=== PATIENT | male | born 1950 | race Caucasian/White ===

== ENCOUNTER 2016-12-03 13:46 | Inpatient (IN) | payer OTHER ==
[~2016-12-03] VITALS: Ht 180.3 cm; Wt 93.2 kg
[~2016-12-03 13:46] MED LIST: ASPCH81X PO; ATOR-54 PO; CYAN100020 PO; LISI10TA PO; METF-384 PO; TAMS0.4C38 PO
[2016-12-03] MEDS ORDERED: DILTIAZEM BOLUS / DRIP IV STA ×2 (14:07→17:18)
[2016-12-03] MEDS ORDERED: SODIUM CHLORIDE 0.9% 1000ML 500 ML IV STA (14:07)
[2016-12-03] MEDS ORDERED: SODIUM CHLORIDE 0.9% 1000ML 1,000 ML IV STA (14:07)
[2016-12-03] MEDS ORDERED: DILTIAZEM HCL INJ 125 MG in DEXTROSE 5% 100ML IV PRN (14:15)
[2016-12-03] MEDS ORDERED: DILTIAZEM HCL 5 MG/ML 5 ML VIAL IV SCH ×2 (14:15→15:15)
[2016-12-03 14:18] LABS: HEMATOCRIT 48.6 % (42-52); MEAN CELL VOLUME 94.9 fL (80-100); MEAN CORPUSCULAR HEMOGLOBIN 33.4 pg (25-34); MEAN CORPUSCULAR HGB CONC 35.2 g/dl (32-36); MEAN PLATELET VOLUME 8.8 fL (7.4-10.4); PLATELET COUNT 228 K/uL (130-400); RED BLOOD COUNT 5.12 M/uL (4.7-6.1); WHITE BLOOD COUNT 12.28 K/uL (4.8-10.8)
[2016-12-03 14:27] LABS: PARTIAL THROMBOPLASTIN RATIO 1.1; PROTHROMBIN TIME (PATIENT) 10.7 SECONDS (9.0-12.0)
[2016-12-03 14:36] LABS: ALT/SGPT 25 U/L (12-78); BLOOD UREA NITROGEN 10 mg/dl (7-18); BUN/CREATININE RATIO 12.6 (10-20); CALCIUM 9.1 mg/dl (8.5-10.1); CARBON DIOXIDE 28 mmol/L (21-32); CHLORIDE 105 mmol/L (98-107); CREATININE 0.76 mg/dl (0.60-1.40); GLUCOSE 114 mg/dl (70-99); MAGNESIUM 1.7 mg/dl (1.8-2.4); POTASSIUM 3.9 mmol/L (3.5-5.1); SODIUM 137 mmol/L (136-145)
[2016-12-03 14:47] LABS: ALB/GLOB RATIO 0.9 (0.9-2); ALKALINE PHOSPHATASE 122 U/L (45-117); AST/SGOT 17 U/L (15-37); THYROID STIMULATING HORMONE 0.869 uIu/ml (0.300-4.500)
--- NOTE | 2016-12-03 14:48 | DIAGNOSTIC IMAGING REPORT ---
CHEST ONE VIEW PORTABLE CLINICAL HISTORY: Atypical chest pain. Abnormal EKG. COMPARISON STUDY: 06/02/2015 FINDINGS: The heart is the upper limits of normal in size. There is radiographic evidence of emphysema. There is no focal pulmonary consolidation. There is no failure. There are no pleural effusions. There is minor left basilar atelectasis/scarring. There are a few scattered postinflammatory calcifications within the right upper lung zone.[ IMPRESSION: No active disease in the chest. Electronically signed by: Fredi Carney M.D. 12/03/2016 2:47 PM Dictated Date/Time: 12/03/2016 2:46 PM
[2016-12-03] MEDS ORDERED: IV FLUIDS COMPLETED PRN (15:30)
[2016-12-03] MEDS ORDERED: ACETAMINOPHEN 325 MG TAB PO PRN (15:30)
--- NOTE | 2016-12-03 15:33 | EMERGENCY ROOM VISIT NOTE ---
History Report prepared by Tad: Ebenezer Hutchison Under the Supervision of: Dr. Tam Navarrete M.D. First contact with patient: 14:00 Chief Complaint: OTHER COMPLAINT Stated Complaint: SENT BY DR LEWIS - ABNORMAL EKG History of Present Illness The patient is a 66 year old male who presents to the Emergency Room for evaluation of an abnormal ECG occurring just prior to arrival. The patient is reported to have been in atrial fibrillation versus atrial flutter. He was seen by his tool clerk and had the ECG done. He is followed by his tool clerk for COPD. The patient states that he has no symptoms and denies any SOB, lightheadedness, chest pain, or palpitations. He denies any heavy alcohol use. He is on aspirin, but denies using any other blood thinners. The patient in on Lisinopril for HTN. Source of History: patient Onset: Just prior to arrival Quality: other (abnormal ECG) Timing: other (episode) Associated Symptoms: No chest pain, No SOB Note: The patient denies any lightheadedness, or palliations. Review of Systems See HPI for pertinent positives & negatives. A total of 10 systems reviewed and were otherwise negative. Past Medical & Surgical Medical Problems: (1) COPD (chronic obstructive pulmonary disease) (2) DM type 2 (diabetes mellitus, type 2) (3) Dyslipidemia (4) GERD (gastroesophageal reflux disease) (5) Hypertension (6) PAD (peripheral artery disease) (7) Peripheral neuropathy (8) Tobacco use disorder Surgical Problems: (1) S/p ORIF right ankle Family History Diabetes mellitus FATHER MOTHER FH: heart disease FATHER ([place] in 60's) Hypertension FATHER Social History Smoking Status: Current Every Day Smoker Drug Use: none Marital Status: Housing Status: lives with family Occupation Status: retired Current/Historical Medications Scheduled Aspirin (Aspirin Chewable), 81 MG PO QAM Atorvastatin Calcium (Lipitor), 80 MG PO DAILY Cholecalciferol (Vitamin D3), 1 TAB PO DAILY Cyanocobalamin (Vitamin B12), 1 TAB PO QAM Lisinopril (Prinivil), 10 MG PO QAM Metformin Hcl (Glucophage), 1,000 MG PO QAM Ocuvite Preservision (Ocuvite Preservision), 1 TAB PO DAILY Tamsulosin Hcl (Flomax), 0.4 MG PO QPM Allergies Coded Allergies: NO KNOWN DRUG ALLERGIES (Verified Allergy, Unknown, ., 02/09/16) Levofloxacin (Unverified Adverse Reaction, Intermediate, JOINT STIFFNESS, 12/03/16) Physical Exam Vital Signs Date Time Temp Pulse Resp B/P (MAP) Pulse Ox O2 Delivery O2 Flow Rate FiO2 12/03/16 15:17 98 20 122/82 95 Room Air 12/03/16 14:11 96 Room Air 12/03/16 14:09 135 12/03/16 13:53 36.8 141 20 139/97 92 Room Air Physical Exam GENERAL: Patient is in no acute distress. HEENT: No acute trauma, normocephalic atraumatic, mucous membranes moist, no nasal congestion, no scleral icterus. NECK: No stridor, no adenopathy, no meningismus, trachea is midline. LUNGS: Clear to auscultation bilaterally, no wheeze, no rhonchi, breath sounds equal. HEART: Tachycardic with a regular rhythm. No murmurs. ABDOMEN: Soft, nontender, bowel sounds positive, no hernias, no peritonitis. EXTREMITIES: No cyanosis or edema, full range of motion of all the joints without pain or difficulty, no signs for acute trauma. NEUROLOGIC: Oriented x 3, no acute motor or sensory deficits, no focal weakness. SKIN: No rash, no jaundice, no diaphoresis. Medical Decision & Procedures ER Provider Diagnostic Interpretation: X-ray results as stated below per interpretation by me and the radiologist: CHEST ONE VIEW PORTABLE FINDINGS: The heart is the upper limits of normal in size. There is radiographic evidence of emphysema. There is no focal pulmonary consolidation. There is no failure. There are no pleural effusions. There is minor left basilar atelectasis/scarring. There are a few scattered postinflammatory calcifications within the right upper lung zone.[ IMPRESSION: No active disease in the chest. Electronically signed by: Fredi Carney M.D. 12/03/2016 2:47 PM Laboratory Results 12/03/16 14:05 12/03/16 14:05 Test 12/03/16 14:05 Red Blood Count 5.12 M/uL (4.7-6.1) Mean Corpuscular Volume 94.9 fL (80-100) Mean Corpuscular Hemoglobin 33.4 pg (25-34) Mean Corpuscular Hemoglobin Concent 35.2 g/dl (32-36) RDW Standard Deviation 54.0 fL (36.4-46.3) RDW Coefficient of Variation 15.4 % (11.5-14.5) Mean Platelet Volume 8.8 fL (7.4-10.4) Prothrombin Time 10.7 SECONDS (9.0-12.0) Prothromb Time International Ratio 1.0 (0.9-1.1) Activated Partial Thromboplast Time 29.0 SECONDS (21.0-31.0) Partial Thromboplastin Ratio 1.1 Anion Gap 4.0 mmol/L (3-11) Est Creatinine Clear Calc Drug Dose 113.0 ml/min Estimated GFR () 111.0 Estimated GFR (Non- 95.7 BUN/Creatinine Ratio 12.6 (10-20) Calcium Level 9.1 mg/dl (8.5-10.1) Magnesium Level 1.7 mg/dl (1.8-2.4) Total Bilirubin 0.6 mg/dl (0.2-1) Aspartate Amino Transf (AST/SGOT) 17 U/L (15-37) Alanine Aminotransferase (ALT/SGPT) 25 U/L (12-78) Alkaline Phosphatase 122 U/L (45-117) Troponin I < 0.015 ng/ml (0-0.045) Total Protein 8.0 gm/dl (6.4-8.2) Albumin 3.7 gm/dl (3.4-5.0) Globulin 4.3 gm/dl (2.5-4.0) Albumin/Globulin Ratio 0.9 (0.9-2) Thyroid Stimulating Hormone (TSH) 0.869 uIu/ml (0.300-4.500) Laboratory results reviewed by me. Medications Administered Medications (Trade) Dose Ordered Sig/Piotr Route Start Time Stop Time Status Last Admin Dose Admin Sodium Chloride 500 ml @ 999 mls/hr Q31M STAT IV 12/03/16 14:07 12/03/16 14:37 DC 12/03/16 14:23 999 MLS/HR Sodium Chloride 1,000 ml @ 125 mls/hr Q8H STAT IV 12/03/16 14:07 12/03/16 16:43 DC 12/03/16 14:23 125 MLS/HR Diltiazem HCl 125 mg/Dextrose 125 ml @ 0 mls/hr Q0M PRN IV 12/03/16 14:15 12/03/16 23:00 12/03/16 14:22 5 MLS/HR Diltiazem HCl (Cardizem Inj) 20 mg 1415 IV 12/03/16 14:15 12/03/16 15:00 DC 12/03/16 14:21 20 MG ECG Indication: other (abnormal ECG) Rate (beats per minute): 131 Rhythm: atrial flutter (with 2 to 1 conduction) Findings: no ectopy, other (non-specific ST change) ED Course 1404: The patient was evaluated in room C4B. A complete history and physical exam was performed. 1407: Ordered Sodium Chloride 1000 ml @ 125 mls/hr IV, Sodium Chloride 500 ml @ 999 mls/hr IV, Cardizem Bolus/Drip IV. 1505: Upon reexamination the patient is resting comfortably. I discussed results and treatment plan with the patient. He verbalizes agreement and understanding. The patient will be evaluated for further management. Medical Decision The patient is a 66 year old male who presents to the ED for evaluation of an abnormal ECG. Differential diagnoses considered include a-fib, a-flutter, dehydration, electrolyte imbalance, CA, anemia, and thyroid disorder. There is a mild leukocytosis with a white count of 12,000, this could be consistent with infection or just the stress of the situation. No concerning anemia. Renal panel testing does not show renal failure. Magnesium was noted to be slightly low. No hepatitis or coagulopathy. The patient appeared to be in a euthyroid state. Chest film did not show pneumonia or CHF. There was no pneumothorax. EKG showed a rapid atrial flutter, no acute ischemia. Cardiac enzyme testing times one is not consistent with acute cardiac injury. The patient was aggressively managed given the rapid heart rate. He was given an IV saline bolus. He received IV diltiazem as a bolus and then was placed on an IV diltiazem drip. The patient has made significant improvement on the diltiazem. His heart rate is now in the 80s or 90s. He is still in atrial flutter though as per the engine monitor. The patient requires admission/observation. The length of time he has been in this rhythm is unclear. I did speak to the patient and case management. The on -call hospitalist was consulted. Medication Reconcilliation Current Medication List: was personally reviewed by me Blood Pressure Screening Patient's blood pressure: Elevated blood pressure Blood pressure disposition: Elevated BP felt to be situational Consults Time Called: 1502 Consulting Physician: Dr. Madi Chaudhry Returned Call: 1507 Discussed the patient's case. The patient will be evaluated for further management. Impression Primary Impression: Atrial flutter with rapid ventricular response Critical Care I have personally spent greater than 30 minutes of critical care time in the direct management of this patient. This includes bedside care, interpretation of diagnostic studies and testing, discussion with consultants, the patient, and family members, and other required patient management activities. This 30 minutes is in excess of all separately billable procedures. Scribe Attestation The scribe's documentation has been prepared under my direction and personally reviewed by me in its entirety. I confirm that the note above accurately reflects all work, treatment, procedures, and medical decision making performed by me. Departure Information Dispostion Being Evaluated By Hospitalist Referrals Maryann Gordon D.O. (PCP) Patient Instructions My [facility]
[2016-12-03] MEDS ORDERED: GLUCOSE 40% GEL 15 GM TUBE PO PRN (16:00)
[2016-12-03] MEDS ORDERED: DEXTROSE 50% 50 ML SYR IV PRN (16:00)
[2016-12-03] MEDS ORDERED: GLUCOSE 10 TABS/TUBE PO PRN (16:00)
[2016-12-03] MEDS ORDERED: GLUCAGON FOR INJ 1 MG VIAL SQ PRN (16:00)
[2016-12-03] MEDS ORDERED: ATOR80TA PO (16:03)
[2016-12-03] MEDS ORDERED: CHOL1TAB12 PO (16:03)
--- NOTE | 2016-12-03 16:45 | History and Physical ---
History & Physical Date & Time of Service: Dec 03, 2016 at 16:16 Chief Complaint: Sent By Dr Bowden - Abnormal Ekg Primary Care Physician: Maryann Gordon D.O. History of Present Illness Source: patient, family This is a 66yo male with a PMH of multifocal atrial tachycardia, HTN, DM II, COPD and other problems listed below who presents directly from pulmonology clinic with an abnormal EKG. Patient was in normal state of health this morning when attending a follow-up pulmonology appt and was found to be tachycardic. An EKG was performed and patient was found to be in atrial flutter vs. A fib and sent to the ER for further evaluation. Patient's admission EKG showed atrial flutter with 2:1 AV conduction at a rate of 141. States that for the past few days he has felt more tired than usual but otherwise felt fine. Denies any current fatigue, lightheadedness, dizziness, chest pain, palpitations , SOB. Follows with Dr. Gordon in clinic for cardiology and states that he has had bouts of tachycardia in the past but has not been told of a definitive diagnosis. Per chart review, wore a Holter monitor for 24hrs in Feb 2016 that demonstrated frequent 2-6 beat runs of atrial tachycardia. Did not take morning medications prior to arrival. Past Medical/Surgical History Medical Problems: (1) COPD (chronic obstructive pulmonary disease) Status: Chronic (2) DM type 2 (diabetes mellitus, type 2) Status: Chronic (3) Dyslipidemia Status: Chronic (4) GERD (gastroesophageal reflux disease) Status: Chronic (5) Hypertension Status: Chronic (6) PAD (peripheral artery disease) Permanent Comment: with chronic left SFA occlusion Status: Chronic (7) Peripheral neuropathy Status: Chronic Surgical Problems: (1) S/p ORIF right ankle Status: Chronic Family History Diabetes mellitus FATHER MOTHER FH: heart disease FATHER ([place] in 60's) Hypertension FATHER Social History Smoking Status: Current Every Day Smoker (Currently smokes 1 ppd. 47 pack years. ) Alcohol Use: occasionally (Endorses 1 beer/week. ) Drug Use: none Marital Status: Housing status: lives with family Occupational Status: retired Immunizations History of Tetanus Vaccine?: Yes Tetanus Immunization Date: Sep 25, 2013 Allergies Coded Allergies: NO KNOWN DRUG ALLERGIES (Verified Allergy, Unknown, ., 02/09/16) Levofloxacin (Unverified Adverse Reaction, Intermediate, JOINT STIFFNESS, 12/03/16) Home Medications Scheduled Aspirin (Aspirin Chewable), 81 MG PO QAM Atorvastatin Calcium (Lipitor), 80 MG PO DAILY Cholecalciferol (Vitamin D3), 1 TAB PO DAILY Cyanocobalamin (Vitamin B12), 1 TAB PO QAM Lisinopril (Prinivil), 10 MG PO QAM Metformin Hcl (Glucophage), 1,000 MG PO QAM Ocuvite Preservision (Ocuvite Preservision), 1 TAB PO DAILY Tamsulosin Hcl (Flomax), 0.4 MG PO QPM Review of Systems Ten systems reviewed and negative except as noted in the HPI. Physical Exam Vital Signs Date Time Temp Pulse Resp B/P (MAP) Pulse Ox O2 Delivery O2 Flow Rate FiO2 12/03/16 16:07 92 18 118/83 96 Room Air 12/03/16 15:17 98 20 122/82 95 Room Air 12/03/16 14:11 96 Room Air 12/03/16 14:09 135 12/03/16 13:53 36.8 141 20 139/97 92 Room Air General Appearance: WD/WN, no apparent distress Head: normocephalic, atraumatic Eyes: normal inspection, PERRL, sclerae normal ENT: hearing grossly normal Neck: supple, no adenopathy, thyroid normal, no JVD, trachea midline Respiratory/Chest: chest non-tender, lungs clear, normal breath sounds, no respiratory distress, no accessory muscle use Cardiovascular: + tachycardia Abdomen/GI: normal bowel sounds, non tender, soft, no organomegaly Back: normal inspection Extremities/Musculoskelatal: normal inspection, no calf tenderness, normal capillary refill, no pedal edema Neurologic/Psych: alert, normal mood/affect, oriented x 3 Skin: normal color, warm/dry, no rash Diagnostics Laboratory Results Results Past 24 Hours Test 12/03/16 14:05 Range/Units White Blood Count 12.28 4.8-10.8 K/uL Red Blood Count 5.12 4.7-6.1 M/uL Hemoglobin 17.1 14.0-18.0 g/dL Hematocrit 48.6 42-52 % Mean Corpuscular Volume 94.9 80-100 fL Mean Corpuscular Hemoglobin 33.4 25-34 pg Mean Corpuscular Hemoglobin Concent 35.2 32-36 g/dl RDW Standard Deviation 54.0 36.4-46.3 fL RDW Coefficient of Variation 15.4 11.5-14.5 % Platelet Count 228 130-400 K/uL Mean Platelet Volume 8.8 7.4-10.4 fL Prothrombin Time 10.7 9.0-12.0 SECONDS Prothromb Time International Ratio 1.0 0.9-1.1 Activated Partial Thromboplast Time 29.0 21.0-31.0 SECONDS Partial Thromboplastin Ratio 1.1 Sodium Level 137 136-145 mmol/L Potassium Level 3.9 3.5-5.1 mmol/L Chloride Level 105 98-107 mmol/L Carbon Dioxide Level 28 21-32 mmol/L Anion Gap 4.0 3-11 mmol/L Blood Urea Nitrogen 10 7-18 mg/dl Creatinine 0.76 0.60-1.40 mg/dl Est Creatinine Clear Calc Drug Dose 113.0 ml/min Estimated GFR () 111.0 Estimated GFR (Non- 95.7 BUN/Creatinine Ratio 12.6 10-20 Random Glucose 114 70-99 mg/dl Calcium Level 9.1 8.5-10.1 mg/dl Magnesium Level 1.7 1.8-2.4 mg/dl Total Bilirubin 0.6 0.2-1 mg/dl Aspartate Amino Transf (AST/SGOT) 17 15-37 U/L Alanine Aminotransferase (ALT/SGPT) 25 12-78 U/L Alkaline Phosphatase 122 45-117 U/L Troponin I < 0.015 0-0.045 ng/ml Total Protein 8.0 6.4-8.2 gm/dl Albumin 3.7 3.4-5.0 gm/dl Globulin 4.3 2.5-4.0 gm/dl Albumin/Globulin Ratio 0.9 0.9-2 Thyroid Stimulating Hormone (TSH) 0.869 0.300-4.500 uIu/ml CXR normal EKG Atrial flutter with 2:1 A-V conduction Right bundle branch block Left anterior fascicular block Bifascicular block Impression Assessment and Plan This is a 66yo male with a PMH of multifocal atrial tachycardia, HTN, DM II, COPD and other problems listed below who presents directly from pulmonology clinic with an abnormal EKG. Atrial flutter tachycardia: -Asymptomatic. Denies CP, palpitations -Admission EKG with atrial flutter with 2:1 conduction at a rate of 141 Also with bifascicular block that was not present on previous EKG -Diltiazem bolus given and drip started in ER. Rate now ~98 -Continue diltiazem drip on the floor for now -Plan to switch to oral agent when appropriate -Consulted cardio for further recs -Monitor on tele DM II: -Hgb a1c of 6.1 in 08/04 -Held home meds -SSI while in-patient -BG checks AC HS HTN: -Normotensive -Continue home dose of Lisinopril HLD: -Continue home dose statin COPD: -Recently started seeing Dr. Bowden -Extensive history of tobacco use (47 pack years) -Has trialed some inhalers but is currently not on any -Dr Bowden to reassess once tachycardia is addressed PAD: -L >R with chronic left SFA occlusion -Followed by [facility] out-patient DVT Ppx: Lovenox Code status: DNR as per discussion with patient and his PCP: [facility] Dispo: Plan to return home once medically stable Level of Care Telemetry Advanced Directives Existing Living Will: No Resuscitation Status DO NOT RESUSCITATE VTE Prophylaxis VTE Risk Assessment Done? Y/N: Yes Risk Level: Moderate Given or contraindicated: Enoxaparin (Lovenox)SQ Social Service Consult None Apply Note ATTENDING ADDENDUM Record reviewed. Patient interviewed and examined in his room. Care coordinated with Lynnette Escalera PA-C. Please refer to her documentation for patient's history. Briefly, 66 YO male with hypertension, COPD, DM, and other problems. Seen in Pulmonary Clinic today and found to have arrhythmia. Referred to ED. Found to be in atrial flutter with rapid ventricular response. History of MAT. Holter in Feb 2016 showed NSR with short runs of PAT. No chest pain, SOB, palpitations. EXAM: General- no distress VS- as noted Neck- slight JVD Lungs- clear to auscultation Heart- irregular, no murmur or gallop appreciated Abdomen- + BS, soft, nontender Extremities- no pretibial edema or calf tenderness Neuro- alert, oriented DATA: K 3.9 Mg 1.7 TSH 0.869 Other lab studies as noted. EKG performed at 13:57 reviewed and demonstrated atrial flutter with 2:1 conduction, ventricular rate at 140 / minute, RBBB, left anterior fascicular block, NSSTTWA's.. . ASSESSMENT AND PLAN: ATRIAL FLUTTER Asymptomatic, time of onset unknown but new since February 2016. Started on diltiazem infusion in ED with slowing of ventricular rate. CHADS2-VASc score = 3. Initial anticoagulation with enoxaparin. Longer term anticoagulation will depend on cost and patient's preference. Consult Cardiology. HYPOMAGNESEMIA Mg 1.7 in ED. Received IV Mg. Continue replacement orally. Follow. Please refer to MAGDI Escalera's documentation for discussion of other issues. Meliton Barraza MD
[2016-12-03] MEDS ORDERED: MULT-190 PO (16:47)
[2016-12-03] MEDS ORDERED: ATORVASTATIN 40 MG TAB PO SCH (17:00)
[2016-12-03] MEDS ORDERED: ASPIRIN 81 MG CHEW PO SCH (17:00)
[2016-12-03] MEDS ORDERED: LISINOPRIL 10 MG TAB PO SCH (17:00)
[2016-12-03] MEDS: MAGNESIUM SULFATE 1GM / D5W 1 GM in PREMIXED IN D5W 100 ML IV SCH ×2 (17:21→18:38)
[2016-12-03 17:27] VITALS: BP 125/86; PULSE 84; TEMP 36.7; O2SAT 95; Ht 180.3 cm; Wt 93.2 kg
[2016-12-03] MEDS: INSULIN ASPART 100 UNITS/ML 3 ML PEN SC SCH ×2 (17:27→20:19)
[2016-12-03 19:44] VITALS: BP 108/71; PULSE 88; TEMP 36.9; O2SAT 94
[2016-12-03] MEDS: TAMSULOSIN HCL 0.4 MG CAP PO SCH (20:17)
[2016-12-03] MEDS ORDERED: ENOXAPARIN 40 MG/0.4 ML SYR SC SCH (21:00)
[2016-12-03 23:18] VITALS: BP 98/63; PULSE 77; TEMP 37; O2SAT 95
[2016-12-04] VITALS (10 sets, daily range): BP systolic 88–104; BP diastolic 57–71; PULSE 61–82; TEMP 36.5–37.1; O2SAT 94–96
[2016-12-04] MEDS: DILTIAZEM HCL INJ 125 MG in DEXTROSE 5% 100ML IV PRN ×2 (01:16→14:59)
[2016-12-04 06:00] LABS: MEAN CELL VOLUME 97.4 fL (80-100); MEAN CORPUSCULAR HGB CONC 31.8 g/dl (32-36); MEAN PLATELET VOLUME 8.9 fL (7.4-10.4); PLATELET COUNT 209 K/uL (130-400); RED BLOOD COUNT 4.62 M/uL (4.7-6.1); WHITE BLOOD COUNT 10.01 K/uL (4.8-10.8)
[2016-12-04 06:27] LABS: BUN/CREATININE RATIO 13.4 (10-20); CREATININE 0.73 mg/dl (0.60-1.40); MAGNESIUM 1.9 mg/dl (1.8-2.4); POTASSIUM 4.3 mmol/L (3.5-5.1)
[2016-12-04 07:15] LABS: ESTIMATED AVERAGE GLUCOSE 134 mg/dl; HA1C FLAG Normal (Normal)
[2016-12-04] MEDS: MAGNESIUM OXIDE 400 MG TAB PO SCH ×2 (08:38→21:09)
[2016-12-04] MEDS: LISINOPRIL 10 MG TAB PO SCH (08:39)
[2016-12-04] MEDS: CEROVITE ADV FORMULA TAB PO SCH (08:39)
[2016-12-04] MEDS: ATORVASTATIN 40 MG TAB PO SCH (08:39)
[2016-12-04] MEDS: CHOLECALCIFEROL 1000 INTER.UNIT TAB PO SCH (08:39)
[2016-12-04] MEDS: CYANOCOBALAMIN 500 MCG TAB (VIT B-12) PO SCH (08:39)
[2016-12-04] MEDS: ASPIRIN 81 MG CHEW PO SCH (08:39)
[2016-12-04] MEDS: INSULIN GLARGINE SOLOSTAR 100 UNITS/ML 3 ML PEN SC SCH ×2 (08:41→21:00)
[2016-12-04] MEDS: INSULIN ASPART 100 UNITS/ML 3 ML PEN SC SCH ×4 (08:41→21:00)
[2016-12-04] MEDS: ENOXAPARIN 100 MG/1ML SYR SQ SCH ×2 (08:48→21:10)
--- NOTE | 2016-12-04 11:35 | CARDIOLOGY CONSULTATION ---
DATE OF CONSULTATION: 12/04/2016 DATE OF CONSULTATION: 12/04/2016 This is a consultation for the hospitalist service. REASON FOR CONSULTATION: Atrial flutter. HISTORY OF PRESENT ILLNESS: The patient is a 66-year-old male with a history of active cigarette smoking who was being evaluated by the pulmonary service for COPD. He had a follow-up visit on the day of admission and was noted to be in tachycardia. EKG indicated atrial flutter with RVR and he was referred to the hospital for admission. The patient was very surprised that he had any problems. He was feeling well. He denies dizziness, progressive shortness of breath, chest pain or orthopnea. After admission, he was placed on a diltiazem infusion and his heart rates have been controlled. He has no current complaints. The patient is usually followed by Dr. Alejandro Gordon who in his most recent note from May of this year indicated the patient had a Holter monitor which indicated asymptomatic short runs of PAT. No definite diagnosis of atrial fibrillation or flutter. It should also be noted that the patient was complaining of some flushing. He had a 24-hour urine showed a very borderline elevation in norepinephrine with the remainder catecholamines being normal. I am uncertain as to the significance of these findings. The patient is a type 2 diabetic with a history of peripheral vascular disease with chronic left SFA occlusion and some mild carotid artery disease. He has no previous history of myocardial infarction or coronary artery disease. ALLERGIES: TO LEVAQUIN. PAST MEDICAL HISTORY: As outlined in the history of chief complaint. In addition, the patient had abnormal nocturnal oximeter sleep study in 2012, which I believe he did not follow through with any treatment. SOCIAL HISTORY: The patient currently smokes a pack of cigarettes daily for the past 47 years. He is and lives with his family. FAMILY MEDICAL HISTORY: Significant for diabetes. REVIEW OF SYSTEMS: A 10-point review of systems is negative except for the history of chief complaint. PHYSICAL EXAMINATION: GENERAL: He is alert and oriented, sitting comfortably. VITAL SIGNS: Blood pressure is 118/83, pulse is regular at 92. He is afebrile. HEAD, EYES, EARS, NOSE, AND THROAT: Normocephalic. Pupils are equal and reactive to light. Extraocular muscles are intact bilaterally. NECK: The neck veins are flat. Carotids have good upstrokes bilaterally without bruits. Thyroid is nonpalpable. RESPIRATORY: Breath sounds equal bilaterally and clear to auscultation. CARDIOVASCULAR: Heart has an irregular rhythm. There are no cardiac rubs or murmurs. GASTROINTESTINAL: Abdomen is soft, nontender without organomegaly. EXTREMITIES: Free of edema, digit clubbing, or cyanosis. NEUROLOGIC: Grossly intact. SKIN: Warm to touch. LYMPH NODES: Negative to palpation. LABORATORY DATA: Hemoglobin is 17.1. WBC count is 12.3, potassium is 3.9, creatinine is 0.76. TSH is 0.869. IMPRESSIONS: 1. Atrial flutter. 2. 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 3. Diabetes mellitus. 4. Hypertension. 5. Peripheral vascular disease. RECOMMENDATIONS: The patient is currently anticoagulated with Lovenox. He is very comfortable and his heart rates are controlled with the diltiazem infusion. I will review the echocardiogram when it is completed. Decision will be made regarding early cardioversion versus anticoagulation with followup. I would favor early cardioversion with the patient on oral diltiazem and only start antiarrhythmics if he has reoccurrence of his atrial arrhythmias.
--- NOTE | 2016-12-04 14:30 | Progress Note ---
Medicine Progress Note Date & Time of Visit: Dec 04, 2016 at 14:17. Subjective Pt was seen and examined Lying in bed comfortable with no distress Pt said that he feels fine He denies any chest pain, palpitation, dizziness and SOB Objective Last 8 Hrs Date Time Temp Pulse Resp B/P (MAP) Pulse Ox O2 Delivery O2 Flow Rate FiO2 12/04/16 12:00 Room Air 12/04/16 10:59 37.1 82 18 88/57 (67) 95 Room Air 12/04/16 08:40 65 93/63 (73) 12/04/16 08:00 Room Air 12/04/16 07:58 36.9 68 19 89/57 (68) 94 Room Air Physical Exam: General- No acute distress Head- atraumatic Eyes- PERRL, EOMI ENT- oropharynx clear Neck- supple, no JVD Lungs- No wheezing Heart- irregular rhythm; no murmur Abdomen- normal bowel sounds, soft Extremities- no pretibial edema, no calf tenderness Neuro- alert, oriented x 3; PERRL, EOMI; no facial palsy; Skin- warm & dry Laboratory Results: Last 24 Hours Test 12/03/16 16:34 12/03/16 20:15 12/04/16 05:38 12/04/16 06:36 Bedside Glucose 96 mg/dl 202 mg/dl 129 mg/dl White Blood Count 10.01 K/uL Red Blood Count 4.62 M/uL Hemoglobin 14.3 g/dL Hematocrit 45.0 % Mean Corpuscular Volume 97.4 fL Mean Corpuscular Hemoglobin 31.0 pg Mean Corpuscular Hemoglobin Concent 31.8 g/dl RDW Standard Deviation 55.6 fL RDW Coefficient of Variation 15.6 % Platelet Count 209 K/uL Mean Platelet Volume 8.9 fL Sodium Level 139 mmol/L Potassium Level 4.3 mmol/L Chloride Level 106 mmol/L Carbon Dioxide Level 29 mmol/L Anion Gap 4.0 mmol/L Blood Urea Nitrogen 10 mg/dl Creatinine 0.73 mg/dl Est Creatinine Clear Calc Drug Dose 117.9 ml/min Estimated GFR () 112.8 Estimated GFR (Non- 97.3 BUN/Creatinine Ratio 13.4 Random Glucose 127 mg/dl Estimated Average Glucose 134 mg/dl Hemoglobin A1c 6.3 % Calcium Level 8.0 mg/dl Magnesium Level 1.9 mg/dl Test 12/04/16 10:41 Bedside Glucose 166 mg/dl Assessment & Plan Atrial flutter tachycardia: -Asymptomatic. 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 ACHS SC 12/03/16 16:00 01/02/17 15:59 12/04/16 12:14 5 UNITS Glucose (Glucose 40% Gel) 15-30 GRAMS 15 GRAMS... UD PRN PO 12/03/16 16:00 01/02/17 15:59 Glucose (Glucose Chew Tab) 4-8 Tablets 4 Tabl... UD PRN PO 12/03/16 16:00 01/02/17 15:59 Dextrose (Dextrose 50% 50ML Syringe) 25-50ML OF 50% DW IV FOR... UD PRN IV 12/03/16 16:00 01/02/17 15:59 Glucagon (Glucagon Inj) 1 mg UD PRN SQ 12/03/16 16:00 01/02/17 15:59 Aspirin (Aspirin Chew) 81 mg QAM PO 12/04/16 09:00 01/03/17 08:59 12/04/16 08:39 81 MG Atorvastatin Calcium (Lipitor Tab) 80 mg DAILY PO 12/04/16 09:00 01/03/17 08:59 12/04/16 08:39 80 MG Lisinopril (Zestril Tab) 10 mg QAM PO 12/04/16 09:00 01/03/17 08:59 12/04/16 08:39 10 MG Tamsulosin HCl (Flomax Cap) 0.4 mg QPM PO 12/03/16 21:00 01/02/17 20:59 12/03/16 20:17 0.4 MG Cholecalciferol (Vitamin D Tab) 3,000 inter.unit DAILY PO 12/04/16 09:00 01/03/17 08:59 12/04/16 08:39 3,000 INTER.UNIT Cyanocobalamin (Vitamin B-12 Tab) 1,000 mcg QAM PO 12/04/16 09:00 01/03/17 08:59 12/04/16 08:39 1,000 MCG Multivitamins/ Minerals (Multivitamin W/ Minerals Tab) 1 tab DAILY PO 12/04/16 09:00 01/03/17 08:59 12/04/16 08:39 1 TAB Diltiazem HCl 125 mg/Dextrose 125 ml @ 0 mls/hr Q0M PRN IV 12/03/16 23:00 01/02/17 22:59 12/04/16 01:16 10 MLS/HR Enoxaparin Sodium (Lovenox Inj) 90 mg Q12H SQ 12/04/16 09:00 01/03/17 08:59 12/04/16 08:48 90 MG Magnesium Oxide (Mag-Ox Tab) 400 mg BID PO 12/04/16 09:00 01/03/17 08:59 12/04/16 08:38 400 MG Insulin Glargine (Lantus Solostar Pen) 10 units BID SC 12/04/16 09:00 01/03/17 08:59 12/04/16 08:41 10 UNITS
[2016-12-04] MEDS: TAMSULOSIN HCL 0.4 MG CAP PO SCH (21:09)
[2016-12-05] VITALS (7 sets, daily range): BP systolic 85–115; BP diastolic 58–76; PULSE 61–113; TEMP 36.6–36.7; O2SAT 94–97
[2016-12-05 06:04] LABS: HEMATOCRIT 45.9 % (42-52); MEAN CELL VOLUME 97.7 fL (80-100); MEAN CORPUSCULAR HEMOGLOBIN 31.5 pg (25-34); MEAN CORPUSCULAR HGB CONC 32.2 g/dl (32-36); MEAN PLATELET VOLUME 9.3 fL (7.4-10.4); PLATELET COUNT 205 K/uL (130-400); WHITE BLOOD COUNT 9.85 K/uL (4.8-10.8)
[2016-12-05 06:39] LABS: BUN/CREATININE RATIO 16.6 (10-20); CALCIUM 8.8 mg/dl (8.5-10.1); CREATININE 0.74 mg/dl (0.60-1.40); POTASSIUM 4.4 mmol/L (3.5-5.1)
[2016-12-05] MEDS: CEROVITE ADV FORMULA TAB PO SCH (08:40)
[2016-12-05] MEDS: CYANOCOBALAMIN 500 MCG TAB (VIT B-12) PO SCH (08:41)
[2016-12-05] MEDS: ATORVASTATIN 40 MG TAB PO SCH (08:41)
[2016-12-05] MEDS: CHOLECALCIFEROL 1000 INTER.UNIT TAB PO SCH (08:41)
[2016-12-05] MEDS: MAGNESIUM OXIDE 400 MG TAB PO SCH ×2 (08:41→21:05)
[2016-12-05] MEDS: LISINOPRIL 10 MG TAB PO SCH (08:41)
[2016-12-05] MEDS: INSULIN ASPART 100 UNITS/ML 3 ML PEN SC SCH ×3 (08:43→17:16)
[2016-12-05] MEDS: INSULIN GLARGINE SOLOSTAR 100 UNITS/ML 3 ML PEN SC SCH (08:43)
[2016-12-05] MEDS: ASPIRIN 81 MG CHEW PO SCH (09:23)
[2016-12-05] MEDS: ENOXAPARIN 100 MG/1ML SYR SQ SCH ×2 (09:23→21:05)
--- NOTE | 2016-12-05 11:30 | PROGRESS NOTE ---
DATE: 12/05/2016 FOLLOWUP VISIT SUBJECTIVE: This is a 66-year-old male with a history of active cigarette smoking, who was being evaluated by the pulmonary service as an outpatient for COPD. He presented to followup visit with atrial flutter and RVR and was referred to the hospital. After admission to the hospital, the patient was started on diltiazem and anticoagulated with full dose Lovenox. Interestingly, he has been completely asymptomatic in regard to his arrhythmias. He will tell you that 2 days prior to admission, he was picking trees up in his yard and pulling them out. He remains asymptomatic while in the hospital. He has an echocardiogram scheduled that has not been completed yet, but will be reviewed. His admission labs are unremarkable with negative cardiac troponins and a TSH level of 0.869. At this point, I think we should consider completing a cardioversion. I discussed with the patient the option of immediate cardioversion guided by GRIS or starting anticoagulation and returning on an elective basis several weeks from now. He is willing to proceed with a GRIS cardioversion. I will have the social service check to see if the newer anticoagulants would be paid for by his insurance. Otherwise, we will have to start him on warfarin. He understands the risks, benefits and intent of anticoagulation as well as the GRIS and cardioversion. OBJECTIVE: GENERAL: He is alert and oriented, in no acute distress. VITAL SIGNS: Blood pressure is 120/70. Pulse is irregular at 70 beats per minute. He is afebrile. HEENT: He is normocephalic. Pupils are equal and reactive to light. Extraocular muscles are intact bilaterally. NECK: The neck veins are flat. Carotids have good upstrokes bilaterally without bruits. Thyroid is nonpalpable. RESPIRATORY: Breath sounds equal bilaterally and clear to auscultation. CARDIOVASCULAR: Heart has a regular rhythm. Normal S1 and S2. No S3 or S4. No cardiac rubs or murmurs. GASTROINTESTINAL: Abdomen is soft and nontender without organomegaly. EXTREMITIES: Free of edema, digit clubbing, or cyanosis. NEUROLOGIC: Grossly intact. SKIN: Warm to touch. LYMPH NODES: Negative to palpation. LABORATORY DATA: Creatinine is 0.76, potassium is 3.9, and hemoglobin is 14.8. INR is 1.0. IMPRESSION: 1. Persistent atrial flutter. 2. 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 3. Diabetes mellitus. 4. Hypertension. 5. Peripheral vascular disease. RECOMMENDATIONS: As outlined above, the patient is willing to proceed with a transesophageal echocardiogram guided cardioversion. We will continue him on IV Cardizem until the cardioversion. At this time, I would not place him on antiarrhythmic medication unless we are not able to maintain sinus rhythm. Also, as mentioned above, we will have the social work determine if the patient's insurance will pay for the Xarelto or Eliquis. If not, he will have to be started on warfarin. He understands the risk, benefit and intent of anticoagulation as well as the GRIS cardioversion and is willing to proceed.
--- NOTE | 2016-12-05 14:12 | Progress Note ---
Medicine Progress Note Date & Time of Visit: Dec 05, 2016 at 14:04. Subjective Pt was seen and examined Lying in bed comfortable with at bedside Pt said that he feels fine denies any chest pain, palpitation, dizziness and sob Objective Last 8 Hrs Date Time Temp Pulse Resp B/P (MAP) Pulse Ox O2 Delivery O2 Flow Rate FiO2 12/05/16 12:00 113 12/05/16 12:00 Room Air 12/05/16 10:46 36.7 71 20 103/65 (78) 97 Room Air 12/05/16 08:00 Room Air 12/05/16 07:59 36.7 73 20 115/76 (89) 94 Room Air Physical Exam: General- No acute distress Head- atraumatic Eyes- PERRL, EOMI ENT- oropharynx clear Neck- supple, no JVD Lungs- No wheezing Heart- irregular rhythm; no murmur Abdomen- normal bowel sounds, soft Extremities- no pretibial edema, no calf tenderness Neuro- alert, oriented x 3; PERRL, EOMI; no facial palsy; Skin- warm & dry Laboratory Results: Last 24 Hours Test 12/04/16 16:31 12/04/16 20:57 12/05/16 05:47 12/05/16 06:34 Bedside Glucose 90 mg/dl 87 mg/dl 123 mg/dl White Blood Count 9.85 K/uL Red Blood Count 4.70 M/uL Hemoglobin 14.8 g/dL Hematocrit 45.9 % Mean Corpuscular Volume 97.7 fL Mean Corpuscular Hemoglobin 31.5 pg Mean Corpuscular Hemoglobin Concent 32.2 g/dl RDW Standard Deviation 55.8 fL RDW Coefficient of Variation 15.5 % Platelet Count 205 K/uL Mean Platelet Volume 9.3 fL Sodium Level 142 mmol/L Potassium Level 4.4 mmol/L Chloride Level 107 mmol/L Carbon Dioxide Level 31 mmol/L Anion Gap 4.0 mmol/L Blood Urea Nitrogen 12 mg/dl Creatinine 0.74 mg/dl Est Creatinine Clear Calc Drug Dose 115.9 ml/min Estimated GFR () 112.2 Estimated GFR (Non- 96.8 BUN/Creatinine Ratio 16.6 Random Glucose 136 mg/dl Calcium Level 8.8 mg/dl Magnesium Level 2.0 mg/dl Test 12/05/16 11:38 Bedside Glucose 147 mg/dl Assessment & Plan Atrial flutter tachycardia: -Asymptomatic. 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 ACHS SC 12/03/16 16:00 01/02/17 15:59 12/05/16 08:43 4 UNITS Glucose (Glucose 40% Gel) 15-30 GRAMS 15 GRAMS... UD PRN PO 12/03/16 16:00 01/02/17 15:59 Glucose (Glucose Chew Tab) 4-8 Tablets 4 Tabl... UD PRN PO 12/03/16 16:00 01/02/17 15:59 Dextrose (Dextrose 50% 50ML Syringe) 25-50ML OF 50% DW IV FOR... UD PRN IV 12/03/16 16:00 01/02/17 15:59 Glucagon (Glucagon Inj) 1 mg UD PRN SQ 12/03/16 16:00 01/02/17 15:59 Aspirin (Aspirin Chew) 81 mg QAM PO 12/04/16 09:00 01/03/17 08:59 12/05/16 09:23 81 MG Atorvastatin Calcium (Lipitor Tab) 80 mg DAILY PO 12/04/16 09:00 01/03/17 08:59 12/05/16 08:41 80 MG Lisinopril (Zestril Tab) 10 mg QAM PO 12/04/16 09:00 01/03/17 08:59 12/05/16 08:41 10 MG Tamsulosin HCl (Flomax Cap) 0.4 mg QPM PO 12/03/16 21:00 01/02/17 20:59 12/04/16 21:09 0.4 MG Cholecalciferol (Vitamin D Tab) 3,000 inter.unit DAILY PO 12/04/16 09:00 01/03/17 08:59 12/05/16 08:41 3,000 INTER.UNIT Cyanocobalamin (Vitamin B-12 Tab) 1,000 mcg QAM PO 12/04/16 09:00 01/03/17 08:59 12/05/16 08:41 1,000 MCG Multivitamins/ Minerals (Multivitamin W/ Minerals Tab) 1 tab DAILY PO 12/04/16 09:00 01/03/17 08:59 12/05/16 08:40 1 TAB Diltiazem HCl 125 mg/Dextrose 125 ml @ 0 mls/hr Q0M PRN IV 12/03/16 23:00 01/02/17 22:59 12/04/16 14:59 5 MLS/HR Enoxaparin Sodium (Lovenox Inj) 90 mg Q12H SQ 12/04/16 09:00 01/03/17 08:59 12/05/16 09:23 90 MG Magnesium Oxide (Mag-Ox Tab) 400 mg BID PO 12/04/16 09:00 01/03/17 08:59 12/05/16 08:41 400 MG Insulin Glargine (Lantus Solostar Pen) 10 units BID SC 12/04/16 09:00 01/03/17 08:59 12/05/16 08:43 10 UNITS
[2016-12-05] MEDS: DILTIAZEM HCL INJ 125 MG in DEXTROSE 5% 100ML IV PRN (14:38)
[2016-12-05] MEDS: TAMSULOSIN HCL 0.4 MG CAP PO SCH (21:05)
[2016-12-06] VITALS (15 sets, daily range): BP systolic 88–149; BP diastolic 55–80; PULSE 67–128; TEMP 36.4–36.7; O2SAT 89–99
[2016-12-06] MEDS: DILTIAZEM HCL INJ 125 MG in DEXTROSE 5% 100ML IV PRN (04:52)
[2016-12-06] MEDS: INSULIN ASPART 100 UNITS/ML 3 ML PEN SC SCH ×4 (07:00→20:33)
[2016-12-06] MEDS ORDERED: PROPOFOL IV EMULSION 10 MG/ML 20 ML VIAL IV ONE (07:09)
--- NOTE | 2016-12-06 08:48 | Anesthesiology Progress Note ---
Anesthesia Post Op Note Date & Time Dec 06, 2016 at 08:48 Vital Signs Pain Intensity: 0 Vital Signs Past 12 Hours Date Time Temp Pulse Resp B/P (MAP) Pulse Ox O2 Delivery O2 Flow Rate FiO2 12/06/16 08:40 69 16 100/58 (72) 94 Room Air 12/06/16 08:30 69 16 88/58 (68) 94 Room Air 12/06/16 08:25 67 18 88/55 95 Room Air 12/06/16 08:20 124 18 104/70 96 Nasal Cannula 6 12/06/16 08:15 100 18 95/73 96 Nasal Cannula 6 12/06/16 08:10 128 18 114/80 96 Nasal Cannula 6 12/06/16 08:05 125 18 118/80 99 Nasal Cannula 6 12/06/16 08:00 97 18 149/56 99 Nasal Cannula 6 12/06/16 04:00 36.5 68 16 114/68 (83) 95 Room Air 12/06/16 04:00 Room Air 12/05/16 23:59 36.6 65 16 87/59 (68) 94 Room Air 12/05/16 23:59 Room Air Notes Mental Status: alert / awake / arousable, participated in evaluation Pt Amnestic to Procedure: Yes Nausea / Vomiting: adequately controlled Pain: adequately controlled Airway Patency, RR, SpO2: stable & adequate BP & HR: stable & adequate Hydration State: stable & adequate Anesthetic Complications: no major complications apparent
[2016-12-06] MEDS: INSULIN GLARGINE SOLOSTAR 100 UNITS/ML 3 ML PEN SC SCH (09:13)
[2016-12-06] MEDS: ENOXAPARIN 100 MG/1ML SYR SQ SCH (09:14)
[2016-12-06] MEDS: MAGNESIUM OXIDE 400 MG TAB PO SCH ×2 (09:14→20:32)
[2016-12-06] MEDS: CYANOCOBALAMIN 500 MCG TAB (VIT B-12) PO SCH (09:15)
[2016-12-06] MEDS: CHOLECALCIFEROL 1000 INTER.UNIT TAB PO SCH (09:15)
[2016-12-06] MEDS: ATORVASTATIN 40 MG TAB PO SCH (09:15)
[2016-12-06] MEDS: CEROVITE ADV FORMULA TAB PO SCH (09:15)
[2016-12-06] MEDS: LISINOPRIL 10 MG TAB PO SCH (09:15)
[2016-12-06] MEDS: ASPIRIN 81 MG CHEW PO SCH (09:17)
--- NOTE | 2016-12-06 09:34 | Cardioversion ---
Electricial Cardioversion Rpt Electrical Cardioversion Rprt GRIS guided cardioversion note: Procedure Date Dec 06, 2016. Pre-Procedure Diagnosis atrial flutter with RVR Post-Procedure Diagnosis No DUNG thrombus, successful conversion to SR Procedure(s) Performed GRIS guided DCVC Sock Lining Examiner Daniel Geronimo DO Contracts Director(s) MERVAT Munoz Estimated Blood Loss none Preliminary Findings After informed consent was obtained and a time out was performed the patient received sedation as administered and supervise of Dr Zaragoza of anesthesia receiving a total of 300 J of propofol. A GRIS was performed with findings of No LA thrombus, no DUNG thrombus. Successful conversion to sinus rhythm occurred with administration of a single dose of synchronized energy , 300 J, with successful conversion to SR. Patient tolerated the procedure well. Recommendations Continue anticoagulation. DC diltiazem gtt. Complication(s) None Disposition PCU
--- NOTE | 2016-12-06 09:50 | TEE ---
*NOTICE TO RECEIVING REPUBLICAN AGENCY This information is strictly Confidential and protected under [place] law. [place] law prohibits you from making any further disclosure of this information unless further disclosure is expressly permitted by the written consent of the person to whom it pertains or is authorized by law. A general authorization for the release of medical or other information is not sufficient for this purpose. Hospital accepts no responsibility if the information is made available to any other person, INCLUDING THE PATIENT. Interpretation Summary * Name: MUSTAPHA ANDERSON Study Date: 12/06/2016 07:29 AM * Patient Location: .2T\S\S233\S\1 HR: 129 * : 1950 (M/d/yyyy) Gender: Male Height: 70 in * Age: 66 yrs Ethnicity: CA Weight: 204 lb * Ordering Physician: Benjamin Pearson * Referring Physician: Jarett Bowden * Performed By: Francis Santizo RCS * * Reason For Study: A-FIB * BSA: 2.1 m2 * -- Conclusions -- * Atrial flutter with rapid ventricular rate was present during the study. * The patient was sedated with the assistance of Dr Zaragoza of anesthesia receiving a total of 300 mg of IV propofol in divided doses for the GRIS and cardioversion combined. * The left atrial size is normal. * No thrombus is detected in the left atrial appendage. * No left atrial mass or thrombus visualized. * The LV Ejection Fraction = 60-65%. * The right ventricle is normal in size and function. * There is trace mitral regurgitation. * Significant tricuspid regurgitation is absent. Procedure Details * The transesophageal portion of this study was personally supervised by the undersigned interpreting physician. * GRIS Probe #1 utilized for procedure. * The study was performed in Cardiac Catheterization Lab. * Time out was conducted by the physician, nurse, and geotechnical engineering technician with positive identification of patient and procedure. * Informed consent for Transesophageal Echocardiogram was obtained prior to the procedure. * An intravenous line was placed. A topical anesthetic agent was used for oropharangeal anesthesia. A bite block was inserted. * Sedation performed by the anesthesia department. * The patient's vital signs, including blood pressure, heart rate, pulse oximetry and cardiac rhythm were monitored throughout the procedure . * The posterior oropharynx was anesthetized using a topical anesthetic spray. A bite guard was inserted. * A multifrequency, multiplane transesopheageal echocardiographic endoscope was inserted and manipulated in the standard fashion to achieve multiplane views. * The transesophageal probe was passed without difficulty. * Start/ Probe Insertion: 0800 End/ Probe Removed: 0825 * The patient tolerated the procedure well without evidence of orophangeal or esophageal trauma. * A 2D transesophageal echocardiogram with spectral and color flow Doppler was performed. * Contrast injection with agitated saline was performed. Left Ventricle * The left ventricle is normal in size. * There is normal left ventricular wall thickness. * Left ventricular systolic function is normal. * Ejection Fraction = 60-65%. * The left ventricular wall motion is normal. Right Ventricle * The right ventricle is normal in size and function. Atria * The left atrial size is normal. * No thrombus is detected in the left atrial appendage. * No left atrial mass or thrombus visualized. * Borderline right atrial enlargement. * The interatrial septum is intact with no evidence for an atrial septal defect. Mitral Valve * The mitral valve anatomy is normal. * There is no mitral valve prolapse present. * There is no vegetation seen on the mitral valve. * There is no mitral valve stenosis. * There is trace mitral regurgitation. Tricuspid Valve * The tricuspid valve is normal. * There is no tricuspid stenosis. * Significant tricuspid regurgitation is absent. * Doppler findings do not suggest pulmonary hypertension. Aortic Valve * The aortic valve is trileaflet. * There is no aortic valvular vegetation. * No hemodynamically significant valvular aortic stenosis. * No aortic regurgitation is present. Pulmonic Valve * The pulmonic valve is not well seen, but is grossly normal. Great Vessels * The aortic root is normal size. Pericardium * There is no pericardial effusion. MMode 2D Measurements and Calculations Ao root diam 3.3 cm Ao root area 8.8 cm\S\2
--- NOTE | 2016-12-06 11:12 | Cardiology Follow-Up ---
Subjective General Date of Service: Dec 06, 2016. Chief Complaint: follow up atrial flutter Pt evaluation today including: conversation w/ patient, physical exam History of Present Illness The patient is a 66 year old male seen in follow up post GRIS guided CV. Patient is back in PCU and feeling well. Allergies Coded Allergies: NO KNOWN DRUG ALLERGIES (Verified Allergy, Unknown, ., 02/09/16) Levofloxacin (Unverified Adverse Reaction, Intermediate, JOINT STIFFNESS, 12/03/16) Social History Smoking Status: Current Every Day Smoker Hx Tobacco Use In Past Year?: Yes Hx Alcohol Use - Type And Amou: No Hx Substance Use - Type And Am: No Problem List Medical Problems: (1) Atrial flutter with rapid ventricular response Status: Acute Physical Exam Vital Signs Last Vital Signs Documentation Date Time Temp Pulse Resp B/P (MAP) Pulse Ox O2 Delivery O2 Flow Rate FiO2 12/06/16 09:30 36.7 69 16 110/72 (85) 94 Room Air 12/06/16 08:20 6 Physical Exam Constitutional: Level of Distress: NAD ENMT: TMs normal Neck: supple, trachea midline Lungs: Auscultation: no wheezing, no rales/crackles, no rhonchi Cardiovascular: Heart Auscultation: RRR, no murmurs, no rubs, no gallops Extremities: no edema Neurologic: Gait & Station: pertinent finding (no focal neuro deficits ) Assessment and Plan Assessment and Plan Impression: 66 year old female 1. Admitted with newly recognized Atrial flutter with RVR, by EKG appears to be right sided flutter -Successful GRIS guided CV 12/06/16. -Post CV EKG with SR at 73 bpm, IRBBB, LAFB 2. Underlying COPD, cigarette smoking. Plan: DC IV diltiazem, start oral diltiazem. Continue lovenox for stroke prophylaxis. If pt 's insurance will cover a Eiliquis or alternative DOAC will proceed with DOAC, if not will transition to coumadin. Laboratory Results Last 24 Hours Test 12/05/16 11:38 12/05/16 16:23 12/05/16 20:18 Bedside Glucose 147 mg/dl 104 mg/dl 143 mg/dl
[2016-12-06] MEDS ORDERED: DILTIAZEM HCL 120 MG CAPCR PO ONE (11:15)
--- NOTE | 2016-12-06 13:17 | Progress Note ---
Medicine Progress Note Date & Time of Visit: Dec 06, 2016 at 13:03. Subjective Pt was seen and examined Sitting in chair with no distress reading Pt said that he feels fine He had successful GRSI and cardioversion done this morning Denies any chest pain, palpitation, SOB and dizziness Objective Last 8 Hrs Date Time Temp Pulse Resp B/P (MAP) Pulse Ox O2 Delivery O2 Flow Rate FiO2 12/06/16 12:00 Room Air 12/06/16 11:15 36.5 82 20 107/75 (86) 95 Room Air 12/06/16 09:30 36.7 69 16 110/72 (85) 94 Room Air 12/06/16 09:11 36.4 72 20 105/70 (82) 93 Room Air 12/06/16 09:00 Room Air 12/06/16 09:00 117/78 (91) 12/06/16 08:50 69 16 92/63 (73) 94 Room Air 12/06/16 08:40 69 16 100/58 (72) 94 Room Air 12/06/16 08:30 69 16 88/58 (68) 94 Room Air 12/06/16 08:25 67 18 88/55 95 Room Air 12/06/16 08:20 124 18 104/70 96 Nasal Cannula 6 12/06/16 08:15 100 18 95/73 96 Nasal Cannula 6 12/06/16 08:10 128 18 114/80 96 Nasal Cannula 6 12/06/16 08:05 125 18 118/80 99 Nasal Cannula 6 12/06/16 08:00 97 18 149/56 99 Nasal Cannula 6 Physical Exam: General- No acute distress Head- atraumatic Eyes- PERRL, EOMI ENT- oropharynx clear Neck- supple, no JVD Lungs- No wheezing Heart- regular rhythm; no murmur Abdomen- normal bowel sounds, soft Extremities- no pretibial edema, no calf tenderness Neuro- alert, oriented x 3; PERRL, EOMI; no facial palsy; Skin- warm & dry Laboratory Results: Last 24 Hours Test 12/05/16 16:23 12/05/16 20:18 Bedside Glucose 104 mg/dl 143 mg/dl Assessment & Plan New onset Atrial flutter tachycardia: -Asymptomatic. Denies CP, palpitations -EKG on admission showed atrial flutter with RVR -Continue diltiazem drip -rate is controlled -On lovenox subq -Cardiology on board - Plan for GRIS and cardioversion tomorrow - Will make NPO after midnight 12/06 S/p successful GRIS and cardioversion Remain on NSR On lovenox policy and planning manager verify with pharmacy about xarelto and he would cost pt $45/monthly Informed pt that coumadin will be very cheap about $5 for monthly supply Pt said that he is not that poor and he can afford $45/monthly for the xarelto Pt understands that he should not miss any dose for the xarelto Will give 1st dose tonight and d/c lovenox Case discussed with Cardiology Dr. Geronimo Cardizem po started, cardizem drip d/c Will monitor in telemetry for tonight ECHO done * The left atrial size is normal. * No thrombus is detected in the left atrial appendage. * No left atrial mass or thrombus visualized. * The LV Ejection Fraction = 60-65%. * The right ventricle is normal in size and function. * There is trace mitral regurgitation. * Significant tricuspid regurgitation is absent. DM II: -Hgb a1c of 6.3 in 12/05 -Oral meds on hold -Continue insulin coverage -Continue monitor BS LOW MAGNESIUM Mg stable Continue monitor mg HYPERTENSION - BP stable - Asymptomatic - Hold lisinopril for now - Continue monitor BP HLD: -Continue home dose statin COPD Stable Continue follow with patient services rep Dr. Bowden PAD: -L >R with chronic left SFA occlusion -Stable DVT Ppx On Lovenox Code status DNR Disposition Will discharge home tomorrow if remains in NSR Continue tele monitor Consultants: Cardiology Procedures: GRIS and Cardioversion Current Inpatient Medications: Current Inpatient Medications Medications (Trade) Dose Ordered Sig/Piotr Route Start Time Stop Time Status Last Admin Dose Admin Acetaminophen (Tylenol Tab) 650 mg Q4H PRN PO 12/03/16 15:30 01/02/17 15:29 Miscellaneous (Iv Fluids Completed) 1 ea PRN PRN N/A 12/03/16 15:30 12/03/17 15:29 Glucose (Glucose 40% Gel) 15-30 GRAMS 15 GRAMS... UD PRN PO 12/03/16 16:00 01/02/17 15:59 Glucose (Glucose Chew Tab) 4-8 Tablets 4 Tabl... UD PRN PO 12/03/16 16:00 01/02/17 15:59 Dextrose (Dextrose 50% 50ML Syringe) 25-50ML OF 50% DW IV FOR... UD PRN IV 12/03/16 16:00 01/02/17 15:59 Glucagon (Glucagon Inj) 1 mg UD PRN SQ 12/03/16 16:00 01/02/17 15:59 Aspirin (Aspirin Chew) 81 mg QAM PO 12/04/16 09:00 01/03/17 08:59 12/06/16 09:17 81 MG Atorvastatin Calcium (Lipitor Tab) 80 mg DAILY PO 12/04/16 09:00 01/03/17 08:59 12/06/16 09:15 80 MG Lisinopril (Zestril Tab) 10 mg QAM PO 12/04/16 09:00 01/03/17 08:59 12/06/16 09:15 10 MG Tamsulosin HCl (Flomax Cap) 0.4 mg QPM PO 12/03/16 21:00 01/02/17 20:59 12/05/16 21:05 0.4 MG Cholecalciferol (Vitamin D Tab) 3,000 inter.unit DAILY PO 12/04/16 09:00 01/03/17 08:59 12/06/16 09:15 3,000 INTER.UNIT Cyanocobalamin (Vitamin B-12 Tab) 1,000 mcg QAM PO 12/04/16 09:00 01/03/17 08:59 12/06/16 09:15 1,000 MCG Multivitamins/ Minerals (Multivitamin W/ Minerals Tab) 1 tab DAILY PO 12/04/16 09:00 01/03/17 08:59 12/06/16 09:15 1 TAB Enoxaparin Sodium (Lovenox Inj) 90 mg Q12H SQ 12/04/16 09:00 01/03/17 08:59 12/06/16 09:14 90 MG Magnesium Oxide (Mag-Ox Tab) 400 mg BID PO 12/04/16 09:00 01/03/17 08:59 12/06/16 09:14 400 MG Insulin Aspart (novoLOG ASPART) SLIDING SCALE If C... ACHS SC 12/06/16 07:00 01/02/17 15:59 Insulin Glargine (Lantus Solostar Pen) 5 units DAILY SC 12/06/16 09:00 01/05/17 08:59 12/06/16 09:13 5 UNITS Diltiazem HCl (Cardizem Cd Cap) 120 mg QAM PO 12/07/16 09:00 01/06/17 08:59 Rivaroxaban (Xarelto Tab) 20 mg DAILY PO 12/06/16 21:00 01/05/17 20:59 UNV
[2016-12-06] MEDS: TAMSULOSIN HCL 0.4 MG CAP PO SCH (20:32)
[2016-12-06] MEDS ORDERED: RIVAROXABAN 20 MG TAB PO SCH (21:00)
[2016-12-07 00:02] VITALS: BP 106/70; PULSE 66; TEMP 36.7; O2SAT 95
[2016-12-07 04:05] VITALS: BP 112/69; PULSE 68; TEMP 36.7; O2SAT 93
[2016-12-07 06:12] LABS: HEMATOCRIT 44.3 % (42-52); MEAN CELL VOLUME 97.1 fL (80-100); MEAN CORPUSCULAR HEMOGLOBIN 31.6 pg (25-34); MEAN CORPUSCULAR HGB CONC 32.5 g/dl (32-36); MEAN PLATELET VOLUME 9.3 fL (7.4-10.4); PLATELET COUNT 207 K/uL (130-400); RED BLOOD COUNT 4.56 M/uL (4.7-6.1); WHITE BLOOD COUNT 12.21 K/uL (4.8-10.8)
[2016-12-07 06:55] LABS: CREATININE 0.79 mg/dl (0.60-1.40)
[2016-12-07 08:20] VITALS: BP 126/78; PULSE 67; TEMP 36.7; O2SAT 95
[2016-12-07] MEDS: CYANOCOBALAMIN 500 MCG TAB (VIT B-12) PO SCH (08:25)
[2016-12-07] MEDS: MAGNESIUM OXIDE 400 MG TAB PO SCH (08:25)
[2016-12-07] MEDS: ATORVASTATIN 40 MG TAB PO SCH (08:25)
[2016-12-07] MEDS: CEROVITE ADV FORMULA TAB PO SCH (08:25)
[2016-12-07] MEDS: CHOLECALCIFEROL 1000 INTER.UNIT TAB PO SCH (08:26)
[2016-12-07] MEDS: ASPIRIN 81 MG CHEW PO SCH (08:26)
[2016-12-07] MEDS: LISINOPRIL 10 MG TAB PO SCH (08:26)
[2016-12-07] MEDS: INSULIN ASPART 100 UNITS/ML 3 ML PEN SC SCH (08:27)
[2016-12-07] MEDS: INSULIN GLARGINE SOLOSTAR 100 UNITS/ML 3 ML PEN SC SCH (08:30)
[2016-12-07] MEDS ORDERED: DILTIAZEM HCL 120 MG CAPCR PO SCH (09:00)
--- NOTE | 2016-12-07 09:39 | Cardiology Follow-Up ---
Subjective General Date of Service: Dec 07, 2016. Chief Complaint: follow up atrial flutter Pt evaluation today including: conversation w/ patient, physical exam History of Present Illness The patient is a 66 year old male seen in follow up. Patient denies subjective palpitations. Tolerated GRIS CV yesterday well. Post CV he did have break thru tachycardia on 12/06/16 with AFL at 1300 associated with walking in hallway and had no symptoms. Converted back to SR. Also occasional ectopic atrial rhythm with inverted P Wave axis noted on telemetry, without bradycardia. Allergies Coded Allergies: NO KNOWN DRUG ALLERGIES (Verified Allergy, Unknown, ., 02/09/16) Levofloxacin (Unverified Adverse Reaction, Intermediate, JOINT STIFFNESS, 12/03/16) Social History Smoking Status: Current Every Day Smoker Hx Tobacco Use In Past Year?: Yes Hx Alcohol Use - Type And Amou: No Hx Substance Use - Type And Am: No Problem List Medical Problems: (1) Atrial flutter with rapid ventricular response Status: Acute Physical Exam Vital Signs Last Vital Signs Documentation Date Time Temp Pulse Resp B/P (MAP) Pulse Ox O2 Delivery O2 Flow Rate FiO2 12/07/16 08:20 36.7 67 16 126/78 (94) 95 Room Air 12/06/16 08:20 6 Physical Exam Constitutional: Level of Distress: NAD ENMT: TMs normal Neck: supple, trachea midline Lungs: Auscultation: no wheezing, no rales/crackles, no rhonchi Cardiovascular: Heart Auscultation: RRR, no murmurs, no rubs, no gallops Extremities: no edema Neurologic: Gait & Station: pertinent finding (no focal neuro deficits ) Assessment and Plan Assessment and Plan Impression: 66 year old female 1. Admitted with newly recognized Atrial flutter with RVR, by EKG appears to be right sided flutter -Successful GRIS guided CV 12/06/16. -Post CV EKG with SR at 73 bpm, IRBBB, LAFB 2. Underlying COPD, cigarette smoking. Plan: Discussed options of continuation of diltiazem CD -as pt had only received a single dose, I do not think we can say the treatment has been unsuccessful yet. Recommend DC to home on Diltiazem CD 120 mg daily, Xarelto 20 mg PO daily at 20: 00 (chronic Xarelto therapy). If pt has recurrence of AFL in future, consider sotalol vs ablation therapy. Stable for DC to home. I counseled pt on the importance of adherence to xarelto therapy daily in order to prevent stroke and he confirmed understanding, apparently this medication was reasonably priced for him and he did not want to go on coumadin. Outpt follow up with Dr Gordon. Laboratory Results Last 24 Hours Test 12/06/16 11:33 12/06/16 16:00 12/06/16 20:10 12/07/16 05:44 Bedside Glucose 101 mg/dl 108 mg/dl 98 mg/dl White Blood Count 12.21 K/uL Red Blood Count 4.56 M/uL Hemoglobin 14.4 g/dL Hematocrit 44.3 % Mean Corpuscular Volume 97.1 fL Mean Corpuscular Hemoglobin 31.6 pg Mean Corpuscular Hemoglobin Concent 32.5 g/dl RDW Standard Deviation 53.8 fL RDW Coefficient of Variation 15.0 % Platelet Count 207 K/uL Mean Platelet Volume 9.3 fL Creatinine 0.79 mg/dl Est Creatinine Clear Calc Drug Dose 108.7 ml/min Estimated GFR () 109.2 Estimated GFR (Non- 94.2 Test 12/07/16 06:22 Bedside Glucose 116 mg/dl
[2016-12-07 12:07] VITALS: BP 101/67; PULSE 70; TEMP 36.8; O2SAT 94
--- NOTE | 2016-12-07 12:37 | Progress Note ---
Medicine Progress Note Date & Time of Visit: Dec 07, 2016 at 12:22. Subjective Pt was seen and examined Lying in bed comfortable with no distress Pt said that he feels fine He had GRIS and Cardioversion done yesterday He has a brief episode of AFL yesterday while walking in the hallway Convert back to NSR Denies any chest pain, palpitation, dizziness and sob Objective Last 8 Hrs Date Time Temp Pulse Resp B/P (MAP) Pulse Ox O2 Delivery O2 Flow Rate FiO2 12/07/16 12:07 36.8 70 16 101/67 (78) 94 12/07/16 08:20 36.7 67 16 126/78 (94) 95 Room Air 12/07/16 08:00 Room Air Physical Exam: General- No acute distress Head- atraumatic Eyes- PERRL, EOMI ENT- oropharynx clear Neck- supple, no JVD Lungs- No wheezing Heart- regular rhythm; no murmur Abdomen- normal bowel sounds, soft Extremities- no pretibial edema, no calf tenderness Neuro- alert, oriented x 3; PERRL, EOMI; no facial palsy; Skin- warm & dry Laboratory Results: Last 24 Hours Test 12/06/16 16:00 12/06/16 20:10 12/07/16 05:44 12/07/16 06:22 Bedside Glucose 108 mg/dl 98 mg/dl 116 mg/dl White Blood Count 12.21 K/uL Red Blood Count 4.56 M/uL Hemoglobin 14.4 g/dL Hematocrit 44.3 % Mean Corpuscular Volume 97.1 fL Mean Corpuscular Hemoglobin 31.6 pg Mean Corpuscular Hemoglobin Concent 32.5 g/dl RDW Standard Deviation 53.8 fL RDW Coefficient of Variation 15.0 % Platelet Count 207 K/uL Mean Platelet Volume 9.3 fL Creatinine 0.79 mg/dl Est Creatinine Clear Calc Drug Dose 108.7 ml/min Estimated GFR () 109.2 Estimated GFR (Non- 94.2 Assessment & Plan New onset Atrial flutter tachycardia: -Asymptomatic. Denies CP, palpitations -EKG on admission showed atrial flutter with RVR -Continue diltiazem drip -rate is controlled -On lovenox subq -Cardiology on board - Plan for GRIS and cardioversion tomorrow - Will make NPO after midnight 12/06 S/p successful GRIS and cardioversion Remain on NSR On lovenox email operations manager verify with pharmacy about xarelto and he would cost pt $45/monthly Informed pt that coumadin will be very cheap about $5 for monthly supply Pt said that he is not that poor and he can afford $45/monthly for the xarelto Pt understands that he should not miss any dose for the xarelto Will give 1st dose tonight and d/c lovenox Case discussed with Cardiology Dr. Geronimo Cardizem po started, cardizem drip d/c Will monitor in telemetry for tonight 12/07 S/p Successful GRIS and cardioversion yesterday Had and brief episode of AFL yesterday while walking in the hallway and converted back to NSR Remain on NSR Case discussed with cardiology Recommend to D/C to home on Diltiazem CD 120 mg daily, Xarelto 20 mg PO daily at 20:00 (chronic Xarelto therapy). Pt understands that he needs to be compliant with the xarelto Major risk factor discussed such as Bleeding Follow up with cardiology Dr. Gordon ECHO done * The left atrial size is normal. * No thrombus is detected in the left atrial appendage. * No left atrial mass or thrombus visualized. * The LV Ejection Fraction = 60-65%. * The right ventricle is normal in size and function. * There is trace mitral regurgitation. * Significant tricuspid regurgitation is absent. 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 Bowden PAD: -L >R with chronic left SFA occlusion -Stable DVT Ppx On Lovenox Code status DNR Disposition Will discharge home today if remains in NSR Continue tele monitor Consultants: Cardiology Procedures: GRIS and Cardioversion Current Inpatient Medications: Current Inpatient Medications Medications (Trade) Dose Ordered Sig/Piotr Route Start Time Stop Time Status Last Admin Dose Admin Acetaminophen (Tylenol Tab) 650 mg Q4H PRN PO 12/03/16 15:30 01/02/17 15:29 Miscellaneous (Iv Fluids Completed) 1 ea PRN PRN N/A 12/03/16 15:30 12/03/17 15:29 Glucose (Glucose 40% Gel) 15-30 GRAMS 15 GRAMS... UD PRN PO 12/03/16 16:00 01/02/17 15:59 Glucose (Glucose Chew Tab) 4-8 Tablets 4 Tabl... UD PRN PO 12/03/16 16:00 01/02/17 15:59 Dextrose (Dextrose 50% 50ML Syringe) 25-50ML OF 50% DW IV FOR... UD PRN IV 12/03/16 16:00 01/02/17 15:59 Glucagon (Glucagon Inj) 1 mg UD PRN SQ 12/03/16 16:00 01/02/17 15:59 Aspirin (Aspirin Chew) 81 mg QAM PO 12/04/16 09:00 01/03/17 08:59 12/07/16 08:26 81 MG Atorvastatin Calcium (Lipitor Tab) 80 mg DAILY PO 12/04/16 09:00 01/03/17 08:59 12/07/16 08:25 80 MG Lisinopril (Zestril Tab) 10 mg QAM PO 12/04/16 09:00 01/03/17 08:59 12/07/16 08:26 10 MG Tamsulosin HCl (Flomax Cap) 0.4 mg QPM PO 12/03/16 21:00 01/02/17 20:59 12/06/16 20:32 0.4 MG Cholecalciferol (Vitamin D Tab) 3,000 inter.unit DAILY PO 12/04/16 09:00 01/03/17 08:59 12/07/16 08:26 3,000 INTER.UNIT Cyanocobalamin (Vitamin B-12 Tab) 1,000 mcg QAM PO 12/04/16 09:00 01/03/17 08:59 12/07/16 08:25 1,000 MCG Multivitamins/ Minerals (Multivitamin W/ Minerals Tab) 1 tab DAILY PO 12/04/16 09:00 01/03/17 08:59 12/07/16 08:25 1 TAB Magnesium Oxide (Mag-Ox Tab) 400 mg BID PO 12/04/16 09:00 01/03/17 08:59 12/07/16 08:25 400 MG Insulin Aspart (novoLOG ASPART) SLIDING SCALE If C... ACHS SC 12/06/16 07:00 01/02/17 15:59 12/06/16 17:25 2 UNITS Insulin Glargine (Lantus Solostar Pen) 5 units DAILY SC 12/06/16 09:00 01/05/17 08:59 12/07/16 08:30 5 UNITS Diltiazem HCl (Cardizem Cd Cap) 120 mg QAM PO 12/07/16 09:00 01/06/17 08:59 12/07/16 08:27 120 MG Rivaroxaban (Xarelto Tab) 20 mg DAILY@1800 PO 12/06/16 21:00 01/05/17 20:59 12/06/16 20:32 20 MG
[2016-12-07] MEDS ORDERED: XRL20 PO (12:49)
[2016-12-07] MEDS ORDERED: CRDCD120 PO (12:49)
--- NOTE | 2016-12-07 12:59 | Discharge Instructions ---
Discharge Instructions Date of Service Dec 07, 2016. Admission Reason for Admission: Atrial Flutter Discharge Discharge Diagnosis / Problem: New onset Atrial flutter tachycardia, Low magnesium, DM type 2 Discharge Goals Goal(s): Decrease discomfort, Improve function, Improve disease control Activity Recommendations Activity Limitations: resume your previous activity (as tolerated) . Instructions / Follow-Up Instructions / Follow-Up Follow up with your primary care provider Dr. Maryann Gordon on 12/13 @ 10:55 am Follow up with your Cardiology Dr. Gordon on 12/24 @ 10:05 am Starting on Xarelto for the atrial flutter to prevent the risk for stroke Starting on Cardizem to control your heart rate Avoid any activity at high level to decrease the risk of fall since you are on blood thinner Medication Instructions: Xarelto Your condition is typically treated with an anticoagulant. Anticoagulants will thin your blood to help prevent new clots or stroke * You should take her medication exactly as directed. * Never skip a dose. * Never take a double dose. If you miss a dose, take it as soon as you remember. * Avoid taking NSAIDs (naproxen, aleve, motrin, ibuprofen, celebrex, ...) due to increase risk of bleeding Call your Primary Care doctor if you experience any of the following: * Swelling or Pain in your leg * Sudden, continuous pain deep in a muscle * Pain that worsens when you are active or when you stand still for a long time * Chest Pain * Sudden Shortness of Breath * Rapid or pounding heart beat * Fainting * Dizziness * Cough with blood or bloody sputum * Sweating more than normal * Bruises * Heavy or uncontrolled bleeding * Blood in your urine, stool or vomit * Black or tarry stools Follow Up: It is important for you to keep your follow up appointments with your medical provider. Current Hospital Diet Patient's current hospital diet: AHA Diet (Heart Healthy), Diabetes Type 2 Diet Discharge Diet Recommended Diet: Diabetes Type 2 Diet Pending Studies Studies pending at discharge: no Laboratory Results Hemoglobin A1c Test 12/04/16 05:38 Range/Units Estimated Average Glucose 134 mg/dl Hemoglobin A1c 6.3 H 4.5-5.6 % Medical Emergencies . Who to Call and When: Medical Emergencies: If at any time you feel your situation is an emergency, please call 911 immediately. . Non-Emergent Contact Non-Emergency issues call your: Primary Care Provider, Obiee Consultant Call Non-Emergent contact if: you have any medication questions . . "Provider Documentation" section prepared by Alma Rosa Sarmiento. . VTE Core Measure Inpt VTE Proph given/why not?: Enoxaparin (Lovenox)SQ, Other Anticoagulation ( xarelto)
[2016-12-07 13:06] VITALS: BP 101/67; PULSE 70; TEMP 36.8; O2SAT 94
--- NOTE | 2016-12-10 01:12 | Discharge Summary ---
Discharge Summary Date of Service Dec 10, 2016. Discharge Summary Admission Date: Dec 05, 2016 at 11:21 Discharge Date: Dec 07, 2016 Principal Diagnosis: New onset Atrial flutter tachycardia Secondary Diagnoses/Problems: DMII LOW MAGNESIUM COPD PAD HTN Procedures: GRIS and Cardioversion Consultations: Cardiology Medication Reconciliation New Medications: Diltiazem HCl (Diltiazem Cd) 120 Mg Capcr 120 MG PO QAM for 30 Days Rivaroxaban (Xarelto) 20 Mg Tab 20 MG PO DAILY@2000 for 30 Days, TAB Continued Medications: Aspirin (Aspirin Chewable) 81 Mg Chew 81 MG PO QAM Atorvastatin Calcium (Lipitor) 80 Mg Tab 80 MG PO DAILY, TAB Cholecalciferol (Vitamin D3) 3,000 Unit Tab 1 TAB PO DAILY Cyanocobalamin (Vitamin B12) 1,000 Mcg Tab 1 TAB PO QAM Lisinopril (Prinivil) 10 Mg Tab 10 MG PO QAM, TAB Metformin Hcl (Glucophage) 1,000 Mg Tab 1000 MG PO QAM, TAB Ocuvite Preservision (Ocuvite Preservision) 1 Tab Tab 1 TAB PO DAILY, TAB Tamsulosin Hcl (Flomax) 0.4 Mg Cap 0.4 MG PO QPM, CAP Admission Information HPI (per Admitting provider): This is a 66yo male with a PMH of multifocal atrial tachycardia, HTN, DM II, COPD and other problems listed below who presents directly from pulmonology clinic with an abnormal EKG. Patient was in normal state of health this morning when attending a follow-up pulmonology appt and was found to be tachycardic. An EKG was performed and patient was found to be in atrial flutter vs. A fib and sent to the ER for further evaluation. Patient's admission EKG showed atrial flutter with 2:1 AV conduction at a rate of 141. States that for the past few days he has felt more tired than usual but otherwise felt fine. Denies any current fatigue, lightheadedness, dizziness, chest pain, palpitations , SOB. Follows with Dr. Gordon in clinic for cardiology and states that he has had bouts of tachycardia in the past but has not been told of a definitive diagnosis. Per chart review, wore a Holter monitor for 24hrs in Feb 2016 that demonstrated frequent 2-6 beat runs of atrial tachycardia. Did not take morning medications prior to arrival. Physical Exam (per Admitting): General Appearance: WD/WN, no apparent distress Head: normocephalic, atraumatic Eyes: normal inspection, PERRL, sclerae normal ENT: hearing grossly normal Neck: supple, no adenopathy, thyroid normal, no JVD, trachea midline Respiratory/Chest: chest non-tender, lungs clear, normal breath sounds, no respiratory distress, no accessory muscle use Cardiovascular: + tachycardia Abdomen/GI: normal bowel sounds, non tender, soft, no organomegaly Back: normal inspection Extremities/Musculoskelatal: normal inspection, no calf tenderness, normal capillary refill, no pedal edema Neurologic/Psych: alert, normal mood/affect, oriented x 3 Skin: normal color, warm/dry, no rash Hospital Course New onset Atrial flutter tachycardia: -Asymptomatic. 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 Geronimo Cardizem po started, cardizem drip d/c Will monitor in telemetry for tonight 12/07 S/p Successful GRIS and cardioversion yesterday Had and brief episode of AFL yesterday while walking in the hallway and converted back to NSR Remain on NSR Case discussed with cardiology Recommend to D/C to home on Diltiazem CD 120 mg daily, Xarelto 20 mg PO daily at 20:00 (chronic Xarelto therapy). Pt understands that he needs to be compliant with the xarelto Major risk factor discussed such as Bleeding Follow up with cardiology Dr. Gordon ECHO done * The left atrial size is normal. * No thrombus is detected in the left atrial appendage. * No left atrial mass or thrombus visualized. * The LV Ejection Fraction = 60-65%. * The right ventricle is normal in size and function. * There is trace mitral regurgitation. * Significant tricuspid regurgitation is absent. 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 Bowden PAD: -L >R with chronic left SFA occlusion -Stable DVT Ppx On Lovenox Code status DNR Disposition Will discharge home today if remains in NSR Continue tele monitor Total time spent on discharge = 35 minutes This includes examination of the patient, discharge planning, medication reconciliation, and communication with other providers. Discharge Instructions Discharge Instructions Date of Service Dec 07, 2016. Admission Reason for Admission: Atrial Flutter Discharge Discharge Diagnosis / Problem: New onset Atrial flutter tachycardia, Low magnesium, DM type 2 Discharge Goals Goal(s): Decrease discomfort, Improve function, Improve disease control Activity Recommendations Activity Limitations: resume your previous activity (as tolerated) . Instructions / Follow-Up Instructions / Follow-Up Follow up with your primary care provider Dr. Maryann Gordon on 12/13 @ 10:55 am Follow up with your Cardiology Dr. Gordon on 12/24 @ 10:05 am Starting on Xarelto for the atrial flutter to prevent the risk for stroke Starting on Cardizem to control your heart rate Avoid any activity at high level to decrease the risk of fall since you are on blood thinner Medication Instructions: Xarelto Your condition is typically treated with an anticoagulant. Anticoagulants will thin your blood to help prevent new clots or stroke * You should take her medication exactly as directed. * Never skip a dose. * Never take a double dose. If you miss a dose, take it as soon as you remember. * Avoid taking NSAIDs (naproxen, aleve, motrin, ibuprofen, celebrex, ...) due to increase risk of bleeding Call your Primary Care doctor if you experience any of the following: * Swelling or Pain in your leg * Sudden, continuous pain deep in a muscle * Pain that worsens when you are active or when you stand still for a long time * Chest Pain * Sudden Shortness of Breath * Rapid or pounding heart beat * Fainting * Dizziness * Cough with blood or bloody sputum * Sweating more than normal * Bruises * Heavy or uncontrolled bleeding * Blood in your urine, stool or vomit * Black or tarry stools Follow Up: It is important for you to keep your follow up appointments with your medical provider. Current Hospital Diet Patient's current hospital diet: AHA Diet (Heart Healthy), Diabetes Type 2 Diet Discharge Diet Recommended Diet: Diabetes Type 2 Diet Laboratory Results Hemoglobin A1c Test 12/04/16 05:38 Range/Units Estimated Average Glucose 134 mg/dl Hemoglobin A1c 6.3 H 4.5-5.6 % Medical Emergencies . Who to Call and When: Medical Emergencies: If at any time you feel your situation is an emergency, please call 911 immediately. . Non-Emergent Contact Non-Emergency issues call your: Primary Care Provider, Accounting Clerk Call Non-Emergent contact if: you have any medication questions . . "Provider Documentation" section prepared by Alma Rosa Sarmiento. . VTE Core Measure Inpt VTE Proph given/why not?: Enoxaparin (Lovenox)SQ, Other Anticoagulation ( xarelto) Additional Copies To Maryann Gordon D.O.
== END 2016-12-07 13:45 | disposition home or self-care (01) | DRG 310 ==
LOC: C.EDB 13:47 → C.2T 15:22 → ENRESERV 15:45 → OBSVTOIN 12-05 11:21
PROVIDERS: ADMIT Hospitalist; ATTEND Internal Medicine
PROC: 5A2204Z Restoration of Cardiac Rhythm, Single (ICD-10-PCS; principal; 2016-12-06 07:15)
DX: I48.92 Unspecified atrial flutter (principal); E11.42 Type 2 diabetes mellitus with diabetic polyneuropathy; E83.42 Hypomagnesemia; J44.9 Chronic obstructive pulmonary disease, unspecified; I73.9 Peripheral vascular disease, unspecified; I10 Essential (primary) hypertension; E78.5 Hyperlipidemia, unspecified; Z66 Do not resuscitate; E66.9 Obesity, unspecified; F17.210 Nicotine dependence, cigarettes, uncomplicated; I65.29 Occlusion and stenosis of unspecified carotid artery; N40.0 Benign prostatic hyperplasia without lower urinary tract symptoms; K21.9 Gastro-esophageal reflux disease without esophagitis; I48.91 Unspecified atrial fibrillation; Z68.28 Body mass index [BMI] 28.0-28.9, adult; Z79.82 Long term (current) use of aspirin; Z79.899 Other long term (current) drug therapy; Z79.84 Long term (current) use of oral hypoglycemic drugs

== ENCOUNTER 2020-12-18 00:56 | Inpatient (IN) ==
[2020-12-18] MEDS ORDERED: NITROGLYCERIN SL 0.4 MG/TAB TAB SL PRN (01:17)
[2020-12-18] MEDS ORDERED: ASPIRIN CHEW 324 MG PO STA (01:17)
[2020-12-18 01:39] LABS: Basophils # (auto) 0.03 K/uL (0-0.2); Basophils % (auto) 0.2 %; Eosinophils # (auto) 0.01 K/uL (0-0.5); Eosinophils % (auto) 0.1 %; Hematocrit (blood only) 34.8 % (42-52); Hemoglobin 10.4 g/dL (14.0-18.0); Immature Granulocytes # (auto) 0.05 K/uL (0.00-0.02); Immature Granulocytes % (auto) 0.4 %; Lymphocytes # (auto) 0.47 K/uL (1.2-3.4); Lymphocytes % (auto) 3.3 %; Mean Corpuscular Hemoglobin 21.8 pg (25-34); Mean Corpuscular Hgb Conc 29.9 g/dL (32-36); Mean Corpuscular Volume 73.1 fL (80-100); Mean Platelet Volume 8.6 fL (7.4-10.4); Monocytes # (auto) 0.17 K/uL (0.11-0.59); Monocytes % (auto) 1.2 %; Neutrophils # (auto) 13.34 K/uL (1.4-6.5); Neutrophils % (auto) 94.8 %; Platelet Count 290 K/uL (130-400); RDW Coefficient of Variation 19.6 % (11.5-14.5); RDW Standard Deviation 52.3 fL (36.4-46.3); Red Blood Count 4.76 M/uL (4.7-6.1); White Blood Count 14.07 K/uL (4.8-10.8)
[2020-12-18] MEDS ORDERED: PIPERACILLIN/TAZOBACTAM 4.5 GM/120 ML BAG IV ONE (01:40)
[2020-12-18] MEDS ORDERED: PIPERACILL/TAZOBAC CONSULT ACTIVE PRN (01:40)
[2020-12-18 01:54] LABS: Partial Thromboplastin Ratio 1.2; Partial Thromboplastin Time 30.3 Seconds (21.0-31.0)
[2020-12-18 01:55] LABS: Hypochromasia Present
[2020-12-18 01:57] LABS: Alanine Aminotransferase 24 U/L (12-78); Aspartate Aminotransferase 17 U/L (15-37); BUN Creatinine Ratio 15.9 (10-20); Blood Urea Nitrogen 16 mg/dl (7-18); Calcium 8.1 mg/dl (8.5-10.1); Carbon Dioxide 23 mmol/L (21-32); Chloride 109 mmol/L (98-107); Creatinine Clr Calc Pharmacy 82.6 ml/min; Est GFR (African American) 86.5 ml/min; Est GFR (Non-African American) 74.6 ml/min; Glucose 162 mg/dl (70-99); Lipase 381 U/L (73-393); Potassium 4.6 mmol/L (3.5-5.1); Sodium 138 mmol/L (136-145)
[2020-12-18 03:11] LABS: Albumin Globulin Ratio 0.6 (0.9-2); Alkaline Phosphatase 167 U/L (45-117); Bilirubin,Total 0.4 mg/dl (0.2-1); Globulin 4.7 gm/dl (2.5-4.0); Total Protein 7.7 gm/dl (6.4-8.2); Troponin I < 0.015 ng/ml (0-0.045)
[2020-12-18] MEDS ORDERED: SODIUM CHLORIDE 0.9% 1000ML 500 ML IV ONE (03:43)
--- NOTE | 2020-12-18 04:31 | History & Physical Report ---
Date of Service December 18, 2020 Assessment & Plan (1) Febrile illness, acute: Plan: Etiologies considered but not limited to bronchitis, COPD exacerbation, pulmonary embolus, malignancy. Chest x-ray is clear however there is clinically a suggestion of possible infection with evidence of chills, productive cough, fatigue, fever reported and white count of 14. Zosyn empirically started in the ER and continued pending further workup and clinical improvement. He is on the dry side by my exam and a pneumonia may manifest after rehydration efforts (given 1.5L in the ER). Ordered procalcitonin and UA to help rule out pulmonary infection and UTI, respectively. Additionally ordered TSH, CK, monospot, rickettsial panel in setting of ongoing fatigue and fevers. Chest CTA from overnight was taken but no image or reading is present at this time. As he is not wheezing, do not feel strongly we should start steroids, especially in setting of possible infection. Bronchodilators PRN. (2) Hypoxia: Plan: similar plan to #1. Poss 2/2 bronchitis vs pneumonia vs PE vs COPD exacerbation. Awaiting further studies and CT chest. Cont with Zosyn for now in addition to supplemental oxygen as needed. (3) PAF (paroxysmal atrial fibrillation): Plan: PAF s/p transesophageal echo guided cardioversion in Nov 2016. Continues on Xarelto and diltiazem. (4) Tobacco use disorder: Plan: Encouraged to quit. (5) Hypertension: Plan: controlled, cont current therapy per home regimen. (6) DM type 2 (diabetes mellitus, type 2): Plan: hold outpatient metformin and utilize basal bolus inuslin while admitted. Check A1C (7) Peripheral neuropathy: Plan: cont gabapentin per home regimen. Also takes lexapro (8) Dyslipidemia: Plan: chronic, cont zetia and atorvastatin per home regimen. (9) PAD (peripheral artery disease): Plan: Cont medical management with cilostazol, ASA. (10) DVT prophylaxis: Plan: Xarelto Full Code Dispo-to floor with telemetry, PT/OT ordered. Monse Valladares DO [facility] Hospitalist History of Present Illness Primary Care Provider: Maryann Gordon DO Mr. Cook is a 70-year-old man with a history of COPD and active smoking. He presented to the ER after waking up with shortness of breath followed by chest pain and difficulty breathing. His states she took his blood pressure which was "really high" at 135/104. The patient states the chest pain is "like someone pushing on my chest". He feels his heartbeat occasionally gets erratic. For the last month he has been feeling very tired and reports he sleeps most of the day. Aside from extreme fatigue he reports chills, night sweats, and recently a productive cough. He has had no change in his appetite but did report some nausea today. He is an active smoker, smoking approximately 1/2 pack a day. He denies any alcohol use. He denies any weight changes. He denies any blood in his stool or any new medications. He denies any lightheadedness. He reports this is the first time he has felt chest pressure. Per notes EMS reported they ambulated the patient without oxygen and he desaturated into the mid 80s on room air. COVID-19 test is negative. EKG reveals normal sinus rhythm with an incomplete right bundle branch block, LAFB. Chest x-ray revealed no acute process. A CT angio chest PE protocol is pending. The patient is not dependent on home oxygen typically. Allergies Allergy/AdvReac Type Severity Reaction Status Date / Time levofloxacin AdvReac Intermediate JOINT Verified 12/18/20 01:31 STIFFNESS Home Medications Medication Instructions Recorded Confirmed Type aspirin 81 mg chewable tablet 81 mg PO DAILY tab 12/14/18 12/18/20 History atorvastatin 80 mg tablet 80 mg PO HS tab 12/14/18 12/18/20 History cholecalciferol (vitamin D3) 25 3,000 unit PO DAILY tab 12/14/18 12/18/20 History mcg (1,000 unit) tablet metformin 500 mg tablet 500 mg PO HS #30 tab 12/14/18 12/18/20 History rivaroxaban 20 mg tablet 20 mg PO DAILY #1 tab 12/14/18 12/18/20 History alprazolam 0.5 mg tablet 0.5 mg PO TID PRN 07/03/20 12/18/20 History ascorbic acid (vitamin C) 500 mg 500 mg PO DAILY 07/03/20 12/18/20 History tablet diltiazem HCl 120 mg tablet 120 mg PO DAILY tab 07/03/20 12/18/20 History escitalopram oxalate 20 mg tablet 20 mg PO DAILY 07/03/20 12/18/20 History (Lexapro) ezetimibe 10 mg tablet (Zetia) 10 mg PO DAILY 07/03/20 12/18/20 History vit C,E,zinc,copper-nrtie8m 250 1 cap PO DAILY 07/03/20 12/18/20 History mg-lutein 5 mg-zeaxanthin 1 mg capsule (Ocuvite Adult 50 Plus) cilostazol 100 mg tablet 100 mg PO BID 12/18/20 12/18/20 History fluticasone furoate 100 1 ea INHALATION DAILY 12/18/20 12/18/20 History mcg-vilanterol 25 mcg/dose inhalation powder (Breo Ellipta) gabapentin 600 mg tablet 600 mg PO TID 12/18/20 12/18/20 History lisinopril 5 mg tablet 5 mg PO DAILY 12/18/20 12/18/20 History pantoprazole 20 mg tablet,delayed 20 mg PO DAILY 12/18/20 12/18/20 History release Past Med/Surg History Medical History (Updated 12/18/20 @ 08:29 by Monse Valladares DO) Bullous emphysema DM type 2 (diabetes mellitus, type 2) Dyslipidemia GERD (gastroesophageal reflux disease) Hypertension PAD (peripheral artery disease) "with chronic left SFA occlusion" PAF (paroxysmal atrial fibrillation) Peripheral neuropathy Tobacco use disorder Family History Mother Diabetes Father Heart disease Social History Smoking Status: Current every day smoker Tobacco Type: Cigarettes Cigarettes Per Day: 10; Hx Alcohol Use: No Hx Substance Use: No Beliefs That Will Affect Care: None Current Living Situation: Spouse Other Information That Helps Us Care for You: No Feels Safe at Home: Yes Safety Concerns: Feels Safe At This Time Review of Systems Review of Systems: At least ten systems were reviewed and negative except as indicated in HPI above. Physical Exam Physical Exam: CONSTITUTIONAL: WNWD, vitals as above, generally appears ill and fatigued EYES: PERRL, normal conjunctivae, no scleral icterus ENT: external ear and nose normal, MMM NECK: trachea midline RESPIRATORY: clear to auscultation bilaterally, no crackles, rales or wheezes, normal respiratory effort CARDIOVASCULAR: regular rate and rhythm, S1 and 2 heard without murmurs, gallops or rubs, no JVD, no peripheral edema CHEST: inspection of chest was normal GASTROINTESTINAL: soft, nontender, ND, no guarding MUSCULOSKELETAL: generalized weakness, head is normocephalic and atraumatic SKIN: warm and dry NEUROLOGIC: CN 2-12 grossly intact, normal cognition, normal speech, no tremor PSYCHIATRIC: alert cooperative and oriented to person, place and time. Results & Data Results & Data ([facility]) Vital Signs (Past 12 Hours) Vital Signs Temp Pulse Resp BP Pulse Ox 12/18/20 04:00 84 102/70 98 12/18/20 03:30 74 20 100/65 98 12/18/20 03:21 77 111/58 L 97 12/18/20 02:41 104/61 98 12/18/20 01:30 99 12/18/20 01:17 96 H 28 H 98 12/18/20 01:10 36.7 C 78 20 109/66 93 Laboratory Results Short CBC 12/18/20 Range/Units 01:26 WBC 14.07 H (4.8-10.8) K/uL Hgb 10.4 L (14.0-18.0) g/dL Hct 34.8 L (42-52) % Plt Count 290 (130-400) K/uL BMP 12/18/20 01:26 Sodium 138 Potassium 4.6 Chloride 109 H Carbon Dioxide 23 BUN 16 Creatinine 1.02 Glucose 162 H Calcium 8.1 L Cardiac Enzymes 12/18/20 Range/Units 01:26 Troponin I < 0.015 (0-0.045) ng/ml Liver Function 12/18/20 Range/Units 01:26 Total Bilirubin 0.4 (0.2-1) mg/dl AST 17 (15-37) U/L ALT 24 (12-78) U/L Alkaline Phosphatase 167 H (45-117) U/L Albumin 3.0 L (3.4-5.0) gm/dl Diagnostic Findings Chest X-Ray 12/18/20 01:17 XR chest 1V portable HISTORY: Shortness of breath. Atypical chest pain. COMPARISON: Chest 12/03/2016. FINDINGS: No pneumothorax. No pleural effusions. Emphysema is again noted. No new focal lung consolidations to suggest pneumonia. No evidence for pulmonary edema. The cardiac silhouette remains borderline enlarged. IMPRESSION: No significant change compared to the prior study. No acute process. Emphysema. ACT 112: Negative or not required by law. Electronically signed by: Guy Renee M.D. 12/18/2020 7:31 AM
[2020-12-18] MEDS ORDERED: OPTIRAY 320 125ml IV ONE (04:55)
[2020-12-18] MEDS ORDERED: SODIUM CHLORIDE 0.9% 1000ML 1,000 ML IV SCH (05:00)
--- NOTE | 2020-12-18 06:14 | Emergency Department Note ---
ED Visit Note CHIEF COMPLAINT: Shortness of breath, fever HISTORY OF PRESENT ILLNESS: This 70-year-old male patient presents to the emergency department sudden onset of shortness of breath that woke him overnight. Patient states he has been unwell for the last several days but woke up with chest heaviness and difficulty breathing. Patient has a history of COPD and does smoke cigarettes. He does not wear home oxygen. He has felt chilled and sweats. He has been nauseated but has not vomited. Patient's states he has "function of half a lung on each side." She denies that he is ever had surgery or history of lung cancer. Patient has not taken any Tylenol prior to arrival. He has had his Covid vaccines. Patient denies any chest pain at this time. Of note EMS reports that they ambulated the patient without oxygen and he desaturated into the mid 80s on room air. REVIEW OF SYSTEMS: A review of systems was performed with positives and per tinent negatives listed in the history of present illness. 10 systems were reviewed and are otherwise negative. ALLERGIES: Levofloxacin MEDICATIONS: Alprazolam, vitamin C, aspirin, atorvastatin, cholecalciferol, cilostazol, diltiazem, escitalopram fluticasone, gabapentin, lisinopril, metformin, rivaroxaban PMH: Tobacco smoking, paroxysmal atrial fibrillation, bullous emphysema, peripheral arterial disease, dyslipidemia, hypertension, GERD, diabetes type 2, peripheral neuropathy, COPD SOCIAL HISTORY: 1/2 pack cigarettes daily, and lives with , disabled PHYSICAL EXAM: Vital signs reviewed. General: Chronically ill appearing 70-year-old male, in no significant distress. HEENT: No scleral icterus, PERRLA, neck supple. Dry mucous membranes, nasal cannula oxygen in place Cardiovascular: Regular rate and rhythm, no extra sounds. Pulmonary: Coarse breath sounds to auscultation bilaterally, normal work of breathing with oxygen supplementation. Abdomen: Soft, nontender, nondistended, positive bowel sounds. Musculoskeletal: Atraumatic, no peripheral edema. Neurologic: Patient awake alert and oriented x 3, speech is clear Skin: Warm, dry, no rash EMERGENCY DEPARTMENT COURSE: This patient was evaluated and appeared to be anxious but in no distress. Patient was placed on nasal cannula oxygen. Patient is noted to be in a normal sinus rhythm at 77 bpm. Blood cultures and lactate were performed. The patient's lactic acid is elevated. WBC is also elevated at 14. Covid swab was obtained and is negative. Chest x-ray was performed and reveals no evidence of focal infiltrate to my interpretation. Given the patient's low-grade fever, white count and difficulty breathing, pulmonary source is felt to be the most likely. CT angiogram was performed of the chest. Patient was medicated with IV Zosyn, p.o. aspirin. Patient was hydrated with normal saline solution due to the sepsis. Patient's case was discussed with Dr. Valladares of the hospitalist service who will evaluate the patient for admission and further management. MONITORING: An order for cardiac monitoring was placed and the patient is noted to be in a normal sinus rhythm at 77 beats per minute. RADIOLOGY: CTA CHEST: Comparison to July 26, 2016 The pulmonary arterial tree is well-opacified with contrast. No pulmonary emboli are identified. The thoracic aorta is mildly calcified but nondilated. There is no aneurysm or dissection. The heart is not enlarged. Mild coronary calcification is present. No pericardial effusion is seen. 3.5 cm fat-containing hiatal hernia. Moderate emphysematous changes in the lungs with multiple peripheral bulla involving the upper lobes bilaterally measuring up to 3 cm thick. No acute focal airspace infiltrate, pneumothorax, or pleural effusion is seen. 7 mm pulmonary nodule in the periphery of the right upper lobe, unchanged. No follow-up is needed. Moderate multilevel degenerative changes are seen throughout the thoracic spine. No acute fracture or destructive bone lesion is seen Radiologist: Jonnie Escalera MD Study ready at 04:58 and initial results transmitted at 05:47 EKG: Normal sinus rhythm at 83 bpm, incomplete right bundle branch block, left anterior fascicular block, nonspecific ST and T wave abnormalities, repolarization abnormality in the anterior and lateral leads. No PVC, no PAC. Normal QTC at 411. DIAGNOSIS: Febrile illness, hypoxia, COPD .
[2020-12-18] MEDS ORDERED: POLYETHYLENE (MIRALAX) 17 GM PACK PO PRN (06:40)
[2020-12-18] MEDS ORDERED: ONDANSETRON INJ 2 MG/ML 2 ML VIAL IV PRN (06:40)
[2020-12-18] MEDS ORDERED: ACETAMINOPHEN 325 MG TAB PO PRN (06:40)
--- NOTE | 2020-12-18 07:32 | XRay Report ---
XR chest 1V portable HISTORY: Shortness of breath. Atypical chest pain. COMPARISON: Chest 12/03/2016. FINDINGS: No pneumothorax. No pleural effusions. Emphysema is again noted. No new focal lung consolid ations to suggest pneumonia. No evidence for pulmonary edema. The cardiac silhouette remains borderli ne enlarged. IMPRESSION: No significant change compared to the prior study. No acute process. Emphysema. ACT 112: Negative or not required by law. Electronically signed by: Guy Renee M.D. 12/18/2020 7:31 AM
[2020-12-18] MEDS: PIPERACILLIN/TAZOBACTAM 3.375 GM in DEXTROSE 5% 100 ML IV SCH ×3 (07:41→23:59)
[2020-12-18] MEDS ORDERED: ALBUT/IPRATROP 3MG/0.5MG NEB 3 ML VIAL NEB PRN (08:16)
--- NOTE | 2020-12-18 08:16 | CT Scan Report ---
CT ANGIOGRAM OF THE CHEST CLINICAL HISTORY: PE COMPARISON STUDY: June 21, 2017 TECHNIQUE: Following the IV administration of 119 mL of Optiray, CT angiogram of the thorax was perfo rmed from the thoracic inlet to the lung bases utilizing the pulmonary embolus protocol. Images are r eviewed in the axial, sagittal, and coronal planes. IV contrast was administered without complication . MIP imaging was performed. A dose lowering technique was utilized adhering to the principles of [place] CASS. CT DOSE: 618.04 mGy.cm FINDINGS: There is adequate opacification within main pulmonary artery. No evidence of pulmonary embolus is see n. Pulmonary artery is dilated measuring 3.1 cm in diameter, new since prior study. No evidence of ri ght heart strain. Heart is normal in size without pericardial effusion. Moderate coronary calcifications are seen. Visualized portion of thyroid gland shows no evidence of focal lesions. Esophagus is patulous with slightly thickened wall. Small fat containing hiatal hernia is seen. There is no axillary, supra clavicle or internal mammary lymphadenopathy seen. Mediastinal lymph node s are not enlarged. Thoracic aorta is normal in caliber with scattered calcifications of its wall. Tracheobronchial tree is patent. Severe paraseptal and mild centrilobular upper lobe predominant emphysema is seen, slightly worsened since prior. Few bullae are seen within lung apices. No large infiltrates or consolidative lesions are seen. No pleural effusion demonstrated. Mild atelec tasis is seen at dependent portions of bilateral lower lobes. There are few pulmonary nodules are seen throughout bilateral lungs, largest is measuring 7 mm in siz e and seen at peripheral aspect of the right upper lobe (4/208) which is unchanged since prior. Nodules are marked in PACs on series 4. -5 mm nodule within left lower lobe (image 151) and 4 mm pulmonary nodule adjacent to the left major fissure (image 216), are new since prior study in 2018. For pulmonary nodules measuring less than 6 m m in size in presence of high risk factors for pulmonary malignancy follow-up evaluation in 12 months is optional per Fleischner Society guidelines. Limited evaluation of upper abdominal viscera shows no evidence of acute abnormalities. Evaluation is suboptimal due to motion artifact and nondedicated technique. Osseous structures: Degenerative changes of the spine. Stable 1.3 x 2.7 cm fat-containing lesion is again seen within left deltoid muscle, unchanged since p rior and most likely representing lipoma. IMPRESSION: 1. No evidence of pulmonary embolus. There is no right heart strain. 2. Emphysema, slightly worsened since prior. 3. Dilatation of the main pulmonary artery which could be seen in pulmonary hypertension, findings a re new since prior. 4. Multiple pulmonary nodules, few new nodules measuring less than 6 mm in size. Follow-up evaluatio n in 12 months is optional per Fleischner Society guidelines. 5. The rest of findings as above. Please refer to below summary of Fleischner criteria recommendations for follow-up of incidental CT n odules (Zahraa Barroso, Guidelines for management of small pulmonary nodules detected on CT scans: A tray lozano from the Fleischner Society, Radiology 237: [phone].) SOLID NODULES Solitary nodule size: <6 mm * low risk patients: no follow-up needed * high risk patients: optional CT at 12 months Solitary nodule size: 6-8 mm * low risk patients: follow-up at 6-12 months, then consider further follow-up at 18-24 months * high risk patients: initial follow-up CT at 6-12 months and then at 18-24 months if no change Solitary nodule size: >8 mm * either low or high risk patients - consider follow-up CT at 3 months, and/or CT-PET, and/or biopsy Multiple nodules size: <6 mm * low risk patients: no routine follow-up * high risk patients: optional CT at 12 months Multiple nodules size: 6-8 mm * low risk patients: follow-up at 3-6 months, then consider further follow-up at 18-24 months * high risk patients: follow-up at 3-6 months, then at 18-24 months if no change Multiple nodules size: >8 mm * low risk patients: follow-up at 3-6 months, then consider further follow-up at 18-24 months * high risk patients: follow-up at 3-6 months, then at 18-24 months if no change Note: newly detected indeterminate nodule in persons 35 years of age or older. * low risk patients: minimal or absent history of smoking and/or other known risk factors * high risk patients: history of smoking or of other known risk factors (e.g. first degree relative with lung cancer, or exposure to asbestos, radon, uranium) * if a nodule up to 8 mm is partly solid or is ground glass further follow-up is required after 24 m onths to exclude possible slow growing adenocarcinoma (LETTY) SUBSOLID NODULES Solitary pure ground-glass nodule * nodule size <6 mm - no CT follow-up required * nodule size >=6 mm - follow-up CT at 6-12 months, then every 2 years until 5 years Solitary part-solid nodule * nodule size <6 mm - no CT follow-up required * nodule size >=6 mm - follow-up CT at 3-6 months. If unchanged, and solid component remains <6 mm, then annual follow-up for 5 years Multiple subsolid nodules * nodule size <6 mm - follow-up CT at 3-6 months, consider further follow-up at 2 and 4 years if sta ble * nodule size >=6 mm - follow-up CT at 3-6 months, subsequent management based on the most suspiciou s nodule(s) ACT 112: Negative or not required by law. The above report was generated using voice recognition software. It may contain grammatical, syntax o r spelling errors. Electronically signed by: Tasia Sullivan DO 12/18/2020 8:15 AM
[2020-12-18] MEDS ORDERED: ALPRAZolam 0.5 MG TABLET PO PRN (08:21)
[2020-12-18] MEDS ORDERED: GLUCOSE 10 TABS/TUBE PO PRN (08:22)
[2020-12-18] MEDS ORDERED: GLUCAGON FOR INJ 1 MG VIAL SQ PRN (08:22)
[2020-12-18] MEDS ORDERED: DEXTROSE 50% 50 ML SYRINGE IV PRN (08:22)
[2020-12-18] MEDS ORDERED: CARBOHYDRATES FOR HYPOGLYCEMIA PO PRN (08:22)
[2020-12-18] MEDS ORDERED: GLUCOSE 40% GEL 15 GM TUBE PO PRN (08:22)
[2020-12-18 08:56] LABS: Monotest Negative (Negative)
[2020-12-18] MEDS ORDERED: lisinopril 5 MG TAB PO SCH (09:00)
[2020-12-18 09:08] LABS: Ferritin 8.9 ng/ml (8-388); Thyroid Stimulating Hormone 0.36 uIu/ml (0.300-4.500)
[2020-12-18] MEDS: GABAPENTIN 600 MG TAB PO SCH ×3 (09:09→21:21)
[2020-12-18] MEDS: PANTOprazole 40 MG TAB PO SCH (09:09)
[2020-12-18] MEDS: CEROVITE ADV FORMULA TAB PO SCH (09:09)
[2020-12-18] MEDS: dilTIAZem HCL 120 MG CAPCR PO SCH (09:09)
[2020-12-18] MEDS: ESCITALOPRAM OXALATE 20 MG TAB PO SCH (09:10)
[2020-12-18] MEDS: EZETIMIBE 10 MG TABLET PO SCH (09:10)
[2020-12-18] MEDS: RIVAROXABAN 20 MG TAB PO SCH (09:10)
[2020-12-18] MEDS: CHOLECALCIFEROL 1,000 UNITS 25 MCG TAB PO SCH (09:10)
[2020-12-18] MEDS: FLUTICASONE/VILANTEROL 100/25MCG 14 PUFFS/INHALER INH SCH (09:11)
[2020-12-18] MEDS: ASPIRIN 81 MG ECTAB PO SCH (09:11)
[2020-12-18] MEDS: ASCORBIC ACID 500 MG TAB PO SCH (09:11)
[2020-12-18] MEDS: cilostazoL 100 MG TAB PO SCH ×2 (09:11→21:21)
[2020-12-18 09:22] LABS: Estimated Average Glucose 157 mg/dl; Hemoglobin A1C 7.1 % (4.5-5.6); Procalcitonin 20.16 ng/ml (0-0.5)
[2020-12-18 09:28] LABS: Lyme Ab IgG w/WB Rflx Negative (Negative); Lyme Ab IgM w/WB Rflx Negative (Negative)
[2020-12-18 09:42] LABS: Appearance Urine Clear (Clear); Bacteria Urine Automated 3+ (Negative); Bilirubin Urine Negative (Negative); Blood Urine 1+ (Negative); Color Urine Yellow; Glucose Urine UA Negative (Negative); Ketones Urine Trace (Negative); Leukocyte Esterase Urine 2+ (Negative); Nitrite Urine Positive (Negative); Protein Urine Trace (Negative); Specific Gravity Urine > 1.045 (1.000-1.030); Urobilinogen Urine Negative (Negative); WBC Urine Automated >30 /hpf (0-5); pH Urine 6.5 (4.5-7.5)
--- NOTE | 2020-12-18 10:30 | XRay Report ---
XR chest 1V portable HISTORY: 70 years-old Male Resp sx c/w COVID-19 acute shortness of breath COMPARISON: Chest radiograph and CTA chest 12/18/2020 TECHNIQUE: Portable AP view of the chest FINDINGS: Cardiomediastinal and hilar silhouettes are within normal limits. Emphysema. No pneumothorax, pleural effusion, airspace consolidation or overt pulmonary edema. Chronic interstitial coarsening. No acute fracture. IMPRESSION: Emphysema without acute process. ACT 112: Negative or not required by law. The above report was generated using voice recognition software. It may contain grammatical, syntax o r spelling errors. Electronically signed by: Jose Carlos Clifford M.D. 12/18/2020 10:29 AM
[2020-12-18 12:20] LABS: Adenovirus PCR Not Detected (NotDetected); Bordetella parapertussis PCR Not Detected (NotDetected); Bordetella pertussis PCR Not Detected (NotDetected); Chlamydia pneumoniae PCR Not Detected (NotDetected); Coronavirus 229E PCR Not Detected (NotDetected); Coronavirus CoV-2 (COVID19)PCR Not Detected (NotDetected); Coronavirus HKU1 PCR Not Detected (NotDetected); Coronavirus NL63 PCR Not Detected (NotDetected); Coronavirus OC43PCR Not Detected (NotDetected); Human Metapneumovirus PCR Not Detected (NotDetected); Influenza A PCR Not Detected (NotDetected); Influenza B PCR Not Detected (NotDetected); Mycoplasma pneumoniae PCR Not Detected (NotDetected); Parainfluenza Virus 1 PCR Not Detected (NotDetected); Parainfluenza Virus 2 PCR Not Detected (NotDetected); Parainfluenza Virus 3 PCR Not Detected (NotDetected); Parainfluenza Virus 4 PCR Not Detected (NotDetected); Respiratory Syncytial VirusPCR Not Detected (NotDetected); Rhinovirus/Enterovirus PCR Not Detected (NotDetected)
[2020-12-18] MEDS: INSULIN ASPART 100 UNITS/ML 3 ML PEN SC SCH ×3 (12:36→21:20)
--- NOTE | 2020-12-18 18:19 | Pulmonary Consultation ---
Date of Consultation December 18, 2020 Assessment & Plan (1) COPD (chronic obstructive pulmonary disease): (2) Bullous emphysema: (3) Pulmonary nodule: CT chest 12/18/2020 personally reviewed: Severely centrilobular and paraseptal emphysema appreciated with bullous disease Right upper lobe 7 mm pulmonary nodule No mediastinal lymphadenopathy --Severe COPD with emphysema Patient is only on Breo at home I will add Incruse to it COVID-19 PCR negative Respiratory bio fire negative Procalcitonin 20.16 --7 mm right upper lobe pulmonary nodule Patient who has greater than 25-hzdu-lskc smoking history need to be followed up Repeat CT chest in 6 months --Greater than 73-nmpw-gbbq smoking history Encouraged to continue abstinence from smoking Plan: I do not think patient's underlying etiology is from pulmonary. Patient likely has UTI sepsis. Patient does have very severe COPD Add Incruse to it. Consideration of azithromycin 250 mg Mgmhdn-Pyrykgaoa-Nswijr on discharge should be thought of Please note the above document was generated using voice recognition software. It may contain grammatical, syntax or spelling errors.Any formal questions or c oncerns about the content, text or information contained within the body of this dictation should be directly addressed to the provider for clarification. History of Present Illness Attending Physician: Reilly De La Fuente MD History of Present Illness 70-year-old male with past medical history of COPD, paroxysmal A. fib on Xarelto, coronary artery disease presented to the hospital with complaints of shortness of breath and generalized lethargy He says that he has been having issues with breathing for a long time but it has been progressively getting worse. Pulmonary consulted for underlying severe COPD At the time of examination patient was lying on bed. He says that his breathing is okay but he still feeling lethargic He states that he has been coughing every day early in the morning and bringing up clear phlegm. Denies any fever or chills. No chest pain. Denies any dysuria, no diarrhea. No headache, no nausea, no vomiting. Social history: Greater than 44-kphm-dunz smoking history, patient states he quit 4 months ago. 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 Pets: Has 2 kittens at home. No personal or family history of asthma. Allergies Allergy/AdvReac Type Severity Reaction Status Date / Time levofloxacin AdvReac Intermediate JOINT Verified 12/18/20 01:31 STIFFNESS Home Medications Medication Instructions Recorded Confirmed Type aspirin 81 mg chewable tablet 81 mg PO DAILY tab 12/14/18 12/18/20 History atorvastatin 80 mg tablet 80 mg PO HS tab 12/14/18 12/18/20 History cholecalciferol (vitamin D3) 25 3,000 unit PO DAILY tab 12/14/18 12/18/20 History mcg (1,000 unit) tablet metformin 500 mg tablet 500 mg PO HS #30 tab 12/14/18 12/18/20 History rivaroxaban 20 mg tablet 20 mg PO DAILY #1 tab 12/14/18 12/18/20 History alprazolam 0.5 mg tablet 0.5 mg PO TID PRN 07/03/20 12/18/20 History ascorbic acid (vitamin C) 500 mg 500 mg PO DAILY 07/03/20 12/18/20 History tablet diltiazem HCl 120 mg tablet 120 mg PO DAILY tab 07/03/20 12/18/20 History escitalopram oxalate 20 mg tablet 20 mg PO DAILY 07/03/20 12/18/20 History (Lexapro) ezetimibe 10 mg tablet (Zetia) 10 mg PO DAILY 07/03/20 12/18/20 History vit C,E,zinc,copper-ropdu2o 250 1 cap PO DAILY 07/03/20 12/18/20 History mg-lutein 5 mg-zeaxanthin 1 mg capsule (Ocuvite Adult 50 Plus) cilostazol 100 mg tablet 100 mg PO BID 12/18/20 12/18/20 History fluticasone furoate 100 1 ea INHALATION DAILY 12/18/20 12/18/20 History mcg-vilanterol 25 mcg/dose inhalation powder (Breo Ellipta) gabapentin 600 mg tablet 600 mg PO TID 12/18/20 12/18/20 History lisinopril 5 mg tablet 5 mg PO DAILY 12/18/20 12/18/20 History pantoprazole 20 mg tablet,delayed 20 mg PO DAILY 12/18/20 12/18/20 History release Patient History Medical History (Updated 12/18/20 @ 19:38 by Kaushik Briones MD) Bullous emphysema DM type 2 (diabetes mellitus, type 2) Dyslipidemia GERD (gastroesophageal reflux disease) Hypertension PAD (peripheral artery disease) "with chronic left SFA occlusion" PAF (paroxysmal atrial fibrillation) Peripheral neuropathy Tobacco use disorder Family History Mother Diabetes Father Heart disease Social History Smoking Status: Current every day smoker Tobacco Type: Cigarettes Cigarettes Per Day: 10; Hx Alcohol Use: No Hx Substance Use: No Beliefs That Will Affect Care: None Current Living Situation: Spouse Other Information That Helps Us Care for You: No Feels Safe at Home: Yes Safety Concerns: Feels Safe At This Time Review of Systems Review of Systems: All systems reviewed & are unremarkable except as noted in HPI & below Physical Exam Physical Exam: Constitutional: No acute distress, frail-appearing HEENT: EOMI, PERRLA Respiratory system: Decreased air entry bilaterally, no wheeze, no rales, mild crackles bilateral lower lobe CVS: S1-S2 positive, no murmurs or gallops, distant heart sounds Abdomen: Soft, nontender, nondistended, positive bowel sounds x4 Extremities: +2 pulses bilaterally radialis/ dorsalis pedis, no cyanosis, no edema Neuro: Awake alert oriented x3 Psych: Normal mood and affect G/U: No [place] Skin: no rashes, warm and dry Lymphatic: no cervical or axillary lymphadenopathy Results & Data Results & Data ([facility]) Vital Signs (Past 12 Hours) Vital Signs Temp Pulse Pulse Resp BP Pulse Ox 12/18/20 15:08 60 12/18/20 14:58 37.0 C 84 20 90/48 L 97 12/18/20 11:03 36.9 C 72 20 91/56 L 98 12/18/20 08:49 64 12/18/20 07:24 36.7 C 78 16 143/80 H 97 12/18/20 07:07 36.9 C 62 20 100/66 97 12/18/20 06:40 37.3 C 14 95 12/18/20 01:26 12/18/20 01:26 PG Care Time/CCT Total # of Minutes Spent Total Time Spent with Patient: Total time spent is greater than 50% in coordination of care (as documented) at patient's floor/unit and/or counseling patient: Coding Level of Care Code 53823 Initial Inpt Care Lvl 3 Diagnoses COPD (chronic obstructive pulmonary disease) J44.9 Bullous emphysema J43.9 Pulmonary nodule R91.1
--- NOTE | 2020-12-18 19:06 | Hospitalist Progress Note ---
Date of Service December 18, 2020 Assessment & Plan (1) Febrile illness, acute: Plan: per Dr. Valladares- admitting MD notes: Etiologies considered but not limited to bronchitis, COPD exacerbation, pulmonary embolus, malignancy. Chest x-ray is clear however there is clinically a suggestion of possible infection with evidence of chills, productive cough, fatigue, fever reported and white count of 14. Zosyn empirically started in the ER and continued pending further workup and clinical improvement. He is on the dry side by my exam and a pneumonia may manifest after rehydration efforts (given 1.5L in the ER). Ordered procalcitonin and UA to help rule out pulmonary infection and UTI, respectively. Additionally ordered TSH, CK, monospot, rickettsial panel in setting of ongoing fatigue and fevers. Chest CTA from overnight was taken but no image or reading is present at this time. As he is not wheezing, do not feel strongly we should start steroids, especially in setting of possible infection. Bronchodilators PRN. 12/18 afebrile since admission WBC [address] chest: no pneumonia no abdominal symptoms blood culture pending urine culture pending continue Zosyn IV (2) Hypoxia: Plan: CT chest: no PE, PNA possible underlying Pulm HTN echo ordered possible ERNIE? will consult Pulmonary (3) PAF (paroxysmal atrial fibrillation): Plan: PAF s/p transesophageal echo guided cardioversion in Nov 2016. Continues on Xarelto and diltiazem. (4) Tobacco use disorder: Plan: Encouraged to quit. (5) Hypertension: Plan: controlled, cont current therapy per home regimen. (6) DM type 2 (diabetes mellitus, type 2): Plan: hold outpatient metformin and utilize basal bolus inuslin while admitted. a1c 7.1 (7) Peripheral neuropathy: Plan: cont gabapentin per home regimen. Also takes lexapro (8) Dyslipidemia: Plan: chronic, cont zetia and atorvastatin per home regimen. (9) PAD (peripheral artery disease): Plan: Cont medical management with cilostazol, ASA. (10) DVT prophylaxis: Plan: Xarelto Full Code Dispo-to floor with telemetry, PT/OT ordered. Admission and Anticipated Discharge Date Admission Date: December 18, 2020 Subjective ff up for fever, cough, SOB, fatigue etc seen resting in bed, comfortable on 2 L NC states he feels only slightly better than admission no active dyspnea on exam, but does report productive cough reports L sided chest pain- pressure/sharp that woke him up this morning has been having fatigue x 1 month, persistent also reports daytime somnolence no other symptoms Review of Systems Review of Systems: all noted and negative except for above Physical Exam Physical Exam: General- oriented x 3, not in distress, speaks in sentences with no effort or accessory muscle use appears somewhat weak Head- atraumatic Eyes- PERRL, EOMI, anicteric ENT- oropharynx clear Neck- supple, no JVD, no adenopathy, no thyromegaly; carotids +2/2, no bruits appreciated Lungs- clear to auscultation bilaterally, no rales/wheezes Heart- normal rate, regular rhythm; no murmur, no gallop, no rub appreciated Abdomen- normal bowel sounds, nondistended, soft, nontender, no masses or hepatosplenomegaly Extremities- no pretibial edema, no calf tenderness; peripheral pulses intact Neuro- alert, oriented x 3; CN 2-12 grossly intact; motor 5/5 bilaterally;sensation 100% on all extremities; no other gross focal neurologic deficits Skin- warm & dry Results & Data Results & Data ([facility]) Vital Signs (Past 12 Hours) Vital Signs Temp Pulse Pulse Resp BP Pulse Ox 12/18/20 15:08 60 12/18/20 14:58 37.0 C 84 20 90/48 L 97 12/18/20 11:03 36.9 C 72 20 91/56 L 98 12/18/20 08:49 64 12/18/20 07:24 36.7 C 78 16 143/80 H 97 12/18/20 07:07 36.9 C 62 20 100/66 97 12/18/20 06:40 37.3 C 14 95 all noted and reviewed including below
[2020-12-18] MEDS ORDERED: AZITHROMYCIN 250 MG TAB PO ONE (19:40)
[2020-12-18] MEDS ORDERED: ATORVASTATIN 40 MG TAB PO SCH (21:00)
[2020-12-18] MEDS: INSULIN GLARGINE SOLOSTAR 100 UNITS/ML 3 ML PEN SC SCH (21:21)
--- NOTE | 2020-12-19 06:09 | Electrocardiogram Report ---
Test Reason : Blood Pressure : / mmHG Vent. Rate : 083 BPM Atrial Rate : 083 BPM P-R Int : 138 ms QRS Dur : 092 ms QT Int : 350 ms P-R-T Axes : 000 -48 093 degrees QTc Int : 411 ms Normal sinus rhythm Incomplete right bundle branch block Left anterior fascicular block Nonspecific ST and T wave abnormality Abnormal ECG When compared with ECG of 06-DEC-2016 08:24, Nonspecific T wave abnormality, worse in Anterolateral leads QT has shortened Confirmed by Jose Irene ([id number]) on 12/19/2020 6:09:12 AM Referred By: REFERRED SELF Confirmed By:Jose Irene
[2020-12-19] MEDS ORDERED: VANCOMYCIN CONSULT ACTIVE PRN (07:55)
[2020-12-19] MEDS ORDERED: VANCOMYCIN HCL 2,250 MG in SODIUM CHLORIDE 0.9% 500 ML IV ONE (08:15)
[2020-12-19] MEDS: CHOLECALCIFEROL 1,000 UNITS 25 MCG TAB PO SCH (08:31)
[2020-12-19] MEDS: ASCORBIC ACID 500 MG TAB PO SCH (08:31)
[2020-12-19] MEDS: ASPIRIN 81 MG ECTAB PO SCH (08:31)
[2020-12-19] MEDS: cilostazoL 100 MG TAB PO SCH ×2 (08:32→20:39)
[2020-12-19] MEDS: DAPTOmycin 475 MG in SYRINGE 0 ML IV SCH (08:32)
[2020-12-19] MEDS: GABAPENTIN 600 MG TAB PO SCH ×3 (08:33→20:39)
[2020-12-19] MEDS: ESCITALOPRAM OXALATE 20 MG TAB PO SCH (08:33)
[2020-12-19] MEDS: dilTIAZem HCL 120 MG CAPCR PO SCH (08:33)
[2020-12-19] MEDS: EZETIMIBE 10 MG TABLET PO SCH (08:33)
[2020-12-19] MEDS: PANTOprazole 40 MG TAB PO SCH (08:34)
[2020-12-19] MEDS: RIVAROXABAN 20 MG TAB PO SCH (08:34)
[2020-12-19] MEDS: CEROVITE ADV FORMULA TAB PO SCH (08:34)
[2020-12-19] MEDS: FLUTICASONE/VILANTEROL 100/25MCG 14 PUFFS/INHALER INH SCH (08:35)
[2020-12-19] MEDS: UMECLIDINIUM BROMIDE 62.5MCG/BLISTER 7 PUFFS/INHALER INH SCH (08:36)
[2020-12-19 08:40] LABS: Basophils # (auto) 0.02 K/uL (0-0.2); Basophils % (auto) 0.2 %; Eosinophils # (auto) 0.01 K/uL (0-0.5); Eosinophils % (auto) 0.1 %; Hematocrit (blood only) 29.2 % (42-52); Hemoglobin 8.8 g/dL (14.0-18.0); Immature Granulocytes # (auto) 0.03 K/uL (0.00-0.02); Immature Granulocytes % (auto) 0.2 %; Lymphocytes % (auto) 11.2 %; Mean Corpuscular Hemoglobin 21.5 pg (25-34); Mean Corpuscular Hgb Conc 30.1 g/dL (32-36); Mean Corpuscular Volume 71.4 fL (80-100); Mean Platelet Volume 8.7 fL (7.4-10.4); Monocytes # (auto) 1.22 K/uL (0.11-0.59); Monocytes % (auto) 9.8 %; Neutrophils # (auto) 9.81 K/uL (1.4-6.5); Neutrophils % (auto) 78.5 %; Platelet Count 236 K/uL (130-400); RDW Coefficient of Variation 19.7 % (11.5-14.5); RDW Standard Deviation 51.7 fL (36.4-46.3); Red Blood Count 4.09 M/uL (4.7-6.1); White Blood Count 12.49 K/uL (4.8-10.8)
[2020-12-19] MEDS ORDERED: AZITHROMYCIN 250 MG TAB PO SCH (09:00)
[2020-12-19 09:01] LABS: Hypochromasia Present
[2020-12-19 09:09] LABS: BUN Creatinine Ratio 25.7 (10-20); Calcium 7.9 mg/dl (8.5-10.1); Creatinine Clr Calc Pharmacy 117.4 ml/min; Est GFR (Non-African American) 95.7 ml/min; Potassium 3.8 mmol/L (3.5-5.1)
[2020-12-19] MEDS: INSULIN ASPART 100 UNITS/ML 3 ML PEN SC SCH ×4 (09:20→20:39)
[2020-12-19 09:24] LABS: Base Excess ABG 4.1 mEq/L (-9-1.8); HCO3 ABG 28 mmol/L (19-24); PCO2 ABG 37 mmHg (35-46); PO2 ABG 124 mmHg (80-95); pH ABG 7.49 (7.35-7.45)
[2020-12-19 09:25] LABS: Allen Test Pos (Pos)
--- NOTE | 2020-12-19 10:36 | Cardiology Consultation ---
Date of Consultation December 19, 2020 Assessment & Plan (1) Febrile illness, acute: (2) Atypical chest pain: (3) PAD (peripheral artery disease): (4) Tobacco use disorder: 70-year-old patient admitted with febrile illness. Urine culture suggest infection with gram-negative bacilli. Blood culture final results pending with possible contaminant in 1 bottle. Reporting chest discomfort on admission which is reproducible on exam. Musculoskeletal etiology most likely. Carries a history of atrial flutter, however, has remained in sinus rhythm since admission. Appropriately anticoagulated with Xarelto. Continue diltiazem. Stable echocardiogram. No further inpatient cardiac testing at this time. Thank you for allow me to participate in the care of your patient. History of Present Illness Reason for Consultation: Chest pain Requesting Physician: Dr. De La Fuente Attending Physician: Reilly De La Fuente MD History of Present Illness 70-year-old patient presented to the emergency department 12/18/2020 with shortness of breath and fever. Patient reports 2-3 weeks of fever cough, and sputum production. Reported associated left-sided chest discomfort. Cardiac enzymes negative on admission. Echocardiogram without regional wall motion abnormality. Covid testing negative. He was seen by pulmonary medicine who felt patient's underlying etiology was not pulmonary. Currently being treated for urinary tract infection. He is afebrile since admission. Urine culture positive for gram-negative bacilli, single blood culture positive for gram- positive cocci in clusters, second blood culture without growth x24 hours. Currently being treated with daptomycin, Zosyn, and azithromycin. Patient currently resting comfortably. Reports left sided chest soreness near his sternal border. The pain is reproducible with palpation. Somewhat positional. Shortness of breath and chronic dyspnea on exertion unchanged. Tolerating chronic oral anticoagulation without signs/symptoms of GI/ blood loss. No orthopnea, PND, or lower extremity edema. Denies palpitations, lightheadedness, dizziness, syncope, or near syncope. No focal weakness, slurred speech, visual changes, dysphagia, or paresthesias Allergies Allergy/AdvReac Type Severity Reaction Status Date / Time levofloxacin AdvReac Intermediate JOINT Verified 12/18/20 01:31 STIFFNESS Home Medications Medication Instructions Recorded Confirmed Type aspirin 81 mg chewable tablet 81 mg PO DAILY tab 12/14/18 12/18/20 History atorvastatin 80 mg tablet 80 mg PO HS tab 12/14/18 12/18/20 History cholecalciferol (vitamin D3) 25 3,000 unit PO DAILY tab 12/14/18 12/18/20 History mcg (1,000 unit) tablet metformin 500 mg tablet 500 mg PO HS #30 tab 12/14/18 12/18/20 History rivaroxaban 20 mg tablet 20 mg PO DAILY #1 tab 12/14/18 12/18/20 History alprazolam 0.5 mg tablet 0.5 mg PO TID PRN 07/03/20 12/18/20 History ascorbic acid (vitamin C) 500 mg 500 mg PO DAILY 07/03/20 12/18/20 History tablet diltiazem HCl 120 mg tablet 120 mg PO DAILY tab 07/03/20 12/18/20 History escitalopram oxalate 20 mg tablet 20 mg PO DAILY 07/03/20 12/18/20 History (Lexapro) ezetimibe 10 mg tablet (Zetia) 10 mg PO DAILY 07/03/20 12/18/20 History vit C,E,zinc,copper-ndbfq5p 250 1 cap PO DAILY 07/03/20 12/18/20 History mg-lutein 5 mg-zeaxanthin 1 mg capsule (Ocuvite Adult 50 Plus) cilostazol 100 mg tablet 100 mg PO BID 12/18/20 12/18/20 History fluticasone furoate 100 1 ea INHALATION DAILY 12/18/20 12/18/20 History mcg-vilanterol 25 mcg/dose inhalation powder (Breo Ellipta) gabapentin 600 mg tablet 600 mg PO TID 12/18/20 12/18/20 History lisinopril 5 mg tablet 5 mg PO DAILY 12/18/20 12/18/20 History pantoprazole 20 mg tablet,delayed 20 mg PO DAILY 12/18/20 12/18/20 History release Patient History Medical History Bullous emphysema DM type 2 (diabetes mellitus, type 2) Dyslipidemia GERD (gastroesophageal reflux disease) Hypertension PAD (peripheral artery disease) "with chronic left SFA occlusion" PAF (paroxysmal atrial fibrillation) Peripheral neuropathy Tobacco use disorder Family History Mother Diabetes Father Heart disease Social History (Reviewed 12/19/20 @ 10:30 by CHIKA Alvarez Smoking Status: Current every day smoker Tobacco Type: Cigarettes Cigarettes Per Day: 10; Hx Alcohol Use: No Hx Substance Use: No Beliefs That Will Affect Care: None Current Living Situation: Spouse Other Information That Helps Us Care for You: No Feels Safe at Home: Yes Safety Concerns: Feels Safe At This Time Review of Systems Review of Systems: All systems reviewed & are unremarkable except as noted in Subjective Physical Exam Constitutional: well developed, well nourished and + ill appearing; no acute distress Respiratory: normal respiratory effort; no respiratory distress, no labored breathing and no retractions Auscultation: + diminished lung sounds; breath sounds present, no crackles, no rales, no rhonchi and no wheezes Cardiovascular: Rate/Rhythm: regular rate and regular rhythm Heart Sounds: normal S1 and normal S2; no murmur Vessels: no JVD and no carotid bruit Extremities: no edema Gastrointestinal (Abdomen): Inspection/Auscultation: abdomen normal to inspection and normal bowel sounds; abdomen not distended Percussi on/Palpation: abdomen soft; abdomen nontender, no guarding and abdomen not rigid Neurologic: CN's II-XI intact bilaterally and moves all extremities; no focal motor deficits Motor/Sensory: + tremor Psychiatric: A+Ox3, euthymic affect Results & Data ([facility]) Vital Signs (Past 12 Hours) Vital Signs Temp Pulse Pulse Resp BP Pulse Ox 12/19/20 07:00 70 12/19/20 06:46 36.9 C 89 18 100/64 97 12/19/20 03:43 36.8 C 75 20 96/58 L 95 12/18/20 23:03 37 C 66 18 96/59 L 91 12/18/20 23:00 71
[2020-12-19] MEDS: PIPERACILLIN/TAZOBACTAM 3.375 GM in DEXTROSE 5% 100 ML IV SCH ×2 (10:44→16:35)
[2020-12-19] MEDS: SODIUM CHLORIDE 0.9% 1000ML 1,000 ML IV SCH ×2 (10:45→20:38)
--- NOTE | 2020-12-19 12:23 | Pulmonology Progress Note ---
Date of Service December 19, 2020 Assessment & Plan (1) COPD (chronic obstructive pulmonary disease): (2) Bullous emphysema: (3) Pulmonary nodule: Plan: CT chest 12/18/2020 personally reviewed: Severely centrilobular and paraseptal emphysema appreciated with bullous disease Right upper lobe 7 mm pulmonary nodule No mediastinal lymphadenopathy --Severe COPD with emphysema Patient is only on Breo at home I will add Incruse to it COVID-19 PCR negative Respiratory bio fire negative Procalcitonin 20.16 Consideration of azithromycin 250 mg Jlzyra-Rvimaceax-Axzsez on discharge should be thought of ABG 12/19/2020: 7.49/37/124 on 2 L --7 mm right upper lobe pulmonary nodule Patient who has greater than 32-khkm-gaix smoking history need to be followed up Repeat CT chest in 6 months --Greater than 34-hmxn-jaec smoking history Encouraged to continue abstinence from smoking Plan: DC steroids Continue with antibiotics for UTI Please note the above document was generated using voice recognition software. It may contain grammatical, syntax or spelling errors.Any formal questions or concerns about the content, text or information contained within the body of this dictation should be directly addressed to the provider for clarification. Admission and Anticipated Discharge Date Admission Date: December 18, 2020 Subjective Patient seen and examined at bedside. No acute distress, no adverse events overnight Patient said he has been feeling better, still lethargic but he is getting his energy back. Denies any fever or chills, dysuria Shortness of breath is improved Review of Systems Review of Systems: All systems reviewed & are unremarkable except as noted in Subjective Physical Exam Physical Exam: Constitutional: No acute distress, frail-appearing HEENT: EOMI, PERRLA Respiratory system: Decreased air entry bilaterally, no wheeze, no rales, mild crackles bilateral lower lobe CVS: S1-S2 positive, no murmurs or gallops, distant heart sounds Abdomen: Soft, nontender, nondistended, positive bowel sounds x4 Extremities: +2 pulses bilaterally radialis/ dorsalis pedis, no cyanosis, no edema Neuro: Awake alert oriented x3 Psych: Normal mood and affect G/U: No [place]dwell Skin: no rashes, warm and dry Lymphatic: no cervical or axillary lymphadenopathy Results & Data Results & Data ([facility]) Vital Signs (Past 12 Hours) Vital Signs Temp Pulse Pulse Resp BP Pulse Ox 12/19/20 11:10 36.7 C 93 H 16 99/64 L 93 12/19/20 07:00 70 12/19/20 06:46 36.9 C 89 18 100/64 97 12/19/20 03:43 36.8 C 75 20 96/58 L 95 12/19/20 08:31 12/19/20 08:31 PG Care Time/CCT Total # of Minutes Spent Total Time Spent with Patient: Total time spent is greater than 50% in coord ination of care (as documented) at patient's floor/unit and/or counseling patient: Coding Level of Care Code 68346 Subseq Hosp Care Lvl 3 Diagnoses COPD (chronic obstructive pulmonary disease) J44.9 Bullous emphysema J43.9 Pulmonary nodule R91.1
--- NOTE | 2020-12-19 18:03 | Hospitalist Progress Note ---
Date of Service December 19, 2020 Assessment & Plan (1) Febrile illness, acute: Plan: per Dr. Valladares- admitting MD notes: Etiologies considered but not limited to bronchitis, COPD exacerbation, pulmonary embolus, malignancy. Chest x-ray is clear however there is clinically a suggestion of possible infection with evidence of chills, productive cough, fatigue, fever reported and white count of 14. Zosyn empirically started in the ER and continued pending further workup and clinical improvement. He is on the dry side by my exam and a pneumonia may manifest after rehydration efforts (given 1.5L in the ER). Ordered procalcitonin and UA to help rule out pulmonary infection and UTI, respectively. Additionally ordered TSH, CK, monospot, rickettsial panel in setting of ongoing fatigue and fevers. Chest CTA from overnight was taken but no image or reading is present at this time. As he is not wheezing, do not feel strongly we should start steroids, especially in setting of possible infection. Bronchodilators PRN. 10/ afebrile since admission WBC improved from 14 to [address] chest: no pneumonia no abdominal symptoms blood culture gram positive cocci in clusters urine culture gram negative bacilli continue Zosyn IV Day 2 Dapto Day 1 (2) Hypoxia: Plan: CT chest: no PE, PNA possible underlying Pulm HTN echo noted possible ERNIE unlikely per Pulmonary Incruse added Chest pain ACS ruled out Chief Operator Reformer consulted, musculoskeletal etiology (3) PAF (paroxysmal atrial fibrillation): Plan: PAF s/p transesophageal echo guided cardioversion in Nov 2016. Continues on Xarelto and diltiazem. (4) Tobacco use disorder: Plan: Encouraged to quit. (5) Hypertension: Plan: controlled, cont current therapy per home regimen. (6) DM type 2 (diabetes mellitus, type 2): Plan: hold outpatient metformin and utilize basal bolus inuslin while admitted. a1c 7.1 (7) Peripheral neuropathy: Plan: cont gabapentin per home regimen. Also takes lexapro (8) Dyslipidemia: Plan: chronic, cont zetia and atorvastatin per home regimen. (9) PAD (peripheral artery disease): Plan: Cont medical management with cilostazol, ASA. (10) DVT prophylaxis: Plan: Xarelto Full Code Dispo-to floor with telemetry, PT/OT ordered. Admission and Anticipated Discharge Date Admission Date: December 18, 2020 Subjective Follow-up for UTI, etc. Seen resting in bed, comfortable on 2 L nasal cannula states he feels slightly better compared to yesterday weakness improving no chest pain, dyspnea, palpitations, dizziness no abdominal pain ,nausea, vomiting no fever/chills no other symptoms Review of Systems Review of Systems: all noted and negative except for above Physical Exam Physical Exam: General- oriented x 3, not in distress, speaks in sentences with no effort or accessory muscle use somewhat weak Eyes- anicteric Neck- no JVD Lungs- clear breath sounds bilaterally, no crackles Heart- normal rate, regular rhythm; no murmurs Abdomen- normal bowel sounds, nondistended, soft, nontender Extremities- no pretibial edema, no calf tenderness Neuro- alert, oriented x 3; no gross focal neurologic deficits Skin- warm & dry Results & Data Results & Data ([facility]) Vital Signs (Past 12 Hours) Vital Signs Temp Pulse Pulse Resp BP Pulse Ox Pulse Ox 12/19/20 15:26 36.6 C 76 16 97/61 L 95 12/19/20 15:11 85 12/19/20 13:54 91 12/19/20 11:10 36.7 C 93 H 16 99/64 L 93 12/19/20 07:00 70 12/19/20 06:46 36.9 C 89 18 100/64 97 Pulse Ox 12/19/20 15:26 12/19/20 15:11 12/19/20 13:54 91 12/19/20 11:10 12/19/20 07:00 12/19/20 06:46 all noted and reviewed including below
[2020-12-19] MEDS: INSULIN GLARGINE SOLOSTAR 100 UNITS/ML 3 ML PEN SC SCH (20:40)
[2020-12-20] MEDS: PIPERACILLIN/TAZOBACTAM 3.375 GM in DEXTROSE 5% 100 ML IV SCH ×2 (00:41→08:14)
[2020-12-20] MEDS: SODIUM CHLORIDE 0.9% 1000ML 1,000 ML IV SCH ×3 (01:16→16:05)
--- NOTE | 2020-12-20 06:35 | Electrocardiogram Report ---
Test Reason : Blood Pressure : / mmHG Vent. Rate : 075 BPM Atrial Rate : 075 BPM P-R Int : 148 ms QRS Dur : 108 ms QT Int : 398 ms P-R-T Axes : -58 -34 050 degrees QTc Int : 444 ms Unusual P axis, possible ectopic atrial rhythm Left axis deviation Abnormal ECG When compared with ECG of 18-DEC-2020 01:27, Ectopic atrial rhythm has replaced Sinus rhythm ST no longer depressed in Anterior leads Nonspecific T wave abnormality, improved in Anterolateral leads Confirmed by Jose Irene ([id number]) on 12/20/2020 6:35:26 AM Referred By: REFERRED SELF Confirmed By:Jose Irene
[2020-12-20 07:17] LABS: Hematocrit (blood only) 27.7 % (42-52); Hemoglobin 8.4 g/dL (14.0-18.0); Mean Corpuscular Hemoglobin 21.4 pg (25-34); Mean Corpuscular Hgb Conc 30.3 g/dL (32-36); Mean Corpuscular Volume 70.7 fL (80-100); Mean Platelet Volume 8.5 fL (7.4-10.4); Platelet Count 228 K/uL (130-400); RDW Coefficient of Variation 19.7 % (11.5-14.5); RDW Standard Deviation 50.8 fL (36.4-46.3); Red Blood Count 3.92 M/uL (4.7-6.1); White Blood Count 7.16 K/uL (4.8-10.8)
[2020-12-20 07:34] LABS: Anisocytosis Present; Basophils # (auto) 0.01 K/uL (0-0.2); Basophils % (auto) 0.1 %; Eosinophils # (auto) 0.01 K/uL (0-0.5); Eosinophils % (auto) 0.1 %; Hypochromasia Present; Immature Granulocytes # (auto) 0.02 K/uL (0.00-0.02); Immature Granulocytes % (auto) 0.3 %; Lymphocytes # (auto) 1.62 K/uL (1.2-3.4); Lymphocytes % (auto) 22.6 %; Microcytosis Present; Monocytes # (auto) 0.94 K/uL (0.11-0.59); Monocytes % (auto) 13.1 %; Neutrophils # (auto) 4.56 K/uL (1.4-6.5); Neutrophils % (auto) 63.8 %; Schistocytes 1+
[2020-12-20 07:45] LABS: BUN Creatinine Ratio 16.9 (10-20); Creatinine Clr Calc Pharmacy 115.9 ml/min; Est GFR (African American) 114.3 ml/min; Est GFR (Non-African American) 98.6 ml/min; Potassium 4.1 mmol/L (3.5-5.1)
[2020-12-20] MEDS: GABAPENTIN 600 MG TAB PO SCH ×3 (08:05→21:06)
[2020-12-20] MEDS: UMECLIDINIUM BROMIDE 62.5MCG/BLISTER 7 PUFFS/INHALER INH SCH (08:06)
[2020-12-20] MEDS: FLUTICASONE/VILANTEROL 100/25MCG 14 PUFFS/INHALER INH SCH (08:06)
[2020-12-20] MEDS: cilostazoL 100 MG TAB PO SCH ×2 (08:06→21:05)
[2020-12-20] MEDS: PANTOprazole 40 MG TAB PO SCH (08:06)
[2020-12-20] MEDS: ESCITALOPRAM OXALATE 20 MG TAB PO SCH (08:06)
[2020-12-20] MEDS: ASCORBIC ACID 500 MG TAB PO SCH (08:07)
[2020-12-20] MEDS: EZETIMIBE 10 MG TABLET PO SCH (08:07)
[2020-12-20] MEDS: RIVAROXABAN 20 MG TAB PO SCH (08:07)
[2020-12-20] MEDS: CEROVITE ADV FORMULA TAB PO SCH (08:07)
[2020-12-20] MEDS: ASPIRIN 81 MG ECTAB PO SCH (08:07)
[2020-12-20] MEDS: dilTIAZem HCL 120 MG CAPCR PO SCH (08:07)
[2020-12-20] MEDS: CHOLECALCIFEROL 1,000 UNITS 25 MCG TAB PO SCH (08:07)
[2020-12-20] MEDS: INSULIN ASPART 100 UNITS/ML 3 ML PEN SC SCH ×4 (08:11→21:03)
[2020-12-20] MEDS: DAPTOmycin 475 MG in SYRINGE 0 ML IV SCH (08:14)
[2020-12-20] MEDS ORDERED: CEFEPIME CONSULT ACTIVE PRN (08:48)
[2020-12-20] MEDS ORDERED: IRON SUCROSE 150 MG in SODIUM CHLORIDE 0.9% 250 ML IV ONE (09:15)
[2020-12-20] MEDS: FOLIC ACID 1 MG TAB PO SCH (09:20)
--- NOTE | 2020-12-20 12:50 | Pulmonology Progress Note ---
Date of Service December 20, 2020 Assessment & Plan (1) COPD (chronic obstructive pulmonary disease): (2) Bullous emphysema: (3) Pulmonary nodule: Plan: CT chest 12/18/2020 personally reviewed: Severely centrilobular and paraseptal emphysema appreciated with bullous disease Right upper lobe 7 mm pulmonary nodule No mediastinal lymphadenopathy --Severe COPD with emphysema Patient is only on Breo at home I will add Incruse to it COVID-19 PCR negative Respiratory bio fire negative Procalcitonin 20.16 Consideration of azithromycin 250 mg Gerzbf-Rbnzcmpxc-Arrdbu on discharge should be thought of ABG 12/19/2020: 7.49/37/124 on 2 L --7 mm right upper lobe pulmonary nodule Patient who has greater than 19-bagv-umxm smoking history need to be followed up Repeat CT chest in 6 months --Greater than 76-bmqx-jxoj smoking history Encouraged to continue abstinence from smoking Plan: Patient seems to be stable from respiratory perspective. Continue with antibiotics for bacteremia and UTI Recommend to check for oxygen requirement prior to discharge Add Incruse to the Breo which she is on at home prior to discharge No further recommendation from pulmonary perspective. Will sign off Please call directly with any questions Please note the above document was generated using voice recognition software. It may contain grammatical, syntax or spelling errors.Any formal questions or concerns about the content, text or information contained within the body of this dictation should be directly addressed to the provider for clarification. Admission and Anticipated Discharge Date Admission Date: December 18, 2020 Subjective Patient seen and examined at bedside. No acute distress, no adverse events overnight Patient with a significantly improved He says he is feeling more energetic Fair appetite Denies any nausea or vomiting Review of Systems Review of Systems: All systems reviewed & are unremarkable except as noted in Subjective Physical Exam Physical Exam: Constitutional: No acute distress, frail-appearing HEENT: EOMI, PERRLA Respiratory system: Decreased air entry bilaterally, no wheeze, no rales, mild crackles bilateral lower lobe CVS: S1-S2 positive, no murmurs or gallops, distant heart sounds Abdomen: Soft, nontender, nondistended, positive bowel sounds x4 Extremities: +2 pulses bilaterally radialis/ dorsalis pedis, no cyanosis, no edema Neuro: Awake alert oriented x3 Psych: Normal mood and affect G/U: No Caldwell Skin: no rashes, warm and dry Lymphatic: no cervical or axillary lymphadenopathy Results & Data Results & Data ([facility]) Vital Signs (Past 12 Hours) Vital Signs Temp Pulse Pulse Resp BP BP Pulse Ox 12/20/20 11:23 37.0 C 89 18 125/69 92 12/20/20 07:58 75 12/20/20 07:49 37.0 C 72 18 113/70 97 12/20/20 03:43 36.8 C 81 18 110/67 92 12/20/20 07:05 12/20/20 07:05 PG Care Time/CCT Total # of Minutes Spent Total Time Spent with Patient: Total time spent is greater than 50% in coordination of care (as documented) at patient's floor/unit and/or counseling patient: Coding Level of Care Code 08403 Subseq Hosp Care Lvl 2 Diagnoses COPD (chronic obstructive pulmonary disease) J44.9 Bullous emphysema J43.9 Pulmonary nodule R91.1
--- NOTE | 2020-12-20 14:15 | Hospitalist Progress Note ---
Date of Service December 20, 2020 Assessment & Plan (1) Febrile illness, acute: Plan: per Dr. Valladares- admitting MD notes: Etiologies considered but not limited to bronchitis, COPD exacerbation, pulmonary embolus, malignancy. Chest x-ray is clear however there is clinically a suggestion of possible infection with evidence of chills, productive cough, fatigue, fever reported and white count of 14. Zosyn empirically started in the ER and continued pending further workup and clinical improvement. He is on the dry side by my exam and a pneumonia may manifest after rehydration efforts (given 1.5L in the ER). Ordered procalcitonin and UA to help rule out pulmonary infection and UTI, respectively. Additionally ordered TSH, CK, monospot, rickettsial panel in setting of ongoing fatigue and fevers. Chest CTA from overnight was taken but no image or reading is present at this time. As he is not wheezing, do not feel strongly we should start steroids, especially in setting of possible infection. Bronchodilators PRN. 10/2 afebrile since admission WBC improved from 14 to 12, today 7.[address] chest: no pneumonia no abdominal symptoms blood culture: Pending gram positive cocci in clusters Repeat blood culture: Pending urine culture: E. coli Based on sensitivities of E. coli, change Zosyn to cefepime IV antibiotic day #3 Blood cultures pending, continue Dapto Day #2 Diarrhea Check for C. difficile and stool culture (2) Hypoxia: Plan: CT chest: no PE, PNA possible underlying Pulm HTN echo noted possible ERNIE unlikely per Pulmonary Incruse added Wean off oxygen today Chest pain ACS ruled out Textile Science Technician consulted, musculoskeletal etiology Anemia, iron deficiency and folate deficiency Possible GI bleed, on Xarelto Hemoglobin decreased from 10.4-8.4 Iron level 18 Folate 3.9 Fecal occult blood screen positive IV iron ordered, will start ferrous sulfate, folate supplementation No signs of overt melena or hematochezia at this point Protonix 40 mg IV twice daily We will consult GI (3) PAF (paroxysmal atrial fibrillation): Plan: PAF s/p transesophageal echo guided cardioversion in Nov 2016. Continues on Xarelto and diltiazem. (4) Tobacco use disorder: Plan: Encouraged to quit. (5) Hypertension: Plan: controlled, cont current therapy per home regimen. (6) DM type 2 (diabetes mellitus, type 2): Plan: hold outpatient metformin and utilize basal bolus inuslin while admitted. a1c 7.1 (7) Peripheral neuropathy: Plan: cont gabapentin per home regimen. Also takes lexapro (8) Dyslipidemia: Plan: chronic, cont zetia and atorvastatin per home regimen. (9) PAD (peripheral artery disease): Plan: Cont medical management with cilostazol, ASA. (10) DVT prophylaxis: Plan: Xarelto Full Code Dispo-to floor with telemetry, PT/OT ordered. Admission and Anticipated Discharge Date Admission Date: December 18, 2020 Subjective Follow-up for UTI, etc. Seen resting in bed, comfortable, not in distress States he feels okay overall Weakness improving No abdominal pain, nausea vomiting, headache, dizziness, chest pain, shortness of breath, cough Had diarrhea 4 times in the nurse wound No other symptoms Review of Systems Review of Systems: all noted and negative except for above Physical Exam Physical Exam: General- oriented x 3, not in distress, speaks in sentences with no effort or accessory muscle use Somewhat weak But in good spirits Eyes- anicteric Neck- no JVD Lungs- clear breath sounds bilaterally, no wheezing, no rhonchi appreciated Heart- normal rate, regular rhythm; no murmurs Abdomen- normal bowel sounds, nondistended, soft, no tenderness in all quadrants Extremities- no pretibial edema, no calf tenderness Neuro- alert, oriented x 3; no gross focal neurologic deficits Skin- warm & dry Results & Data Results & Data ([facility]) Vital Signs (Past 12 Hours) Vital Signs Temp Pulse Pulse Resp BP BP Pulse Ox 12/20/20 11:23 37.0 C 89 18 125/69 92 12/20/20 07:58 75 12/20/20 07:49 37.0 C 72 18 113/70 97 12/20/20 03:43 36.8 C 81 18 110/67 92 all noted and reviewed including below
[2020-12-20] MEDS: CEFEPIME 2,000 MG in SYRINGE 0 ML IV SCH (16:45)
[2020-12-20] MEDS: FERROUS SULFATE 325 MG TAB PO SCH (16:45)
[2020-12-20] MEDS: INSULIN GLARGINE SOLOSTAR 100 UNITS/ML 3 ML PEN SC SCH (21:03)
[2020-12-21] MEDS: CEFEPIME 2,000 MG in SYRINGE 0 ML IV SCH ×2 (04:58→16:44)
[2020-12-21] MEDS: SODIUM CHLORIDE 0.9% 1000ML 1,000 ML IV SCH (05:03)
[2020-12-21] MEDS: FERROUS SULFATE 325 MG TAB PO SCH ×2 (07:55→16:44)
[2020-12-21] MEDS: FLUTICASONE/VILANTEROL 100/25MCG 14 PUFFS/INHALER INH SCH (07:55)
[2020-12-21] MEDS: UMECLIDINIUM BROMIDE 62.5MCG/BLISTER 7 PUFFS/INHALER INH SCH (07:55)
[2020-12-21] MEDS: GABAPENTIN 600 MG TAB PO SCH ×3 (07:56→21:03)
[2020-12-21] MEDS: RIVAROXABAN 20 MG TAB PO SCH (07:56)
[2020-12-21] MEDS: ASPIRIN 81 MG ECTAB PO SCH (07:56)
[2020-12-21] MEDS: cilostazoL 100 MG TAB PO SCH ×2 (07:56→21:03)
[2020-12-21] MEDS: ESCITALOPRAM OXALATE 20 MG TAB PO SCH (07:56)
[2020-12-21] MEDS: ASCORBIC ACID 500 MG TAB PO SCH (07:56)
[2020-12-21] MEDS: FOLIC ACID 1 MG TAB PO SCH (07:57)
[2020-12-21] MEDS: PANTOprazole 40 MG TAB PO SCH (07:58)
[2020-12-21] MEDS: CHOLECALCIFEROL 1,000 UNITS 25 MCG TAB PO SCH (07:58)
[2020-12-21] MEDS: CEROVITE ADV FORMULA TAB PO SCH (07:58)
[2020-12-21] MEDS: EZETIMIBE 10 MG TABLET PO SCH (07:58)
[2020-12-21] MEDS: DAPTOmycin 475 MG in SYRINGE 0 ML IV SCH (07:59)
[2020-12-21] MEDS: INSULIN ASPART 100 UNITS/ML 3 ML PEN SC SCH ×4 (08:02→21:02)
[2020-12-21] MEDS: dilTIAZem HCL 120 MG CAPCR PO SCH (08:20)
[2020-12-21 09:36] LABS: Hematocrit (blood only) 28.1 % (42-52); Hemoglobin 8.4 g/dL (14.0-18.0); Mean Corpuscular Hemoglobin 21.5 pg (25-34); Mean Corpuscular Hgb Conc 29.9 g/dL (32-36); Mean Corpuscular Volume 72.1 fL (80-100); Mean Platelet Volume 8.8 fL (7.4-10.4); Platelet Count 276 K/uL (130-400); RDW Standard Deviation 51.9 fL (36.4-46.3); White Blood Count 6.92 K/uL (4.8-10.8)
[2020-12-21 10:06] LABS: BUN Creatinine Ratio 12.1 (10-20); Calcium 8.6 mg/dl (8.5-10.1); Creatinine Clr Calc Pharmacy 121.5 ml/min; Est GFR (African American) 116.5 ml/min; Est GFR (Non-African American) 100.5 ml/min; Potassium 4.1 mmol/L (3.5-5.1)
--- NOTE | 2020-12-21 10:11 | Hospitalist Progress Note ---
Date of Service December 21, 2020 Assessment & Plan (1) Febrile illness, acute: Plan: per Dr. Valladares- admitting MD notes: Etiologies considered but not limited to bronchitis, COPD exacerbation, pulmonary embolus, malignancy. Chest x-ray is clear however there is clinically a suggestion of possible infection with evidence of chills, productive cough, fatigue, fever reported and white count of 14. Zosyn empirically started in the ER and continued pending further workup and clinical improvement. He is on the dry side by my exam and a pneumonia may manifest after rehydration efforts (given 1.5L in the ER). Ordered procalcitonin and UA to help rule out pulmonary infection and UTI, respectively. Additionally ordered TSH, CK, monospot, rickettsial panel in setting of ongoing fatigue and fevers. Chest CTA from overnight was taken but no image or reading is present at this time. As he is not wheezing, do not feel strongly we should start steroids, especially in setting of possible infection. Bronchodilators PRN. 10/3 afebrile since admission WBC improved from 14 to 12, today 7.1, 6.[address] chest: no pneumonia no abdominal symptoms blood culture: gram positive cocci in clusters x 2 bottles Repeat blood culture: Pending urine culture: E. coli echo: limited study, assessment of valve disease not performed Based on sensitivities of E. coli, change Zosyn to cefepime IV Day #2 Blood cultures pending, continue Dapto Day #3 will consult ID Diarrhea resolved C diff pending (2) Hypoxia: Plan: CT chest: no PE, PNA possible underlying Pulm HTN echo noted possible ERNIE unlikely per Pulmonary Incruse added Weaned off oxygen resolved Chest pain ACS ruled out Balance Sheet Analyst consulted, musculoskeletal etiology Anemia, iron deficiency and folate deficiency Possible GI bleed, on Xarelto Hemoglobin decreased from 10.4-8.4 Iron level 18 Folate 3.9 Fecal occult blood screen positive IV iron ordered, ferrous sulfate, folate supplementation No signs of overt melena or hematochezia at this point Protonix 40 mg IV twice daily will consult GI (3) PAF (paroxysmal atrial fibrillation): Plan: PAF s/p transesophageal echo guided cardioversion in Nov 2016. Continues on Xarelto and diltiazem. (4) Tobacco use disorder: Plan: Encouraged to quit. (5) Hypertension: Plan: controlled, cont current therapy per home regimen. (6) DM type 2 (diabetes mellitus, type 2): Plan: hold outpatient metformin and utilize basal bolus inuslin while admitted. a1c 7.1 (7) Peripheral neuropathy: Plan: cont gabapentin per home regimen. Also takes lexapro (8) Dyslipidemia: Plan: chronic, cont zetia and atorvastatin per home regimen. (9) PAD (peripheral artery disease): Plan: Cont medical management with cilostazol, ASA. (10) DVT prophylaxis: Plan: Xarelto Full Code Dispo-to floor with telemetry, PT/OT ordered. Admission and Anticipated Discharge Date Admission Date: December 18, 2020 Subjective ff up for UTI, bacteremia, etc seen resting in bed, watching tv in good spirits states he feels improved today less weak every day no diarrhea, melena today no abdominal pain, nausea no chest pain, dyspnea, palpitations, dizziness no other symptoms Review of Systems Constitutional: all noted and negative except for above Physical Exam Physical Exam: General- oriented x 3, not in distress, speaks in sentences with no effort or accessory muscle use Eyes- anicteric Neck- no JVD Lungs- clear BS BL Heart- normal rate, regular rhythm; no murmurs Abdomen- normal bowel sounds, nondistended, soft, nontender Extremities- no pretibial edema, no calf tenderness Neuro- alert, oriented x 3; no new gross focal neurologic deficits Skin- warm & dry Results & Data Results & Data ([facility]) Vital Signs (Past 12 Hours) Vital Signs Temp Pulse Pulse Resp BP Pulse Ox 12/21/20 07:56 36.9 C 80 16 121/71 95 12/21/20 07:32 68 12/21/20 03:46 36.8 C 89 18 104/51 L 91 12/20/20 23:20 36.9 C 73 16 100/65 92 12/20/20 23:00 69 all noted and reviewed including below
[2020-12-21 10:26] LABS: Anisocytosis Present; Basophils # (auto) 0.04 K/uL (0-0.2); Basophils % (auto) 0.6 %; Eosinophils # (auto) 0.01 K/uL (0-0.5); Eosinophils % (auto) 0.1 %; Immature Granulocytes # (auto) 0.02 K/uL (0.00-0.02); Immature Granulocytes % (auto) 0.3 %; Lymphocytes # (auto) 2.25 K/uL (1.2-3.4); Lymphocytes % (auto) 32.5 %; Monocytes # (auto) 0.83 K/uL (0.11-0.59); Neutrophils # (auto) 3.77 K/uL (1.4-6.5); Neutrophils % (auto) 54.5 %; Ovalocytes 1+; Polychromasia 1+
[2020-12-21] MEDS: INSULIN GLARGINE SOLOSTAR 100 UNITS/ML 3 ML PEN SC SCH (21:03)
[2020-12-22] MEDS: CEFEPIME 2,000 MG in SYRINGE 0 ML IV SCH (05:17)
[2020-12-22 07:15] LABS: Hematocrit (blood only) 30.1 % (42-52); Mean Corpuscular Hemoglobin 21.4 pg (25-34); Mean Corpuscular Hgb Conc 29.9 g/dL (32-36); Mean Corpuscular Volume 71.5 fL (80-100); Mean Platelet Volume 8.8 fL (7.4-10.4); Platelet Count 338 K/uL (130-400); RDW Coefficient of Variation 20.1 % (11.5-14.5); RDW Standard Deviation 52.1 fL (36.4-46.3); Red Blood Count 4.21 M/uL (4.7-6.1); White Blood Count 8.57 K/uL (4.8-10.8)
[2020-12-22 07:43] LABS: Anisocytosis Present; Basophils # (auto) 0.05 K/uL (0-0.2); Basophils % (auto) 0.6 %; Eosinophils # (auto) 0.04 K/uL (0-0.5); Eosinophils % (auto) 0.5 %; Hypochromasia Present; Immature Granulocytes # (auto) 0.04 K/uL (0.00-0.02); Immature Granulocytes % (auto) 0.5 %; Lymphocytes # (auto) 2.67 K/uL (1.2-3.4); Lymphocytes % (auto) 31.2 %; Microcytosis Present; Monocytes # (auto) 0.91 K/uL (0.11-0.59); Monocytes % (auto) 10.6 %; Neutrophils # (auto) 4.86 K/uL (1.4-6.5); Neutrophils % (auto) 56.6 %
[2020-12-22 07:44] LABS: BUN Creatinine Ratio 12.5 (10-20); Calcium 8.5 mg/dl (8.5-10.1); Creatinine Clr Calc Pharmacy 119.6 ml/min; Est GFR (African American) 115.8 ml/min; Est GFR (Non-African American) 99.9 ml/min; Potassium 4.1 mmol/L (3.5-5.1)
[2020-12-22] MEDS: FOLIC ACID 1 MG TAB PO SCH (07:46)
[2020-12-22] MEDS: cilostazoL 100 MG TAB PO SCH ×2 (07:47→20:14)
[2020-12-22] MEDS: PANTOprazole 40 MG TAB PO SCH (07:47)
[2020-12-22] MEDS: RIVAROXABAN 20 MG TAB PO SCH (07:47)
[2020-12-22] MEDS: EZETIMIBE 10 MG TABLET PO SCH (07:47)
[2020-12-22] MEDS: GABAPENTIN 600 MG TAB PO SCH ×3 (07:47→20:14)
[2020-12-22] MEDS: ASCORBIC ACID 500 MG TAB PO SCH (07:47)
[2020-12-22] MEDS: CEROVITE ADV FORMULA TAB PO SCH (07:47)
[2020-12-22] MEDS: ESCITALOPRAM OXALATE 20 MG TAB PO SCH (07:48)
[2020-12-22] MEDS: FERROUS SULFATE 325 MG TAB PO SCH ×2 (07:48→16:07)
[2020-12-22] MEDS: CHOLECALCIFEROL 1,000 UNITS 25 MCG TAB PO SCH (07:48)
[2020-12-22] MEDS: dilTIAZem HCL 120 MG CAPCR PO SCH (07:48)
[2020-12-22] MEDS: ASPIRIN 81 MG ECTAB PO SCH (07:48)
[2020-12-22] MEDS: UMECLIDINIUM BROMIDE 62.5MCG/BLISTER 7 PUFFS/INHALER INH SCH (07:49)
[2020-12-22] MEDS: FLUTICASONE/VILANTEROL 100/25MCG 14 PUFFS/INHALER INH SCH (07:49)
[2020-12-22] MEDS: INSULIN ASPART 100 UNITS/ML 3 ML PEN SC SCH ×4 (08:21→20:11)
[2020-12-22] MEDS: DAPTOmycin 475 MG in SYRINGE 0 ML IV SCH (08:22)
--- NOTE | 2020-12-22 10:54 | Gastrointestinal Consultation ---
Date of Consultation December 22, 2020 Assessment & Plan (1) Anemia: He has had a drop in Hb/Hct from 14 in July to 9 w/o gross GI bleeding. Will arrange OP EGD/Colonoscopy. GI will sign off. Please notify us if new/worrsening GI issues. Supervising Physician Co-Signing Physician Notes Attending attestation I have seen, examined this patient, and agree with the findings and above by our mid-level provider TREASURE Pastrana, with the following additions: -No signs of bleeding -New anemia -Plan on outpatient endoscopies History of Present Illness Reason for Consultation: possible GI bleed, anemia Requesting Physician: Dr. De La Fuente Attending Physician: Reilly De La Fuente MD History of Present Illness Mr. Grzegorz Cook is a 70 yr old male pt of Dr. Maryann Gordon with a hx of A-fib and PAD on Xarelto, HTN, DM-2, with chronic microcystic anemia. He is admitted for respiratory issues. Hb on arrival 10.4->9.4 today. BUN has been normal. Hb was 14 in July. He denies any GI bleeding, no abdominal pain and no diarrhea or constipation. Most recent EGD in October 2019 was normal. Colonoscopy in October with multiple polyps. Allergies Allergy/AdvReac Type Severity Reaction Status Date / Time levofloxacin AdvReac Intermediate JOINT Verified 12/18/20 01:31 STIFFNESS Home Medications Medication Instructions Recorded Confirmed Type aspirin 81 mg chewable tablet 81 mg PO DAILY tab 12/14/18 12/18/20 History atorvastatin 80 mg tablet 80 mg PO HS tab 12/14/18 12/18/20 History cholecalciferol (vitamin D3) 25 3,000 unit PO DAILY tab 12/14/18 12/18/20 History mcg (1,000 unit) tablet metformin 500 mg tablet 500 mg PO HS #30 tab 12/14/18 12/18/20 History rivaroxaban 20 mg tablet 20 mg PO DAILY #1 tab 12/14/18 12/18/20 History alprazolam 0.5 mg tablet 0.5 mg PO TID PRN 07/03/20 12/18/20 History ascorbic acid (vitamin C) 500 mg 500 mg PO DAILY 07/03/20 12/18/20 History tablet diltiazem HCl 120 mg tablet 120 mg PO DAILY tab 07/03/20 12/18/20 History escitalopram oxalate 20 mg tablet 20 mg PO DAILY 07/03/20 12/18/20 History (Lexapro) ezetimibe 10 mg tablet (Zetia) 10 mg PO DAILY 07/03/20 12/18/20 History vit C,E,zinc,copper-tzdyw5m 250 1 cap PO DAILY 07/03/20 12/18/20 History mg-lutein 5 mg-zeaxanthin 1 mg capsule (Ocuvite Adult 50 Plus) cilostazol 100 mg tablet 100 mg PO BID 12/18/20 12/18/20 History fluticasone furoate 100 1 ea INHALATION DAILY 12/18/20 12/18/20 History mcg-vilanterol 25 mcg/dose inhalation powder (Breo Ellipta) gabapentin 600 mg tablet 600 mg PO TID 12/18/20 12/18/20 History lisinopril 5 mg tablet 5 mg PO DAILY 12/18/20 12/18/20 History pantoprazole 20 mg tablet,delayed 20 mg PO DAILY 12/18/20 12/18/20 History release Patient History Medical History Bullous emphysema DM type 2 (diabetes mellitus, type 2) Dyslipidemia GERD (gastroesophageal reflux disease) Hypertension PAD (peripheral artery disease) "with chronic left SFA occlusion" PAF (paroxysmal atrial fibrillation) Peripheral neuropathy Tobacco use disorder Family History Mother Diabetes Father Heart disease Social History Smoking Status: Current every day smoker Tobacco Type: Cigarettes Cigarettes Per Day: 10; Hx Alcohol Use: No Hx Substance Use: No Communication Ability: Effective Beliefs That Will Affect Care: None Current Living Situation: Spouse Other Information That Helps Us Care for You: No Feels Safe at Home: Yes Safety Concerns: Feels Safe At This Time Assistive Devices: None Review of Systems Review of Systems: ROS: Gen: Denies weakness, fevers, weight loss Eyes: No eye redness, or pain, no recent vision changes Resp: + SOB prior to arrival, now resolved Cardio: No palpitations/irregular beats, no chest pain GI: No abdominal pain, no nausea/vomiting : Denies pain on urination Skin: No jaundice, itching or new rashes Physical Exam Constitutional: well developed and cooperative Eyes: PERRL, conjunctivae normal, anicteric sclerae Neck: trachea midline, no thyromegaly Respiratory: normal respiratory effort, lungs clear to auscultation Cardiovascular: RRR, no murmur, no edema Gastrointestinal (Abdomen): normal bowel sounds, soft, nontender, no hepatosplenomegaly Skin: no rashes, warm and dry normal turgor Neurologic: PERRL, EOMI, accommodation nl, no face palsy, no dysarthria awake; not confused Psychiatric: A+Ox3, euthymic affect Orientation: alert, oriented x 3 and cooperative Lymphatic: no cervical or axillary lymphadenopathy Results & Data ([facility]) Vital Signs (Past 12 Hours) Vital Signs Temp Pulse Pulse Resp BP BP Pulse Ox 12/22/20 07:55 36.8 C 65 16 134/71 93 12/22/20 07:24 66 12/22/20 03:18 37.1 C 73 18 119/68 91 12/22/20 01:58 61 12/21/20 23:48 36.8 C 67 16 119/70 91 Laboratory Results WBC 8, Hb 9, Hct 35, Plts 338, Na 140, K 4.1, Cl 106, CO2 27, BUN 8, Cr 0.6, glucose 125 Diagnostic Findings CTAP 03/24/20: 1. Minimal bilateral perinephric fat stranding/edema. This is nonspecific and could be chronic or represent mild infectious process such as a pyelonephritis. However, there is normal enhancement within the bilateral kidneys. 2. No renal or ureteral stones. No hydronephrosis. 3. No evidence for renal abscess. 4. No bowel wall thickening or obstruction. 5. Mild bladder wall thickening. CXR 12/18/20: Emphysema without acute process.
[2020-12-22] MEDS ORDERED: OPTIRAY 320 100ml IV ONE (15:26)
--- NOTE | 2020-12-22 15:54 | CT Scan Report ---
CT abdomen pelvis wo/w con HISTORY: UTI, r/o pyelonephritis, renal abscess, lithiasis TECHNIQUE: Multiaxial CT images of the abdomen and pelvis were performed both before and after the in travenous administration of contrast to evaluate the kidneys. COMPARISON STUDY: None. FINDINGS: No renal or ureteral stones. No hydronephrosis. Mild renal vascular calcifications are note d. Mild bladder wall thickening which may be due to underdistention. The prostate gland is mildly enl arged. Bibasilar linear densities favor subsegmental atelectasis or scarring. The liver, spleen, panc reas, gallbladder, and adrenal glands are unremarkable. Moderate atherosclerotic plaque within the no rmal caliber abdominal aorta. The main portal vein is patent. No retroperitoneal lymphadenopathy. Min imal bilateral perinephric fat stranding/edema. There are few subcentimeter bilateral renal hypodense lesions. These are technically too small to characterize but statistically represent cysts. Otherwis e, the kidneys enhance homogeneously. No suspicious lytic or blastic osseous lesions. No bowel wall t hickening or obstruction. Normal appendix. No suspicious filling defects seen within the opacified bi lateral renal collecting systems are opacified ureters. Of note, the mid to distal left ureter is not well opacified but appear normal in course and caliber. IMPRESSION: 1. Minimal bilateral perinephric fat stranding/edema. This is nonspecific and could be chronic or rep resent mild infectious process such as a pyelonephritis. However, there is normal enhancement within the bilateral kidneys. 2. No renal or ureteral stones. No hydronephrosis. 3. No evidence for renal abscess. 4. No bowel wall thickening or obstruction. 5. Mild bladder wall thickening. ACT 112: Negative or not required by law. Electronically signed by: Guy Renee M.D. 12/22/2020 3:53 PM
[2020-12-22] MEDS: cefTRIAXone SODIUM 2,000 MG in DEXTROSE 5% 50 ML IV SCH (16:07)
--- NOTE | 2020-12-22 18:56 | Hospitalist Progress Note ---
Date of Service December 22, 2020 delayed entry date of service noted above Assessment & Plan (1) Febrile illness, acute: Plan: E. COLI UTI, POSSIBLE PYELONEPHRITIS per Dr. Valladares- admitting MD notes: Etiologies considered but not limited to bronchitis, COPD exacerbation, pulmonary embolus, malignancy. Chest x-ray is clear however there is clinically a suggestion of possible infection with evidence of chills, productive cough, fatigue, fever reported and white count of 14. Zosyn empirically started in the ER and continued pending further workup and clinical improvement. He is on the dry side by my exam and a pneumonia may manifest after rehydration efforts (given 1.5L in the ER). Ordered procalcitonin and UA to help rule out pulmonary infection and UTI, respectively. Additionally ordered TSH, CK, monospot, rickettsial panel in setting of ongoing fatigue and fevers. Chest CTA from overnight was taken but no image or reading is present at this time. As he is not wheezing, do not feel strongly we should start steroids, especially in se tting of possible infection. Bronchodilators PRN. 10/4 Clinically much improved Generalized weakness is much better Remained afebrile since admission WBC improved from 14 to [address] chest: no pneumonia no abdominal symptoms blood culture: Coagulase staph not lugdunensis Repeat blood culture: Negative urine revealed: E. coli echo: limited study, assessment of valve disease not performed Based on sensitivities of E. coli, change Zosyn to cefepime IV Day #3 Daptomycin discontinued ID consulted, recommended imaging of CT abdomen pelvis rule out pyelonephritis/abscess CT abdomen showed perinephric stranding suggestive of pyelonephritis, no renal abscess Per ID: Transition to Cefpodoxime 400 mg p.o. twice daily x9 more days to complete 14 days of antibiotic course Diarrhea resolved (2) Hypoxia: Plan: CT chest: no PE, PNA possible underlying Pulm HTN echo: Normal left ventricular wall motion and LVEF, grossly normal right ventricular systolic function, limited evaluation possible ERNIE unlikely per Pulmonary Incruse added Weaned off oxygen resolved Chest pain ACS ruled out [employer] consulted, musculoskeletal etiology Anemia, iron deficiency and folate deficiency Possible GI bleed, on Xarelto Hemoglobin decreased from 10.4-8.4 Iron level 18 Folate 3.9 Fecal occult blood screen positive IV iron ordered, ferrous sulfate, folate supplementation No signs of overt melena or hematochezia at this point Protonix 40 mg IV twice daily given now transition to Protonix p.o. 40 mg twice daily GI consulted, hemoglobin remained stable around 9, recommend outpatient EGD colonoscopy (3) PAF (paroxysmal atrial fibrillation): Plan: PAF s/p transesophageal echo guided cardioversion in Nov 2016. Continue on Xarelto and diltiazem. (4) Tobacco use disorder: Plan: Encouraged to quit. (5) Hypertension: Plan: controlled, cont current therapy per home regimen. (6) DM type 2 (diabetes mellitus, type 2): Plan: hold outpatient metformin and utilize basal bolus inuslin while admitted. a1c 7.1 (7) Peripheral neuropathy: Plan: cont gabapentin per home regimen. Also takes lexapro (8) Dyslipidemia: Plan: chronic, cont zetia and atorvastatin per home regimen. (9) PAD (peripheral artery disease): Plan: Cont medical management with cilostazol, ASA. (10) DVT prophylaxis: Plan: Xarelto Full Code Dispo anticipate discharge home tomorrow plan of care discussed with patient in detail and at length all questions answered he is understanding, agreeable, comfortable with the plan of care Admission and Anticipated Discharge Date Admission Date: December 18, 2020 Subjective Follow-up for UTI, anemia, etc. Seen resting in bed, comfortable, not in distress Watching TV States he continues to feel improved day by day No abdominal pain, nausea vomiting, fevers or chills, problems with urination No diarrhea No chest pain, dyspnea, palpitations, dizziness No no other symptoms Review of Systems Review of Systems: all noted and negative except for above Physical Exam Physical Exam: General- oriented x 3, not in distress, speaks in sentences with no effort or accessory muscle use Eyes- anicteric Neck- no JVD Lungs- clear breath sounds bilaterally, no crackles, no wheezing appreciated Heart- normal rate, regular rhythm; no murmurs Abdomen- normal bowel sounds, nondistended, soft, nontender No CVA tenderness Extremities- no pretibial edema, no calf tenderness Neuro- alert, oriented x 3; no gross focal neurologic deficits Skin- warm & dry Results & Data Results & Data ([facility]) Vital Signs (Past 12 Hours) Vital Signs Temp Pulse Pulse Resp BP Pulse Ox 12/22/20 15:38 36.8 C 67 16 133/79 92 12/22/20 15:04 69 12/22/20 12:14 37.1 C 77 16 135/76 92 12/22/20 07:55 36.8 C 65 16 134/71 93 12/22/20 07:24 66 all noted and reviewed including below
[2020-12-22] MEDS: INSULIN GLARGINE SOLOSTAR 100 UNITS/ML 3 ML PEN SC SCH (20:13)
[2020-12-23 07:54] LABS: Basophils # (auto) 0.08 K/uL (0-0.2); Basophils % (auto) 0.8 %; Eosinophils # (auto) 0.05 K/uL (0-0.5); Eosinophils % (auto) 0.5 %; Hematocrit (blood only) 30.1 % (42-52); Hemoglobin 9.2 g/dL (14.0-18.0); Immature Granulocytes # (auto) 0.05 K/uL (0.00-0.02); Immature Granulocytes % (auto) 0.5 %; Lymphocytes # (auto) 2.75 K/uL (1.2-3.4); Lymphocytes % (auto) 26.4 %; Mean Corpuscular Hemoglobin 21.9 pg (25-34); Mean Corpuscular Hgb Conc 30.6 g/dL (32-36); Mean Corpuscular Volume 71.7 fL (80-100); Mean Platelet Volume 8.8 fL (7.4-10.4); Monocytes % (auto) 10.6 %; Neutrophils # (auto) 6.37 K/uL (1.4-6.5); Neutrophils % (auto) 61.2 %; Platelet Count 376 K/uL (130-400); RDW Coefficient of Variation 20.2 % (11.5-14.5); RDW Standard Deviation 51.4 fL (36.4-46.3)
[2020-12-23] MEDS: GABAPENTIN 600 MG TAB PO SCH ×3 (08:10→20:45)
[2020-12-23] MEDS: CEROVITE ADV FORMULA TAB PO SCH (08:10)
[2020-12-23] MEDS: FERROUS SULFATE 325 MG TAB PO SCH ×2 (08:10→16:44)
[2020-12-23] MEDS: ASPIRIN 81 MG ECTAB PO SCH (08:10)
[2020-12-23] MEDS: cilostazoL 100 MG TAB PO SCH ×2 (08:10→20:45)
[2020-12-23] MEDS: ASCORBIC ACID 500 MG TAB PO SCH (08:10)
[2020-12-23] MEDS: FOLIC ACID 1 MG TAB PO SCH (08:10)
[2020-12-23] MEDS: ESCITALOPRAM OXALATE 20 MG TAB PO SCH (08:10)
[2020-12-23] MEDS: EZETIMIBE 10 MG TABLET PO SCH (08:10)
[2020-12-23] MEDS: CHOLECALCIFEROL 1,000 UNITS 25 MCG TAB PO SCH (08:10)
[2020-12-23] MEDS: PANTOprazole 40 MG TAB PO SCH (08:10)
[2020-12-23] MEDS: UMECLIDINIUM BROMIDE 62.5MCG/BLISTER 7 PUFFS/INHALER INH SCH (08:10)
[2020-12-23] MEDS: dilTIAZem HCL 120 MG CAPCR PO SCH (08:10)
[2020-12-23] MEDS: DAPTOmycin 475 MG in SYRINGE 0 ML IV SCH (08:11)
[2020-12-23] MEDS: FLUTICASONE/VILANTEROL 100/25MCG 14 PUFFS/INHALER INH SCH (08:11)
[2020-12-23] MEDS: INSULIN ASPART 100 UNITS/ML 3 ML PEN SC SCH ×4 (08:13→20:26)
[2020-12-23] MEDS: RIVAROXABAN 20 MG TAB PO SCH (08:14)
[2020-12-23 08:15] LABS: Anisocytosis Present; Hypochromasia Present; Microcytosis Present
[2020-12-23 08:21] LABS: BUN Creatinine Ratio 13.6 (10-20); Calcium 8.9 mg/dl (8.5-10.1); Creatinine Clr Calc Pharmacy 110.9 ml/min; Est GFR (African American) 112.3 ml/min; Est GFR (Non-African American) 96.9 ml/min; Potassium 3.9 mmol/L (3.5-5.1)
[2020-12-23] MEDS: cefTRIAXone SODIUM 2,000 MG in DEXTROSE 5% 50 ML IV SCH (15:34)
[2020-12-23] MEDS: INSULIN GLARGINE SOLOSTAR 100 UNITS/ML 3 ML PEN SC SCH (20:45)
--- NOTE | 2020-12-24 07:30 | Hospitalist Progress Note ---
Date of Service December 24, 2020 delayed entry date of service 12/23/20 Assessment & Plan (1) Febrile illness, acute: Plan: E. COLI UTI, POSSIBLE PYELONEPHRITIS per Dr. Valladares- admitting MD notes: Etiologies considered but not limited to bronchitis, COPD exacerbation, pulmonary embolus, malignancy. Chest x-ray is clear however there is clinically a suggestion of possible infection with evidence of chills, productive cough, fatigue, fever reported and white count of 14. Zosyn empirically started in the ER and continued pending further workup and clinical improvement. He is on the dry side by my exam and a pneumonia may manifest after rehydration efforts (given 1.5L in the ER). Ordered procalcitonin and UA to help rule out pulmonary infection and UTI, respectively. Additionally ordered TSH, CK, monospot, rickettsial panel in setting of ongoing fatigue and fevers. Chest CTA from overnight was taken but no image or reading is present at this time. As he is not wheezing, do not feel strongly we should start steroids, especially in setting of possible infection. Bronchodilators PRN. 12/23 Clinically much improved Generalized weakness is much better Remained afebrile since admission WBC improved from 14 to 6.[address] chest: no pneumonia no abdominal symptoms blood culture: Coagulase staph not lugdunensis Repeat blood culture: Negative urine revealed: E. coli echo: limited study, assessment of valve disease not performed Based on sensitivities of E. coli, change Zosyn to cefepime IV Day #3 Daptomycin discontinued ID consulted, recommended imaging of CT abdomen pelvis rule out pyelonephritis/abscess CT abdomen showed perinephric stranding suggestive of pyelonephritis, no renal abscess Per ID: Transition to Cefpodoxime 400 mg p.o. twice daily x9 more days to complete 14 days of antibiotic course Diarrhea resolved (2) Hypoxia: Plan: CT chest: no PE, PNA possible underlying Pulm HTN echo: Normal left ventricular wall motion and LVEF, grossly normal right ventricular systolic function, limited evaluation possible ERNIE unlikely per Pulmonary Incruse added Weaned off oxygen resolved Chest pain ACS ruled out [employer] consulted, musculoskeletal etiology Anemia, iron deficiency and folate deficiency Possible GI bleed, on Xarelto Hemoglobin decreased from 10.4-8.4 Iron level 18 Folate 3.9 Fecal occult blood screen positive IV iron ordered, ferrous sulfate, folate supplementation No signs of overt melena or hematochezia at this point Protonix 40 mg IV twice daily given now transition to Protonix p.o. 40 mg twice daily GI consulted, hemoglobin remained stable around 9, recommend outpatient EGD colonoscopy (3) PAF (paroxysmal atrial fibrillation): Plan: PAF s/p transesophageal echo guided cardioversion in Nov 2016. Continue on Xarelto and diltiazem. (4) Tobacco use disorder: Plan: Encouraged to quit. (5) Hypertension: Plan: controlled, cont current therapy per home regimen. (6) DM type 2 (diabetes mellitus, type 2): Plan: hold outpatient metformin and utilize basal bolus inuslin while admitted. a1c 7.1 (7) Peripheral neuropathy: Plan: cont gabapentin per home regimen. Also takes lexapro (8) Dyslipidemia: Plan: chronic, cont zetia and atorvastatin per home regimen. (9) PAD (peripheral artery disease): Plan: Cont medical management with cilostazol, ASA. (10) DVT prophylaxis: Plan: Xarelto Full Code Dispo anticipate discharge home tomorrow plan of care discussed with patient in detail and at length all questions answered he is understanding, agreeable, comfortable with the plan of care Admission and Anticipated Discharge Date Admission Date: December 18, 2020 Subjective ff up for UTI, anemia, etc seen resting in bed, comfortable, in good spirits states he continues to feel improved weakness much better no abdominal pain,nausea/vomiting, diarrhea, problems with urination no other new symptoms Review of Systems Review of Systems: all noted and negative except for above Physical Exam Physical Exam: General- oriented x 3, not in distress, speaks in sentences with no effort or accessory muscle use Eyes- anicteric Neck- no JVD Lungs- clear BS BL Heart- normal rate, regular rhythm; no murmurs Abdomen- normal bowel sounds, nondistended, soft, nontender no CVA tenderness Extremities- no pretibial edema, no calf tenderness Neuro- alert, oriented x 3; no gross focal neurologic deficits Skin- warm & dry Results & Data Results & Data ([facility]) Vital Signs (Past 12 Hours) Vital Signs Temp Pulse Pulse Resp BP BP Pulse Ox 12/24/20 06:56 36.3 C L 77 18 121/68 90 12/24/20 03:04 37.1 C 70 18 92/53 L 92 10/05/21 23:39 36.8 C 74 18 93/54 L 94 12/23/20 23:00 62 12/23/20 19:43 37.1 C 66 18 122/72 94 all noted and reviewed including below
[2020-12-24 07:52] LABS: Hematocrit (blood only) 29.9 % (42-52); Mean Corpuscular Hemoglobin 21.4 pg (25-34); Mean Corpuscular Hgb Conc 30.1 g/dL (32-36); Mean Platelet Volume 8.6 fL (7.4-10.4); Platelet Count 415 K/uL (130-400); RDW Coefficient of Variation 20.7 % (11.5-14.5); Red Blood Count 4.21 M/uL (4.7-6.1); White Blood Count 10.36 K/uL (4.8-10.8)
[2020-12-24] MEDS: cilostazoL 100 MG TAB PO SCH (08:09)
[2020-12-24] MEDS: CHOLECALCIFEROL 1,000 UNITS 25 MCG TAB PO SCH (08:09)
[2020-12-24] MEDS: PANTOprazole 40 MG TAB PO SCH (08:09)
[2020-12-24] MEDS: FLUTICASONE/VILANTEROL 100/25MCG 14 PUFFS/INHALER INH SCH (08:09)
[2020-12-24] MEDS: RIVAROXABAN 20 MG TAB PO SCH (08:09)
[2020-12-24] MEDS: EZETIMIBE 10 MG TABLET PO SCH (08:09)
[2020-12-24] MEDS: FERROUS SULFATE 325 MG TAB PO SCH (08:09)
[2020-12-24] MEDS: UMECLIDINIUM BROMIDE 62.5MCG/BLISTER 7 PUFFS/INHALER INH SCH (08:09)
[2020-12-24] MEDS: ASPIRIN 81 MG ECTAB PO SCH (08:09)
[2020-12-24] MEDS: FOLIC ACID 1 MG TAB PO SCH (08:09)
[2020-12-24] MEDS: ASCORBIC ACID 500 MG TAB PO SCH (08:09)
[2020-12-24] MEDS: CEROVITE ADV FORMULA TAB PO SCH (08:09)
[2020-12-24] MEDS: INSULIN ASPART 100 UNITS/ML 3 ML PEN SC SCH ×2 (08:09→12:09)
[2020-12-24] MEDS: GABAPENTIN 600 MG TAB PO SCH ×2 (08:09→14:52)
[2020-12-24] MEDS: ESCITALOPRAM OXALATE 20 MG TAB PO SCH (08:09)
[2020-12-24] MEDS: dilTIAZem HCL 120 MG CAPCR PO SCH (08:09)
[2020-12-24 08:15] LABS: Anisocytosis Present; Basophils # (auto) 0.08 K/uL (0-0.2); Basophils % (auto) 0.8 %; Eosinophils # (auto) 0.09 K/uL (0-0.5); Eosinophils % (auto) 0.9 %; Hypochromasia Present; Immature Granulocytes # (auto) 0.07 K/uL (0.00-0.02); Immature Granulocytes % (auto) 0.7 %; Lymphocytes # (auto) 2.53 K/uL (1.2-3.4); Lymphocytes % (auto) 24.4 %; Microcytosis Present; Monocytes # (auto) 1.08 K/uL (0.11-0.59); Monocytes % (auto) 10.4 %; Neutrophils # (auto) 6.51 K/uL (1.4-6.5); Neutrophils % (auto) 62.8 %; Polychromasia 1+
[2020-12-24 08:20] LABS: BUN Creatinine Ratio 13.3 (10-20); Calcium 8.7 mg/dl (8.5-10.1); Creatinine Clr Calc Pharmacy 115.9 ml/min; Est GFR (African American) 114.3 ml/min; Est GFR (Non-African American) 98.6 ml/min; Potassium 3.9 mmol/L (3.5-5.1)
--- NOTE | 2020-12-24 13:46 | Discharge Summary ---
Date of Service December 24, 2020 Admission HPI Per Admitting Provider Mr. Cook is a 70-year-old man with a history of COPD and active smoking. He presented to the ER after waking up with shortness of breath followed by chest pain and difficulty breathing. His states she took his blood pressure which was "really high" at 135/104. The patient states the chest pain is "like someone pushing on my chest". He feels his heartbeat occasionally gets erratic. For the last month he has been feeling very tired and reports he sleeps most of the day. Aside from extreme fatigue he reports chills, night sweats, and recently a productive cough. He has had no change in his appetite but did report some nausea today. He is an active smoker, smoking approximately 1/2 pack a day. He denies any alcohol use. He denies any weight changes. He denies any blood in his stool or any new medications. He denies any lightheadedness. He reports this is the first time he has felt chest pressure. Per notes EMS reported they ambulated the patient without oxygen and he desaturated into the mid 80s on room air. COVID-19 test is negative. EKG reveals normal sinus rhythm with an incomplete right bundle branch block, LAFB. Chest x-ray revealed no acute process. A CT angio chest PE protocol is pending. The patient is not dependent on home oxygen typically. Admission Exam Per Admitting Provider CONSTITUTIONAL: [facility], vitals as above, generally appears ill and fatigued EYES: PERRL, normal conjunctivae, no scleral icterus ENT: external ear and nose normal, MMM NECK: trachea midline RESPIRATORY: clear to auscultation bilaterally, no crackles, rales or wheezes, normal respiratory effort CARDIOVASCULAR: regular rate and rhythm, S1 and 2 heard without murmurs, gallops or rubs, no JVD, no peripheral edema CHEST: inspection of chest was normal GASTROINTESTINAL: soft, nontender, ND, no guarding MUSCULOSKELETAL: generalized weakness, head is normocephalic and atraumatic SKIN: warm and dry NEUROLOGIC: CN 2-12 grossly intact, normal cognition, normal speech, no tremor PSYCHIATRIC: alert cooperative and oriented to person, place and time. Principal Diagnosis URINARY TRACT INFECTION- POSSIBLE KIDNEY INFECTION ANEMIA, IRON AND FOLATE DEFICIENCY MILD COPD EXACERBATION PULMONARY NODULES Discharge Exam General- oriented x 3, not in distress, speaks in sentences with no effort or accessory muscle use Eyes- anicteric Neck- no JVD Lungs- clear BS BL Heart- normal rate, regular rhythm; no murmurs Abdomen- normal bowel sounds, nondistended, soft, nontender no CVA tenderness Extremities- no pretibial edema, no calf tenderness Neuro- alert, oriented x 3; no gross focal neurologic deficits Skin- warm & dry Discharge Data Allergies Allergy/AdvReac Type Severity Reaction Status Date / Time levofloxacin AdvReac Intermediate JOINT Verified 12/18/20 01:31 STIFFNESS Consultations 12/18/20 03:55 ED Decision to Admit Stat 12/18/20 13:40 Consult Pulmonology Routine 12/19/20 07:40 Consult Cardiology Routine 12/21/20 15:18 Consult Infectious Diseases Routine 12/22/20 09:21 Consult Gastroenterology Routine Ordered Studies 12/18/20 03:43 CT angio chest PE protocol Urgent 12/22/20 14:03 CT abdomen pelvis wo/w con Routine CT abdomen pelvis wo/w con HISTORY: UTI, r/o pyelonephritis, renal abscess, lithiasis TECHNIQUE: Multiaxial CT images of the abdomen and pelvis were performed both before and after the intravenous administration of contrast to evaluate the kidneys. COMPARISON STUDY: None. FINDINGS: No renal or ureteral stones. No hydronephrosis. Mild renal vascular calcifications are noted. Mild bladder wall thickening which may be due to underdistention. The prostate gland is mildly enlarged. Bibasilar linear densities favor subsegmental atelectasis or scarring. The liver, spleen, pancreas, gallbladder, and adrenal glands are unremarkable. Moderate atherosclerotic plaque within the normal caliber abdominal aorta. The main portal vein is patent. No retroperitoneal lymphadenopathy. Minimal bilateral perinephric fat stranding/edema. There are few subcentimeter bilateral renal hypodense lesions. These are technically too small to characterize but statistically represent cysts. Otherwise, the kidneys enhance homogeneously. No suspicious lytic or blastic osseous lesions. No bowel wall thickening or obstruction. Normal appendix. No suspicious filling defects seen within the opacified bilateral renal collecting systems are opacified ureters. Of note, the mid to distal left ureter is not well opacified but appear normal in course and caliber. IMPRESSION: 1. Minimal bilateral perinephric fat stranding/edema. This is nonspecific and could be chronic or represent mild infectious process such as a pyelonephritis. However, there is normal enhancement within the bilateral kidneys. 2. No renal or ureteral stones. No hydronephrosis. 3. No evidence for renal abscess. 4. No bowel wall thickening or obstruction. 5. Mild bladder wall thickening. ACT 112: Negative or not required by law. Electronically signed by: Guy Renee M.D. 12/22/2020 3:53 PM Dictated: 12/22/20 1538Transcribed: 12/22/20 1538 XR chest 1V portable HISTORY: 70 years-old Male Resp sx c/w COVID-19 acute shortness of breath COMPARISON: Chest radiograph and CTA chest 12/18/2020 TECHNIQUE: Portable AP view of the chest FINDINGS: Cardiomediastinal and hilar silhouettes are within normal limits. Emphysema. No pneumothorax, pleural effusion, airspace consolidation or overt pulmonary edema. Chronic interstitial coarsening. No acute fracture. IMPRESSION: Emphysema without acute process. ACT 112: Negative or not required by law. The above report was generated using voice recognition software. It may contain grammatical, syntax or spelling errors. Electronically signed by: Jose Carlos Clifford M.D. 12/18/2020 10:29 AM Dictated: 12/18/20 1027Transcribed: 12/18/[address] ANGIOGRAM OF THE CHEST CLINICAL HISTORY: PE COMPARISON STUDY: June 21, 2017 TECHNIQUE: Following the IV administration of 119 mL of Optiray, CT angiogram of the thorax was performed from the thoracic inlet to the lung bases utilizing the pulmonary embolus protocol. Images are reviewed in the axial, sagittal, and coronal planes. IV contrast was administered without complication. MIP imaging was performed. A dose lowering technique was utilized adhering to the principles of ALARA. CT DOSE: 618.04 mGy.cm FINDINGS: There is adequate opacification within main pulmonary artery. No evidence of pulmonary embolus is seen. Pulmonary artery is dilated measuring 3.1 cm in diameter, new since prior study. No evidence of right heart strain. Heart is normal in size without pericardial effusion. Moderate coronary calcifications are seen. Visualized portion of thyroid gland shows no evidence of focal lesions. Esophagus is patulous with slightly thickened wall. Small fat containing hiatal hernia is seen. There is no axillary, supra clavicle or internal mammary lymphadenopathy seen. Mediastinal lymph nodes are not enlarged. Thoracic aorta is normal in caliber with scattered calcifications of its wall. Tracheobronchial tree is patent. Severe paraseptal and mild centrilobular upper lobe predominant emphysema is seen, slightly worsened since prior. Few bullae are seen within lung apices. No large infiltrates or consolidative lesions are seen. No pleural effusion demonstrated. Mild atelectasis is seen at dependent portions of bilateral lower lobes. There are few pulmonary nodules are seen throughout bilateral lungs, largest is measuring 7 mm in size and seen at peripheral aspect of the right upper lobe (4/208) which is unchanged since prior. Nodules are marked in PACs on series 4. -5 mm nodule within left lower lobe (image 151) and 4 mm pulmonary nodule adjacent to the left major fissure (image 216), are new since prior study in 2018. For pulmonary nodules measuring less than 6 mm in size in presence of high risk factors for pulmonary malignancy follow-up evaluation in 12 months is optional per Fleischner Society guidelines. Limited evaluation of upper abdominal viscera shows no evidence of acute abnormalities. Evaluation is suboptimal due to motion artifact and nondedicated technique. Osseous structures: Degenerative changes of the spine. Stable 1.3 x 2.7 cm fat-containing lesion is again seen within left deltoid muscle, unchanged since prior and most likely representing lipoma. IMPRESSION: 1. No evidence of pulmonary embolus. There is no right heart strain. 2. Emphysema, slightly worsened since prior. 3. Dilatation of the main pulmonary artery which could be seen in pulmonary hypertension, findings are new since prior. 4. Multiple pulmonary nodules, few new nodules measuring less than 6 mm in size. Follow-up evaluation in 12 months is optional per Fleischner Society guidelines. 5. The rest of findings as above. Please refer to below summary of Fleischner criteria recommendations for follow- up of incidental CT nodules (Zahraa Barroso, Guidelines for management of small pulmonary nodules detected on CT scans: A statement from the Fleischner Society, Radiology 237: [phone].) SOLID NODULES Solitary nodule size: <6 mm * low risk patients: no follow-up needed * high risk patients: optional CT at 12 months Solitary nodule size: 6-8 mm * low risk patients: follow-up at 6-12 months, then consider further follow-up at 18-24 months * high risk patients: initial follow-up CT at 6-12 months and then at 18-24 months if no change Solitary nodule size: >8 mm * either low or high risk patients - consider follow-up CT at 3 months, and/or CT-PET, and/or biopsy Multiple nodules size: <6 mm * low risk patients: no routine follow-up * high risk patients: optional CT at 12 months Multiple nodules size: 6-8 mm * low risk patients: follow-up at 3-6 months, then consider further follow-up at 18-24 months * high risk patients: follow-up at 3-6 months, then at 18-24 months if no change Multiple nodules size: >8 mm * low risk patients: follow-up at 3-6 months, then consider further follow-up at 18-24 months * high risk patients: follow-up at 3-6 months, then at 18-24 months if no change Note: newly detected indeterminate nodule in persons 35 years of age or older. * low risk patients: minimal or absent history of smoking and/or other known risk factors * high risk patients: history of smoking or of other known risk factors (e.g. first degree relative with lung cancer, or exposure to asbestos, radon, uranium) * if a nodule up to 8 mm is partly solid or is ground glass further follow-up is required after 24 months to exclude possible slow growing adenocarcinoma (LETTY) SUBSOLID NODULES Solitary pure ground-glass nodule * nodule size <6 mm - no CT follow-up required * nodule size >=6 mm - follow-up CT at 6-12 months, then every 2 years until 5 years Solitary part-solid nodule * nodule size <6 mm - no CT follow-up required * nodule size >=6 mm - follow-up CT at 3-6 months. If unchanged, and solid component remains <6 mm, then annual follow-up for 5 years Multiple subsolid nodules * nodule size <6 mm - follow-up CT at 3-6 months, consider further follow-up at 2 and 4 years if stable * nodule size >=6 mm - follow-up CT at 3-6 months, subsequent management based on the most suspicious nodule(s) ACT 112: Negative or not required by law. The above report was generated using voice recognition software. It may contain grammatical, syntax or spelling errors. Electronically signed by: Tasia Sullivan DO 12/18/2020 8:15 AM Dictated: 12/18/20735Transcribed: 12/18/20735 XR chest 1V portable HISTORY: Shortness of breath. Atypical chest pain. COMPARISON: Chest 12/03/2016. FINDINGS: No pneumothorax. No pleural effusions. Emphysema is again noted. No new focal lung consolidations to suggest pneumonia. No evidence for pulmonary edema. The cardiac silhouette remains borderline enlarged. IMPRESSION: No significant change compared to the prior study. No acute process. Emphysema. ACT 112: Negative or not required by law. Electronically signed by: Guy Renee M.D. 12/18/2020 7:31 AM Dictated: 12/18/20729Transcribed: 12/18/20729 Hospital Course (1) Febrile illness, acute: E. COLI UTI, POSSIBLE PYELONEPHRITIS per Dr. Valladares- admitting MD notes: Etiologies considered but not limited to bronchitis, COPD exacerbation, pulmonary embolus, malignancy. Chest x-ray is clear however there is clinically a suggestion of possible infection with evidence of chills, productive cough, fatigue, fever reported and white count of 14. Zosyn empirically started in the ER and continued pending further workup and clinical improvement. He is on the dry side by my exam and a pneumonia may manifest after rehydration efforts (given 1.5L in the ER). Ordered procalcitonin and UA to help rule out pulmonary infection and UTI, respectively. Additionally ordered TSH, CK, monospot, rickettsial panel in setting of ongoing fatigue and fevers. Chest CTA from overnight was taken but no image or reading is present at this time. As he is not wheezing, do not feel strongly we should start steroids, especially in setting of possible infection. Bronchodilators PRN. 10/5 Clinically much improved Generalized weakness is much better Remained afebrile since admission WBC improved from [address] chest: no pneumonia no abdominal symptoms blood culture: Coagulase staph not lugdunensis Repeat blood culture: Negative urine revealed: E. coli echo: limited study, assessment of valve disease not performed Based on sensitivities of E. coli, change Zosyn to cefepime IV Day #3 Daptomycin discontinued ID consulted, recommended imaging of CT abdomen pelvis rule out pyelonephritis/abscess CT abdomen showed perinephric stranding suggestive of pyelonephritis, no renal abscess Per ID: Transition to Cefpodoxime 400 mg p.o. twice daily x9 more days to complete 14 days of antibiotic course Diarrhea resolved (2) Hypoxia: CT chest: no PE, PNA possible underlying Pulm HTN echo: Normal left ventricular wall motion and LVEF, grossly normal right ventricular systolic function, limited evaluation possible ERNIE unlikely per Pulmonary Incruse added Weaned off oxygen resolved Chest pain ACS ruled out Glaucoma Specialist consulted, musculoskeletal etiology Anemia, iron deficiency and folate deficiency Possible GI bleed, on Xarelto Hemoglobin decreased from 10.4-8.4 Iron level 18 Folate 3.9 Fecal occult blood screen positive IV iron ordered, ferrous sulfate, folate supplementation No signs of overt melena or hematochezia at this point Protonix 40 mg IV twice daily given now transition to Protonix p.o. 40 mg twice daily GI consulted, hemoglobin remained stable around 9, recommend outpatient EGD colonoscopy (3) PAF (paroxysmal atrial fibrillation): PAF s/p transesophageal echo guided cardioversion in Nov 2016. Continue on Xarelto and diltiazem. (4) Tobacco use disorder: Encouraged to quit. (5) Hypertension: controlled, cont current therapy per home regimen. (6) DM type 2 (diabetes mellitus, type 2): hold outpatient metformin and utilize basal bolus inuslin while admitted. a1c 7.1 (7) Peripheral neuropathy: cont gabapentin per home regimen. Also takes lexapro (8) Dyslipidemia: chronic, cont zetia and atorvastatin per home regimen. (9) PAD (peripheral artery disease): Cont medical management with cilostazol, ASA. (10) DVT prophylaxis: Xarelto Full Code Dispo anticipate discharge home tomorrow plan of care discussed with patient in detail and at length all questions answered he is understanding, agreeable, comfortable with the plan of care Total Time Total Time Spent Total Time Spent (In Minutes): 35 minutes Discharge Plan Discharge Items Patient Disposition: Home - Self-Care Reason For Visit: FEBRILE ILLNESS Discharge Diagnosis: URINARY TRACT INFECTION- POSSIBLE KIDNEY INFECTION ANEMIA, IRON AND FOLATE DEFICIENCY MILD COPD EXACERBATION PULMONARY NODULES Activity: Resume your previous activity Activity Comment: GRADUALLY INCREASE TOLERATED Non-emergency contact: Primary Care Provider Call non-emergency contact if: you have any medication questions, your symptoms worsen and you have a fever Follow-up/Referrals: Kaushik Mckeon MD [Physician] - Rony Eller MD [Physician] - Maryann Gordon DO [Primary Care Provider] - (Date & Time 12/29/2020 9:30 AM Provider Maryann Gordon DO [facility] ) Diet: Carb Consistent or DM2 and Heart Healthy Addtl Attending Provider Instructions: PLEASE REVIEW YOUR NEW MEDICATION LIST AND FOLLOW INSTRUCTIONS CAREFULLY. YOUR NEW MEDICATIONS INCLUDE: CEFPODOXIME- antibiotic for Urinary Tract Infection INCRUSE- inhaler for COPD IRON AND FOLATE SUPPLEMENT- for anemia INCREASE PROTONIX TO 40MG BID- antacid to prevent stomach ulcer, bleeding Take a probiotic and eat yogurt daily for at least 1 month. Do not take medications under the class of NSAIDs including Aspirin, Ibuprofen, Naproxen, etc. CALL PRIMARY CARE PHYSICIAN OR RETURN TO THE ER IMMEDIATELY IF WITH WORSENING OF SYMPTOMS, INCLUDING FEVER/CHILS, WEAKNESS, SHORTNESS OF BREATH, COUGH, ABDOMINAL PAIN, BLOOD IN THE STOOLS. FOLLOW UP WITH PRIMARY CARE PHYSICIAN IN 1 WEEK OUTLINED ABOVE. FOLLOW UP WITH DIRECT RESPONSE CONSULTANT DR. ELLER IN 2 WEEKS. PLEASE CALL HIS OFFICE. CONTACT INFORMATION OUTLINED ABOVE. FOLLOW UP WITH LUNG SPECIALIST DR. MCKEON IN 2-3 WEEKS. PLEASE CALL HIS OFFICE. CONTACT INFORMATION OUTLINED ABOVE. YOU WILL NOT A REPEAT CXR IN 6 MONTH TO MONITOR THE LUNG NODULE ONCE COMPLETING THE COURSE OF Cefpodoxime, YOUR PROVIDER OR CONTACT CENTER ANALYST WILL CONSIDER TO START AZITHROMYCIN 3 TIMES A WEAK Pending Studies at Discharge: Yes Studies:: REPEAT CT SCAN OF THE CHEST IN 6 MONTHS TO MONITOR LUNG NODULES. YOUR PRIMARY CARE PHYSICIAN CAN ARRANGE THIS FOR YOU. PLEASE DISCUSS WITH PRIMARY CARE PHYSICIAN. Stand-Alone Forms: My [facility], Smoking Cessation Medications and DC Order Prescriptions: New Incruse Ellipta 62.5 mcg/actuation Blister With Device 1 inh inhalation DAILY Qty: 30 RF: 2 ferrous sulfate 325 mg (65 mg iron) Tablet,Delayed Release (Dr/Ec) 325 mg PO BIDM Qty: 60 RF: 2 pantoprazole 40 mg Tablet,Delayed Release (Dr/Ec) 40 mg PO BID Qty: 60 RF: 1 folic acid 1 mg Tablet 1 mg PO QAM Qty: 30 RF: 2 Continued diltiazem HCl 120 mg tablet 120 mg PO DAILY RF: 0 ezetimibe [Zetia] 10 mg tablet 10 mg PO DAILY RF: 0 escitalopram oxalate [Lexapro] 20 mg tablet 20 mg PO DAILY RF: 0 alprazolam 0.5 mg tablet 0.5 mg PO TID PRN (Reason: Anxiety) RF: 0 ascorbic acid (vitamin C) 500 mg tablet 500 mg PO DAILY RF: 0 Ocuvite Adult 50 Plus 250-5-1 mg capsule 1 cap PO DAILY RF: 0 cholecalciferol (vitamin D3) 1,000 unit (25 mcg) tablet 3,000 unit PO DAILY RF: 0 aspirin 81 mg tablet,chewable 81 mg PO DAILY RF: 0 atorvastatin 80 mg tablet 80 mg PO HS RF: 0 metformin 500 mg tablet 500 mg PO HS Qty: 30 RF: 0 rivaroxaban 20 mg tablet 20 mg PO DAILY Qty: 1 RF: 0 gabapentin 600 mg tablet 600 mg PO TID RF: 0 cilostazol 100 mg tablet 100 mg PO BID RF: 0 Breo Ellipta 100-25 mcg/dose blister with device 1 ea INHALATION DAILY RF: 0 lisinopril 5 mg tablet 5 mg PO DAILY RF: 0 Discontinued pantoprazole 20 mg tablet,delayed release (DR/EC) 20 mg PO DAILY RF: 0 Discharge Orders: Discharge Order (Routine); Ordered 12/24/20 Ordered By: Alma Rosa Jiménez/Other Patient Handouts: A1C, Managing Type 2 Diabetes Admission Data Admit Date/Time: 12/18/20 04:57 Attending Provider: Alma Rosa Sarmiento Admit Provider: Monse Valladares Primary Care Provider: Maryann Gordon Other Providers: Kaushik Mckeon ; Ranjit Butler ; Rony Eller ; Clint Gordon Other Interventions: Discharge Summary Assessment (RN) Last Done: 12/24/20 14:32
== END 2020-12-24 15:34 | disposition home or self-care (01) | DRG 690 ==
LOC: ED 00:56 → 2W 04:57 → SUATTDRO 04:57 → 2W 06:00
DX: I10 Essential (primary) hypertension; R91.8 Other nonspecific abnormal finding of lung field; K21.9 Gastro-esophageal reflux disease without esophagitis; Z82.49 Family history of ischemic heart disease and other diseases of the circulatory system; Z79.84 Long term (current) use of oral hypoglycemic drugs; Z88.8 Allergy status to other drugs, medicaments and biological substances; R91.1 Solitary pulmonary nodule; Z79.899 Other long term (current) drug therapy; J43.9 Emphysema, unspecified; E11.42 Type 2 diabetes mellitus with diabetic polyneuropathy; E87.2 Acidosis; E78.5 Hyperlipidemia, unspecified; K92.2 Gastrointestinal hemorrhage, unspecified; D50.9 Iron deficiency anemia, unspecified; R19.7 Diarrhea, unspecified; Z82.5 Family history of asthma and other chronic lower respiratory diseases; B96.20 Unspecified Escherichia coli [E. coli] as the cause of diseases classified elsewhere; R09.02 Hypoxemia; E11.51 Type 2 diabetes mellitus with diabetic peripheral angiopathy without gangrene; R07.89 Other chest pain; Z20.822 Contact with and (suspected) exposure to COVID-19; Z51.81 Encounter for therapeutic drug level monitoring; I48.0 Paroxysmal atrial fibrillation; Z79.82 Long term (current) use of aspirin; N10 Acute pyelonephritis; I27.20 Pulmonary hypertension, unspecified; Z83.3 Family history of diabetes mellitus; Z79.01 Long term (current) use of anticoagulants; Z88.1 Allergy status to other antibiotic agents; F17.210 Nicotine dependence, cigarettes, uncomplicated; E53.8 Deficiency of other specified B group vitamins

== ENCOUNTER 2021-07-17 11:34 | Inpatient (IN) ==
[2021-07-17] MEDS ORDERED: dilTIAZem HCl 5 MG/ML 5 ML VIAL IV STA ×3 (11:46→13:31)
[2021-07-17] MEDS ORDERED: SODIUM CHLORIDE 0.9% 500 ML IV SCH (12:00)
--- NOTE | 2021-07-17 12:04 | Emergency Department Note ---
Impression & Plan Atrial flutter with rapid ventricular response, Weakness, Acute UTI (urinary tract infection) ED Provider Note NAME: MUSTAPHA ANDERSON AGE: 71 SEX: M : 1950 ARRIVES VIA: Walk-In INFORMANT: Patient, ED PROVIDER(S): Jas Pacheco DO CHIEF COMPLAINT: Palpitations HPI: The patient is a 71-year-old male who presented to the emergency department for an evaluation of palpitations. The patient states that he started noticing symptoms over the last week. He does have a history of atrial fibrillation. He did not take his calcium channel vivek this morning. The patient has been compliant with all of his other outpatient medications including his blood thinners. The patient was seen by pulmonary recently was started on an antibiotic he has had upper respiratory symptoms including cough and congestion. He denies having any lower extremity swelling. He denies having any nausea vomiting or diarrhea. He states he has been having some problems with shortness of breath with ambulation. He denies having any changes to his medications otherwise. He states his symptoms worsen with exertion. His symptoms somewhat improved with rest. ROS: See above HPI for pertinent positives & negatives. A total of 10 systems reviewed and were otherwise negative. PAST MEDICAL HISTORY: See Below PAST SURGICAL HISTORY: See Below FAMILY HISTORY: See Below SOCIAL HISTORY: See Below HOME MEDICATIONS: See Below ALLERGIES: See Below VITALS: See Below PHYSICAL EXAMINATION: GENERAL: Patient is awake alert in no acute distress patient is resting comfortably and showing no signs of anxiety EYES: The conjunctivae are clear. The pupils are round and reactive. EARS, NOSE, MOUTH AND THROAT: The nose is without any evidence of any deformity. NECK: The neck is nontender and supple. RESPIRATORY: Normal respiratory effort is noted there is no evidence of wheezing rhonchi or rales CARDIOVASCULAR: Tachycardic rate with regular rhythm was noted. There is no definite murmur. GASTROINTESTINAL: The abdomen is soft. Abdomen is nontender. MUSCULOSKELETAL/EXTREMITIES: There is no evidence of gross deformity full range of motion is noted in the hips and shoulders. SKIN: There is no obvious evidence of any rash. There are no petechiae, pallor or cyanosis noted. NEUROLOGIC: Patient is awake alert and oriented x3 MEDICAL DECISION MAKING: The patient is a 71-year-old male who presented to the emergency department for an evaluation of palpitations. The patient was found to be in atrial flutter. He was treated with multiple fluid boluses as well as IV Cardizem and IV magnesium. He was also given IV Rocephin for presumed urinary tract infection noted on urinalysis. The patient was reevaluated multiple times. He was feeling much better when his pulse rate was under 100 but he continues have significant symptoms including generalized weakness. Given his overall findings I discussed this case with the on-call [facility]. They have a greed to evaluate the patient in the emergency department for further management and disposition. He was found to be in a slower atrial flutter. Triage Nursing notes reviewed. Prior medical records reviewed Vital Signs: reviewed and remarkable for tachycardia. Differential diagnosis: Premature contractions, electrolyte abnormality, cardiac dysrhythmia, thyroid dysfunction, pulmonary embolism, infection, gastrointestinal, as well as other pathologies. ER treatment provided: See below Diagnostics interpreted by me: ECG: EKG was obtained in the emergency department. My interpretation is atrial flutter at [address] segment depressions were noted in the inferi or and lateral leads. This was compared to a tracing from February 19, 2021. Sinus rhythm has been replaced with rapid atrial flutter compared to the earlier tracing. The ST segment depression is also new compared to the earlier tracing. A second EKG was obtained in the emergency department. My interpretation is atrial flutter with variable conduction at [address] segment abnormalities were still appreciated. Cardiac Monitoring: An order was placed for continuous cardiac monitoring. The monitor shows a rate of 100 bpm with atrial flutter. Laboratory studies: As stated above and show below. Imaging studies: See below Consultation(s): I discussed this case with [place] who is on-call for the [facility]. They will evaluate the patient in the emergency department. ED COURSE: Procedures: none Critical Care: I have personally spent greater than 55 minutes of critical care time in the direct management of this patient. This includes bedside care, interpretation of diagnostic studies, and testing, discussion with consultants, patient, and family members, and other required patient management activities. This 55 minutes is in excess of all separately billable procedures. Past Med/Surg History Medical History (Updated 07/17/21 @ 18:05 by Jas Pacheco DO) Atrial flutter Bullous emphysema Cellulitis of foot DM type 2 (diabetes mellitus, type 2) Dyslipidemia Flushing GERD (gastroesophageal reflux disease) Hypertension Multiple lung nodules on CT Nocturnal hypoxia OM (osteomyelitis) PAD (peripheral artery disease) "with chronic left SFA occlusion" PAF (paroxysmal atrial fibrillation) Peripheral neuropathy Pulmonary emphysema Tachycardia Tobacco use disorder Family History Mother Diabetes Father Heart disease Social History Smoking Status: Current every day smoker Tobacco Type: Cigarettes Cigarettes Per Day: 10; Hx Alcohol Use: No Hx Substance Use: No Preferred Language: Slovak Communication Ability: Effective Beliefs That Will Affect Care: None Current Living Situation: Spouse Feels Safe at Home: Yes Assistive Devices: None Allergies Allergies Allergy/AdvReac Type Severity Reaction Status Date / Time levofloxacin AdvReac Intermediate JOINT Verified 07/13/21 09:41 STIFFNESS Home Meds Home Medications Medication Instructions Recorded Confirmed aspirin 81 mg chewable tablet 81 mg PO DAILY tab 12/14/18 07/17/21 atorvastatin 80 mg tablet 80 mg PO HS tab 12/14/18 07/17/21 cholecalciferol (vitamin D3) 25 3,000 unit PO DAILY tab 12/14/18 07/17/21 mcg (1,000 unit) tablet metformin 500 mg tablet 500 mg PO HS #30 tab 12/14/18 07/17/21 rivaroxaban 20 mg tablet 20 mg PO DAILY #1 tab 12/14/18 07/17/21 ascorbic acid (vitamin C) 500 mg 500 mg PO DAILY 07/03/20 07/17/21 tablet diltiazem HCl 120 mg tablet 120 mg PO DAILY tab 07/03/20 07/17/21 escitalopram oxalate 20 mg tablet 20 mg PO DAILY 07/03/20 07/17/21 (Lexapro) ezetimibe 10 mg tablet (Zetia) 10 mg PO QAM 07/03/20 07/17/21 vit C,E,zinc,copper-pocxb0y 250 1 cap PO DAILY 07/03/20 07/17/21 mg-lutein 5 mg-zeaxanthin 1 mg capsule (Ocuvite Adult 50 Plus) lisinopril 5 mg tablet 5 mg PO DAILY 12/18/20 07/17/21 tamsulosin 0.4 mg capsule 0.4 mg PO DAILY 07/13/21 07/17/21 fosfomycin tromethamine 3 gram 3 g PO Q72H 07/17/21 07/17/21 oral packet (Monurol) Previous Rx's Medication Instructions Recorded pantoprazole 40 mg tablet,delayed 40 mg PO BID #60 tab 12/24/20 release albuterol sulfate 90 mcg/actuation 2 puff INHALATION Q6H PRN #18 g 07/13/21 aerosol inhaler fluticasone fur. 100 mcg-umeclid 1 inh INHALATION DAILY #60 ea 07/13/21 62.5 mcg-vilant 25 mcg inhalat.powder (Trelegy Ellipta) Results & Data (ED) Vital Signs Vital Signs - 24 hr 07/17/21 11:35 07/17/21 11:38 07/17/21 12:04 Temperature 36.8 C Temperature Source Temporal Artery Scan Pulse Rate 138 H 137 H Pulse Rate from SpO2 Sensor Respiratory Rate 18 18 Respiratory Effort / Characteristics Non-Labored Respiratory Depth Normal Blood Pressure 114/73 Blood Pressure Mean 86 Pulse Oximetry 95 96 Oxygen Delivery Method Room Air Room Air Sepsis Recent Fever Within 48 Hours No Sepsis New/Unexplained Change in Mental Status No Sepsis Action Taken by Nursing No Action Required 07/17/21 12:10 07/17/21 12:20 07/17/21 12:21 Temperature Temperature Source Pulse Rate 136 H 135 H 135 H Pulse Rate from SpO2 Sensor Respiratory Rate 21 20 22 Respiratory Effort / Characteristics Respiratory Depth Blood Pressure Blood Pressure Mean Pulse Oximetry 96 96 98 Oxygen Delivery Method Room Air Sepsis Recent Fever Within 48 Hours Sepsis New/Unexplained Change in Mental Status Sepsis Action Taken by Nursing 07/17/21 12:30 07/17/21 12:33 07/17/21 12:40 Temperature Temperature Source Pulse Rate 137 H 137 H Pulse Rate from SpO2 Sensor Respiratory Rate 13 13 Respiratory Effort / Characteristics Respiratory Depth Blood Pressure 110/83 Blood Pressure Mean 92 Pulse Oximetry 95 95 Oxygen Delivery Method Room Air Sepsis Recent Fever Within 48 Hours Sepsis New/Unexplained Change in Mental Status Sepsis Action Taken by Nursing 07/17/21 12:50 07/17/21 13:00 07/17/21 13:10 Temperature Temperature Source Pulse Rate 135 H 126 H 126 H Pulse Rate from SpO2 Sensor 130 H Respiratory Rate 18 12 11 L Respiratory Effort / Characteristics Respiratory Depth Blood Pressure 112/77 Blood Pressure Mean 88 Pulse Oximetry 95 96 96 Oxygen Delivery Method Sepsis Recent Fever Within 48 Hours Sepsis New/Unexplained Change in Mental Status Sepsis Action Taken by Nursing 07/17/21 13:20 07/17/21 13:30 07/17/21 13:35 Temperature Temperature Source Pulse Rate 135 H 135 H Pulse Rate from SpO2 Sensor Respiratory Rate 11 L 10 L Respiratory Effort / Characteristics Non-Labored Respiratory Depth Normal Blood Pressure Blood Pressure Mean Pulse Oximetry 96 96 Oxygen Delivery Method Room Air Sepsis Recent Fever Within 48 Hours Sepsis New/Unexplained Change in Mental Status Sepsis Action Taken by Nursing 07/17/21 13:40 07/17/21 13:50 07/17/21 14:00 Temperature Temperature Source Pulse Rate 134 H 134 H 125 H Pulse Rate from SpO2 Sensor Respiratory Rate 15 11 L 11 L Respiratory Effort / Characteristics Respiratory Depth Blood Pressure Blood Pressure Mean Pulse Oximetry 96 95 96 Oxygen Delivery Method Sepsis Recent Fever Within 48 Hours Sepsis New/Unexplained Change in Mental Status Sepsis Action Taken by Nursing 07/17/21 14:10 07/17/21 14:20 07/17/21 14:30 Temperature Temperature Source Pulse Rate 125 H 119 H 100 H Pulse Rate from SpO2 Sensor 137 H Respiratory Rate 14 17 13 Respiratory Effort / Characteristics Respiratory Depth Blood Pressure 114/87 Blood Pressure Mean 96 Pulse Oximetry 97 96 97 Oxygen Delivery Method Sepsis Recent Fever Within 48 Hours Sepsis New/Unexplained Change in Mental Status Sepsis Action Taken by Nursing 07/17/21 14:45 07/17/21 15:00 07/17/21 15:15 Temperature Temperature Source Pulse Rate 94 H 101 H 92 H Pulse Rate from SpO2 Sensor Respiratory Rate 13 15 Respiratory Effort / Characteristics Non-Labored Spontaneous Respiratory Depth Normal Blood Pressure 124/81 Blood Pressure Mean 95 Pulse Oximetry 98 97 96 Oxygen Delivery Method Room Air Sepsis Recent Fever Within 48 Hours Sepsis New/Unexplained Change in Mental Status Sepsis Action Taken by Nursing 07/17/21 15:30 07/17/21 15:45 07/17/21 16:00 Temperature Temperature Source Pulse Rate 90 90 90 Pulse Rate from SpO2 Sensor Respiratory Rate 14 12 Respiratory Effort / Characteristics Respiratory Depth Blood Pressure 114/84 125/82 115/85 Blood Pressure Mean 94 96 95 Pulse Oximetry 97 96 96 Oxygen Delivery Method Sepsis Recent Fever Within 48 Hours Sepsis New/Unexplained Change in Mental Status Sepsis Action Taken by Nursing 07/17/21 16:15 07/17/21 16:30 07/17/21 16:45 Temperature Temperature Source Pulse Rate 96 H 89 94 H Pulse Rate from SpO2 Sensor Respiratory Rate 14 12 15 Respiratory Effort / Characteristics Respiratory Depth Blood Pressure 122/89 Blood Pressure Mean 100 Pulse Oximetry 95 96 96 Oxygen Delivery Method Sepsis Recent Fever Within 48 Hours Sepsis New/Unexplained Change in Mental Status Sepsis Action Taken by Nursing 07/17/21 17:00 07/17/21 17:15 Temperature Temperature Source Pulse Rate 96 H 100 H Pulse Rate from SpO2 Sensor 99 H 108 H Respiratory Rate 13 21 Respiratory Effort / Characteristics Respiratory Depth Blood Pressure Blood Pressure Mean Pulse Oximetry 96 95 Oxygen Delivery Method Sepsis Recent Fever Within 48 Hours Sepsis New/Unexplained Change in Mental Status Sepsis Action Taken by [facility] Medications Current Medication List: was personally reviewed by me Laboratory Data Attestation: I reviewed the patient's lab results. Result diagrams: 07/17/21 12:20 07/17/21 12:20 Lab Results 07/17/21 07/17/21 07/17/21 Range/Units 12:20 12:20 12:20 WBC 12.41 H (4.8-10.8) K/uL RBC 4.51 L (4.7-6.1) M/uL Hgb 14.2 (14.0-18.0) g/dL Hct 42.1 (42-52) % MCV 93.3 (80-100) fL MCH 31.5 (25-34) pg MCHC 33.7 (32-36) g/dL RDW Std Deviation 53.6 H (36.4-46.3) fL RDW Coeff of Cathi 15.6 H (11.5-14.5) % Plt Count 245 (130-400) K/uL MPV 9.2 (7.4-10.4) fL Immature Gran % (Auto) 0.3 % Neut % (Auto) 69.8 % Lymph % (Auto) 15.6 % [place] % (Auto) 13.7 % Eos % (Auto) 0.2 % Baso % (Auto) 0.4 % Neut # (Auto) 8.66 H (1.4-6.5) K/uL Lymph # (Auto) 1.93 (1.2-3.4) K/uL [place] # (Auto) 1.70 H (0.11-0.59) K/uL Eos # (Auto) 0.03 (0-0.5) K/uL Baso # (Auto) 0.05 (0-0.2) K/uL Immature Gran # (Auto) 0.04 H (0.00-0.02) K/uL PT 11.6 (9.0-12.0) Seconds INR 1.1 (0.9-1.1) APTT 30.1 (21.0-31.0) Seconds PTT Ratio 1.1 Sodium 134 L (136-145) mmol/L Potassium 3.7 (3.5-5.1) mmol/L Chloride 101 (98-107) mmol/L Carbon Dioxide 24 (21-32) mmol/L Anion Gap 9 (3-11) BUN 16 (6-23) mg/dl Creatinine 0.70 (0.6-1.4) mg/dl Est Cr Clr Drug Dosing 104.6 ml/min Est GFR ( Amer) 110.8 ml/min Est GFR (Non-Af Amer) 95.6 ml/min BUN/Creatinine Ratio 22.9 H (10-20) Glucose 133 H (70-99(Fasting)) mg/dl Calcium 8.8 (8.5-10.1) mg/dl Magnesium 1.6 L (1.7-2.4) mg/dl Total Bilirubin 0.6 (0.2-1.0) mg/dl AST 22 (13-39) U/L ALT 16 (7-52) U/L Alkaline Phosphatase 110 H (34-104) U/L Troponin I High Sens (0-20) pg/ml Total Protein 7.2 (6.0-8.3) gm/dl Albumin 3.5 (3.4-5.0) gm/dl Globulin 3.7 (2.5-4.0) gm/dl Albumin/Globulin Ratio 0.9 (0.9-2) TSH (0.300-4.500) uIu/ml Urine Color Urine Appearance (Clear) Urine pH (4.5-7.5) Ur Specific [place] (1.000-1.030) Urine Protein (Negative) Urine Glucose (UA) (Negative) Urine Ketones (Negative) Urine Blood (Negative) Urine Nitrite (Negative) Urine Bilirubin (Negative) Urine Urobilinogen (Negative) Ur Leukocyte Esterase (Negative) Urine WBC (Auto) (0-5) /hpf Urine RBC (Auto) (0-4) /hpf U Hyaline Cast (Auto) (0-5) /lpf U Epithel Cells (Auto) (0-5) /lpf Urine Bacteria (Auto) (Negative) Calcium Oxalate Crystal (None Prsent) SARS-CoV-2, RNA, NAAT (NEGATIVE) 07/17/21 07/17/21 07/17/21 Range/Units 12:20 12:20 15:00 WBC (4.8-10.8) K/uL RBC (4.7-6.1) M/uL Hgb (14.0-18.0) g/dL Hct (42-52) % MCV (80-100) fL MCH (25-34) pg MCHC (32-36) g/dL RDW Std Deviation (36.4-46.3) fL RDW Coeff of Cathi (11.5-14.5) % Plt Count (130-400) K/uL MPV (7.4-10.4) fL Immature Gran % (Auto) % Neut % (Auto) % Lymph % (Auto) % [place] % (Auto) % Eos % (Auto) % Baso % (Auto) % Neut # (Auto) (1.4-6.5) K/uL Lymph # (Auto) (1.2-3.4) K/uL [place] # (Auto) (0.11-0.59) K/uL Eos # (Auto) (0-0.5) K/uL Baso # (Auto) (0-0.2) K/uL Immature Gran # (Auto) (0.00-0.02) K/uL PT (9.0-12.0) Seconds INR (0.9-1.1) APTT (21.0-31.0) Seconds PTT Ratio Sodium (136-145) mmol/L Potassium (3.5-5.1) mmol/L Chloride (98-107) mmol/L Carbon Dioxide (21-32) mmol/L Anion Gap (3-11) BUN (6-23) mg/dl Creatinine (0.6-1.4) mg/dl Est Cr Clr Drug Dosing ml/min Est GFR ( Amer) ml/min Est GFR (Non-Af Amer) ml/min BUN/Creatinine Ratio (10-20) Glucose (70-99(Fasting)) mg/dl Calcium (8.5-10.1) mg/dl Magnesium (1.7-2.4) mg/dl Total Bilirubin (0.2-1.0) mg/dl AST (13-39) U/L ALT (7-52) U/L Alkaline Phosphatase (34-104) U/L Troponin I High Sens 17.8 (0-20) pg/ml Total Protein (6.0-8.3) gm/dl Albumin (3.4-5.0) gm/dl Globulin (2.5-4.0) gm/dl Albumin/Globulin Ratio (0.9-2) TSH 1.125 (0.300-4.500) uIu/ml Urine Color Dark Yellow Urine Appearance Clear (Clear) Urine pH 5.5 (4.5-7.5) Ur Specific [place] 1.021 (1.000-1.030) Urine Protein Negative (Negative) Urine Glucose (UA) Negative (Negative) Urine Ketones Trace H (Negative) Urine Blood 2+ H (Negative) Urine Nitrite Negative (Negative) Urine Bilirubin Negative (Negative) Urine Urobilinogen Negative (Negative) Ur Leukocyte Esterase 2+ H (Negative) Urine WBC (Auto) >30 H (0-5) /hpf Urine RBC (Auto) 5-10 H (0-4) /hpf U Hyaline Cast (Auto) 5-10 H (0-5) /lpf U Epithel Cells (Auto) 10-20 H (0-5) /lpf Urine Bacteria (Auto) Negative (Negative) Calcium Oxalate Crystal Present A (None Prsent) SARS-CoV-2, RNA, NAAT (NEGATIVE) 07/17/21 Range/Units Unknown WBC (4.8-10.8) K/uL RBC (4.7-6.1) M/uL Hgb (14.0-18.0) g/dL Hct (42-52) % MCV (80-100) fL MCH (25-34) pg MCHC (32-36) g/dL RDW Std Deviation (36.4-46.3) fL RDW Coeff of Cathi (11.5-14.5) % Plt Count (130-400) K/uL MPV (7.4-10.4) fL Immature Gran % (Auto) % Neut % (Auto) % Lymph % (Auto) % [place] % (Auto) % Eos % (Auto) % Baso % (Auto) % Neut # (Auto) (1.4-6.5) K/uL Lymph # (Auto) (1.2-3.4) K/uL [place] # (Auto) (0.11-0.59) K/uL Eos # (Auto) (0-0.5) K/uL Baso # (Auto) (0-0.2) K/uL Immature Gran # (Auto) (0.00-0.02) K/uL PT (9.0-12.0) Seconds INR (0.9-1.1) APTT (21.0-31.0) Seconds PTT Ratio Sodium (136-145) mmol/L Potassium (3.5-5.1) mmol/L Chloride (98-107) mmol/L Carbon Dioxide (21-32) mmol/L Anion Gap (3-11) BUN (6-23) mg/dl Creatinine (0.6-1.4) mg/dl Est Cr Clr Drug Dosing ml/min Est GFR ( Amer) ml/min Est GFR (Non-Af Amer) ml/min BUN/Creatinine Ratio (10-20) Glucose (70-99(Fasting)) mg/dl Calcium (8.5-10.1) mg/dl Magnesium (1.7-2.4) mg/dl Total Bilirubin (0.2-1.0) mg/dl AST (13-39) U/L ALT (7-52) U/L Alkaline Phosphatase (34-104) U/L Troponin I High Sens (0-20) pg/ml Total Protein (6.0-8.3) gm/dl Albumin (3.4-5.0) gm/dl Globulin (2.5-4.0) gm/dl Albumin/Globulin Ratio (0.9-2) TSH (0.300-4.500) uIu/ml Urine Color Urine Appearance (Clear) Urine pH (4.5-7.5) Ur Specific [place] (1.000-1.030) Urine Protein (Negative) Urine Glucose (UA) (Negative) Urine Ketones (Negative) Urine Blood (Negative) Urine Nitrite (Negative) Urine Bilirubin (Negative) Urine Urobilinogen (Negative) Ur Leukocyte Esterase (Negative) Urine WBC (Auto) (0-5) /hpf Urine RBC (Auto) (0-4) /hpf U Hyaline Cast (Auto) (0-5) /lpf U Epithel Cells (Auto) (0-5) /lpf Urine Bacteria (Auto) (Negative) Calcium Oxalate Crystal (None Prsent) SARS-CoV-2, RNA, NAAT NEGATIVE (NEGATIVE) Administered Medications Discontinued Medications Diltiazem HCl (Diltiazem Hcl 5 Mg/Ml 5 Ml Vial) 10 mg IV NOW STA Stop: 07/17/21 11:47 Last Admin: 07/17/21 12:23 Dose: 10 mg Documented by: [id number] Cosigned by: [id number] Diltiazem HCl (Diltiazem Hcl 5 Mg/Ml 5 Ml Vial) 10 mg IV NOW STA Stop: 07/17/21 12:45 Last Admin: 07/17/21 12:54 Dose: 10 mg Documented by: [id number] Cosigned by: [id number] Diltiazem HCl (Diltiazem Hcl 5 Mg/Ml 5 Ml Vial) 10 mg IV NOW STA Stop: 07/17/21 13:32 Last Admin: 07/17/21 14:18 Dose: 10 mg Documented by: [id number] Cosigned by: [id number] Sodium Chloride (Nss) 500 mls @ 999 mls/hr IV .Q31M CHRISTINE Stop: 07/17/21 12:30 Last Infusion: 07/17/21 12:56 Dose: 0 mls/hr Documented by: [id number] Admin: 07/17/21 12:29 Dose: 999 mls/hr Documented by: [id number] Sodium Chloride (Nss 1000ml) 500 mls @ 999 mls/hr IV .Q31M ONE Stop: 07/17/21 13:14 Last Infusion: 07/17/21 13:42 Dose: 0 mls/hr Documented by: [id number] Admin: 07/17/21 12:57 Dose: 999 mls/hr Documented by: [id number] Magnesium Sulfate/Dextrose (Magnesium Sulfate / D5w) 1 gm in 100 mls @ 100 mls/hr IV Q1H CHRISTINE Stop: 07/17/21 15:30 Last Infusion: 07/17/21 16:35 Dose: 0 mls/hr Documented by: [id number] Admin: 07/17/21 15:11 Dose: 100 mls/hr Documented by: [id number] Infusion: 07/17/21 15:11 Dose: 100 mls/hr Documented by: [id number] Admin: 07/17/21 14:11 Dose: 100 mls/hr Documented by: [id number] Sodium Chloride (Nss 1000ml) 500 mls @ 999 mls/hr IV .Q31M ONE Stop: 07/17/21 14:01 Last Infusion: 07/17/21 15:11 Dose: 0 mls/hr Documented by: [id number] Admin: 07/17/21 14:11 Dose: 999 mls/hr Documented by: [id number] Ceftriaxone Sodium (Rocephin) 2,000 mg in 70 mls @ 140 mls/hr IV NOW STA Stop: 07/17/21 16:26 Last Infusion: 07/17/21 17:46 Dose: 0 mls/hr Documented by: [id number] Admin: 07/17/21 17:19 Dose: 140 mls/hr Documented by: [id number] Imaging Data Radiologist's Impression: Chest X-Ray 07/17/21 11:46 XR chest 1V portable CLINICAL HISTORY: weakness. Evaluate cardiopulmonary status COMPARISON STUDY: 12/18/2020 TECHNIQUE: 1 view of the chest FINDINGS: Single frontal view of the chest demonstrates the cardiomediastinal silhouette to be within normal limits. The lungs are clear of alveolar opacities. There is no evidence for pleural effusion. There is no evidence for vascular congestion. There is no acute osseous pathology. IMPRESSION: 1. No acute cardiopulmonary disease. ACT 112: Negative or not required by law. Electronically signed by: Mickey Barros M.D. 07/17/2021 12:21 PM Discharge Plan Visit Data Chief Complaint: Arrhythmia/Palpitations Stated Complaint: HIGH HEART RATE 138 ED Provider: Jas Pacheco Discharge Problem: Atrial flutter with rapid ventricular response, Weakness, Acute UTI (urinary tract infection) Patient Disposition: Being Evaluated by Hospitalist Forms Stand Alone Forms: [facility] Prescriptions Prescriptions: No Action diltiazem HCl 120 mg tablet 120 mg PO DAILY RF: 0 ezetimibe [Zetia] 10 mg tablet 10 mg PO QAM RF: 0 escitalopram oxalate [Lexapro] 20 mg tablet 20 mg PO DAILY RF: 0 ascorbic acid (vitamin C) 500 mg tablet 500 mg PO DAILY RF: 0 Ocuvite Adult 50 Plus 250-5-1 mg capsule 1 cap PO DAILY RF: 0 tamsulosin 0.4 mg capsule 0.4 mg PO DAILY RF: 0 Trelegy Ellipta 100-62.5-25 mcg blister with device 1 inh inhalation DAILY Qty: 60 RF: 4 albuterol sulfate 90 mcg/actuation HFA aerosol inhaler 2 puff inhalation Q6H PRN (Reason: Shortness Of Breath Or Wheezing) Qty: 18 RF: 3 cholecalciferol (vitamin D3) 1,000 unit (25 mcg) tablet 3,000 unit PO DAILY RF: 0 aspirin 81 mg tablet,chewable 81 mg PO DAILY RF: 0 atorvastatin 80 mg tablet 80 mg PO HS RF: 0 metformin 500 mg tablet 500 mg PO HS Qty: 30 RF: 0 rivaroxaban 20 mg tablet 20 mg PO DAILY Qty: 1 RF: 0 lisinopril 5 mg tablet 5 mg PO DAILY RF: 0 pantoprazole 40 mg Tablet,Delayed Release (Dr/Ec) 40 mg PO BID Qty: 60 RF: 1 fosfomycin tromethamine [Monurol] 3 gram packet 3 g PO Q72H RF: 0 Referrals Referrals: Maryann Gordon DO [Primary Care Provider] -
--- NOTE | 2021-07-17 12:22 | XRay Report ---
XR chest 1V portable CLINICAL HISTORY: weakness. Evaluate cardiopulmonary status COMPARISON STUDY: 12/18/2020 TECHNIQUE: 1 view of the chest FINDINGS: Single frontal view of the chest demonstrates the cardiomediastinal silhouette to be within normal li mits. The lungs are clear of alveolar opacities. There is no evidence for pleural effusion. There is no evidence for vascular congestion. There is no acute osseous pathology. IMPRESSION: 1. No acute cardiopulmonary disease. ACT 112: Negative or not required by law. Electronically signed by: Mickey Barros M.D. 07/17/2021 12:21 PM
[2021-07-17 12:37] LABS: INR 1.1 (0.9-1.1); Partial Thromboplastin Ratio 1.1; Partial Thromboplastin Time 30.1 Seconds (21.0-31.0); Prothrombin Time 11.6 Seconds (9.0-12.0)
[2021-07-17 12:43] LABS: Hematocrit (blood only) 42.1 % (42-52); Hemoglobin 14.2 g/dL (14.0-18.0); Mean Corpuscular Hemoglobin 31.5 pg (25-34); Mean Corpuscular Hgb Conc 33.7 g/dL (32-36); Mean Corpuscular Volume 93.3 fL (80-100); Mean Platelet Volume 9.2 fL (7.4-10.4); Platelet Count 245 K/uL (130-400); RDW Coefficient of Variation 15.6 % (11.5-14.5); RDW Standard Deviation 53.6 fL (36.4-46.3); Red Blood Count 4.51 M/uL (4.7-6.1); White Blood Count 12.41 K/uL (4.8-10.8)
[2021-07-17] MEDS ORDERED: SODIUM CHLORIDE 0.9% 1000ML 500 ML IV ONE ×2 (12:44→13:31)
[2021-07-17 12:54] LABS: Albumin Globulin Ratio 0.9 (0.9-2); Albumin Level 3.5 gm/dl (3.4-5.0); BUN Creatinine Ratio 22.9 (10-20); Bilirubin,Total 0.6 mg/dl (0.2-1.0); Calcium 8.8 mg/dl (8.5-10.1); Creatinine Clr Calc Pharmacy 104.6 ml/min; Est GFR (African American) 110.8 ml/min; Est GFR (Non-African American) 95.6 ml/min; Globulin 3.7 gm/dl (2.5-4.0); Magnesium 1.6 mg/dl (1.7-2.4); Potassium 3.7 mmol/L (3.5-5.1); Total Protein 7.2 gm/dl (6.0-8.3)
[2021-07-17 13:09] LABS: Basophils # (auto) 0.05 K/uL (0-0.2); Basophils % (auto) 0.4 %; Eosinophils # (auto) 0.03 K/uL (0-0.5); Eosinophils % (auto) 0.2 %; Immature Granulocytes # (auto) 0.04 K/uL (0.00-0.02); Immature Granulocytes % (auto) 0.3 %; Lymphocytes # (auto) 1.93 K/uL (1.2-3.4); Lymphocytes % (auto) 15.6 %; Monocytes % (auto) 13.7 %; Neutrophils # (auto) 8.66 K/uL (1.4-6.5); Neutrophils % (auto) 69.8 %
--- NOTE | 2021-07-17 13:54 | Electrocardiogram Report ---
Test Reason : Blood Pressure : / mmHG Vent. Rate : 136 BPM Atrial Rate : 272 BPM P-R Int : 000 ms QRS Dur : 142 ms QT Int : 292 ms P-R-T Axes : -89 -71 018 degrees QTc Int : 439 ms Poor data quality, interpretation may be adversely affected Probable Atrial flutter with 2:1 A-V conduction Right bundle branch block Left anterior fascicular block Bifascicular block Abnormal ECG When compared with ECG of 19-FEB-2021 10:03, Atrial flutter has replaced Sinus rhythm Vent. rate has increased BY 54 BPM (RBBB and left anterior fascicular block) is now Present Confirmed by Jas Roach ([id number]) on 07/17/2021 1:54:07 PM Referred By: Confirmed By:Jas Roach
[2021-07-17] MEDS: MAGNESIUM SULFATE / D5W 1 GM/100 ML BAG IV SCH ×2 (14:11→15:11)
[2021-07-17 15:16] LABS: Appearance Urine Clear (Clear); Bacteria Urine Automated Negative (Negative); Bilirubin Urine Negative (Negative); Blood Urine 2+ (Negative); Color Urine Dark Yellow; Glucose Urine UA Negative (Negative); Ketones Urine Trace (Negative); Leukocyte Esterase Urine 2+ (Negative); Nitrite Urine Negative (Negative); Protein Urine Negative (Negative); Specific Gravity Urine 1.021 (1.000-1.030); Urobilinogen Urine Negative (Negative); WBC Urine Automated >30 /hpf (0-5); pH Urine 5.5 (4.5-7.5)
[2021-07-17 15:33] LABS: Calcium Oxalate Crystals Urine Present (None Prsent)
[2021-07-17] MEDS ORDERED: cefTRIAXone SODIUM 2,000 MG/70 ML BAG IV STA (15:57)
--- NOTE | 2021-07-17 16:42 | History & Physical Report ---
Date of Service July 17, 2021 Assessment & Plan (1) Atrial flutter: (2) PAF (paroxysmal atrial fibrillation): (3) Hypertension: (4) Dyslipidemia: (5) PAD (peripheral artery disease): Plan: - Admit to tele -Consult cardiology -Initial troponin is negative -Check 2D echo -Patient was administered NSS 1.5 L in the ER, magnesium 2 g IV, and diltiazem 10 mg IV x 3 which seems to have slowed heart rate down into the 90s but now currently back in low 100s to 130s with exertion. -Patient missed dose of Cardizem 120 mg this morning so will administer now -Continue on baby aspirin, Xarelto 20 mg daily, lisinopril 5 mg daily, atorvastatin 80 mg daily, ezetimibe 10 mg daily -Has had cardioversion which was refractory - EKG reviewed, atrial flutter, tele strips reviewed with tech in the ER (6) UTI (urinary tract infection): Plan: -Follow urine culture, previously has grown out E. coli, this will be his fourth UTI within the past 6 months -Consult urology -pt has been unable to get in to see urology provider in outpatient - consider cystoscopy? -IV ceftriaxone -WBC 12.41 on admission (7) DM type 2 (diabetes mellitus, type 2): Plan: -Last A1c was 7.4 on 04/23/2021 and outpatient epic notes, will recheck with a.m. labs -ISS with Re[facility] -Holding metformin (8) COPD (chronic obstructive pulmonary disease): (9) Tobacco use disorder: Plan: -Follows with [facility] pulmonology as an outpatient, recently saw them on 07/13 -Continue inhalers -Cessation of tobacco use encouraged at bedside, will provide a nicotine patch as needed - reports patch is too expensive for them, she has some resources from pulm office for free samples - currently down from 2 ppd to 3-5 cigs daily (10) GERD (gastroesophageal reflux disease): Plan: - Cont protonix (11) Peripheral neuropathy: Plan: - Hx of such DVT ppx: - teds, scds, xarelto CODE: Full code Dispo: From home, likely to remain in the hospital x 1-2 days History of Present Illness Chief Complaint: Weakness, palpitations Primary Care Provider: Maryann Gordon, DO This is a 71-year-old male with PMHx of paroxysmal atrial fibrillation on Xarelto, HTN, HLD, PAD, COPD, DM type II, GERD, peripheral neuropathy, tobacco abuse disorde x 50 pack year hx. Patient presented to the ER with worsening palpitations and weakness. He has been found to be in atrial flutter since presenting to the ER and was given nor mal saline, IV magnesium and IV Cardizem 10 mg x 3,which has improved his rate however has not broken the rhythm. This morning he missed his morning Cardizem dosing because he did not feel well. He has been found to have a UTI with infected appearing UA. He admits to having increased sensation of burning with urination, but denies other urinary symptoms including hematuria, retention, increased frequency or abdominal pain. Of note he has had 3 other previous urinary tract infections within the past 6 months, and was scheduled to see urology as an outpatient, reports that they have all been E. coli. He has been unable to get in with the urologist yet and is very frustrated. He was recently seen by pulmonology on 07/13 as a routine follow-up for COPD and history of pulmonary nodules, and states that his inhalers were recently switched around. He has also significantly reduce the amount of tobacco use compared to previously; was 2 packs/day, currently is down to 3- 5 cigarettes/day since having a follow-up with irrigation manager earlier this week. His is present with him at bedside, he reports being to her is 46 years, and they intermittently bicker over his health at bedside. is obviously concerned for him as he continues to not improve, has been unable to get in with his specialist, and also is not himself. Their daughter was recently diagnosed with ALS within the past week and he is struggling with this information. feels that he may be depressed. He has been sleeping nearly all day and is awake for only 4 hours/day since 07/13/2021. He wakes up between 4 and 6 AM and then by 2 and half hours later he has such increased weakness he feels that he needs to go back to bed. Patient denies any recent falls or injuries. In regards to his medications, he has not missed a dose of Xarelto, last taken last evening. Allergies Allergy/AdvReac Type Severity Reaction Status Date / Time levofloxacin AdvReac Intermediate JOINT Verified 07/13/21 09:41 STIFFNESS Home Medications Medication Instructions Recorded Confirmed Type aspirin 81 mg chewable tablet 81 mg PO DAILY tab 12/14/18 07/17/21 History atorvastatin 80 mg tablet 80 mg PO HS tab 12/14/18 07/17/21 History cholecalciferol (vitamin D3) 25 3,000 unit PO DAILY tab 12/14/18 07/17/21 History mcg (1,000 unit) tablet metformin 500 mg tablet 500 mg PO HS #30 tab 12/14/18 07/17/21 History rivaroxaban 20 mg tablet 20 mg PO DAILY #1 tab 12/14/18 07/17/21 History ascorbic acid (vitamin C) 500 mg 500 mg PO DAILY 07/03/20 07/17/21 History tablet diltiazem HCl 120 mg tablet 120 mg PO DAILY tab 07/03/20 07/17/21 History escitalopram oxalate 20 mg tablet 20 mg PO DAILY 07/03/20 07/17/21 History (Lexapro) ezetimibe 10 mg tablet (Zetia) 10 mg PO QAM 07/03/20 07/17/21 History vit C,E,zinc,copper-xdejd7m 250 1 cap PO DAILY 07/03/20 07/17/21 History mg-lutein 5 mg-zeaxanthin 1 mg capsule (Ocuvite Adult 50 Plus) lisinopril 5 mg tablet 5 mg PO DAILY 12/18/20 07/17/21 History pantoprazole 40 mg tablet,delayed 40 mg PO BID #60 tab 12/24/20 07/17/21 Rx release albuterol sulfate 90 mcg/actuation 2 puff INHALATION Q6H PRN #18 g 07/13/21 07/17/21 Rx aerosol inhaler fluticasone fur. 100 mcg-umeclid 1 inh INHALATION DAILY #60 ea 07/13/21 07/17/21 Rx 62.5 mcg-vilant 25 mcg inhalat.powder (Trelegy Ellipta) tamsulosin 0.4 mg capsule 0.4 mg PO DAILY 07/13/21 07/17/21 History fosfomycin tromethamine 3 gram 3 g PO Q72H 07/17/21 07/17/21 History oral packet (Monurol) Past Med/Surg History Medical History (Updated 07/17/21 @ 18:05 by Jas Pacheco DO) Atrial flutter Bullous emphysema Cellulitis of foot DM type 2 (diabetes mellitus, type 2) Dyslipidemia Flushing GERD (gastroesophageal reflux disease) Hypertension Multiple lung nodules on CT Nocturnal hypoxia OM (osteomyelitis) PAD (peripheral artery disease) "with chronic left SFA occlusion" PAF (paroxysmal atrial fibrillation) Peripheral neuropathy Pulmonary emphysema Tachycardia Tobacco use disorder Family History Mother Diabetes Father Heart disease Social History Smoking Status: Current every day smoker Tobacco Type: Cigarettes Cigarettes Per Day: 3; Do You Dip or Chew Tobacco: No; Tobacco Cessation Education Requested by Patient: No Hx Alcohol Use: No Hx Substance Use: No Preferred Language: Mongolian Communication Ability: Effective Home Advisor Required: No Beliefs That Will Affect Care: None Current Living Situation: Spouse Other Information That Helps Us Care for You: No Feels Safe at Home: Yes Safety Concerns: Feels Safe At This Time Assistive Devices: None and Glasses Review of Systems Review of Systems: Constitutional: No fever, sweats or chills, + generalized ill feeling, lethargy, fatigue Eyes: No diplopia, no worsening or blurred vision ENT: normal hearing, no trouble swallowing Respiratory: No cough, sputum, dyspnea at rest or on exertion Cardiovascular: No chest pain, tightness or palpitations Abdomen: No pain, nausea, vomiting, diarrhea or constipation : Increased burning with urination, increased frequency, denies hematuria, retention, weak stream Musculoskeletal: No joint pain, calf pain, swelling Neurologic: + Weakness, no numbness/tingling, no balance problems Psychiatric: No anxiety or depression Skin: No rash or itch Physical Exam Physical Exam: General: awake, alert, no apparent distress, + fatigued Head: Normocephalic, atraumatic ENT: PERRL, EOMI, no pharyngeal exudate, mucous membranes moist Chest: Clear to auscultation, on room air, no adventitious breath sounds Cardiac: Tachy with HR in 100s to 130s when asked to move himself up in bed, EKG reviewed showing atrial flutter, no murmur, no JVD, normal peripheral pulses, good capillary refill Abdominal: NABS x 4 quadrants, soft, nondistended, nontender to palpation, no rebound or guarding Extremities: Normal inspection, no peripheral edema or erythema, calfs nontender to palpation Psych: Normal mood and affect Neuro: AAO x 3, strength intact bilaterally and rated 5/5, no motor deficits, speech is clear, + chronic lower extremity peripheral sensory deficits Results & Data Results & Data ([facility]) Vital Signs (Past 12 Hours) Vital Signs Temp Pulse Resp BP Pulse Ox 07/17/21 15:15 92 H 15 96 07/17/21 15:00 101 H 124/81 97 07/17/21 14:45 94 H 13 98 07/17/21 14:30 100 H 13 97 07/17/21 14:20 119 H 17 114/87 96 07/17/21 14:10 125 H 14 97 07/17/21 14:00 125 H 11 L 96 07/17/21 13:50 134 H 11 L 95 07/17/21 13:40 134 H 15 96 07/17/21 13:30 135 H 10 L 96 07/17/21 13:20 135 H 11 L 96 07/17/21 13:10 126 H 11 L 96 07/17/21 13:00 126 H 12 112/77 96 07/17/21 12:50 135 H 18 95 07/17/21 12:40 137 H 13 95 07/17/21 12:30 137 H 13 110/83 95 07/17/21 12:21 135 H 22 98 07/17/21 12:20 135 H 20 96 07/17/21 12:10 136 H 21 96 07/17/21 12:04 137 H 18 96 07/17/21 11:38 36.8 C 138 H 18 114/73 95 Laboratory Results 07/17/21 15:00 Urine Culture - Pending Urine,Clean Catch 07/17/21 07/17/21 07/17/21 Unknown 15:00 12:20 WBC RBC Hgb Hct MCV MCH MCHC RDW Std Deviation RDW Coeff of Cathi Plt Count MPV Immature Gran % (Auto) Neut % (Auto) Lymph % (Auto) [place] % (Auto) Eos % (Auto) Baso % (Auto) Neut # (Auto) Lymph # (Auto) [place] # (Auto) Eos # (Auto) Baso # (Auto) Immature Gran # (Auto) PT INR APTT PTT Ratio Sodium Potassium Chloride Carbon Dioxide Anion Gap BUN Creatinine Est Cr Clr Drug Dosing Est GFR ( Amer) Est GFR (Non-Af Amer) BUN/Creatinine Ratio Glucose Calcium Magnesium Total Bilirubin AST ALT Alkaline Phosphatase Troponin I High Sens 17.8 Total Protein Albumin Globulin Albumin/Globulin Ratio TSH Urine Color Dark Yellow Urine Appearance Clear Urine pH 5.5 Ur Specific [place] 1.021 Urine Protein Negative Urine Glucose (UA) Negative Urine Ketones Trace H Urine Blood 2+ H Urine Nitrite Negative Urine Bilirubin Negative Urine Urobilinogen Negative Ur Leukocyte Esterase 2+ H Urine WBC (Auto) >30 H Urine RBC (Auto) 5-10 H U Hyaline Cast (Auto) 5-10 H U Epithel Cells (Auto) 10-20 H Urine Bacteria (Auto) Negative Calcium Oxalate Crystal Present A SARS-CoV-2, RNA, NAAT NEGATIVE 07/17/21 07/17/21 07/17/21 12:20 12:20 12:20 WBC RBC Hgb Hct MCV MCH MCHC RDW Std Deviation RDW Coeff of Cathi Plt Count MPV Immature Gran % (Auto) Neut % (Auto) Lymph % (Auto) [place] % (Auto) Eos % (Auto) Baso % (Auto) Neut # (Auto) Lymph # (Auto) [place] # (Auto) Eos # (Auto) Baso # (Auto) Immature Gran # (Auto) PT 11.6 INR 1.1 APTT 30.1 PTT Ratio 1.1 Sodium 134 L Potassium 3.7 Chloride 101 Carbon Dioxide 24 Anion Gap 9 BUN 16 Creatinine 0.70 Est Cr Clr Drug Dosing 104.6 Est GFR ( Amer) 110.8 Est GFR (Non-Af Amer) 95.6 BUN/Creatinine Ratio 22.9 H Glucose 133 H Calcium 8.8 Magnesium 1.6 L Total Bilirubin 0.6 AST 22 ALT 16 Alkaline Phosphatase 110 H Troponin I High Sens Total Protein 7.2 Albumin 3.5 Globulin 3.7 Albumin/Globulin Ratio 0.9 TSH 1.125 Urine Color Urine Appearance Urine pH Ur Specific [place] Urine Protein Urine Glucose (UA) Urine Ketones Urine Blood Urine Nitrite Urine Bilirubin Urine Urobilinogen Ur Leukocyte Esterase Urine WBC (Auto) Urine RBC (Auto) U Hyaline Cast (Auto) U Epithel Cells (Auto) Urine Bacteria (Auto) Calcium Oxalate Crystal SARS-CoV-2, RNA, NAAT 07/17/21 12:20 WBC 12.41 H RBC 4.51 L Hgb 14.2 Hct 42.1 MCV 93.3 MCH 31.5 MCHC 33.7 RDW Std Deviation 53.6 H RDW Coeff of Cathi 15.6 H Plt Count 245 MPV 9.2 Immature Gran % (Auto) 0.3 Neut % (Auto) 69.8 Lymph % (Auto) 15.6 [place] % (Auto) 13.7 Eos % (Auto) 0.2 Baso % (Auto) 0.4 Neut # (Auto) 8.66 H Lymph # (Auto) 1.93 [place] # (Auto) 1.70 H Eos # (Auto) 0.03 Baso # (Auto) 0.05 Immature Gran # (Auto) 0.04 H PT INR APTT PTT Ratio Sodium Potassium Chloride Carbon Dioxide Anion Gap BUN Creatinine Est Cr Clr Drug Dosing Est GFR ( Amer) Est GFR (Non-Af Amer) BUN/Creatinine Ratio Glucose Calcium Magnesium Total Bilirubin AST ALT Alkaline Phosphatase Troponin I High Sens Total Protein Albumin Globulin Albumin/Globulin Ratio TSH Urine Color Urine Appearance Urine pH Ur Specific [place] Urine Protein Urine Glucose (UA) Urine Ketones Urine Blood Urine Nitrite Urine Bilirubin Urine Urobilinogen Ur Leukocyte Esterase Urine WBC (Auto) Urine RBC (Auto) U Hyaline Cast (Auto) U Epithel Cells (Auto) Urine Bacteria (Auto) Calcium Oxalate Crystal SARS-CoV-2, RNA, NAAT Diagnostic Findings Chest X-Ray 07/17/21 11:46 XR chest 1V portable CLINICAL HISTORY: weakness. Evaluate cardiopulmonary status COMPARISON STUDY: 12/18/2020 TECHNIQUE: 1 view of the chest FINDINGS: Single frontal view of the chest demonstrates the cardiomediastinal silhouette to be within normal limits. The lungs are clear of alveolar opacities. There is no evidence for pleural effusion. There is no evidence for vascular congestion. There is no acute osseous pathology. IMPRESSION: 1. No acute cardiopulmonary disease. ACT 112: Negative or not required by law. Electronically signed by: Mickey Barros M.D. 07/17/2021 12:21 PM ECG Additional Comments: 17-JUL-2021 16:06:38 [facility]-EDSTAT ROUTINE RETRIEVAL Atrial flutter with variable A-V block Left axis deviation Incomplete right bundle branch block Junctional ST depression, probably normal Prolonged QT Abnormal ECG When compared with ECG of 17-JUL-2021 11:46, QRS duration has decreased T wave inversion now evident in Inferior leads 25mm/s10mm/[id number] 241 HDCID: 12Referred by: REFERRED SELF Unconfirmed Vent. rate 93 BPM GA interval * ms QRS duration 96 ms QT/QTc 394/489 ms Code Status & VTE Plan Code Status Full code -discussed with the patient at bedside Supervising Physician Co-Signing Physician Notes Pt is a 71 y/o M with hx of Atrial flutter s/p cardioversion (2016) on Xarelto, PAD, COPD, DMII, HLD, GERD, Anxiety admitted for worsening fatigue. Today pt did not take his Cardizem and he was in Aflutter with RVR in the ER. PE: NAD Card: normal S1/S2, no murmur Lungs: CTA, no wheezing or crackles Abd: obese abd, soft, NT, ND MSK: no edema Psych: AAOx3, normal affect A/P: Aflutter with RVR: -s/p Cardizem 10mg IVx3 ---- HR improved but still in the low 100s -Will get echo -Cardiology consult -admit to tele and start home Cardizem dose - trop neg Recurrent UTI: -UCx sent -will start the pt on Ceftriaxone - previous UCx + for E.coli Other chronic medical conditions plan as above Agree with A/p by Toya Flores PA-C
[2021-07-17] MEDS ORDERED: dilTIAZem HCL 120 MG CAPCR PO ONE (17:51)
[2021-07-17] MEDS ORDERED: CARBOHYDRATES FOR HYPOGLYCEMIA PO PRN (18:48)
[2021-07-17] MEDS ORDERED: GLUCAGON FOR INJ 1 MG VIAL SQ PRN (18:48)
[2021-07-17] MEDS ORDERED: GLUCOSE 40% GEL 15 GM TUBE PO PRN (18:48)
[2021-07-17] MEDS ORDERED: ALBUTEROL HFA 8 GM INHALER INH PRN (18:48)
[2021-07-17] MEDS ORDERED: DEXTROSE 50% 50 ML SYRINGE IV PRN (18:48)
[2021-07-17] MEDS ORDERED: ONDANSETRON INJ 2 MG/ML 2 ML VIAL IV PRN (18:48)
[2021-07-17] MEDS ORDERED: ALPRAZolam 0.5 MG TABLET PO PRN (18:48)
[2021-07-17] MEDS ORDERED: ACETAMINOPHEN 325 MG TAB PO PRN (18:48)
[2021-07-17] MEDS ORDERED: GLUCOSE 10 TABS/TUBE PO PRN (18:48)
[2021-07-17] MEDS: ATORVASTATIN 40 MG TAB PO SCH (21:16)
[2021-07-17] MEDS: INSULIN ASPART PER UNIT SC SCH (21:16)
[2021-07-17] MEDS: metFORMIN HCL 500 MG TAB PO SCH (21:17)
[2021-07-17] MEDS: PANTOprazole 40 MG TAB PO SCH (21:17)
--- NOTE | 2021-07-17 21:27 | Urology Consultation ---
Date of Consultation July 17, 2021 Assessment & Plan (1) Acute UTI (urinary tract infection): Patient has been admitted on the hospitalist service. Concerning his urinary tract infection we recommend proceeding as follows: Follow serial labs Patient has been placed on antibiotics in form of Rocephin. Would recommend continuing this and tailor his antibiotics based on culture results Remainder of plan as directed by primary service History of Present Illness Reason for Consultation: Recurrent UTI Attending Physician: Kan Miranda MD History of Present Illness This is a 71-year-old male who presented to [facility] emergency department secondary to palpitations and weakness. The patient was found to be in atrial flutter and was thus admitted to the hospital on the medical service. As part of the patient's diagnostic evaluation he was noted to have a urinalysis concerning for urinary tract infection. I did question the patient about this and he does report intermittent dysuria. He denies any back or flank pain. He denies any issues with urinary stream noting he does not have any trouble initiating a urine stream. He notes that the force of his urine stream is strong. He does note that he does not have urinary frequency and feels as though he empties his bladder completely when he voids. He does report intermittent hematuria without blood clots with the most recent time being approximately 4 days ago. Patient reportedly has had multiple other urinary tract infections in the past 6 months. He was scheduled to see urology as an outpatient but has had a difficulty in obtaining an appointment. Patient's records were reviewed and he has had a urine culture on 12/18/2020 that showed E. coli that was resistant to Levaquin and Cipro. Since admission to the hospital the patient has had a urine culture sent which is pending. Additional diagnostics include a chest x-ray that showed no evidence of pneumonia. Patient also had a CBC her white blood cell count was 12.4. His hemoglobin, hematocrit, and platelet count were all noted to be normal. Coagulation studies were noted to be normal. Chemistry profile showed a sodium of 134. Potassium, BUN, and creatinine were all noted be normal. A urinalysis did show greater than 30 white blood cells per high-power field was negative for bacteria. Leukocyte Estrace was noted to be 2+ positive and nitrites were negative. A COVID test was performed and was noted to be negative. At the time of my interview the patient was resting comfortably in bed and he was in no distress Allergies Allergy/AdvReac Type Severity Reaction Status Date / Time levofloxacin AdvReac Intermediate JOINT Verified 07/13/21 09:41 STIFFNESS Home Medications Medication Instructions Recorded Confirmed Type aspirin 81 mg chewable tablet 81 mg PO DAILY tab 12/14/18 07/17/21 History atorvastatin 80 mg tablet 80 mg PO HS tab 12/14/18 07/17/21 History cholecalciferol (vitamin D3) 25 3,000 unit PO DAILY tab 12/14/18 07/17/21 History mcg (1,000 unit) tablet metformin 500 mg tablet 500 mg PO HS #30 tab 12/14/18 07/17/21 History rivaroxaban 20 mg tablet 20 mg PO DAILY #1 tab 12/14/18 07/17/21 History ascorbic acid (vitamin C) 500 mg 500 mg PO DAILY 07/03/20 07/17/21 History tablet diltiazem HCl 120 mg tablet 120 mg PO DAILY tab 07/03/20 07/17/21 History escitalopram oxalate 20 mg tablet 20 mg PO DAILY 07/03/20 07/17/21 History (Lexapro) ezetimibe 10 mg tablet (Zetia) 10 mg PO QAM 07/03/20 07/17/21 History vit C,E,zinc,copper-eweur9j 250 1 cap PO DAILY 07/03/20 07/17/21 History mg-lutein 5 mg-zeaxanthin 1 mg capsule (Ocuvite Adult 50 Plus) lisinopril 5 mg tablet 5 mg PO DAILY 12/18/20 07/17/21 History pantoprazole 40 mg tablet,delayed 40 mg PO BID #60 tab 12/24/20 07/17/21 Rx release albuterol sulfate 90 mcg/actuation 2 puff INHALATION Q6H PRN #18 g 07/13/21 07/17/21 Rx aerosol inhaler fluticasone fur. 100 mcg-umeclid 1 inh INHALATION DAILY #60 ea 07/13/21 07/17/21 Rx 62.5 mcg-vilant 25 mcg inhalat.powder (Trelegy Ellipta) tamsulosin 0.4 mg capsule 0.4 mg PO DAILY 07/13/21 07/17/21 History fosfomycin tromethamine 3 gram 3 g PO Q72H 07/17/21 07/17/21 History oral packet (Monurol) Patient History Medical History Atrial flutter Bullous emphysema Cellulitis of foot DM type 2 (diabetes mellitus, type 2) Dyslipidemia Flushing GERD (gastroesophageal reflux disease) Hypertension Multiple lung nodules on CT Nocturnal hypoxia OM (osteomyelitis) PAD (peripheral artery disease) "with chronic left SFA occlusion" PAF (paroxysmal atrial fibrillation) Peripheral neuropathy Pulmonary emphysema Tachycardia Tobacco use disorder Family History Mother Diabetes Father Heart disease Social History Smoking Status: Current every day smoker Tobacco Type: Cigarettes Cigarettes Per Day: 3; Do You Dip or Chew Tobacco: No; Tobacco Cessation Education Requested by Patient: No Hx Alcohol Use: No Hx Substance Use: No Preferred Language: [place] Island[place] Communication Ability: Effective Bread Wrapping Machine Feeder Required: No Beliefs That Will Affect Care: None Current Living Situation: Spouse Other Information That Helps Us Care for You: No Feels Safe at Home: Yes Safety Concerns: Feels Safe At This Time Assistive Devices: None and Glasses Review of Systems Constitutional: no fever and no chills Eyes: no diplopia Ear, Nose, Mouth, Throat: no ear pain Respiratory: no cough and no dyspnea Cardiovascular: as per Subjective / HPI and + palpitations Gastrointestinal: no abdominal pain, no nausea and no vomiting Genitourinary: + as per Subjective / HPI Musculoskeletal: no back pain Integumentary: no rash Neurologic: no localized weakness Physical Exam Constitutional: WD/WN, vitals as above Eyes: no conjunctival abnormality ENMT: Ears: no hearing impairment Neck: trachea midline Respiratory: normal respiratory effort; no respiratory distress and no labored breathing Cardiovascular: Rate/Rhythm: regular rate and regular rhythm Gastrointestinal (Abdomen): Soft, nontender, nondistended Musculoskeletal: No calf tenderness Skin: no rashes Neurologic: moves all extremities Psychiatric: A+Ox3, euthymic affect Results & Data ([facility]) Vital Signs (Past 12 Hours) Vital Signs Temp Pulse Pulse Resp BP BP Pulse Ox 07/17/21 18:50 36.9 C 135 H 18 102/73 96 07/17/21 17:15 100 H 21 95 07/17/21 17:00 96 H 13 96 07/17/21 16:45 94 H 15 96 07/17/21 16:30 89 12 96 07/17/21 16:15 96 H 14 122/89 95 07/17/21 16:00 90 12 115/85 96 07/17/21 15:45 90 14 125/82 96 07/17/21 15:30 90 114/84 97 07/17/21 15:15 92 H 15 96 07/17/21 15:00 101 H 124/81 97 07/17/21 14:45 94 H 13 98 07/17/21 14:30 100 H 13 97 07/17/21 14:20 119 H 17 114/87 96 07/17/21 14:10 125 H 14 97 07/17/21 14:00 125 H 11 L 96 07/17/21 13:50 134 H 11 L 95 07/17/21 13:40 134 H 15 96 07/17/21 13:30 135 H 10 L 96 07/17/21 13:20 135 H 11 L 96 07/17/21 13:10 126 H 11 L 96 07/17/21 13:00 126 H 12 112/77 96 07/17/21 12:50 135 H 18 95 07/17/21 12:40 137 H 13 95 07/17/21 12:30 137 H 13 110/83 95 07/17/21 12:21 135 H 22 98 07/17/21 12:20 135 H 20 96 07/17/21 12:10 136 H 21 96 07/17/21 12:04 137 H 18 96 07/17/21 11:38 36.8 C 138 H 18 114/73 95 PG Care Time/CCT Total # of Minutes Spent Total Time Spent with Patient: Total time spent is greater than 50% in coordination of care (as documented) at patient's floor/unit and/or counseling patient: Coding Level of Care Code 14218 Inpt Consult Level 5 Diagnoses Acute UTI (urinary tract infection) N39.0
[2021-07-18] MEDS: METOPROLOL TARTRATE 1 MG/ML VIAL IV PRN ×2 (00:27→23:23)
[2021-07-18 07:39] LABS: Hematocrit (blood only) 39.7 % (42-52); Mean Corpuscular Hemoglobin 30.7 pg (25-34); Mean Corpuscular Hgb Conc 32.7 g/dL (32-36); Mean Corpuscular Volume 93.9 fL (80-100); Mean Platelet Volume 9.1 fL (7.4-10.4); Platelet Count 232 K/uL (130-400); RDW Coefficient of Variation 15.7 % (11.5-14.5); RDW Standard Deviation 54.1 fL (36.4-46.3); Red Blood Count 4.23 M/uL (4.7-6.1)
[2021-07-18 08:15] LABS: Albumin Globulin Ratio 0.9 (0.9-2); Albumin Level 3.2 gm/dl (3.4-5.0); BUN Creatinine Ratio 18.2 (10-20); Bilirubin,Total 0.4 mg/dl (0.2-1.0); Calcium 8.4 mg/dl (8.5-10.1); Chol HDL Ratio 4.2 (0-5); Creatinine Clr Calc Pharmacy 110.9 ml/min; Est GFR (African American) 113.5 ml/min; Globulin 3.4 gm/dl (2.5-4.0); Magnesium 1.8 mg/dl (1.7-2.4); Phosphorus 3.4 mg/dl (2.5-4.9); Potassium 4.3 mmol/L (3.5-5.1); Total Protein 6.6 gm/dl (6.0-8.3)
[2021-07-18 08:53] LABS: Estimated Average Glucose 157 mg/dl; Hemoglobin A1C 7.1 % (4.5-5.6)
[2021-07-18] MEDS: UMECLIDINIUM BROMIDE 62.5MCG/BLISTER 7 PUFFS/INHALER INH SCH (08:59)
[2021-07-18] MEDS: FLUTICASONE/VILANTEROL 100/25MCG 14 PUFFS/INHALER INH SCH (08:59)
[2021-07-18] MEDS: CEROVITE ADV FORMULA TAB PO SCH (09:00)
[2021-07-18] MEDS: PANTOprazole 40 MG TAB PO SCH ×2 (09:00→21:12)
[2021-07-18] MEDS: ESCITALOPRAM OXALATE 20 MG TAB PO SCH (09:00)
[2021-07-18] MEDS: ASPIRIN 81 MG ECTAB PO SCH (09:00)
[2021-07-18] MEDS: INSULIN ASPART PER UNIT SC SCH ×4 (09:00→20:28)
[2021-07-18] MEDS ORDERED: NON-FORMULARY MEDICATION (Fluticasone-Umeclidin-Vilanter [Trelegy Ellipta] 100-62.5-25 mcg INH SCH (09:00)
[2021-07-18] MEDS: EZETIMIBE 10 MG TABLET PO SCH (09:00)
[2021-07-18] MEDS: ASCORBIC ACID 500 MG TAB PO SCH (09:01)
[2021-07-18] MEDS: TAMSULOSIN HCL 0.4 MG CAP PO SCH (09:01)
[2021-07-18] MEDS: CHOLECALCIFEROL 1,000 UNITS 25 MCG TAB PO SCH (09:01)
[2021-07-18] MEDS: lisinopril 5 MG TAB PO SCH (09:01)
[2021-07-18] MEDS: FOLIC ACID 1 MG TAB PO SCH (09:01)
[2021-07-18] MEDS: dilTIAZem HCL 120 MG CAPCR PO SCH (09:01)
[2021-07-18] MEDS: NICOTINE 21 MG/24 HR TDSY TD SCH (09:04)
--- NOTE | 2021-07-18 10:06 | Cardiology Consultation ---
Date of Consultation July 18, 2021 Assessment & Plan (1) Atrial flutter with rapid ventricular response: (2) Atrial flutter: (3) Bullous emphysema: (4) Acute UTI (urinary tract infection): Patient is a 71-year-old male with medical issues as noted above. Cardiac history notable for paroxysmal atrial flutter and presents now with at least 5- day history of atrial flutter with elevated ventricular response. Rates may be driven by underlying infection with rates coming under better control since admission. He denies any lapse in his anticoagulant with Xarelto Suspect patient may benefit from synchronized electrical cardioversion as part of long-term management last event 2017 Plan: Treat underlying urinary tract infection continue current oral medications Keep n.p.o. after midnight tonight with possible consideration for synchronized electrical cardioversion tomorrow or Tuesday Will review echocardiogram in interim Recommend nocturnal oximetry while in hospital History of Present Illness Reason for Consultation: Atrial flutter Requesting Physician: Dr Dhaliwal Attending Physician: Reilly De La Fuente MD History of Present Illness Patient is a 71-year-old male with underlying history is notable for 1. Paroxysmal atrial flutter, typical on chronic anticoagulation with Xarelto prior synchronized electrical cardioversion 2016 2. Atherosclerotic peripheral vascular disease with chronic left SFA occlusion, claudication 3. 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 Nocturnal hypoxemia 5. Dyslipidemia 6. Type 2 diabetes mellitus 7. 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 Recurrent urinary tract infections with acute exacerbation currently Patient presents with recent complaints of generalized malaise fatigue and weakness. Has had urinary symptoms but missed urology appointment. Was seen by pulmonology on 13 July and noted to be in atrial flutter at that time Cardiology appointment on the was canceled by patient He presented to the ER last evening where he is noted to be in atrial fibrillation flutter with rapid response, patient had not taken usual dose of diltiazem. He denies any chest pains or discomfort. Notes no dizziness or lightheadedness. Complains of dysuria. Denies any interruption in anticoagulation and has been taking Xarelto faithfully. No bleeding difficulties Heart rates this morning are better controlled with usual a.m. dose of diltiazem treatment of underlying infection rates are intermittently elevated No signs of angina or congestive heart failure Echocardiogram pending Allergies Allergy/AdvReac Type Severity Reaction Status Date / Time levofloxacin AdvReac Intermediate JOINT Verified 07/13/21 09:41 STIFFNESS Home Medications Medication Instructions Recorded Confirmed Type aspirin 81 mg chewable tablet 81 mg PO DAILY tab 12/14/18 07/17/21 History atorvastatin 80 mg tablet 80 mg PO HS tab 12/14/18 07/17/21 History cholecalciferol (vitamin D3) 25 3,000 unit PO DAILY tab 12/14/18 07/17/21 History mcg (1,000 unit) tablet metformin 500 mg tablet 500 mg PO HS #30 tab 12/14/18 07/17/21 History rivaroxaban 20 mg tablet 20 mg PO DAILY #1 tab 12/14/18 07/17/21 History ascorbic acid (vitamin C) 500 mg 500 mg PO DAILY 07/03/20 07/17/21 History tablet diltiazem HCl 120 mg tablet 120 mg PO DAILY tab 07/03/20 07/17/21 History escitalopram oxalate 20 mg tablet 20 mg PO DAILY 07/03/20 07/17/21 History (Lexapro) ezetimibe 10 mg tablet (Zetia) 10 mg PO QAM 07/03/20 07/17/21 History vit C,E,zinc,copper-rbiiy9x 250 1 cap PO DAILY 07/03/20 07/17/21 History mg-lutein 5 mg-zeaxanthin 1 mg capsule (Ocuvite Adult 50 Plus) lisinopril 5 mg tablet 5 mg PO DAILY 12/18/20 07/17/21 History pantoprazole 40 mg tablet,delayed 40 mg PO BID #60 tab 12/24/20 07/17/21 Rx release albuterol sulfate 90 mcg/actuation 2 puff INHALATION Q6H PRN #18 g 07/13/21 07/17/21 Rx aerosol inhaler fluticasone fur. 100 mcg-umeclid 1 inh INHALATION DAILY #60 ea 07/13/21 07/17/21 Rx 62.5 mcg-vilant 25 mcg inhalat.powder (Trelegy Ellipta) tamsulosin 0.4 mg capsule 0.4 mg PO DAILY 07/13/21 07/17/21 History fosfomycin tromethamine 3 gram 3 g PO Q72H 07/17/21 07/17/21 History oral packet (Monurol) Patient History Medical History Atrial flutter Bullous emphysema Cellulitis of foot DM type 2 (diabetes mellitus, type 2) Dyslipidemia Flushing GERD (gastroesophageal reflux disease) Hypertension Multiple lung nodules on CT Nocturnal hypoxia OM (osteomyelitis) PAD (peripheral artery disease) "with chronic left SFA occlusion" PAF (paroxysmal atrial fibrillation) Peripheral neuropathy Pulmonary emphysema Tachycardia Tobacco use disorder Family History Mother Diabetes Father Heart disease Social History Smoking Status: Current every day smoker Tobacco Type: Cigarettes Cigarettes Per Day: 3; Do You Dip or Chew Tobacco: No; Tobacco Cessation Education Requested by Patient: No Hx Alcohol Use: No Hx Substance Use: No Preferred Language: Citizen Of [place] Communication Ability: Effective Throw Out Clerk Required: No Beliefs That Will Affect Care: None Current Living Situation: Spouse Other Information That Helps Us Care for You: No Feels Safe at Home: Yes Safety Concerns: Feels Safe At This Time Assistive Devices: None and Glasses Review of Systems Review of Systems: All systems reviewed & are unremarkable except as noted in HPI & below Results & Data ([facility]) Vital Signs (Past 12 Hours) Vital Signs Temp Pulse Pulse Resp BP BP BP 07/18/21 07:52 89 07/18/21 07:28 36.6 C 99 H 17 113/75 07/18/21 04:23 36.4 C L 87 18 105/62 07/18/21 00:30 37.1 C 134 H 18 100/61 07/18/21 00:27 134 H 100/61 07/18/21 00:26 134 H 07/17/21 23:32 103 H 07/17/21 22:16 37.0 C 108 H 16 100/67 Pulse Ox 07/18/21 07:52 07/18/21 07:28 96 07/18/21 04:23 95 07/18/21 00:30 95 07/18/21 00:27 07/18/21 00:26 07/17/21 23:32 07/17/21 22:16 93 Laboratory Results Laboratory Results - last 24 hr 07/17/21 07/17/21 07/17/21 12:20 12:20 12:20 WBC 12.41 H RBC 4.51 L Hgb 14.2 Hct 42.1 MCV 93.3 MCH 31.5 MCHC 33.7 RDW Std Deviation 53.6 H RDW Coeff of Cathi 15.6 H Plt Count 245 MPV 9.2 Immature Gran % (Auto) 0.3 Neut % (Auto) 69.8 Lymph % (Auto) 15.6 Barber % (Auto) 13.7 Eos % (Auto) 0.2 Baso % (Auto) 0.4 Neut # (Auto) 8.66 H Lymph # (Auto) 1.93 Barber # (Auto) 1.70 H Eos # (Auto) 0.03 Baso # (Auto) 0.05 Immature Gran # (Auto) 0.04 H PT 11.6 INR 1.1 APTT 30.1 PTT Ratio 1.1 Sodium 134 L Potassium 3.7 Chloride 101 Carbon Dioxide 24 Anion Gap 9 BUN 16 Creatinine 0.70 Est Cr Clr Drug Dosing 104.6 Est GFR ( Amer) 110.8 Est GFR (Non-Af Amer) 95.6 BUN/Creatinine Ratio 22.9 H Glucose 133 H POC Glucose Estimat Average Glucose Hemoglobin A1c Calcium 8.8 Phosphorus Magnesium 1.6 L Total Bilirubin 0.6 AST 22 ALT 16 Alkaline Phosphatase 110 H Troponin I High Sens Total Protein 7.2 Albumin 3.5 Globulin 3.7 Albumin/Globulin Ratio 0.9 Triglycerides Cholesterol LDL Cholesterol, Calc VLDL Cholesterol, Calc HDL Cholesterol Cholesterol/HDL Ratio TSH Urine Color Urine Appearance Urine pH Ur Specific [place] Urine Protein Urine Glucose (UA) Urine Ketones Urine Blood Urine Nitrite Urine Bilirubin Urine Urobilinogen Ur Leukocyte Esterase Urine WBC (Auto) Urine RBC (Auto) U Hyaline Cast (Auto) U Epithel Cells (Auto) Urine Bacteria (Auto) Calcium Oxalate Crystal SARS-CoV-2, RNA, NAAT 07/17/21 07/17/21 07/17/21 12:20 12:20 15:00 WBC RBC Hgb Hct MCV MCH MCHC RDW Std Deviation RDW Coeff of Cathi Plt Count MPV Immature Gran % (Auto) Neut % (Auto) Lymph % (Auto) Barber % (Auto) Eos % (Auto) Baso % (Auto) Neut # (Auto) Lymph # (Auto) Barber # (Auto) Eos # (Auto) Baso # (Auto) Immature Gran # (Auto) PT INR APTT PTT Ratio Sodium Potassium Chloride Carbon Dioxide Anion Gap BUN Creatinine Est Cr Clr Drug Dosing Est GFR ( Amer) Est GFR (Non-Af Amer) BUN/Creatinine Ratio Glucose POC Glucose Estimat Average Glucose Hemoglobin A1c Calcium Phosphorus Magnesium Total Bilirubin AST ALT Alkaline Phosphatase Troponin I High Sens 17.8 Total Protein Albumin Globulin Albumin/Globulin Ratio Triglycerides Cholesterol LDL Cholesterol, Calc VLDL Cholesterol, Calc HDL Cholesterol Cholesterol/HDL Ratio TSH 1.125 Urine Color Dark Yellow Urine Appearance Clear Urine pH 5.5 Ur Specific [place] 1.021 Urine Protein Negative Urine Glucose (UA) Negative Urine Ketones Trace H Urine Blood 2+ H Urine Nitrite Negative Urine Bilirubin Negative Urine Urobilinogen Negative Ur Leukocyte Esterase 2+ H Urine WBC (Auto) >30 H Urine RBC (Auto) 5-10 H U Hyaline Cast (Auto) 5-10 H U Epithel Cells (Auto) 10-20 H Urine Bacteria (Auto) Negative Calcium Oxalate Crystal Present A SARS-CoV-2, RNA, NAAT 07/17/21 07/17/21 07/18/21 21:13 Unknown 06:59 WBC 7.10 RBC 4.23 L Hgb 13.0 L Hct 39.7 L MCV 93.9 MCH 30.7 MCHC 32.7 RDW Std Deviation 54.1 H RDW Coeff of Cathi 15.7 H Plt Count 232 MPV 9.1 Immature Gran % (Auto) Neut % (Auto) Lymph % (Auto) Barber % (Auto) Eos % (Auto) Baso % (Auto) Neut # (Auto) Lymph # (Auto) Barber # (Auto) Eos # (Auto) Baso # (Auto) Immature Gran # (Auto) PT INR APTT PTT Ratio Sodium Potassium Chloride Carbon Dioxide Anion Gap BUN Creatinine Est Cr Clr Drug Dosing Est GFR ( Amer) Est GFR (Non-Af Amer) BUN/Creatinine Ratio Glucose POC Glucose 176 H Estimat Average Glucose Hemoglobin A1c Calcium Phosphorus Magnesium Total Bilirubin AST ALT Alkaline Phosphatase Troponin I High Sens Total Protein Albumin Globulin Albumin/Globulin Ratio Triglycerides Cholesterol LDL Cholesterol, Calc VLDL Cholesterol, Calc HDL Cholesterol Cholesterol/HDL Ratio TSH Urine Color Urine Appearance Urine pH Ur Specific [place] Urine Protein Urine Glucose (UA) Urine Ketones Urine Blood Urine Nitrite Urine Bilirubin Urine Urobilinogen Ur Leukocyte Esterase Urine WBC (Auto) Urine RBC (Auto) U Hyaline Cast (Auto) U Epithel Cells (Auto) Urine Bacteria (Auto) Calcium Oxalate Crystal SARS-CoV-2, RNA, NAAT NEGATIVE 07/18/21 07/18/21 07/18/21 06:59 06:59 07:26 WBC RBC Hgb Hct MCV MCH MCHC RDW Std Deviation RDW Coeff of Cathi Plt Count MPV Immature Gran % (Auto) Neut % (Auto) Lymph % (Auto) Barber % (Auto) Eos % (Auto) Baso % (Auto) Neut # (Auto) Lymph # (Auto) Barber # (Auto) Eos # (Auto) Baso # (Auto) Immature Gran # (Auto) PT INR APTT PTT Ratio Sodium 137 Potassium 4.3 Chloride 104 Carbon Dioxide 27 Anion Gap 6 BUN 12 Creatinine 0.66 Est Cr Clr Drug Dosing 110.9 Est GFR ( Amer) 113.5 Est GFR (Non-Af Amer) 98.0 BUN/Creatinine Ratio 18.2 Glucose 132 H POC Glucose 135 H Estimat Average Glucose 157 Hemoglobin A1c 7.1 H Calcium 8.4 L Phosphorus 3.4 Magnesium 1.8 Total Bilirubin 0.4 AST 25 ALT 20 Alkaline Phosphatase 109 H Troponin I High Sens Total Protein 6.6 Albumin 3.2 L Globulin 3.4 Albumin/Globulin Ratio 0.9 Triglycerides 114 Cholesterol 79 LDL Cholesterol, Calc 37 VLDL Cholesterol, Calc 23 HDL Cholesterol 19 Cholesterol/HDL Ratio 4.2 TSH Urine Color Urine Appearance Urine pH Ur Specific [place] Urine Protein Urine Glucose (UA) Urine Ketones Urine Blood Urine Nitrite Urine Bilirubin Urine Urobilinogen Ur Leukocyte Esterase Urine WBC (Auto) Urine RBC (Auto) U Hyaline Cast (Auto) U Epithel Cells (Auto) Urine Bacteria (Auto) Calcium Oxalate Crystal SARS-CoV-2, RNA, NAAT
[2021-07-18] MEDS: RIVAROXABAN 20 MG TAB PO SCH (17:06)
[2021-07-18] MEDS: cefTRIAXone SODIUM 2,000 MG in DEXTROSE 5% 50 ML IV SCH (17:09)
--- NOTE | 2021-07-18 19:41 | Hospitalist Progress Note ---
Date of Service July 18, 2021 delayed entry date of service noted above Assessment & Plan (1) Atrial flutter: (2) PAF (paroxysmal atrial fibrillation): (3) Hypertension: (4) Dyslipidemia: (5) PAD (peripheral artery disease): Plan: per admitting service notes: - Admit to tele -Consult cardiology -Initial troponin is negative -Check 2D echo -Patient was administered NSS 1.5 L in the ER, magnesium 2 g IV, and diltiazem 10 mg IV x 3 which seems to have slowed heart rate down into the 90s but now currently back in low 100s to 130s with exertion. -Patient missed dose of Cardizem 120 mg this morning so will administer now -Continue on baby aspirin, Xarelto 20 mg daily, lisinopril 5 mg daily, atorvastatin 80 mg daily, ezetimibe 10 mg daily -Has had cardioversion which was refractory - EKG reviewed, atrial flutter, tele strips reviewed with tech in the ER 07/18 for cardioversion continue present regimen (6) UTI (urinary tract infection): Plan: -Follow urine culture, previously has grown out E. coli, this will be his fourth UTI within the past 6 months -Consult urology -pt has been unable to get in to see urology provider in outpatient - consider cystoscopy? -IV ceftriaxone -WBC 12.41 on admission 07/18 UC: pending continue IV ceftri (7) DM type 2 (diabetes mellitus, type 2): Plan: -Last A1c was 7.4 on 04/23/2021 and outpatient epic notes, will recheck with a.m. labs -ISS with Eliseou-Jess ACHS -Holding metformin (8) COPD (chronic obstructive pulmonary disease): (9) Tobacco use disorder: Plan: -Follows with [facility] pulmonology as an outpatient, recently saw them on 07/13 -Continue inhalers -Cessation of tobacco use encouraged at bedside, will provide a nicotine patch as needed - reports patch is too expensive for them, she has some resources from pulm office for free samples - currently down from 2 ppd to 3-5 cigs daily (10) GERD (gastroesophageal reflux disease): Plan: - Cont protonix (11) Peripheral neuropathy: Plan: - Hx of such DVT ppx: - teds, scds, xarelto CODE: Full code Dispo: From home, likely to remain in the hospital x 1-2 days Admission and Anticipated Discharge Date Admission Date: July 17, 2021 Subjective ff up for a fib, UTI, etc resting in bed, comfortable states he feels tired no chest pain, dyspnea, palpitations, dizziness no dysuria, bladder pain, nausea/vomiting, fever/chills no other symptoms Review of Systems Review of Systems: all noted and negative except for above Physical Exam Physical Exam: General- oriented x 3, not in distress, speaks in sentences with no effort or accessory muscle use Head- atraumatic Eyes- PERRL, EOMI, anicteric ENT- oropharynx clear Neck- supple, no JVD, no adenopathy, no thyromegaly; carotids +2/2, no bruits appreciated Lungs- clear to auscultation bilaterally, no rales/wheezes Heart- normal rate, irregularly irregular rhythm; no murmur, no gallop, no rub appreciated Abdomen- normal bowel sounds, nondistended, soft, nontender, no masses or hepatosplenomegaly Extremities- no pretibial edema, no calf tenderness; peripheral pulses intact Neuro- alert, oriented x 3; CN 2-12 grossly intact; motor 5/5 bilaterally;sensation 100% on all extremities; no other gross focal neurologic deficits Skin- warm & dry Results & Data Results & Data ([facility]) Vital Signs (Past 12 Hours) Vital Signs Temp Pulse Pulse Resp BP BP Pulse Ox 07/18/21 16:21 90 07/18/21 15:16 36.9 C 87 18 105/66 95 07/18/21 13:39 92 H 107/69 07/18/21 11:28 36.6 C 109 H 18 106/79 95 07/18/21 07:52 89 all noted and reviewed including below
[2021-07-18] MEDS: ATORVASTATIN 40 MG TAB PO SCH (21:11)
[2021-07-18] MEDS: metFORMIN HCL 500 MG TAB PO SCH (21:11)
--- NOTE | 2021-07-18 21:54 | CT Scan Report ---
ABDOMEN AND PELVIS CT WITHOUT CONTRAST CT DOSE: 531.75 mGy.cm HISTORY: Acute urinary tract infection with history of kidney stones recurrent UTI, r/o pyelonephrit is, kidney stones TECHNIQUE: Multiaxial CT images of the abdomen and pelvis were performed without contrast. A dose lo wering technique was utilized adhering to the principles of ALARA. COMPARISON STUDY: CT abdomen and pelvis 12/22/2020 FINDINGS: Trace pericardial effusion. Mild subsegmental bibasilar atelectasis/scarring. Pulmonary emphysema. Th ere is no pneumatosis or pneumoperitoneum. The unenhanced spleen, pancreas, gallbladder, adrenal glan ds and liver appear unremarkable. Mild nonspecific bilateral perinephric stranding is similar to the prior study. No renal or ureteral calculi or hydronephrosis. Prostamegaly. Mild urinary bladder wall thickening with partial distention . Atherosclerosis of the aorta without aneurysm. No lymphadenopathy Small hiatal hernia. No bowel obstruction or bowel wall thickening. Mild fecal retention. Normal appe ndix. No ascites or mesenteric inflammation. Unremarkable soft tissues. Degenerative changes of the s pine, pelvis and hips. No acute fracture or destructive bone lesion. IMPRESSION: 1. No renal or ureteral calculi or hydronephrosis. 2. Prostamegaly with urinary bladder wall thickening suggestive of chronic bladder outlet obstruction . Correlate with urinalysis to exclude cystitis. 3. Unchanged nonspecific bilateral perinephric stranding. 4. Small hiatal hernia. 5. No bowel obstruction or bowel wall thickening. Normal appendix. ACT 112: Negative or not required by law. The above report was generated using voice recognition software. It may contain grammatical, syntax o r spelling errors. Electronically signed by: Jose Carlos Clifford M.D. 07/18/2021 9:52 PM
--- NOTE | 2021-07-19 07:25 | Anesthesiology Consultation ---
Date of Service July 19, 2021 Assessment & Plan ASA ASA3 Proposed Anesthesia Anesthesia Type: MAC Risk / Benefits Reviewed With: PT / POA / Parent / Guardian, Accepts Plan and Informed Consent Obtained History Height/Weight Height: 5 ft 11 in Weight: 88.7 kg Allergies Allergy/AdvReac Type Severity Reaction Status Date / Time levofloxacin AdvReac Intermediate JOINT Verified 07/13/21 09:41 STIFFNESS Medications Home Medications Medication Instructions Recorded Confirmed Last Taken aspirin 81 mg chewable tablet 81 mg PO DAILY tab 12/14/18 07/17/21 Unknown atorvastatin 80 mg tablet 80 mg PO HS tab 12/14/18 07/17/21 Unknown cholecalciferol (vitamin D3) 25 3,000 unit PO DAILY tab 12/14/18 07/17/21 Unknown mcg (1,000 unit) tablet metformin 500 mg tablet 500 mg PO HS #30 tab 12/14/18 07/17/21 Unknown rivaroxaban 20 mg tablet 20 mg PO DAILY #1 tab 12/14/18 07/17/21 Unknown ascorbic acid (vitamin C) 500 mg 500 mg PO DAILY 07/03/20 07/17/21 Unknown tablet diltiazem HCl 120 mg tablet 120 mg PO DAILY tab 07/03/20 07/17/21 Unknown escitalopram oxalate 20 mg tablet 20 mg PO DAILY 07/03/20 07/17/21 Unknown (Lexapro) ezetimibe 10 mg tablet (Zetia) 10 mg PO QAM 07/03/20 07/17/21 Unknown vit C,E,zinc,copper-yklzf1t 250 1 cap PO DAILY 07/03/20 07/17/21 Unknown mg-lutein 5 mg-zeaxanthin 1 mg capsule (Ocuvite Adult 50 Plus) lisinopril 5 mg tablet 5 mg PO DAILY 12/18/20 07/17/21 Unknown pantoprazole 40 mg tablet,delayed 40 mg PO BID #60 tab 12/24/20 07/17/21 Unknown release albuterol sulfate 90 mcg/actuation 2 puff INHALATION Q6H PRN #18 g 07/13/21 07/17/21 Unknown aerosol inhaler fluticasone fur. 100 mcg-umeclid 1 inh INHALATION DAILY #60 ea 07/13/21 07/17/21 Unknown 62.5 mcg-vilant 25 mcg inhalat.powder (Trelegy Ellipta) tamsulosin 0.4 mg capsule 0.4 mg PO DAILY 07/13/21 07/17/21 Unknown fosfomycin tromethamine 3 gram 3 g PO Q72H 07/17/21 07/17/21 Unknown oral packet (Monurol) Active Medications Generic Name Dose Route Start Last Admin Trade Name Freq PRN Reason Stop Dose Admin Ascorbic Acid 500 mg 07/18/21 09:00 07/18/21 09:01 Ascorbic Acid 500 Mg Tab PO 08/17/21 08:59 500 mg DAILY CHRISTINE Administration Aspirin 81 mg 07/18/21 09:00 07/18/21 09:00 Aspirin 81 Mg Ectab PO 08/17/21 08:59 81 mg DAILY CHRISTINE Administration Atorvastatin Calcium 80 mg 07/17/21 21:00 07/18/21 21:11 Atorvastatin 40 Mg Tab PO 08/16/21 20:59 80 mg HS CHRISTINE Administration Diltiazem HCl 120 mg 07/18/21 09:00 07/18/21 09:01 Diltiazem Hcl 120 Mg Capcr PO 08/17/21 08:59 120 mg DAILY CHRISTINE Administration Ezetimibe 10 mg 07/18/21 09:00 07/18/21 09:00 Ezetimibe 10 Mg Tablet PO 08/17/21 08:59 10 mg DAILY CHRISTINE Administration Escitalopram Oxalate 20 mg 07/18/21 09:00 07/18/21 09:00 Escitalopram Oxalate 20 Mg Tab PO 08/17/21 08:59 20 mg DAILY CHRISTINE Administration Fluticasone/Vilanterol 1 puffs 07/18/21 09:00 07/18/21 08:59 Fluticasone/Vilanterol 100/25mcg 14 Puffs/Inhaler INH 08/17/21 08:59 1 puffs DAILY CHRISTINE Administration Folic Acid 1 mg 07/18/21 09:00 07/18/21 09:01 Folic Acid 1 Mg Tab PO 08/17/21 08:59 1 mg DAILY CHRISTINE Administration Ceftriaxone Sodium 2,000 mg/ 70 mls @ 100 mls/hr 07/18/21 18:00 07/18/21 17:55 Dextrose IV 07/22/21 17:59 Infused Q24H [facility] Infusion Protocol Insulin Aspart 0 units 07/17/21 21:00 07/18/21 20:28 Insulin Aspart Per Unit SC 08/16/21 20:59 Not Given ACHS CHRISTINE Lisinopril 5 mg 07/18/21 09:00 07/18/21 09:01 Lisinopril 5 Mg Tab PO 08/17/21 08:59 5 mg DAILY CHRISTINE Administration Metformin HCl 500 mg 07/17/21 21:00 07/18/21 21:11 Metformin Hcl 500 Mg Tab PO 08/16/21 20:59 500 mg HS CHRISTINE Administration Metoprolol Tartrate 5 mg 07/17/21 23:23 07/18/21 23:23 Metoprolol Tartrate 1 Mg/Ml Vial IV 08/17/21 00:00 5 mg Q6 PRN Administration Tachycardia Protocol Miscellaneous 1 ea 07/18/21 08:59 07/18/21 09:05 Remove Nicoderm Patch N/A 08/17/21 08:58 1 ea DAILY@0859 CHRISTINE Administration Multivitamins/Minerals 1 tab 07/18/21 09:00 07/18/21 09:00 Cerovite Adv Formula Tab PO 08/17/21 08:59 1 tab DAILY CHRISTINE Administration Nicotine 21 mg 07/18/21 09:00 07/18/21 09:04 Nicotine 21 Mg/24 Hr Tdsy TD 08/17/21 08:59 21 mg QAM CHRISTINE Administration Pantoprazole Sodium 40 mg 07/17/21 21:00 07/18/21 21:12 Pantoprazole 40 Mg Tab PO 08/16/21 20:59 40 mg BID CHRISTINE Administration Rivaroxaban 20 mg 07/18/21 16:30 07/18/21 17:06 Rivaroxaban 20 Mg Tab PO 08/17/21 16:29 20 mg QDD CHRISTINE Administration Tamsulosin HCl 0.4 mg 07/18/21 09:00 07/18/21 09:01 Tamsulosin Hcl 0.4 Mg Cap PO 08/17/21 08:59 0.4 mg DAILY CHRISTINE Administration Umeclidinium [place] 1 puffs 07/18/21 09:00 07/18/21 08:59 Umeclidinium [place] 62.5mcg/Blister 7 Puffs/Inhaler INH 08/17/21 08:59 1 puffs DAILY CHRISTINE Administration Vitamin D 3,000 units 07/18/21 09:00 07/18/21 09:01 Cholecalciferol 1,000 Units 25 Mcg Tab PO 08/17/21 08:59 3,000 units DAILY CHRISTINE Administration Past Medical History Medical History Atrial flutter Bullous emphysema Cellulitis of foot DM type 2 (diabetes mellitus, type 2) Dyslipidemia Flushing GERD (gastroesophageal reflux disease) Hypertension Multiple lung nodules on CT Nocturnal hypoxia OM (osteomyelitis) PAD (peripheral artery disease) "with chronic left SFA occlusion" PAF (paroxysmal atrial fibrillation) Peripheral neuropathy Pulmonary emphysema Tachycardia Tobacco use disorder Exercise / Class Metabolic Activity II 4-5 Yardwork/Stairs/Walk up hill Past Family History Family History Mother Diabetes Father Heart disease Past Anesthesia History No Hx of Anesthesia Complications and No Family Hx of Anesthesia Complications History of PONV No Hx of PONV and No Hx of Motion Sickness Social History Smoking Status: Current every day smoker tobacco type: cigars Smoking cigarettes per day: 3 Do You Dip or Chew Tobacco: No Hx Alcohol Use: No Hx Substance Use: No substance use type: does not use Review of Systems denies fever/cough/ colds/ chest pain/ SOB/ ERNIE denies ERNIE Physical Exam Vital Signs Last Vital Signs Temp 36.8 C 07/19/21 03:34 Pulse 95 H 07/19/21 03:34 Resp 20 07/19/21 03:34 BP 97/61 L 07/19/21 03:34 Pulse Ox 94 07/19/21 03:34 ENMT Mouth: + poor dentition; no TMJ abnormality and no dentition abnormality Thyromental Distance: > or= 3.5 Finger Breadths Mallampati Class: II Neck neck extension not limited Respiratory normal respiratory effort; no respiratory distress Auscultation: lungs clear to auscultation bilaterally Cardiovascular Rate/Rhythm: regular rate and regular rhythm Neurologic moves all extremities Psychiatric Orientation: alert and oriented x 3 Testing Laboratory Results 07/18/21 06:59 07/18/21 06:59 PT 11.6 Seconds (9.0-12.0) 07/17/21 12:20 INR 1.1 (0.9-1.1) 07/17/21 12:20 APTT 30.1 Seconds (21.0-31.0) 07/17/21 12:20 Hemoglobin A1c 7.1 % (4.5-5.6) H 04/30/22 06:59 Urine Color Dark Yellow 07/17/21 15:00 Urine Appearance Clear (Clear) 07/17/21 15:00 Urine pH 5.5 (4.5-7.5) 07/17/21 15:00 Ur Specific [place] 1.021 (1.000-1.030) 07/17/21 15:00 Urine Protein Negative (Negative) 07/17/21 15:00 Urine Glucose (UA) Negative (Negative) 07/17/21 15:00 Urine Ketones Trace (Negative) H 07/17/21 15:00 Urine Nitrite Negative (Negative) 07/17/21 15:00 Ur Leukocyte Esterase 2+ (Negative) H 07/17/21 15:00 Urine WBC (Auto) >30 /hpf (0-5) H 07/17/21 15:00 Urine RBC (Auto) 5-10 /hpf (0-4) H 07/17/21 15:00 U Hyaline Cast (Auto) 5-10 /lpf (0-5) H 07/17/21 15:00 U Epithel Cells (Auto) 10-20 /lpf (0-5) H 07/17/21 15:00 Urine Bacteria (Auto) Negative (Negative) 07/17/21 15:00 07/17/21 15:00 Urine Culture - Preliminary Urine,Clean Catch Escherichia coli 07/18/21 19:49 POC Glucose 154 H
--- NOTE | 2021-07-19 07:43 | Cardioversion ---
Date of Service July 19, 2021 Electrical Cardioversion Rpt Electrical Cardioversion Report Patient seen and examined, procedure synchronized electrical cardioversion expalined in detail, informed consent obtained. Formal TIMEOUT ws performed Patient was sedated via anesthesia consult, Dr Aguilar with continuous HR BP O2 and end tidal CO2 monitoring. Synchronized electrical cardioversion was performed with 150J,200J, 300J biphasic shocks with ultimate conversion to sinus rhythm. Patient aroused having tolerated well EKG sinus mechanism with low atrial focus , IRBBB Plan: Continue current therapies, treat infectious and pulmonary issues
--- NOTE | 2021-07-19 08:21 | Anesthesiology Progress Note ---
Date of Service July 19, 2021 Anesthesia Post Procedure Vital Signs Vital Signs: Temp Pulse Pulse Pulse Resp BP BP 07/19/21 07:50 71 16 94/67 L 07/19/21 07:48 71 15 94/69 L 07/19/21 07:46 73 21 07/19/21 07:44 70 21 07/19/21 07:42 74 20 103/68 07/19/21 07:40 73 27 H 102/74 07/19/21 07:38 71 18 107/75 07/19/21 07:36 74 32 H 07/19/21 07:34 77 26 H 07/19/21 07:32 77 27 H 07/19/21 07:31 07/19/21 07:30 75 10 L 07/19/21 07:28 56 L 16 07/19/21 07:26 110 H 39 H 07/19/21 07:25 115 H 22 110/87 07/19/21 07:24 120 H 18 07/19/21 03:34 36.8 C 95 H 20 97/61 L 07/19/21 00:19 85 07/18/21 23:23 132 H 113/80 07/18/21 23:22 36.8 C 132 H 18 07/18/21 21:39 129 H 07/18/21 19:09 36.5 C 107 H 18 07/18/21 16:21 90 07/18/21 15:16 36.9 C 87 18 07/18/21 13:39 92 H 07/18/21 11:28 36.6 C 109 H 18 106/79 BP Pulse Ox Pulse Ox 07/19/21 07:50 90 07/19/21 07:48 90 07/19/21 07:46 91 07/19/21 07:44 93 07/19/21 07:42 94 07/19/21 07:40 94 07/19/21 07:38 93 07/19/21 07:36 94 07/19/21 07:34 92 07/19/21 07:32 93 07/19/21 07:31 95/74 L 07/19/21 07:30 95 07/19/21 07:28 96 07/19/21 07:26 91 07/19/21 07:25 96 07/19/21 07:24 115/77 95 07/19/21 03:34 94 07/19/21 00:19 95 07/18/21 23:23 07/18/21 23:22 113/80 93 07/18/21 21:39 97 07/18/21 19:09 110/75 93 07/18/21 16:21 07/18/21 15:16 105/66 95 07/18/21 13:39 107/69 07/18/21 11:28 95 Transfer of Care Handoff Completed per policy Notes Mental Status: alert / awake / arousable and participated in evaluation Patient Amnestic to Procedure: Yes Nausea / Vomiting: adequately controlled Pain: adequately controlled Airway Patency, RR, SpO2: stable & adequate BP & HR: stable & adequate Hydration State: stable & adequate Anesthetic Complications: no major complications apparent and Pt Satisfied with anesthetic care
[2021-07-19] MEDS: UMECLIDINIUM BROMIDE 62.5MCG/BLISTER 7 PUFFS/INHALER INH SCH (08:29)
[2021-07-19] MEDS: FLUTICASONE/VILANTEROL 100/25MCG 14 PUFFS/INHALER INH SCH (08:29)
[2021-07-19] MEDS: ASCORBIC ACID 500 MG TAB PO SCH (08:30)
[2021-07-19] MEDS: NICOTINE 21 MG/24 HR TDSY TD SCH (08:30)
[2021-07-19] MEDS: EZETIMIBE 10 MG TABLET PO SCH (08:30)
[2021-07-19] MEDS: lisinopril 5 MG TAB PO SCH (08:30)
[2021-07-19] MEDS: ESCITALOPRAM OXALATE 20 MG TAB PO SCH (08:30)
[2021-07-19] MEDS: dilTIAZem HCL 120 MG CAPCR PO SCH (08:30)
[2021-07-19] MEDS: TAMSULOSIN HCL 0.4 MG CAP PO SCH (08:30)
[2021-07-19] MEDS: PANTOprazole 40 MG TAB PO SCH ×2 (08:30→20:30)
[2021-07-19] MEDS: FOLIC ACID 1 MG TAB PO SCH (08:30)
[2021-07-19] MEDS: CHOLECALCIFEROL 1,000 UNITS 25 MCG TAB PO SCH (08:31)
[2021-07-19] MEDS: CEROVITE ADV FORMULA TAB PO SCH (08:31)
[2021-07-19] MEDS: ASPIRIN 81 MG ECTAB PO SCH (08:31)
[2021-07-19] MEDS: INSULIN ASPART PER UNIT SC SCH ×5 (09:27→20:24)
--- NOTE | 2021-07-19 10:54 | Cardiology Progress Note ---
Date of Service July 19, 2021 Assessment & Plan (1) Atrial flutter with rapid ventricular response: (2) Atrial flutter: (3) Bullous emphysema: (4) Acute UTI (urinary tract infection): Plan: Patient is a 71-year-old male with medical issues as noted above. Cardiac h istory notable for paroxysmal atrial flutter and presents now with at least 5- day history of atrial flutter with elevated ventricular response. Rates may be driven by underlying infection with rates coming under better control since admission. He denies any lapse in his anticoagulant with Xarelto Successful synchronized electrical cardioversion this morning. Plan: Paroxysmal atrial flutter with poor tolerance of atrial flutter with rapid response. Now status post synchronized electrical cardioversion and remaining in sinus. Would continue usual medications including anticoagulation Pulmonary issues and recurrent infection Admission and Anticipated Discharge Date Admission Date: July 17, 2021 Subjective Patient seen and examined both prior to and after synchronized electrical cardioversion this morning. Feels improved with antibiotic therapies. No fevers or chills no productive cough. Diffuse wheezing on forced expiration unchanged. Patient underwent synchronized electrical cardioversion this morning with successful return to sinus mechanism Review of Systems Review of Systems: All systems reviewed & are unremarkable except as noted in Subjective Physical Exam Constitutional: WD/WN, vitals as above Eyes: PERRL, conjunctivae normal, anicteric sclerae ENMT: external ear and nose normal, oropharynx normal Neck: trachea midline, no thyromegaly Respiratory: Auscultation: + diminished lung sounds and + bronchovesicular breath sounds (With forced cough) Cardiovascular: Rate/Rhythm: regular rate and regular rhythm Heart Sounds: normal S1 and normal S2; no gallop and no murmur Palpation: normal PMI Vessels: normal carotid upstroke and radial pulses present; no JVD and no carotid bruit Extremities: no edema Gastrointestinal (Abdomen): normal bowel sounds, soft, nontender, no hepatosplenomegaly Musculoskeletal: no cyanosis or clubbing, extremities motor strength 5/5 Skin: no rashes, warm and dry Neurologic: PERRL, EOMI, accommodation nl, no face palsy, no dysarthria Psychiatric: A+Ox3, euthymic affect Results & Data ([facility]) Vital Signs (Past 12 Hours) Vital Signs Temp Pulse Pulse Pulse Resp BP BP 07/19/21 10:07 71 07/19/21 08:30 75 16 07/19/21 08:10 36.7 C 74 16 07/19/21 07:50 71 16 94/67 L 07/19/21 07:48 71 15 94/69 L 07/19/21 07:46 73 21 07/19/21 07:44 70 21 07/19/21 07:42 74 20 103/68 07/19/21 07:40 73 27 H 102/74 07/19/21 07:38 71 18 107/75 07/19/21 07:36 74 32 H 07/19/21 07:34 77 26 H 07/19/21 07:32 77 27 H 07/19/21 07:31 07/19/21 07:30 75 10 L 07/19/21 07:28 56 L 16 07/19/21 07:26 110 H 39 H 07/19/21 07:25 115 H 22 110/87 07/19/21 07:24 120 H 18 07/19/21 03:34 36.8 C 95 H 20 97/61 L 07/19/21 00:19 85 07/18/21 23:23 132 H 113/80 07/18/21 23:22 36.8 C 132 H 18 BP Pulse Ox Pulse Ox 07/19/21 10:07 07/19/21 08:30 114/75 96 07/19/21 08:10 119/82 94 07/19/21 07:50 90 07/19/21 07:48 90 07/19/21 07:46 91 07/19/21 07:44 93 07/19/21 07:42 94 07/19/21 07:40 94 07/19/21 07:38 93 07/19/21 07:36 94 07/19/21 07:34 92 07/19/21 07:32 93 07/19/21 07:31 95/74 L 07/19/21 07:30 95 07/19/21 07:28 96 07/19/21 07:26 91 07/19/21 07:25 96 07/19/21 07:24 115/77 95 07/19/21 03:34 94 07/19/21 00:19 95 07/18/21 23:23 07/18/21 23:22 113/80 93 Laboratory Results Laboratory Results - last 24 hr 07/18/21 07/18/21 07/18/21 11:27 16:25 19:49 POC Glucose 105 H 95 154 H 07/19/21 08:44 POC Glucose 139 H
--- NOTE | 2021-07-19 11:09 | Hospitalist Progress Note ---
Date of Service July 19, 2021 Assessment & Plan (1) Atrial flutter: (2) PAF (paroxysmal atrial fibrillation): (3) Hypertension: (4) Dyslipidemia: (5) PAD (peripheral artery disease): Plan: per admitting service notes: - Admit to tele -Consult cardiology -Initial troponin is negative -Check 2D echo -Patient was administered NSS 1.5 L in the ER, magnesium 2 g IV, and diltiazem 10 mg IV x 3 which seems to have slowed heart rate down into the 90s but now currently back in low 100s to 130s with exertion. -Patient missed dose of Cardizem 120 mg this morning so will administer now -Continue on baby aspirin, Xarelto 20 mg daily, lisinopril 5 mg daily, atorvastatin 80 mg daily, ezetimibe 10 mg daily -Has had cardioversion which was refractory - EKG reviewed, atrial flutter, tele strips reviewed with tech in the ER 07/19 for cardioversion continue present regimen (6) UTI (urinary tract infection): Plan: -Follow urine culture, previously has grown out E. coli, this will be his fourth UTI within the past 6 months -Consult urology -pt has been unable to get in to see urology provider in outpatient - consider cystoscopy? -IV ceftriaxone -WBC 12.41 on admission 07/18 UC: E coli continue IV ceftri CT abd/pelvis: prostatomegaly, bladder wall thickening did not tolerate Flomax in the past Finasteride? will d/w Urology (7) DM type 2 (diabetes mellitus, type 2): Plan: -Last A1c was 7.4 on 04/23/2021 and outpatient [facility] notes, will recheck with a.m. labs -ISS with Eliseou-Jess ACHS -Holding metformin (8) COPD (chronic obstructive pulmonary disease): (9) Tobacco use disorder: Plan: -Follows with [facility] pulmonology as an outpatient, recently saw them on 07/13 -Continue inhalers -Cessation of tobacco use encouraged at bedside, will provide a nicotine patch as needed - reports patch is too expensive for them, she has some resources from pulm office for free samples - currently down from 2 ppd to 3-5 cigs daily (10) GERD (gastroesophageal reflux disease): Plan: - Cont protonix (11) Peripheral neuropathy: Plan: - Hx of such DVT ppx: - teds, scds, xarelto CODE: Full code Dispo: From home, likely to remain in the hospital x 1-2 days Admission and Anticipated Discharge Date Admission Date: July 17, 2021 Subjective seen resting in bed, comfortable states he feels slightly better today no chest pain, dyspnea, palpitations, dizziness no bladder pain no dysuria but does report incomplete voiding, dribbling reports incontinence with Tamsulosin in the past no other symptoms Review of Systems Review of Systems: all noted and negative except for above Physical Exam Physical Exam: General- oriented x 3, not in distress, speaks in sentences with no effort or accessory muscle use Eyes- anicteric Neck- no JVD Lungs- clear breath sounds bilaterally, no rales/wheezes Heart- normal rate, irregularl irregular rhythm; no murmurs Abdomen- normal bowel sounds, nondistended, soft, nontender no CVA tenderness Extremities- no pretibial edema, no calf tenderness Neuro- alert, oriented x 3; no gross focal neurologic deficits Skin- warm & dry Results & Data Results & Data ([facility]) Vital Signs (Past 12 Hours) Vital Signs Temp Pulse Pulse Pulse Resp BP BP 07/19/21 10:07 71 07/19/21 08:30 75 16 07/19/21 08:10 36.7 C 74 16 07/19/21 07:50 71 16 94/67 L 07/19/21 07:48 71 15 94/69 L 07/19/21 07:46 73 21 07/19/21 07:44 70 21 07/19/21 07:42 74 20 103/68 07/19/21 07:40 73 27 H 102/74 07/19/21 07:38 71 18 107/75 07/19/21 07:36 74 32 H 07/19/21 07:34 77 26 H 07/19/21 07:32 77 27 H 07/19/21 07:31 07/19/21 07:30 75 10 L 07/19/21 07:28 56 L 16 07/19/21 07:26 110 H 39 H 07/19/21 07:25 115 H 22 110/87 07/19/21 07:24 120 H 18 07/19/21 03:34 36.8 C 95 H 20 97/61 L 07/19/21 00:19 85 07/18/21 23:23 132 H 113/80 07/18/21 23:22 36.8 C 132 H 18 BP Pulse Ox Pulse Ox 07/19/21 10:07 07/19/21 08:30 114/75 96 07/19/21 08:10 119/82 94 07/19/21 07:50 90 07/19/21 07:48 90 07/19/21 07:46 91 07/19/21 07:44 93 07/19/21 07:42 94 07/19/21 07:40 94 07/19/21 07:38 93 07/19/21 07:36 94 07/19/21 07:34 92 07/19/21 07:32 93 07/19/21 07:31 95/74 L 07/19/21 07:30 95 07/19/21 07:28 96 07/19/21 07:26 91 07/19/21 07:25 96 07/19/21 07:24 115/77 95 07/19/21 03:34 94 07/19/21 00:19 95 07/18/21 23:23 07/18/21 23:22 113/80 93 all noted and reviewed including below
[2021-07-19] MEDS: cefTRIAXone SODIUM 2,000 MG in DEXTROSE 5% 50 ML IV SCH (18:08)
[2021-07-19] MEDS: RIVAROXABAN 20 MG TAB PO SCH (18:08)
[2021-07-19] MEDS: metFORMIN HCL 500 MG TAB PO SCH (20:31)
[2021-07-19] MEDS: ATORVASTATIN 40 MG TAB PO SCH (20:31)
--- NOTE | 2021-07-20 06:07 | Electrocardiogram Report ---
Test Reason : Blood Pressure : / mmHG Vent. Rate : 093 BPM Atrial Rate : 264 BPM P-R Int : 000 ms QRS Dur : 096 ms QT Int : 394 ms P-R-T Axes : 267 -54 -26 degrees QTc Int : 489 ms Atrial flutter with variable A-V block Left axis deviation Incomplete right bundle branch block Abnormal ECG When compared with ECG of 17-JUL-2021 11:46, HR has decreased Confirmed by Tanner Singer ([id number]) on 07/20/2021 6:06:42 AM Referred By: REFERRED SELF Confirmed By:Tanner Singer
--- NOTE | 2021-07-20 07:00 | Electrocardiogram Report ---
Test Reason : Blood Pressure : / mmHG Vent. Rate : 072 BPM Atrial Rate : 072 BPM P-R Int : 184 ms QRS Dur : 104 ms QT Int : 424 ms P-R-T Axes : -82 -39 -16 degrees QTc Int : 464 ms Unusual P axis, possible ectopic atrial rhythm with Premature atrial complexes Left axis deviation Incomplete right bundle branch block Abnormal ECG When compared with ECG of 17-JUL-2021 16:06, (unconfirmed) Ectopic atrial rhythm has replaced Atrial flutter Confirmed by Tanner Singer ([id number]) on 07/20/2021 6:59:50 AM Referred By: REFERRED SELF Confirmed By:Tanner Singer
[2021-07-20] MEDS: INSULIN ASPART PER UNIT SC SCH ×4 (09:19→20:04)
[2021-07-20] MEDS: ASPIRIN 81 MG ECTAB PO SCH (09:21)
[2021-07-20] MEDS: ASCORBIC ACID 500 MG TAB PO SCH (09:21)
[2021-07-20] MEDS: CHOLECALCIFEROL 1,000 UNITS 25 MCG TAB PO SCH (09:22)
[2021-07-20] MEDS: ESCITALOPRAM OXALATE 20 MG TAB PO SCH (09:22)
[2021-07-20] MEDS: dilTIAZem HCL 120 MG CAPCR PO SCH (09:22)
[2021-07-20] MEDS: CEROVITE ADV FORMULA TAB PO SCH (09:23)
[2021-07-20] MEDS: lisinopril 5 MG TAB PO SCH (09:23)
[2021-07-20] MEDS: NICOTINE 21 MG/24 HR TDSY TD SCH (09:23)
[2021-07-20] MEDS: EZETIMIBE 10 MG TABLET PO SCH (09:23)
[2021-07-20] MEDS: FOLIC ACID 1 MG TAB PO SCH (09:23)
[2021-07-20] MEDS: FLUTICASONE/VILANTEROL 100/25MCG 14 PUFFS/INHALER INH SCH (09:23)
[2021-07-20] MEDS: TAMSULOSIN HCL 0.4 MG CAP PO SCH (09:24)
[2021-07-20] MEDS: PANTOprazole 40 MG TAB PO SCH ×2 (09:24→20:05)
[2021-07-20] MEDS: UMECLIDINIUM BROMIDE 62.5MCG/BLISTER 7 PUFFS/INHALER INH SCH (09:24)
[2021-07-20 09:36] LABS: Basophils # (auto) 0.02 K/uL (0-0.2); Basophils % (auto) 0.3 %; Eosinophils # (auto) 0.07 K/uL (0-0.5); Eosinophils % (auto) 0.9 %; Hematocrit (blood only) 41.4 % (42-52); Hemoglobin 13.6 g/dL (14.0-18.0); Immature Granulocytes # (auto) 0.02 K/uL (0.00-0.02); Immature Granulocytes % (auto) 0.3 %; Lymphocytes # (auto) 2.28 K/uL (1.2-3.4); Lymphocytes % (auto) 28.8 %; Mean Corpuscular Hemoglobin 30.2 pg (25-34); Mean Corpuscular Hgb Conc 32.9 g/dL (32-36); Mean Corpuscular Volume 91.8 fL (80-100); Mean Platelet Volume 8.8 fL (7.4-10.4); Monocytes # (auto) 0.71 K/uL (0.11-0.59); Neutrophils # (auto) 4.81 K/uL (1.4-6.5); Neutrophils % (auto) 60.7 %; Platelet Count 278 K/uL (130-400); RDW Coefficient of Variation 15.2 % (11.5-14.5); RDW Standard Deviation 51.5 fL (36.4-46.3); Red Blood Count 4.51 M/uL (4.7-6.1); White Blood Count 7.91 K/uL (4.8-10.8)
[2021-07-20 09:38] LABS: BUN Creatinine Ratio 20.7 (10-20); Calcium 8.9 mg/dl (8.5-10.1); Creatinine Clr Calc Pharmacy 126.2 ml/min; Est GFR (African American) 119.7 ml/min; Est GFR (Non-African American) 103.3 ml/min
--- NOTE | 2021-07-20 11:16 | Cardiology Progress Note ---
Date of Service July 20, 2021 Assessment & Plan (1) Atrial flutter with rapid ventricular response: (2) Bullous emphysema: (3) Acute UTI (urinary tract infection): Plan: 71-year-old patient status post successful external direct-current cardioversion 07/19/2021. Remains in sinus rhythm and appropriately anticoagulated with Xarelto. Continue diltiazem CD as previously ordered. Outpatient referral to electrophysiology to consider EPS and ablation. Management of E. coli urinary tract infection as per internal medicine. Consider urology consultation due to recurrence. Admission and Anticipated Discharge Date Admission Date: July 17, 2021 Subjective Patient seen examined the bedside. Remains in sinus rhythm overnight. Denies chest pain or palpitations. Voices concern regarding recurrent urinary tract infections. No orthopnea, PND, or lower extremity edema. Review of Systems Review of Systems: All systems reviewed & are unremarkable except as noted in Subjective Physical Exam Constitutional: well nourished; no acute distress Respiratory: no respiratory distress and no labored breathing Auscultation: + diminished lung sounds (Bilateral); no crackles, no rales, no rhonchi and no wheezes Cardiovascular: Rate/Rhythm: regular rate and regular rhythm Heart Sounds: normal S1 and normal S2; no murmur Vessels: radial pulses present; no JVD and no carotid bruit Extremities: no edema Gastrointestinal (Abdomen): Inspection/Auscultation: abdomen normal to inspection and normal bowel sounds; abdomen not distended P ercussion/Palpation: abdomen soft; abdomen nontender, no guarding and abdomen not rigid Neurologic: CN's II-XI intact bilaterally and moves all extremities; no focal motor deficits Motor/Sensory: no tremor Psychiatric: A+Ox3, euthymic affect Results & Data ([facility]) Vital Signs (Past 12 Hours) Vital Signs Temp Pulse Pulse Resp BP BP Pulse Ox 07/20/21 07:49 37.0 C 65 16 109/74 93 07/20/21 07:48 59 L 07/20/21 05:26 36.7 C 67 18 113/78 95 07/20/21 01:46 75 07/19/21 23:43 36.5 C 67 18 109/72 95
[2021-07-20] MEDS: RIVAROXABAN 20 MG TAB PO SCH (17:15)
--- NOTE | 2021-07-20 17:31 | Hospitalist Progress Note ---
Date of Service July 20, 2021 delayed entry date of service noted above Assessment & Plan (1) Atrial flutter: (2) PAF (paroxysmal atrial fibrillation): (3) Hypertension: (4) Dyslipidemia: (5) PAD (peripheral artery disease): Plan: per admitting service notes: - Admit to tele -Consult cardiology -Initial troponin is negative -Check 2D echo -Patient was administered NSS 1.5 L in the ER, magnesium 2 g IV, and diltiazem 10 mg IV x 3 which seems to have slowed heart rate down into the 90s but now currently back in low 100s to 130s with exertion. -Patient missed dose of Cardizem 120 mg this morning so will administer now -Continue on baby aspirin, Xarelto 20 mg daily, lisinopril 5 mg daily, atorvastatin 80 mg daily, ezetimibe 10 mg daily -Has had cardioversion which was refractory - EKG reviewed, atrial flutter, tele strips reviewed with tech in the ER 07/20 07/19 s/p cardioversion continue present regimen as Cardiology (6) UTI (urinary tract infection): Plan: -Follow urine culture, previously has grown out E. coli, this will be his fourth UTI within the past 6 months -Consult urology -pt has been unable to get in to see urology provider in outpatient - consider cystoscopy? -IV ceftriaxone -WBC 12.41 on admission 07/20 UC: E coli continue IV ceftri no urinary symptoms CT abd/pelvis: prostatomegaly, bladder wall thickening did not tolerate Flomax in the past Finasteride? (7) DM type 2 (diabetes mellitus, type 2): Plan: -Last A1c was 7.4 on 04/23/2021 and outpatient epic notes, will recheck with a.m. labs -ISS with Accu-Cheks ACHS -Holding metformin (8) COPD (chronic obstructive pulmonary disease): (9) Tobacco use disorder: Plan: -Follows with [facility] pulmonology as an outpatient, recently saw them on 07/13 -Continue inhalers -Cessation of tobacco use encouraged at bedside, will provide a nicotine patch as needed - reports patch is too expensive for them, she has some resources from pulm office for free samples - currently down from 2 ppd to 3-5 cigs daily (10) GERD (gastroesophageal reflux disease): Plan: - Cont protonix (11) Peripheral neuropathy: Plan: - Hx of such DVT ppx: - teds, scds, xarelto CODE: Full code Dispo: From home, likely to remain in the hospital x 1-2 days Admission and Anticipated Discharge Date Admission Date: July 17, 2021 Subjective ff up for a fib, etc seen resting in bed, comfortable states he feels improved compared to yesterday no chest pain, dyspnea, palpitations, dizziness energy has improved no problems with urination no other symptoms Review of Systems Review of Systems: all noted and negative except for above Physical Exam Physical Exam: General- oriented x 3, not in distress, speaks in sentences with no effort or accessory muscle use Eyes- anicteric Neck- no JVD Lungs- clear BS BL Heart- normal rate, regular rhythm; no murmurs Abdomen- normal bowel sounds, nondistended, soft, nontender Extremities- no pretibial edema, no calf tenderness Neuro- alert, oriented x 3; no gross focal neurologic deficits Skin- warm & dry Results & Data Results & Data ([facility]) Vital Signs (Past 12 Hours) Vital Signs Temp Pulse Pulse Resp BP Pulse Ox 07/20/21 16:54 36.3 C L 70 16 115/76 88 L 07/20/21 12:02 36.3 C L 88 16 112/79 95 07/20/21 07:49 37.0 C 65 16 109/74 93 07/20/21 07:48 59 L all noted and reviewed including below
[2021-07-20] MEDS: cefTRIAXone SODIUM 2,000 MG in DEXTROSE 5% 50 ML IV SCH (17:34)
[2021-07-20] MEDS: metFORMIN HCL 500 MG TAB PO SCH (20:05)
[2021-07-20] MEDS: ATORVASTATIN 40 MG TAB PO SCH (20:05)
[2021-07-21] MEDS: INSULIN ASPART PER UNIT SC SCH (08:59)
[2021-07-21] MEDS: FOLIC ACID 1 MG TAB PO SCH (09:02)
[2021-07-21] MEDS: PANTOprazole 40 MG TAB PO SCH (09:02)
[2021-07-21] MEDS: ASPIRIN 81 MG ECTAB PO SCH (09:02)
[2021-07-21] MEDS: CEROVITE ADV FORMULA TAB PO SCH (09:02)
[2021-07-21] MEDS: TAMSULOSIN HCL 0.4 MG CAP PO SCH (09:02)
[2021-07-21] MEDS: lisinopril 5 MG TAB PO SCH (09:03)
[2021-07-21] MEDS: ASCORBIC ACID 500 MG TAB PO SCH (09:03)
[2021-07-21] MEDS: CHOLECALCIFEROL 1,000 UNITS 25 MCG TAB PO SCH (09:03)
[2021-07-21] MEDS: ESCITALOPRAM OXALATE 20 MG TAB PO SCH (09:03)
[2021-07-21] MEDS: NICOTINE 21 MG/24 HR TDSY TD SCH (09:03)
[2021-07-21] MEDS: dilTIAZem HCL 120 MG CAPCR PO SCH (09:03)
[2021-07-21] MEDS: EZETIMIBE 10 MG TABLET PO SCH (09:03)
[2021-07-21] MEDS: FLUTICASONE/VILANTEROL 100/25MCG 14 PUFFS/INHALER INH SCH (09:04)
[2021-07-21] MEDS: UMECLIDINIUM BROMIDE 62.5MCG/BLISTER 7 PUFFS/INHALER INH SCH (09:04)
--- NOTE | 2021-07-21 10:43 | Cardiology Progress Note ---
Date of Service July 21, 2021 Assessment & Plan (1) Atrial flutter with rapid ventricular response: (2) Bullous emphysema: (3) Acute UTI (urinary tract infection): Plan: Successful external direct-current cardioversion 07/19/2021. Remains in sinus rhythm and appropriately anticoagulated with Xarelto. Continue diltiazem CD as previously ordered. Outpatient referral to electrophysiology scheduled to consider EPS and ablation. Management of E. coli urinary tract infection as per internal medicine. Consider urology consultation due to recurrence. No further inpatient cardiac testing or intervention at this time. Admission and Anticipated Discharge Date Admission Date: July 17, 2021 Subjective Patient seen examined at the bedside. Feeling well today. Antibiotics adjusted by urology. Now receiving ceftriaxone. No recurrent atrial fibrillation on telemetry. Denies chest pain or shortness of breath. No palpitations, lighthea dedness, or dizziness. Review of Systems Review of Systems: All systems reviewed & are unremarkable except as noted in Subjective Physical Exam Constitutional: well nourished; no acute distress Respiratory: no respiratory distress and no labored breathing Auscultation: + diminished lung sounds (Bilateral); no crackles, no rales, no rhonchi and no wheezes Cardiovascular: Rate/Rhythm: regular rate and regular rhythm Heart Sounds: normal S1 and normal S2; no murmur Vessels: radial pulses present; no JVD and no carotid bruit Extremities: no edema Gastrointestinal (Abdomen): Inspection/Auscultation: abdomen normal to inspection and normal bowel sounds; abdomen not distended Percussion/Palpation: abdomen soft; abdomen nontender, no guarding and abdomen not rigid Neurologic: CN's II-XI intact bilaterally and moves all extremities; no focal motor deficits Motor/Sensory: no tremor Psychiatric: A+Ox3, euthymic affect Results & Data ([facility]) Vital Signs (Past 12 Hours) Vital Signs Temp Pulse Pulse Resp BP BP Pulse Ox 07/21/21 07:56 36.7 C 71 18 107/67 93 07/21/21 07:05 60 07/21/21 04:08 36.3 C L 68 20 114/71 94 07/21/21 00:38 64 07/21/21 00:01 36.5 C 68 20 115/77 93
--- NOTE | 2021-07-21 10:46 | Hospitalist Progress Note ---
Date of Service July 21, 2021 Assessment & Plan (1) Atrial flutter: (2) PAF (paroxysmal atrial fibrillation): (3) Hypertension: (4) Dyslipidemia: (5) PAD (peripheral artery disease): Plan: per admitting service notes: 07/19 s/p successful cardioversion continue present regimen as Cardiology will need referral to EPS for possible ablation (6) UTI (urinary tract infection): Plan: in the setting of Prostatomegaly possible chronic bladder outlet obstruction previously has grown out E. coli, this will be his fourth UTI within the past 6 months -Consulted urology - outpatient follow up -given IV ceftriaxone 07/20 Urine culture: E coli Blood culture: negative given 3 days of IV ceftriaxone d/c on Cefuroxime 250mg BID x 7 days to complete [address] abd/pelvis: prostatomegaly, bladder wall thickening patient willing to try Flomax needs to establish with a Urologist (7) DM type 2 (diabetes mellitus, type 2): Plan: a1c 7.1 continue Metformin (8) COPD (chronic obstructive pulmonary disease): (9) Tobacco use disorder: Plan: -Follows with [facility] pulmonology as an outpatient, recently saw them on 07/13 -Continue inhalers -Cessation of tobacco use encouraged at bedside, will provide a nicotine patch as needed - reports patch is too expensive for them, she has some resources from pulm office for free samples - currently down from 2 2 ppd to 3-5 cigs daily (10) GERD (gastroesophageal reflux disease): Plan: - Cont protonix (11) Peripheral neuropathy: Plan: - Hx of such DVT ppx: - teds, scds, xarelto CODE: Full code Dispo: d/c home ff up with PCP in 1 week ff up with Cardio in 2 weeks refer to Urologist Admission and Anticipated Discharge Date Admission Date: July 17, 2021 Subjective ff up for a fib etc seen resting in bed, comfortable in good spirits states he feels much better overall no chest pain, dyspnea, palpitations, dizziness no abdominal pain, bladder pain urine "clearing up" as per patient no other symptoms states he is ready and would like to be discharged Review of Systems Review of Systems: all noted and negative except for above Physical Exam Physical Exam: General- oriented x 3, not in distress, speaks in sentences with no effort or accessory muscle use Eyes- anicteric Neck- no JVD Lungs- clear BS bilaterally, no rales/wheezes Heart- normal rate, regular rhythm; no murmurs Abdomen- normal bowel sounds, nondistended, soft,no CVA tenderness Extremities- no pretibial edema, no calf tenderness Neuro- alert, oriented x 3; no gross focal neurologic deficits Skin- warm & dry Results & Data Results & Data ([facility]) Vital Signs (Past 12 Hours) Vital Signs Temp Pulse Pulse Resp BP BP Pulse Ox 07/21/21 07:56 36.7 C 71 18 107/67 93 07/21/21 07:05 60 07/21/21 04:08 36.3 C L 68 20 114/71 94 07/21/21 00:38 64 07/21/21 00:01 36.5 C 68 20 115/77 93 all noted and reviewed including below
--- NOTE | 2021-08-05 11:39 | Discharge Summary ---
Date of Service August 05, 2021 Admission HPI Per Admitting Provider This is a 71-year-old male with PMHx of paroxysmal atrial fibrillation on Xarelto, HTN, HLD, PAD, COPD, DM type II, GERD, peripheral neuropathy, tobacco abuse disorde x 50 pack year hx. Patient presented to the ER with worsening palpitations and weakness. He has been found to be in atrial flutter since presenting to the ER and was given normal saline, IV magnesium and IV Cardizem 10 mg x 3,which has improved his rat e however has not broken the rhythm. This morning he missed his morning Cardizem dosing because he did not feel well. He has been found to have a UTI with infected appearing UA. He admits to having increased sensation of burning with urination, but denies other urinary symptoms including hematuria, retention, increased frequency or abdominal pain. Of note he has had 3 other previous urinary tract infections within the past 6 months, and was scheduled to see urology as an outpatient, reports that they have all been E. coli. He has been unable to get in with the urologist yet and is very frustrated. He was recently seen by pulmonology on 07/13 as a routine follow-up for COPD and history of pulmonary nodules, and states that his inhalers were recently switched around. He has also significantly reduce the amount of tobacco use compared to previously; was 2 packs/day, currently is down to 3- 5 cigarettes/day since having a follow-up with ground water contractor earlier this week. His is present with him at bedside, he reports being to her is 46 years, and they intermittently bicker over his health at bedside. is obviously concerned for him as he continues to not improve, has been unable to get in with his specialist, and also is not himself. Their daughter was recently diagnosed with ALS within the past week and he is struggling with this information. feels that he may be depressed. He has been sleeping nearly all day and is awake for only 4 hours/day since 07/13/2021. He wakes up between 4 and 6 AM and then by 2 and half hours later he has such increased weakness he feels that he needs to go back to bed. Patient denies any recent falls or injuries. In regards to his medications, he has not missed a dose of Xarelto, last taken last evening. Admission Exam Per Admitting Provider General: awake, alert, no apparent distress, + fatigued Head: Normocephalic, atraumatic ENT: PERRL, EOMI, no pharyngeal exudate, mucous membranes moist Chest: Clear to auscultation, on room air, no adventitious breath sounds Cardiac: Tachy with HR in 100s to 130s when asked to move himself up in bed, EKG reviewed showing atrial flutter, no murmur, no JVD, normal peripheral pulses, good capillary refill Abdominal: NABS x 4 quadrants, soft, nondistended, nontender to palpation, no rebound or guarding Extremities: Normal inspection, no peripheral edema or erythema, calfs nontender to palpation Psych: Normal mood and affect Neuro: AAO x 3, strength intact bilaterally and rated 5/5, no motor deficits, speech is clear, + chronic lower extremity peripheral sensory deficits Principal Diagnosis Atrial Fibrillation with Rapid Ventricular Response Discharge Exam General- oriented x 3, not in distress, speaks in sentences with no effort or accessory muscle use Eyes- anicteric Neck- no JVD Lungs- clear BS bilaterally, no rales/wheezes Heart- normal rate, regular rhythm; no murmurs Abdomen- normal bowel sounds, nondistended, soft,no CVA tenderness Extremities- no pretibial edema, no calf tenderness Neuro- alert, oriented x 3; no gross focal neurologic deficits Skin- warm & dry Discharge Data Allergies Allergy/AdvReac Type Severity Reaction Status Date / Time levofloxacin AdvReac Intermediate JOINT Verified 07/13/21 09:41 STIFFNESS Consultations 07/17/21 16:34 ED Decision to Admit Stat 07/17/21 17:50 Consult Urology Routine 07/17/21 18:48 Consult Cardiology Routine 07/18/21 13:06 Consult Anesthesiology Routine Ordered Studies 07/18/21 19:40 CT abd pelvis wo con Routine ABDOMEN AND PELVIS CT WITHOUT CONTRAST CT DOSE: 531.75 mGy.cm HISTORY: Acute urinary tract infection with history of kidney stones recurrent UTI, r/o pyelonephritis, kidney stones TECHNIQUE: Multiaxial CT images of the abdomen and pelvis were performed without contrast. A dose lowering technique was utilized adhering to the principles of ALARA. COMPARISON STUDY: CT abdomen and pelvis 12/22/2020 FINDINGS: Trace pericardial effusion. Mild subsegmental bibasilar atelectasis/scarring. Pulmonary emphysema. There is no pneumatosis or pneumoperitoneum. The unenhanced spleen, pancreas, gallbladder, adrenal glands and liver appear unremarkable. Mild nonspecific bilateral perinephric stranding is similar to the prior study. No renal or ureteral calculi or hydronephrosis. Prostamegaly. Mild urinary bladder wall thickening with partial distention. Atherosclerosis of the aorta without aneurysm. No lymphadenopathy Small hiatal hernia. No bowel obstruction or bowel wall thickening. Mild fecal retention. Normal appendix. No ascites or mesenteric inflammation. Unremarkable soft tissues. Degenerative changes of the spine, pelvis and hips. No acute fracture or destructive bone lesion. IMPRESSION: 1. No renal or ureteral calculi or hydronephrosis. 2. Prostamegaly with urinary bladder wall thickening suggestive of chronic bladder outlet obstruction. Correlate with urinalysis to exclude cystitis. 3. Unchanged nonspecific bilateral perinephric stranding. 4. Small hiatal hernia. 5. No bowel obstruction or bowel wall thickening. Normal appendix. ACT 112: Negative or not required by law. The above report was generated using voice recognition software. It may contain grammatical, syntax or spelling errors. Electronically signed by: Jose Carlos Clifford M.D. 07/18/2021 9:52 PM Hospital Course (1) Atrial flutter: (2) PAF (paroxysmal atrial fibrillation): (3) Hypertension: (4) Dyslipidemia: (5) PAD (peripheral artery disease): per admitting service notes: 07/19 s/p successful cardioversion continue present regimen as Cardiology will need referral to EPS for possible ablation (6) UTI (urinary tract infection): in the setting of Prostatomegaly possible chronic bladder outlet obstruction previously has grown out E. coli, this will be his fourth UTI within the past 6 months -Consulted urology - outpatient follow up -given IV ceftriaxone Urine culture: E coli Blood culture: negative given 3 days of IV ceftriaxone d/c on Cefuroxime 250mg BID x 7 days to complete [address] abd/pelvis: prostatomegaly, bladder wall thickening patient willing to try Flomax needs to establish with a Urologist (7) DM type 2 (diabetes mellitus, type 2): a1c 7.1 continue Metformin (8) COPD (chronic obstructive pulmonary disease): (9) Tobacco use disorder: -Follows with [facility] pulmonology as an outpatient, recently saw them on 07/13 -Continue inhalers -Cessation of tobacco use encouraged at bedside, will provide a nicotine patch as needed - reports patch is too expensive for them, she has some resources from pulm office for free samples - currently down from 2 2 ppd to 3-5 cigs daily (10) GERD (gastroesophageal reflux disease): - Cont protonix (11) Peripheral neuropathy: - Hx of such DVT ppx: - teds, scds, xarelto CODE: Full code Dispo: d/c home ff up with PCP in 1 week ff up with Cardio in 2 weeks refer to Urologist Total Time Total Time Spent Total Time Spent (In Minutes): >30 minutes Discharge Plan Discharge Items Patient Disposition: Home - Self-Care Reason For Visit: ATRIAL FLUTTER, WEAKNESS, UTI Discharge Diagnosis: ATRIAL FLUTTER WITH RAPID VENTRICULAR RESPONSE URINARY TRACT INFECTION, RECURRENT PROSTATOMEGALY Activity: Resume your previous activity Activity Comment: GRADUALLY TOLERATED, NO HEAVY EXERTION Lifting: Wait until after follow-up appointment Exercise/Sports: Wait until after follow-up appointment Driving/Machine Use: NO DRIVING UNTIL RE-EVALUATED AND ALLOWED BY PRIMARY CARE PHYSICIAN Non-emergency contact: Primary Care Provider Call non-emergency contact if: you have any medication questions, your symptoms worsen, your pain is not controlled, your pain is worsening, your pain is unusual for you, your pain is concerning for you and you have a fever Follow-up/Referrals: Maryann Gordon DO [Primary Care Provider] - (Date & Time 07/27/2021 11:10 AM Provider Maryann Gordon DO [facility] ) Diet: Carb Consistent or DM2 and Heart Healthy Addtl Attending Provider Instructions: PLEASE REFER TO YOUR NEW MEDICATION LIST AND FOLLOW INSTRUCTIONS CAREFULLY. YOUR NEW MEDICATIONS INCLUDE: CEFUROXIME- antibiotic for urinary tract infection FLOMAX- for prostate enlargement PLEASE CALL YOUR PRIMARY CARE PHYSICIAN OR RETURN TO THE ER IF WITH WORSENING OF SYMPTOMS, INCLUDING chest pain, shortness of breath, palpitations, dizziness, fever/chills, problems with urination, nausea, weakness. FOLLOW UP WITH PRIMARY CARE PHYSICIAN OUTLINED ABOVE. FOLLOW UP WITH TONGUE LINING STITCHER IN 2 WEEKS. FOLLOW UP WITH UROLOGIST IN 2 WEEKS.YOUR PRIMARY CARE PHYSICIAN CAN ASSIST YOU WITH THE REFERRAL. Pending Studies at Discharge: No Stand-Alone Forms: My [facility], Smoking Cessation Medications and DC Order Prescriptions: Continued diltiazem HCl 120 mg tablet 120 mg PO DAILY RF: 0 ezetimibe [Zetia] 10 mg tablet 10 mg PO QAM RF: 0 escitalopram oxalate [Lexapro] 20 mg tablet 20 mg PO DAILY RF: 0 ascorbic acid (vitamin C) 500 mg tablet 500 mg PO DAILY RF: 0 Ocuvite Adult 50 Plus 250-5-1 mg capsule 1 cap PO DAILY RF: 0 Trelegy Ellipta 100-62.5-25 mcg blister with device 1 inh inhalation DAILY Qty: 60 RF: 4 albuterol sulfate 90 mcg/actuation HFA aerosol inhaler 2 puff inhalation Q6H PRN (Reason: Shortness Of Breath Or Wheezing) Qty: 18 RF: 3 cholecalciferol (vitamin D3) 1,000 unit (25 mcg) tablet 3,000 unit PO DAILY RF: 0 aspirin 81 mg tablet,chewable 81 mg PO DAILY RF: 0 atorvastatin 80 mg tablet 80 mg PO HS RF: 0 metformin 500 mg tablet 500 mg PO HS Qty: 30 RF: 0 rivaroxaban 20 mg tablet 20 mg PO DAILY Qty: 1 RF: 0 lisinopril 5 mg tablet 5 mg PO DAILY RF: 0 pantoprazole 40 mg Tablet,Delayed Release (Dr/Ec) 40 mg PO BID Qty: 60 RF: 1 fosfomycin tromethamine [Monurol] 3 gram packet 3 g PO Q72H Qty: 0 RF: 0 tamsulosin 0.4 mg capsule 0.4 mg PO DAILY Qty: 30 RF: 1 Discharge Orders: Discharge Order (Routine); Ordered 07/21/21 Ordered By: Reilly Jiménez/Other Patient Handouts: Managing Type 2 Diabetes Admission Data Admit Date/Time: 07/17/21 16:48 Attending Provider: Reilly De La Fuente Admit Provider: Kan Miranda Primary Care Provider: Maryann Gordon Other Interventions: Discharge Summary Assessment (RN) Last Done: 07/21/21 12:27
== END 2021-07-21 13:00 | disposition home or self-care (01) | DRG 309 ==
LOC: ED 11:34 → SUATTDRO 16:48 → 2S 16:48

== ENCOUNTER 2022-07-07 11:32 | Inpatient (IN) ==
--- NOTE | 2022-07-07 11:51 | Emergency Department Note ---
Impression & Plan UTI (urinary tract infection), PAD (peripheral artery disease), Hypotension, Acute dehydration ED Provider Note NAME: MUSTAPHA ANDERSON AGE: 72 SEX: M : 1950 ARRIVES VIA: Walk-In INFORMANT: [Patient][, ] ED PROVIDER(S): [Shorty Rodarte MD] CHIEF COMPLAINT: Feeling generally unwell, upset stomach, abdominal bloating MEDICAL DECISION MAKING: Patient presents due to concern for feeling unwell along with abdominal distenti on and bloating. IV was established blood work was obtained. The patient's blood work showed a leukocytosis of 18 with a hemoglobin of 10 and a platelet count of 296. Kidney function was unremarkable with mild hyponatremia at 133. BSG 170. Patient's other LFTs and electrolytes grossly unremarkable. Given the patient's leukocytosis and intermittent hypotension the patient was ordered additional IV fluids IV Zosyn blood cultures lactate and procalcitonin. Still have not yet received a urinalysis but the Zosyn would cover for any intra-abdominal pathology. The patient's initial CAT scan shows no bowel wall thickening or obstruction normal appendix and emphysema. The patient's chest x-ray shows the possibility of right lower lung airspace opacity. Given the findings and the after mentioned it to the on-call hospitalist service TREASURE Vasquez and the patient was admitted to the medicine service by Dr. Wolfe. Prior /Outside records reviewed: I did review the patient did have an ablation procedure completed with Dr. Dunham in November 2019 to did review discharge summary from July 2021. Patient has known history of paroxysmal A-fib on Xarelto hypertension hyperlipidemia PAD COPD DM2 GERD tobacco use peripheral neuropathy. Differential diagnosis: Infection, dehydration, metabolic abnormality, hypo/hyperglycemia, electrolyte disturbance, anemia, hypoxia, cardiac sources, intracerebral event, toxicologic, neurologic, as well as other pathologies. Diagnostics, as interpreted by me: ECG: [none] Cardiac monitoring: An order was placed for continuous cardiac monitoring. The monitor shows a rate of 67 with sinus rhythm. [Patient was placed on pulse oximetry] Medical decision rules: [none] Imaging studies: See below HPI: Patient presents due to concern for weakness and fatigue decreased p.o. intake upset stomach abdominal bloating. The patient states that he had several months of abdominal issues. The was at the bedside states that his abdomen seems to be more distended. The patient has not eaten really much of anything in the last 2 days and is passing flatus. No history of abdominal surgeries. The patient is scheduled for a vascular procedure of his right lower extremity in [place] on Tuesday. The patient has already had a prior procedure of his left lower extremity. The patient is on blood thinners and chronic anticoagulation Xarelto. Patient denies any chest pains or shortness of breath. Patient denies any falls or trauma. No cough or fever. PAST MEDICAL HISTORY: [See Below] PAST SURGICAL HISTORY: [See Below] SOCIAL HISTORY: [See Below] HOME MEDICATIONS: [See Below] ALLERGIES: [See Below] VITALS: [See Below] PHYSICAL EXAMINATION: GENERAL: Pale in appearance, nontoxic and in no apparent distress. EYE EXAM: Normal conjunctiva. PERRL, no anisocoria and EOM's grossly intact w/o pain. Oropharynx: Dry mucous membranes. NECK: Supple, no nuchal rigidity, no adenopathy, non-tender. No signs of meningismus. FROM of the neck with good chin to chest and neck extension. No stridor. LUNGS: Clear to auscultation. Normal chest wall mechanics. HEART: NSR, no MRG. ABDOMEN: Abdomen soft, mild diffuse discomfort of the abdomen with more prominence in the epigastrium and right lower quadrant, not peritonitic no erika s, no rebound or guarding. BACK: No CVA TTP. SKIN: No rashes and no bruising. UPPER EXTREMITIES: Upper extremities are grossly normal. LOWER EXTREMITIES: Grossly normal, no edema. Well-perfused in the bilateral lower extremities. Pedal pulses present. No overlying skin changes NEURO EXAM: A&O x3, cranial nerves II-XII grossly intact, normal speech, moves all 4 extremities. Past Med/Surg History Medical History Anemia Bloating Bullous emphysema DM type 2 (diabetes mellitus, type 2) Dyslipidemia GERD (gastroesophageal reflux disease) History of cardioversion Hypertension Irritable bowel syndrome with constipation Multiple lung nodules on CT Nocturnal hypoxia OM (osteomyelitis) PAD (peripheral artery disease) Paroxysmal atrial flutter Peripheral neuropathy Pulmonary emphysema Tobacco use disorder Surgical History History of ankle surgery History of cardiac radiofrequency ablation Family History Mother Diabetes Father Heart disease Social History Smoking Status: Current every day smoker Tobacco Type: Cigars Age Started Using Tobacco: 12; Cigarettes Per Day: 5; Do You Dip or Chew Tobacco: No; Hx Alcohol Use: No Hx Substance Use: No Preferred Language: [place] Communication Ability: Effective Rn Research Required: No Beliefs That Will Affect Care: None Current Living Situation: Spouse Other Information That Helps Us Care for You: No Feels Safe at Home: Yes Safety Concerns: Feels Safe At This Time Assistive Devices: None Allergies Allergies Allergy/AdvReac Type Severity Reaction Status Date / Time cilostazol AdvReac Severe Nausea Verified 07/07/22 16:22 levofloxacin AdvReac Intermediate JOINT Verified 10/28/21 11:00 STIFFNESS Home Meds Home Medications Medication Instructions Recorded Confirmed Lactobacillus rhamnosus GG 10 1 cap PO DAILY 07/07/22 07/07/22 billion cell capsule (Culturelle) acetaminophen 500 mg tablet 500 mg PO Q6H PRN Pain 07/07/22 07/07/22 (Tylenol Extra Strength) albuterol sulfate 90 mcg/actuation 2 puff inhalation Q6H PRN 07/07/22 07/07/22 aerosol inhaler Shortness Of Breath ascorbic acid (vitamin C) 500 mg 1,000 mg PO QAM 07/07/22 07/07/22 tablet (Vitamin C) aspirin 81 mg tablet,delayed 81 mg PO DAILY 07/07/22 07/07/22 release atorvastatin 80 mg tablet 80 mg PO HS 07/07/22 07/07/22 bupropion HCl 150 mg 24 hr tablet, 150 mg PO QAM 07/07/22 07/07/22 extended release cholecalciferol (vitamin D3) 25 25 mcg PO DAILY 07/07/22 07/07/22 mcg (1,000 unit) tablet (Vitamin D3) escitalopram oxalate 20 mg tablet 20 mg PO DAILY 07/07/22 07/07/22 ezetimibe 10 mg tablet 10 mg PO DAILY 07/07/22 07/07/22 fluticasone fur. 100 mcg-umeclid 1 ea inhalation QAM 07/07/22 07/07/22 62.5 mcg-vilant 25 mcg inhalat.powder (Trelegy Ellipta) ketoconazole 2 % shampoo 1 applic topical .Q3DAYS 07/07/22 07/07/22 linaclotide 72 mcg capsule 72 mcg PO QAM 07/07/22 07/07/22 (Linzess) lisinopril 5 mg tablet 5 mg PO DAILY 07/07/22 07/07/22 meclizine 12.5 mg tablet 12.5 mg PO TID PRN dizzyness 07/07/22 07/07/22 metformin 500 mg tablet 1,000 mg PO BIDM 07/07/22 07/07/22 ondansetron HCl 4 mg tablet 4 mg PO Q8H PRN Nausea 07/07/22 07/07/22 pantoprazole 40 mg tablet,delayed 40 mg PO BID 07/07/22 07/07/22 release rivaroxaban 20 mg tablet (Xarelto) 20 mg PO QPM 07/07/22 07/07/22 tamsulosin 0.4 mg capsule 0.4 mg PO DAILY 07/07/22 07/07/22 vitamins A,C,X-psar-vvqcjp 2,148 1 tab PO BID 07/07/22 07/07/22 mcg-113 mg-45 mg-17.4 mg tablet (PreserVision AREDS) Results & Data (ED) Vital Signs Vital Signs - 24 hr 07/07/22 11:39 07/07/22 11:57 07/07/22 12:03 Temperature 36.8 C Temperature Source Temporal Artery Scan Pulse Rate 68 Respiratory Rate 18 Blood Pressure 77/49 L Blood Pressure Mean 58 Pulse Oximetry 99 Oxygen Delivery Method Room Air Room Air Room Air Sepsis Recent Fever Within 48 Hours No Sepsis New/Unexplained Change in Mental Status No Sepsis Action Taken by Nursing No Action Required Home Medications Current Medication List: was personally reviewed by me Laboratory Data Attestation: I reviewed the patient's lab results. 07/09/22 06:13 07/09/22 06:13 Lab Results 07/07/22 07/07/22 07/07/22 Range/Units 11:50 11:50 11:50 WBC 18.04 H (4.8-10.8) K/ul RBC 4.27 L (4.70-6.10) M/uL Hgb 10.1 L (14.0-18.0) g/dl Hct 32.0 L (42.0-52.0) % MCV 74.9 L (80.0-100.0) fL MCH 23.7 L (25.0-34.0) pg MCHC 31.6 L (32.0-36.0) g/dL RDW Std Deviation 52.0 H (36.4-46.3) fL RDW Coeff of Cathi 19.5 H (11.5-14.5) % Plt Count 296 (130-400) K/uL MPV 8.8 L (9.4-12.4) fL Immature Gran % (Auto) 1.1 % Neut % (Auto) 77.7 % Lymph % (Auto) 7.8 % [place] % (Auto) 13.0 % Eos % (Auto) 0.0 % Baso % (Auto) 0.4 % Neut # (Auto) 14.01 H (1.40-6.50) K/uL Lymph # (Auto) 1.40 (1.2-3.4) K/uL [place] # (Auto) 2.35 H (0.11-0.59) K/uL Eos # (Auto) 0.00 (0-0.50) K/uL Baso # (Auto) 0.08 (0-0.2) K/uL Immature Gran # (Auto) 0.20 (0.01-0.20) K/uL PT 12.8 H (9.0-12.0) Seconds INR 1.2 H (0.9-1.1) Sodium 133 L (136-145) mmol/L Potassium 3.7 (3.5-5.1) mmol/L Chloride 100 (98-107) mmol/L Carbon Dioxide 21 (21-32) mmol/L Anion Gap 12 H (3-11) BUN 12 (6-23) mg/dl Creatinine 1.01 (0.6-1.4) mg/dl Est Cr Clr Drug Dosing Not Reportable Est GFR ( Amer) 86.3 ml/min Est GFR (Non-Af Amer) 74.5 ml/min BUN/Creatinine Ratio 11.9 (10-20) Glucose 170 H (70-99(Fasting)) mg/dl Lactate (0.4-2.0) mmol/L Calcium 8.4 L (8.6-10.3) mg/dl Total Bilirubin 0.7 (0.2-1.0) mg/dl AST 10 L (13-39) U/L ALT 9 (7-52) U/L Alkaline Phosphatase 101 (34-104) U/L Troponin I High Sens 10.2 (0-20) pg/ml Total Protein 7.7 (6.0-8.3) gm/dl Albumin 3.7 (3.4-5.0) gm/dl Globulin 4.0 (2.5-4.0) gm/dl Albumin/Globulin Ratio 0.9 (0.9-2) Lipase 21 (11-82) U/L Procalcitonin (0-0.5) ng/ml Urine Color Urine Appearance (Clear) Urine pH (4.5-7.5) Ur Specific [place] (1.000-1.030) Urine Protein (Negative) Urine Glucose (UA) (Negative) Urine Ketones (Negative) Urine Blood (Negative) Urine Nitrite (Negative) Urine Bilirubin (Negative) Urine Urobilinogen (Negative) Ur Leukocyte Esterase (Negative) Urine WBC (Auto) (0-5) /hpf Urine RBC (Auto) (0-4) /hpf U Hyaline Cast (Auto) (0-5) /lpf U Epithel Cells (Auto) (0-5) /lpf Urine Bacteria (Auto) (Negative) Nasal Screen MRSA (PCR) (Negative) SARS-CoV-2, RNA, NAAT (NEGATIVE) 07/07/22 07/07/22 07/07/22 Range/Units 13:00 13:00 16:01 WBC (4.8-10.8) K/ul RBC (4.70-6.10) M/uL Hgb (14.0-18.0) g/dl Hct (42.0-52.0) % MCV (80.0-100.0) fL MCH (25.0-34.0) pg MCHC (32.0-36.0) g/dL RDW Std Deviation (36.4-46.3) fL RDW Coeff of Cathi (11.5-14.5) % Plt Count (130-400) K/uL MPV (9.4-12.4) fL Immature Gran % (Auto) % Neut % (Auto) % Lymph % (Auto) % [place] % (Auto) % Eos % (Auto) % Baso % (Auto) % Neut # (Auto) (1.40-6.50) K/uL Lymph # (Auto) (1.2-3.4) K/uL [place] # (Auto) (0.11-0.59) K/uL Eos # (Auto) (0-0.50) K/uL Baso # (Auto) (0-0.2) K/uL Immature Gran # (Auto) (0.01-0.20) K/uL PT (9.0-12.0) Seconds INR (0.9-1.1) Sodium (136-145) mmol/L Potassium (3.5-5.1) mmol/L Chloride (98-107) mmol/L Carbon Dioxide (21-32) mmol/L Anion Gap (3-11) BUN (6-23) mg/dl Creatinine (0.6-1.4) mg/dl Est Cr Clr Drug Dosing Est GFR ( Amer) ml/min Est GFR (Non-Af Amer) ml/min BUN/Creatinine Ratio (10-20) Glucose (70-99(Fasting)) mg/dl Lactate (0.4-2.0) mmol/L Calcium (8.6-10.3) mg/dl Total Bilirubin (0.2-1.0) mg/dl AST (13-39) U/L ALT (7-52) U/L Alkaline Phosphatase (34-104) U/L Troponin I High Sens (0-20) pg/ml Total Protein (6.0-8.3) gm/dl Albumin (3.4-5.0) gm/dl Globulin (2.5-4.0) gm/dl Albumin/Globulin Ratio (0.9-2) Lipase (11-82) U/L Procalcitonin (0-0.5) ng/ml Urine Color Yellow Urine Appearance Clear (Clear) Urine pH 6.0 (4.5-7.5) Ur Specific [place] > 1.045 H (1.000-1.030) Urine Protein 1+ H (Negative) Urine Glucose (UA) Negative (Negative) Urine Ketones Negative (Negative) Urine Blood 1+ H (Negative) Urine Nitrite Positive A (Negative) Urine Bilirubin Negative (Negative) Urine Urobilinogen Negative (Negative) Ur Leukocyte Esterase 1+ H (Negative) Urine WBC (Auto) >30 H (0-5) /hpf Urine RBC (Auto) 5-10 H (0-4) /hpf U Hyaline Cast (Auto) 10-30 H (0-5) /lpf U Epithel Cells (Auto) >30 H (0-5) /lpf Urine Bacteria (Auto) 4+ H (Negative) Nasal Screen MRSA (PCR) Negative (Negative) SARS-CoV-2, RNA, NAAT NEGATIVE (NEGATIVE) 07/07/22 07/07/22 Range/Units 16:03 16:03 WBC (4.8-10.8) K/ul RBC (4.70-6.10) M/uL Hgb (14.0-18.0) g/dl Hct (42.0-52.0) % MCV (80.0-100.0) fL MCH (25.0-34.0) pg MCHC (32.0-36.0) g/dL RDW Std Deviation (36.4-46.3) fL RDW Coeff of Cathi (11.5-14.5) % Plt Count (130-400) K/uL MPV (9.4-12.4) fL Immature Gran % (Auto) % Neut % (Auto) % Lymph % (Auto) % [place] % (Auto) % Eos % (Auto) % Baso % (Auto) % Neut # (Auto) (1.40-6.50) K/uL Lymph # (Auto) (1.2-3.4) K/uL [place] # (Auto) (0.11-0.59) K/uL Eos # (Auto) (0-0.50) K/uL Baso # (Auto) (0-0.2) K/uL Immature Gran # (Auto) (0.01-0.20) K/uL PT (9.0-12.0) Seconds INR (0.9-1.1) Sodium (136-145) mmol/L Potassium (3.5-5.1) mmol/L Chloride (98-107) mmol/L Carbon Dioxide (21-32) mmol/L Anion Gap (3-11) BUN (6-23) mg/dl Creatinine (0.6-1.4) mg/dl Est Cr Clr Drug Dosing Est GFR ( Amer) ml/min Est GFR (Non-Af Amer) ml/min BUN/Creatinine Ratio (10-20) Glucose (70-99(Fasting)) mg/dl Lactate 2.0 (0.4-2.0) mmol/L Calcium (8.6-10.3) mg/dl Total Bilirubin (0.2-1.0) mg/dl AST (13-39) U/L ALT (7-52) U/L Alkaline Phosphatase (34-104) U/L Troponin I High Sens (0-20) pg/ml Total Protein (6.0-8.3) gm/dl Albumin (3.4-5.0) gm/dl Globulin (2.5-4.0) gm/dl Albumin/Globulin Ratio (0.9-2) Lipase (11-82) U/L Procalcitonin 0.06 (0-0.5) ng/ml Urine Color Urine Appearance (Clear) Urine pH (4.5-7.5) Ur Specific [place] (1.000-1.030) Urine Protein (Negative) Urine Glucose (UA) (Negative) Urine Ketones (Negative) Urine Blood (Negative) Urine Nitrite (Negative) Urine Bilirubin (Negative) Urine Urobilinogen (Negative) Ur Leukocyte Esterase (Negative) Urine WBC (Auto) (0-5) /hpf Urine RBC (Auto) (0-4) /hpf U Hyaline Cast (Auto) (0-5) /lpf U Epithel Cells (Auto) (0-5) /lpf Urine Bacteria (Auto) (Negative) Nasal Screen MRSA (PCR) (Negative) SARS-CoV-2, RNA, NAAT (NEGATIVE) Administered Medications Acetaminophen (Acetaminophen 325 Mg Tab) 650 mg PO Q4H PRN PRN Reason: pain/fever Stop: 08/06/22 19:29 Last Admin: 07/08/22 02:59 Dose: 650 mg Documented By: VERONICA Aspirin (Aspirin 81 Mg Ectab) 81 mg PO DAILY CHRISTINE Stop: 08/07/22 08:59 Last Admin: 07/09/22 08:29 Dose: 81 mg Documented By: Admin: 07/08/22 08:08 Dose: 81 mg Documented By: SANG Atorvastatin Calcium (Atorvastatin 40 Mg Tab) 80 mg PO HS CHRISTINE Stop: 08/06/22 20:59 Last Admin: 07/08/22 20:54 Dose: 80 mg Documented By: Admin: 07/07/22 21:21 Dose: 80 mg Documented By: VERONICA Bupropion HCl (Bupropion Xl 150 Mg Tabcr) 150 mg PO QAM CHRISTINE Stop: 08/07/22 08:59 Last Admin: 07/09/22 08:28 Dose: 150 mg Documented By: Admin: 07/08/22 08:08 Dose: 150 mg Documented By: SANG Ezetimibe (Ezetimibe 10 Mg Tablet) 10 mg PO DAILY CHRISTINE Stop: 08/07/22 08:59 Last Admin: 07/09/22 08:28 Dose: 10 mg Documented By: Admin: 07/08/22 08:08 Dose: 10 mg Documented By: SANG Escitalopram Oxalate (Escitalopram Oxalate 20 Mg Tab) 20 mg PO DAILY CHRISTINE Stop: 08/07/22 08:59 Last Admin: 07/09/22 08:28 Dose: 20 mg Documented By: Admin: 07/08/22 08:08 Dose: 20 mg Documented By: SANG Fluticasone Furoate (Fluticasone Furoate 100mcg 14 Puffs/Inhaler) 1 puffs INH DAILY CHRISTINE Stop: 08/07/22 08:59 Last Admin: 07/09/22 08:29 Dose: 1 puffs Documented By: Admin: 07/08/22 08:08 Dose: 1 puffs Documented By: SANG Sodium Chloride (Nss 1000ml) 1,000 mls @ 100 mls/hr IV .Q10H CHRISTINE Stop: 07/09/22 21:29 Last Admin: 07/09/22 14:46 Dose: 100 mls/hr Documented By: Infusion: 07/09/22 14:34 Dose: 0 mls/hr Documented By: Admin: 07/09/22 03:58 Dose: 100 mls/hr Documented By: Infusion: 07/09/22 01:38 Dose: 100 mls/hr Documented By: Admin: 07/08/22 15:38 Dose: 100 mls/hr Documented By: Infusion: 07/08/22 15:16 Dose: 100 mls/hr Documented By: Admin: 07/08/22 05:16 Dose: 100 mls/hr Documented By: Infusion: 07/08/22 05:16 Dose: 100 mls/hr Documented By: Admin: 07/07/22 20:24 Dose: 100 mls/hr Documented By: VERONICA Piperacillin Sod/Tazobactam (Sod 4.5 gm/ Dextrose) 120 mls @ 30 mls/hr IV Q8H CHRISTINE; Protocol Stop: 07/09/22 16:00 Last Admin: 07/09/22 12:11 Dose: 30 mls/hr Documented By: Infusion: 07/09/22 08:04 Dose: 0 mls/hr Documented By: Admin: 07/09/22 04:02 Dose: 30 mls/hr Documented By: Infusion: 07/09/22 01:26 Dose: 0 mls/hr Documented By: Admin: 07/08/22 21:06 Dose: 30 mls/hr Documented By: Infusion: 07/08/22 17:28 Dose: 0 mls/hr Documented By: Admin: 07/08/22 12:32 Dose: 30 mls/hr Documented By: Infusion: 07/08/22 08:07 Dose: 0 mls/hr Documented By: Admin: 07/08/22 03:20 Dose: 30 mls/hr Documented By: Infusion: 07/08/22 00:52 Dose: 0 mls/hr Documented By: Admin: 07/07/22 20:41 Dose: 30 mls/hr Documented By: VERONICA Insulin Aspart (Insulin Aspart Per Unit Charge) 0 units SC ACHS CHRISTINE Stop: 08/06/22 20:59 Last Admin: 07/09/22 12:11 Dose: 2 units Documented By: MEETA Co-signed By: MICHAELA Admin: 07/09/22 08:30 Dose: 3 units Documented By: MEETA Co-signed By: AUDRA Admin: 07/08/22 21:05 Dose: 1 units Documented By: RAQUEL Co-signed By: JESÚS Admin: 07/08/22 17:18 Dose: Not Given Documented By: SANG Co-signed By: SOLANGE Admin: 07/08/22 12:32 Dose: 3 units Documented By: SANG Co-signed By: SOLANGE Admin: 07/08/22 08:39 Dose: 4 units Documented By: SANG Co-signed By: SOLANGE Admin: 07/07/22 20:24 Dose: Not Given Documented By: VERONICA Insulin Glargine (Lantus Per Unit Charge) 5 units SQ DAILY CHRISTINE Stop: 08/07/22 08:59 Last Admin: 07/09/22 09:18 Dose: 5 units Documented By: MEETA Co-signed By: MICHAELA Admin: 07/08/22 08:38 Dose: 5 units Documented By: SANG Co-signed By: SOLANGE Lactobacillus Acidophilus (Advanced Probiotic 1250 Mg Capsule) 2 cap PO DAILY CHRISTINE Stop: 08/07/22 08:59 Last Admin: 07/09/22 08:29 Dose: 2 cap Documented By: Admin: 07/08/22 08:09 Dose: 2 cap Documented By: SANG Lactobacillus Acidophilus (Lactobacillus Acidophilus 1 Gm Pack) 1 gm PO TIDM CHRISTINE Stop: 08/08/22 11:59 Last Admin: 07/09/22 12:12 Dose: 1 gm Documented By: MEETA Linaclotide (Linaclotide 72 Mcg Capsule) 72 mcg PO QAM CHRISTINE Stop: 08/07/22 08:59 Last Admin: 07/09/22 08:28 Dose: 72 mcg Documented By: Admin: 07/08/22 08:09 Dose: 72 mcg Documented By: SANG Miscellaneous (Remove Nicoderm Patch) 1 each N/A DAILY@2100 CHRISTINE Stop: 08/07/22 20:59 Last Admin: 07/08/22 20:55 Dose: 1 each Documented By: RAQUEL Nicotine (Nicotine 7 Mg/24 Hr Tdsy) 7 mg TD HS CHRISTINE Stop: 08/06/22 20:44 Last Admin: 07/08/22 20:54 Dose: 7 mg Documented By: Admin: 07/07/22 21:21 Dose: 7 mg Documented By: VERONICA Pantoprazole Sodium (Pantoprazole 40 Mg Tab) 40 mg PO BID CHRISTINE Stop: 08/06/22 20:59 Last Admin: 07/09/22 08:28 Dose: 40 mg Documented By: Admin: 07/08/22 20:54 Dose: 40 mg Documented By: Admin: 07/08/22 08:09 Dose: 40 mg Documented By: Admin: 07/07/22 21:21 Dose: 40 mg Documented By: VERONICA Rivaroxaban (Rivaroxaban 20 Mg Tab) 20 mg PO QDD CHRISTINE Stop: 08/07/22 16:29 Last Admin: 07/08/22 17:45 Dose: 20 mg Documented By: SANG Tamsulosin HCl (Tamsulosin Hcl 0.4 Mg Cap) 0.4 mg PO DAILY CHRISTINE Stop: 08/07/22 08:59 Last Admin: 07/09/22 08:28 Dose: 0.4 mg Documented By: Admin: 07/08/22 08:09 Dose: 0.4 mg Documented By: SANG Umeclidinium/Vilanterol (Umeclidinium/Vilanterol 62.5/25mcg 7 Puffs/Inhaler) 1 puffs INH DAILY CHRISTINE Stop: 08/07/22 08:59 Last Admin: 07/09/22 08:29 Dose: 1 puffs Documented By: Admin: 07/08/22 08:09 Dose: 1 puffs Documented By: SANG Discontinued Medications Sodium Chloride (Nss 1000ml) 1,000 mls @ 999 mls/hr IV .Q1H1M STA Stop: 07/07/22 13:03 Last Infusion: 07/07/22 13:20 Dose: 0 mls/hr Documented By: Admin: 07/07/22 12:19 Dose: 999 mls/hr Documented By: JAZIEL Famotidine (Pepcid 20mg Iv Push) 20 mg in 5 mls @ 2.5 mls/min IV NOW STA Stop: 07/07/22 12:04 Last Admin: 07/07/22 12:19 Dose: 2.5 mls/min Documented By: JAZIEL Sodium Chloride (Nss 1000ml) 1,000 mls @ 999 mls/hr IV .Q1H1M ONE Stop: 07/07/22 16:50 Last Infusion: 07/07/22 17:11 Dose: 0 mls/hr Documented By: Admin: 07/07/22 16:07 Dose: 999 mls/hr Documented By: ORI Piperacillin Sod/Tazobactam Sod (Zosyn) 4.5 gm in 120 mls @ 240 mls/hr IV NOW ONE Stop: 07/07/22 16:19 Last Infusion: 07/07/22 16:40 Dose: 0 mls/hr Documented By: Admin: 07/07/22 16:07 Dose: 240 mls/hr Documented By: ORI Magnesium Sulfate/Dextrose (Magnesium Sulfate / D5w) 1 gm in 100 mls @ 50 mls/hr IV Q2H CHRISTINE Stop: 07/09/22 14:59 Last Infusion: 07/09/22 14:25 Dose: 0 mls/hr Documented By: Admin: 07/09/22 12:25 Dose: 50 mls/hr Documented By: Infusion: 07/09/22 12:23 Dose: 50 mls/hr Documented By: Admin: 07/09/22 10:23 Dose: 50 mls/hr Documented By: Infusion: 07/09/22 10:23 Dose: 50 mls/hr Documented By: Admin: 07/09/22 09:24 Dose: 50 mls/hr Documented By: MEETA Ioversol (Optiray 350 100ml) 86 ml IV ONCE ONE Stop: 07/07/22 14:22 Last Admin: 07/07/22 14:21 Dose: 86 ml Documented By: LUCIANA Ondansetron HCl (Ondansetron Inj 2 Mg/Ml 2 Ml Vial) 4 mg IV NOW STA Stop: 07/07/22 12:04 Last Admin: 07/07/22 12:19 Dose: 4 mg Documented By: JAZIEL Potassium Chloride (Potassium Chloride Crtab 20 Meq Tabcr) 40 meq PO ONE ONE Stop: 07/08/22 07:35 Last Admin: 07/08/22 08:39 Dose: 40 meq Documented By: SANG Potassium Chloride (Potassium Chloride 20 Meq/15 Ml Udc) 40 meq PO ONE ONE Stop: 07/09/22 08:58 Last Admin: 07/09/22 10:21 Dose: 40 meq Documented By: MEETA Imaging Data Radiologist's Impression: Abdomen/Pelvis CT 07/07/22 12:[address] WITH IV CONTRAST CT DOSE: 889.29 mGycm HISTORY: mild diffuse ab pain, nausea TECHNIQUE: Multiaxial CT images of the abdomen and pelvis were performed following the use of intravenous contrast. A dose lowering technique was utilized adhering to the principles of ALARA. COMPARISON STUDY: Outside hospital abdomen and pelvis CT 10/23/2021. Abdomen and pelvis CT 07/18/2021. FINDINGS: Emphysema and mild dependent changes seen at the lung bases. No pneumoperitoneum. No pneumatosis. No acute fractures identified. There is a small fat-containing hiatus hernia, unchanged. The liver, gallbladder, pancreas, adrenal glands, and spleen are unremarkable. The main portal vein is patent. No retroperitoneal lymphadenopathy. There is an ectatic abdominal aorta measuring up to 2.8 cm in diameter. Mild bilateral perinephric edema, unchanged. No hydronephrosis. No pelvic free fluid. The bladder is underdistended. No bowel wall thickening or obstruction. Normal appendix. IMPRESSION: 1. No bowel wall thickening or obstruction. 2. Normal appendix. 3. Mild bilateral perinephric edema, unchanged. 4. Emphysema. ACT 112: Negative or not required by law. Electronically signed by: Guy Renee M.D. 07/07/2022 3:29 PM Chest X-Ray 07/07/22 16:37 XR chest 1V portable CLINICAL HISTORY: sepsis TECHNIQUE: Single frontal radiograph of the chest was obtained. Comparison: Comparison is made to chest radiograph 08/26/2021 FINDINGS: No lines and tubes are seen. The cardiomediastinal silhouette is normal. Airspace opacity is in the right lower lung. No evidence of pleural effusion or pneumothorax. IMPRESSION: Airspace opacity in the right lower lung which may represent atelectasis, pneumonia, and/or aspiration. ACT 112: Negative or not required by law. Electronically signed by: Juan Ayala M.D. 07/07/2022 7:12 PM Discharge Plan Visit Data Chief Complaint: Illness Stated Complaint: DIZZY ED Provider: Shorty Rodarte Discharge Problem: UTI (urinary tract infection), PAD (peripheral artery disease), Hypotension, Acute dehydration Patient Disposition: Admitted As Inpatient Discharge Instructions Interventions: ED Discharge Assessment Last Done: 07/07/22 19:58
[2022-07-07] MEDS ORDERED: FAMOTIDINE 20MG IV PUSH 20 MG/5 ML SYR IV STA (12:03)
[2022-07-07] MEDS ORDERED: ONDANSETRON INJ 2 MG/ML 2 ML VIAL IV STA (12:03)
[2022-07-07] MEDS ORDERED: SODIUM CHLORIDE 0.9% 1000ML 1,000 ML IV STA (12:03)
[2022-07-07 12:58] LABS: Basophils # (auto) 0.08 K/uL (0-0.2); Basophils % (auto) 0.4 %; Hemoglobin 10.1 g/dl (14.0-18.0); Immature Granulocytes % (auto) 1.1 %; Lymphocytes % (auto) 7.8 %; Mean Corpuscular Hemoglobin 23.7 pg (25.0-34.0); Mean Corpuscular Hgb Conc 31.6 g/dL (32.0-36.0); Mean Corpuscular Volume 74.9 fL (80.0-100.0); Mean Platelet Volume 8.8 fL (9.4-12.4); Monocytes # (auto) 2.35 K/uL (0.11-0.59); Neutrophils # (auto) 14.01 K/uL (1.40-6.50); Neutrophils % (auto) 77.7 %; Platelet Count 296 K/uL (130-400); RDW Coefficient of Variation 19.5 % (11.5-14.5); Red Blood Count 4.27 M/uL (4.70-6.10); White Blood Count 18.04 K/ul (4.8-10.8)
[2022-07-07 13:06] LABS: Alanine Aminotransferase 9 U/L (7-52); Albumin Globulin Ratio 0.9 (0.9-2); Albumin Level 3.7 gm/dl (3.4-5.0); Alkaline Phosphatase 101 U/L (34-104); Anion Gap 12 (3-11); Aspartate Aminotransferase 10 U/L (13-39); BUN Creatinine Ratio 11.9 (10-20); Bilirubin,Total 0.7 mg/dl (0.2-1.0); Blood Urea Nitrogen 12 mg/dl (6-23); Calcium 8.4 mg/dl (8.6-10.3); Carbon Dioxide 21 mmol/L (21-32); Chloride 100 mmol/L (98-107); Est GFR (African American) 86.3 ml/min; Est GFR (Non-African American) 74.5 ml/min; Glucose 170 mg/dl (70-99(Fasting)); Lipase 21 U/L (11-82); Potassium 3.7 mmol/L (3.5-5.1); Sodium 133 mmol/L (136-145); Total Protein 7.7 gm/dl (6.0-8.3)
[2022-07-07 13:09] LABS: Troponin I High Sensitivity 10.2 pg/ml (0-20)
[2022-07-07 13:21] LABS: INR 1.2 (0.9-1.1); Prothrombin Time 12.8 Seconds (9.0-12.0)
[2022-07-07] MEDS ORDERED: OPTIRAY 350 100ml IV ONE (14:21)
--- NOTE | 2022-07-07 15:30 | CT Scan Report ---
ABDOMEN AND PELVIS CT WITH IV CONTRAST CT DOSE: 889.29 mGycm HISTORY: mild diffuse ab pain, nausea TECHNIQUE: Multiaxial CT images of the abdomen and pelvis were performed following the use of intrave nous contrast. A dose lowering technique was utilized adhering to the principles of ALARA. COMPARISON STUDY: Outside hospital abdomen and pelvis CT 10/23/2021. Abdomen and pelvis CT 07/18/2021. FINDINGS: Emphysema and mild dependent changes seen at the lung bases. No pneumoperitoneum. No pneuma tosis. No acute fractures identified. There is a small fat-containing hiatus hernia, unchanged. The l iver, gallbladder, pancreas, adrenal glands, and spleen are unremarkable. The main portal vein is pat ent. No retroperitoneal lymphadenopathy. There is an ectatic abdominal aorta measuring up to 2.8 cm i n diameter. Mild bilateral perinephric edema, unchanged. No hydronephrosis. No pelvic free fluid. The bladder is underdistended. No bowel wall thickening or obstruction. Normal appendix. IMPRESSION: 1. No bowel wall thickening or obstruction. 2. Normal appendix. 3. Mild bilateral perinephric edema, unchanged. 4. Emphysema. ACT 112: Negative or not required by law. Electronically signed by: Guy Renee M.D. 07/07/2022 3:29 PM
[2022-07-07] MEDS ORDERED: SODIUM CHLORIDE 0.9% 1000ML 1,000 ML IV ONE (15:50)
[2022-07-07] MEDS ORDERED: PIPERACILLIN/TAZOBACTAM 4.5 GM/120 ML BAG IV ONE (15:50)
[2022-07-07 17:21] LABS: Appearance Urine Clear (Clear); Bacteria Urine Automated 4+ (Negative); Bilirubin Urine Negative (Negative); Blood Urine 1+ (Negative); Color Urine Yellow; Epithelial Cell Urine Auto >30 /lpf (0-5); Glucose Urine UA Negative (Negative); Ketones Urine Negative (Negative); Leukocyte Esterase Urine 1+ (Negative); Nitrite Urine Positive (Negative); Protein Urine 1+ (Negative); Specific Gravity Urine > 1.045 (1.000-1.030); Urobilinogen Urine Negative (Negative); WBC Urine Automated >30 /hpf (0-5)
--- NOTE | 2022-07-07 17:24 | History & Physical Report ---
Date of Service July 07, 2022 Assessment & Plan (1) Sepsis: (2) UTI (urinary tract infection): Plan: Admit to [facility] with telemetry Patient presenting for evaluation of lightheadedness and dizziness. Patient was walking into the outpatient clinic to have labs drawn when he became lightheaded and dizzy. He was found to be hypotensive and sent to the ED for further evaluation. In the ED, initial BP 77/49, improved with IVF. WBC 18 K. Normal lactate. UA suggestive of UTI CT ABD/pelvis unremarkable for acute findings S/p Zosyn in the ED, continue with Follow urine and blood cultures (3) PAD (peripheral artery disease): Plan: S/P angioplasty DANIELLA and shockwave angioplasty LCFA and DFA on 06/10/22 Scheduled for right leg revascularization on 07/09 -- this will need to be rescheduled (notified patient's PCP office to assist) Continue ASA, statin, Xarelto (4) Paroxysmal atrial flutter: (5) History of cardioversion: (6) History of cardiac radiofrequency ablation: Plan: Anticoagulated on Xarelto Does not take any rhythm or rate controlling medications (7) Hypertension: Plan: Due to presenting hypotension, will hold lisinopril (8) DM type 2 (diabetes mellitus, type 2): Plan: Hgb A1c 7.3 03/2022 Hold metformin and utilize NovoLog per protocol while hospitalized (9) Irritable bowel syndrome with constipation: Plan: Continue Linzess Follows closely with GI, scheduled for gastric emptying study due to complaints of bloating/early satiety (10) DVT prophylaxis: Plan: On Xarelto I spent a total of 65 minutes coordinating, documenting, and providing care for this patient excluding time spent in the performance of separately billed services. This included personally reviewing all current laboratories and imaging studies, medication reconciliation, outpatient chart review, and discussion with specialists. History of Present Illness Chief Complaint: Lightheadedness, dizziness Primary Care Provider: Nic Teague DO 72-year-old male with PMH DM type II, HTN, dyslipidemia, COPD, tobacco abuse, paroxysmal atrial flutter s/p cardioversion and ablation, anticoagulated on Xarelto, PAD s/p LLE angioplasty on 06/10/2022, GERD, IBS, depression, and other problems listed below who presents to the ED for evaluation of lightheadedness and dizziness. Patient went to [facility] today to have labs done for upcoming procedure on Tuesday and upon walking into the building, patient reports he felt very lightheaded and dizzy. Patient was found to be significantly hypotensive and was sent to the ED for further evaluation. Patient recently underwent LLE angioplasty on 06/10/2022 and is scheduled for right leg revascularization on 07/09. Patient also has chronic GI issues with IBS with constipation. Recently was evaluated by GI for bloating and early satiety. Patient is scheduled for gastric emptying study. Patient reports having chills and rigors while in the ED, has remained afebrile. Denies chest pain and shortness of breath. No cough or sputum production. No nausea, vomiting, diarrhea. Denies urinary symptoms. In the ED, patient was hypotensive at 77/49, this improved with IVF. Labs show WBC 18 K. UA suggestive of UTI. CT ABD/pelvis unremarkable for acute findings. Patient was given IV Zosyn. Allergies Allergy/AdvReac Type Severity Reaction Status Date / Time cilostazol AdvReac Severe Nausea Verified 07/07/22 16:22 levofloxacin AdvReac Intermediate JOINT Verified 10/28/21 11:00 STIFFNESS Home Medications Medication Instructions Recorded Confirmed Type Lactobacillus rhamnosus GG 10 1 cap PO DAILY 07/07/22 07/07/22 History billion cell capsule (Culturelle) acetaminophen 500 mg tablet 500 mg PO Q6H PRN Pain 07/07/22 07/07/22 History (Tylenol Extra Strength) albuterol sulfate 90 mcg/actuation 2 puff inhalation Q6H PRN 07/07/22 07/07/22 History aerosol inhaler Shortness Of Breath ascorbic acid (vitamin C) 500 mg 1,000 mg PO QAM 07/07/22 07/07/22 History tablet (Vitamin C) aspirin 81 mg tablet,delayed 81 mg PO DAILY 07/07/22 07/07/22 History release atorvastatin 80 mg tablet 80 mg PO HS 07/07/22 07/07/22 History bupropion HCl 150 mg 24 hr tablet, 150 mg PO QAM 07/07/22 07/07/22 History extended release cholecalciferol (vitamin D3) 25 25 mcg PO DAILY 07/07/22 07/07/22 History mcg (1,000 unit) tablet (Vitamin D3) escitalopram oxalate 20 mg tablet 20 mg PO DAILY 07/07/22 07/07/22 History ezetimibe 10 mg tablet 10 mg PO DAILY 07/07/22 07/07/22 History fluticasone fur. 100 mcg-umeclid 1 ea inhalation QAM 07/07/22 07/07/22 History 62.5 mcg-vilant 25 mcg inhalat.powder (Trelegy Ellipta) ketoconazole 2 % shampoo 1 applic topical .Q3DAYS 07/07/22 07/07/22 History linaclotide 72 mcg capsule 72 mcg PO QAM 07/07/22 07/07/22 History (Linzess) lisinopril 5 mg tablet 5 mg PO DAILY 07/07/22 07/07/22 History meclizine 12.5 mg tablet 12.5 mg PO TID PRN dizzyness 07/07/22 07/07/22 History metformin 500 mg tablet 1,000 mg PO BIDM 07/07/22 07/07/22 History ondansetron HCl 4 mg tablet 4 mg PO Q8H PRN Nausea 07/07/22 07/07/22 History pantoprazole 40 mg tablet,delayed 40 mg PO BID 07/07/22 07/07/22 History release rivaroxaban 20 mg tablet (Xarelto) 20 mg PO QPM 07/07/22 07/07/22 History tamsulosin 0.4 mg capsule 0.4 mg PO DAILY 07/07/22 07/07/22 History vitamins A,C,G-rfgf-ogqauh 2,148 1 tab PO BID 07/07/22 07/07/22 History mcg-113 mg-45 mg-17.4 mg tablet (PreserVision AREDS) Past Med/Surg History Medical History (Updated 07/07/22 @ 17:46 by TREASURE Anderson) Anemia Bullous emphysema DM type 2 (diabetes mellitus, type 2) Dyslipidemia GERD (gastroesophageal reflux disease) History of cardioversion Hypertension Irritable bowel syndrome with constipation Multiple lung nodules on CT Nocturnal hypoxia OM (osteomyelitis) PAD (peripheral artery disease) Paroxysmal atrial flutter Peripheral neuropathy Pulmonary emphysema Tobacco use disorder Surgical History (Updated 07/07/22 @ 17:46 by TREASURE Anderson) History of ankle surgery History of cardiac radiofrequency ablation Family History Mother Diabetes Father Heart disease Social History Smoking Status: Current every day smoker Tobacco Type: Cigars Age Started Using Tobacco: 12; Cigarettes Per Day: 10; Hx Alcohol Use: No Hx Substance Use: No Preferred Language: Romanian Communication Ability: Effective 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 Wolfe's addendum for physical exam Results & Data Results & Data Vital Signs (Past 12 Hours) Vital Signs Temp Pulse Pulse Resp BP BP Pulse Ox 07/07/22 17:00 74 17 112/67 96 07/07/22 16:30 76 20 131/88 98 07/07/22 16:11 75 21 116/71 07/07/22 16:29 80 07/07/22 15:30 72 17 81/53 L 96 07/07/22 15:00 75 12 90/56 L 97 07/07/22 14:30 75 23 93 07/07/22 14:30 100/57 L 07/07/22 14:28 106/59 L 07/07/22 14:10 84 17 07/07/22 14:00 77 10 L 07/07/22 14:00 108/66 07/07/22 13:30 74 17 07/07/22 13:30 108/65 07/07/22 14:29 75 16 100/57 L 94 07/07/22 13:00 73 15 07/07/22 13:00 104/72 07/07/22 12:30 73 07/07/22 12:30 93/61 L 07/07/22 12:20 79 07/07/22 12:21 79 07/07/22 12:03 07/07/22 11:57 07/07/22 11:39 36.8 C 68 18 77/49 L 99 O2 Del Method 07/07/22 17:00 07/07/22 16:30 07/07/22 16:11 07/07/22 16:29 07/07/22 15:30 07/07/22 15:00 07/07/22 14:30 07/07/22 14:30 07/07/22 14:28 07/07/22 14:10 07/07/22 14:00 07/07/22 14:00 07/07/22 13:30 07/07/22 13:30 07/07/22 14:29 Room Air 07/07/22 13:00 07/07/22 13:00 07/07/22 12:30 07/07/22 12:30 07/07/22 12:20 07/07/22 12:21 07/07/22 12:03 Room Air 07/07/22 11:57 Room Air 07/07/22 11:39 Room Air Laboratory Results Short CBC 07/07/22 Range/Units 11:50 WBC 18.04 H (4.8-10.8) K/ul Hgb 10.1 L (14.0-18.0) g/dl Hct 32.0 L (42.0-52.0) % Plt Count 296 (130-400) K/uL BMP 07/07/22 11:50 Sodium 133 L Potassium 3.7 Chloride 100 Carbon Dioxide 21 BUN 12 Creatinine 1.01 Glucose 170 H Calcium 8.4 L Liver Function 07/07/22 Range/Units 11:50 Total Bilirubin 0.7 (0.2-1.0) mg/dl AST 10 L (13-39) U/L ALT 9 (7-52) U/L Alkaline Phosphatase 101 (34-104) U/L Albumin 3.7 (3.4-5.0) gm/dl Urine 07/07/22 Range/Units 13:00 Urine Color Yellow Urine Appearance Clear (Clear) Urine pH 6.0 (4.5-7.5) Ur Specific [place] > 1.045 H (1.000-1.030) Urine Protein 1+ H (Negative) Urine Glucose (UA) Negative (Negative) Diagnostic Findings Abdomen/Pelvis CT 07/07/22 12:[address] WITH IV CONTRAST CT DOSE: 889.29 mGycm HISTORY: mild diffuse ab pain, nausea TECHNIQUE: Multiaxial CT images of the abdomen and pelvis were performed following the use of intravenous contrast. A dose lowering technique was utilized adhering to the principles of ALARA. COMPARISON STUDY: Outside hospital abdomen and pelvis CT 10/23/2021. Abdomen and pelvis CT 07/18/2021. FINDINGS: Emphysema and mild dependent changes seen at the lung bases. No pneumoperitoneum. No pneumatosis. No acute fractures identified. There is a small fat-containing hiatus hernia, unchanged. The liver, gallbladder, pancreas, adrenal glands, and spleen are unremarkable. The main portal vein is patent. No retroperitoneal lymphadenopathy. There is an ectatic abdominal aorta measuring up to 2.8 cm in diameter. Mild bilateral perinephric edema, unchanged. No hydronephrosis. No pelvic free fluid. The bladder is underdistended. No bowel wall thickening or obstruction. Normal appendix. IMPRESSION: 1. No bowel wall thickening or obstruction. 2. Normal appendix. 3. Mild bilateral perinephric edema, unchanged. 4. Emphysema. ACT 112: Negative or not required by law. Electronically signed by: Guy Renee M.D. 07/07/2022 3:29 PM Code Status & VTE Plan VTE Prophylaxis Plan VTE Prophylaxis will be ordered: No Reason for no VTE drug order: Contraindicated Supervising Physician Co-Signing Physician Notes Attending addendum: The patient was seen and examined in emergency room in presence of the He has significant past medical history including A-fib on Xarelto, hypertension, hyperlipidemia, PAD, COPD and type 2 diabetes He has been complaining of increasing abdominal distention and weakness for the last few days He was very dizzy and almost about to fall today and was brought into the emerg ency room for further evaluation Denies any problem with urine and usually constipated, no nausea no vomiting, no fever and no chills On examination Lying in bed and looking ill Afebrile and hemodynamically stable Chest-clear to auscultate bilaterally Heart-S1, S2 regular Abdomen-distended, soft, mildly tender lower quadrants, no guarding or rigidity bowel sound present Extremities-no edema 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
--- NOTE | 2022-07-07 19:13 | XRay Report ---
XR chest 1V portable CLINICAL HISTORY: sepsis TECHNIQUE: Single frontal radiograph of the chest was obtained. Comparison: Comparison is made to chest radiograph 08/26/2021 FINDINGS: No lines and tubes are seen. The cardiomediastinal silhouette is normal. Airspace opacity is in the r ight lower lung. No evidence of pleural effusion or pneumothorax. IMPRESSION: Airspace opacity in the right lower lung which may represent atelectasis, pneumonia, and/or aspiratio n. ACT 112: Negative or not required by law. Electronically signed by: Juan Ayala M.D. 07/07/2022 7:12 PM
[2022-07-07] MEDS ORDERED: ACETAMINOPHEN 325 MG TAB PO PRN (19:30)
[2022-07-07] MEDS ORDERED: GLUCOSE 40% GEL 15 GM TUBE PO PRN (19:30)
[2022-07-07] MEDS ORDERED: GLUCOSE 10 TAB/TUBE PO PRN (19:30)
[2022-07-07] MEDS ORDERED: DEXTROSE 50% 50 ML SYRINGE IV PRN (19:30)
[2022-07-07] MEDS ORDERED: ONDANSETRON INJ 2 MG/ML 2 ML VIAL IV PRN (19:30)
[2022-07-07] MEDS ORDERED: GLUCAGON FOR INJ 1 MG VIAL SQ PRN (19:30)
[2022-07-07] MEDS ORDERED: CARBOHYDRATES FOR HYPOGLYCEMIA PO PRN (19:30)
[2022-07-07] MEDS: INSULIN ASPART PER UNIT CHARGE SC SCH (20:24)
[2022-07-07] MEDS: SODIUM CHLORIDE 0.9% 1000ML 1,000 ML IV SCH (20:24)
[2022-07-07] MEDS: PIPERACILLIN/TAZOBACTAM 4.5 GM in DEXTROSE 5% 100 ML IV SCH (20:41)
[2022-07-07] MEDS: ATORVASTATIN 40 MG TAB PO SCH (21:21)
[2022-07-07] MEDS: NICOTINE 7 MG/24 HR TDSY TD SCH (21:21)
[2022-07-07] MEDS: PANTOprazole 40 MG TAB PO SCH (21:21)
[2022-07-08] MEDS: PIPERACILLIN/TAZOBACTAM 4.5 GM in DEXTROSE 5% 100 ML IV SCH ×3 (03:20→21:06)
[2022-07-08] MEDS: SODIUM CHLORIDE 0.9% 1000ML 1,000 ML IV SCH ×2 (05:16→15:38)
[2022-07-08 06:30] LABS: Hematocrit (blood only) 24.2 % (42.0-52.0); Hemoglobin 7.9 g/dl (14.0-18.0); Mean Corpuscular Hemoglobin 23.6 pg (25.0-34.0); Mean Corpuscular Hgb Conc 32.6 g/dL (32.0-36.0); Mean Corpuscular Volume 72.2 fL (80.0-100.0); Mean Platelet Volume 8.9 fL (9.4-12.4); Platelet Count 236 K/uL (130-400); RDW Coefficient of Variation 19.1 % (11.5-14.5); Red Blood Count 3.35 M/uL (4.70-6.10); White Blood Count 12.88 K/ul (4.8-10.8)
[2022-07-08 06:55] LABS: Calcium 7.2 mg/dl (8.6-10.3); Potassium 3.3 mmol/L (3.5-5.1)
[2022-07-08 07:09] LABS: BUN Creatinine Ratio 17.4 (10-20); Creatinine Clr Calc Pharmacy 116.8 ml/min; Est GFR (African American) 110.7 ml/min; Est GFR (Non-African American) 95.5 ml/min
[2022-07-08] MEDS ORDERED: POTASSIUM CHLORIDE CRTAB 20 MEQ TABCR PO ONE (07:34)
[2022-07-08] MEDS: EZETIMIBE 10 MG TABLET PO SCH (08:08)
[2022-07-08] MEDS: ESCITALOPRAM OXALATE 20 MG TAB PO SCH (08:08)
[2022-07-08] MEDS: ASPIRIN 81 MG ECTAB PO SCH (08:08)
[2022-07-08] MEDS: buPROPion XL 150 MG TABCR PO SCH (08:08)
[2022-07-08] MEDS: FLUTICASONE FUROATE 100MCG 14 PUFFS/INHALER INH SCH (08:08)
[2022-07-08] MEDS: linaCLOtide 72 MCG CAPSULE PO SCH (08:09)
[2022-07-08] MEDS: PANTOprazole 40 MG TAB PO SCH ×2 (08:09→20:54)
[2022-07-08] MEDS: TAMSULOSIN HCL 0.4 MG CAP PO SCH (08:09)
[2022-07-08] MEDS: ADVANCED PROBIOTIC 1250 MG CAPSULE PO SCH (08:09)
[2022-07-08] MEDS: UMECLIDINIUM/VILANTEROL 62.5/25MCG 7 PUFFS/INHALER INH SCH (08:09)
[2022-07-08] MEDS: LANTUS PER UNIT CHARGE SQ SCH (08:38)
[2022-07-08] MEDS: INSULIN ASPART PER UNIT CHARGE SC SCH ×4 (08:39→21:05)
[2022-07-08] MEDS ORDERED: NON-FORMULARY MEDICATION (Fluticasone-Umeclidin-Vilanter [Trelegy Ellipta] 100-62.5-25 mcg INH SCH (09:00)
--- NOTE | 2022-07-08 10:07 | Electrocardiogram Report ---
Test Reason : Blood Pressure : / mmHG Vent. Rate : 087 BPM Atrial Rate : 087 BPM P-R Int : 180 ms QRS Dur : 104 ms QT Int : 382 ms P-R-T Axes : 000 -46 036 degrees QTc Int : 459 ms Sinus rhythm with occasional Premature ventricular complexes Incomplete right bundle branch block Left anterior fascicular block Nonspecific ST and T wave abnormality Abnormal ECG When compared with ECG of 25-NOV-2021 15:17, Premature ventricular complexes are now Present Incomplete right bundle branch block is now Present Confirmed by Alejandro Colon ([id number]) on 07/08/2022 10:07:09 AM Referred By: REFERRED SELF Confirmed By:Emery Colon
--- NOTE | 2022-07-08 11:14 | Gastrointestinal Consultation ---
Date of Consultation July 08, 2022 Assessment & Plan (1) Bloating: Plan 72 year or male with history of IBS, UTI, PAF, GERD, dyslipidemia, HTN, T2DM, COPD admitted w/ decreased PO intake, general GI symptoms. EGD in April unremarkable, recent CTAP without any acute GI pathology, redundant sigmoid colon suggested, KUB for stool burden on Linzess planned for OP colonoscopy and GES. He notes pain, bloating with PO intake. - EGD 04/26/22 negative - Colonoscopyscheduled 11/17/22 - Attempt to arrange IP gastric emptying scan - If unable, then arrange the previously ordered gastric emptying scan -ContinueLinzess 72 mcg once daily - Continue Pantoprazole 40 mg twice daily - Trial of daily probiotic - Trialof IB-Guard once daily - ED for emergencies - Please call with any questions or concerns Thank you for allowing us to participate in the care of this patient. Please call with any acute changes, questions or concerns. Please see addendum below with additional recommendation from my supervising physician. Supervising Physician Co-Signing Physician Notes Attending attestation I have seen, examined this patient, and agree with the findings and above by our mid-level provider TREASURE Paula, with the following additions: - patient with normal recent EGD - C/O early satiety and bloating - agree with gastric emptying study - Consider mesenteric dopplers History of Present Illness Reason for Consultation: dysphagia, abd pain Requesting Physician: Jian Attending Physician: Javid Villar MD History of Present Illness 72 year old male with history of IBS, UTI, PAF, GERD, dyslipidemia, PAD, HTN, T2DM, COPD and others below admitted w/ weakness, fatigue and decreased PO intake. GI was asked to evaluate for dysphagia and abdominal pain. Of note, seen last week as an OP and was planned for GES and colonoscopy. Notes pain, bloating and fullness with all PO intake. No nausea, vomiting. No GERD. He denies dysph agia to our service. Bowels moving great on Linzess. No black or bloody stools. H&H 7.9/24 PLT 236 LFTs normal Lipase 21 Medications he has tried: MOM, Miralax, Dulcolax, Metamucil, enemas CTAP 2022: No bowel wall thickening or obstruction. Normal appendix. Mild bilateral perinephric edema, unchanged. Emphysema. CTAP 2022: IMPRESSION: Soft tissue stranding with small amount of low-density in the region of the right groin along the right anterior aspect of the right groin vasculature. Nonspecific. Has there been any recent intervention in this region. Correlate clinically. No other acute process. No other evidence for suspicious mass within the abdomen/pelvis. ABD US 2022: Hepatic steatosis. No cholelithiasis or biliary ductal dilatation. No hydronephrosis. Nonmobile nonshadowing echogenic foci along the gallbladder wall measuring up to 2 mm are suspicious for gallbladder polyps. Per the [employer] [employer] 2013 Incidental Findings Committee, no further follow up is necessary for gallbladder polyps measuring less than or equal to 6 mm in size. KUB 2021:Large amount of stool distending the rectum. Otherwise, overall moderate colonic stool burden. CTAP 2021:1. Mild diffuse prominence of the wall of the urinary bladder, which may be related to underdistention. Correlate with urinalysis. Ectatic distal abdominal aorta. Follow-up imaging in 5 years is recommended. Elongation of the right hepatic lobe, which may be due to a normal variant [place]'s lobe type configuration. Correlate with LFTs. Mild osteoarthritis of the hip joints. EGD 2022: Normal esophagus. Normal stomach. Biopsied.Normal examined duodenum. Biopsied. Colonoscopy 2019:One 5 mm polyp in the transverse colon, removed with a cold snare. Resected and retrieved. One small polyp at 40 cm proximal to the anus, removed with a cold snare. Resected and retrieved.One 7 mm polyp at 30 cm proximal to the anus, removed with a hot snare. Resected and retrieved. One small polyp at 20 cm proximal to the anus, removed with a cold snare. Resected and retrieved. EGD 2019:Normal esophagus. Normal stomach. Biopsied. Normal examined duodenum. Allergies Allergy/AdvReac Type Severity Reaction Status Date / Time cilostazol AdvReac Severe Nausea Verified 07/07/22 16:22 levofloxacin AdvReac Intermediate JOINT Verified 10/28/21 11:00 STIFFNESS Home Medications Medication Instructions Recorded Confirmed Type Lactobacillus rhamnosus GG 10 1 cap PO DAILY 07/07/22 07/07/22 History billion cell capsule (Culturelle) acetaminophen 500 mg tablet 500 mg PO Q6H PRN Pain 07/07/22 07/07/22 History (Tylenol Extra Strength) albuterol sulfate 90 mcg/actuation 2 puff inhalation Q6H PRN 07/07/22 07/07/22 History aerosol inhaler Shortness Of Breath ascorbic acid (vitamin C) 500 mg 1,000 mg PO QAM 07/07/22 07/07/22 History tablet (Vitamin C) aspirin 81 mg tablet,delayed 81 mg PO DAILY 07/07/22 07/07/22 History release atorvastatin 80 mg tablet 80 mg PO HS 07/07/22 07/07/22 History bupropion HCl 150 mg 24 hr tablet, 150 mg PO QAM 07/07/22 07/07/22 History extended release cholecalciferol (vitamin D3) 25 25 mcg PO DAILY 07/07/22 07/07/22 History mcg (1,000 unit) tablet (Vitamin D3) escitalopram oxalate 20 mg tablet 20 mg PO DAILY 07/07/22 07/07/22 History ezetimibe 10 mg tablet 10 mg PO DAILY 07/07/22 07/07/22 History fluticasone fur. 100 mcg-umeclid 1 ea inhalation QAM 07/07/22 07/07/22 History 62.5 mcg-vilant 25 mcg inhalat.powder (Trelegy Ellipta) ketoconazole 2 % shampoo 1 applic topical .Q3DAYS 07/07/22 07/07/22 History linaclotide 72 mcg capsule 72 mcg PO QAM 07/07/22 07/07/22 History (Linzess) lisinopril 5 mg tablet 5 mg PO DAILY 07/07/22 07/07/22 History meclizine 12.5 mg tablet 12.5 mg PO TID PRN dizzyness 07/07/22 07/07/22 History metformin 500 mg tablet 1,000 mg PO BIDM 07/07/22 07/07/22 History ondansetron HCl 4 mg tablet 4 mg PO Q8H PRN Nausea 07/07/22 07/07/22 History pantoprazole 40 mg tablet,delayed 40 mg PO BID 07/07/22 07/07/22 History release rivaroxaban 20 mg tablet (Xarelto) 20 mg PO QPM 07/07/22 07/07/22 History tamsulosin 0.4 mg capsule 0.4 mg PO DAILY 07/07/22 07/07/22 History vitamins A,C,F-sgln-lctggp 2,148 1 tab PO BID 07/07/22 07/07/22 History mcg-113 mg-45 mg-17.4 mg tablet (PreserVision AREDS) Patient History Medical History (Updated 07/08/22 @ 12:15 by TREASURE Flores) Anemia Bloating Bullous emphysema DM type 2 (diabetes mellitus, type 2) Dyslipidemia GERD (gastroesophageal reflux disease) History of cardioversion Hypertension Irritable bowel syndrome with constipation Multiple lung nodules on CT Nocturnal hypoxia OM (osteomyelitis) PAD (peripheral artery disease) Paroxysmal atrial flutter Peripheral neuropathy Pulmonary emphysema Tobacco use disorder Surgical History (Updated 07/07/22 @ 17:46 by TREASURE Anderson) History of ankle surgery History of cardiac radiofrequency ablation Family History Mother Diabetes Father Heart disease Social History Smoking Status: Current every day smoker Tobacco Type: Cigars Age Started Using Tobacco: 12; Cigarettes Per Day: 5; Do You Dip or Chew Tobacco: No; Hx Alcohol Use: No Hx Substance Use: No Preferred Language: Somali Communication Ability: Effective 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 Helicopter Repairer Required: No Beliefs That Will Affect Care: None Current Living Situation: Spouse Other Information That Helps Us Care for You: No Feels Safe at Home: Yes Safety Concerns: Feels Safe At This Time Assistive Devices: None Review of Systems Review of Systems: All systems reviewed & are unremarkable except as noted in HPI & below Physical Exam Constitutional: WD/WN, vitals as above Respiratory: normal respiratory effort, lungs clear to auscultation Cardiovascular: Rate/Rhythm: regular rate Gastrointestinal (Abdomen): normal bowel sounds, soft, nontender, no hepatosplenomegaly Skin: no rashes, warm and dry Results & Data Vital Signs (Past 12 Hours) Vital Signs Temp Pulse Pulse Resp BP Pulse Ox O2 Del Method 07/08/22 07:42 69 07/08/22 07:32 36.4 C L 75 16 120/75 94 Room Air 07/08/22 05:17 37.6 C H 07/08/22 03:30 37.2 C 81 16 119/75 93 Room Air 07/08/22 02:59 38.3 C H 81 20 103/62 92 Room Air 07/07/22 23:24 85 Laboratory Results 07/08/22 07/08/22 07/08/22 Range/Units 07:10 06:05 06:05 WBC 12.88 H (4.8-10.8) K/ul RBC 3.35 L (4.70-6.10) M/uL Hgb 7.9 L (14.0-18.0) g/dl Hct 24.2 L (42.0-52.0) % MCV 72.2 L (80.0-100.0) fL MCH 23.6 L (25.0-34.0) pg MCHC 32.6 (32.0-36.0) g/dL RDW Std Deviation 50.0 H (36.4-46.3) fL RDW Coeff of Cathi 19.1 H (11.5-14.5) % Plt Count 236 (130-400) K/uL MPV 8.9 L (9.4-12.4) fL Immature Gran % (Auto) % Neut % (Auto) % Lymph % (Auto) % [place] % (Auto) % Eos % (Auto) % Baso % (Auto) % Neut # (Auto) (1.40-6.50) K/uL Lymph # (Auto) (1.2-3.4) K/uL [place] # (Auto) (0.11-0.59) K/uL Eos # (Auto) (0-0.50) K/uL Baso # (Auto) (0-0.2) K/uL Immature Gran # (Auto) (0.01-0.20) K/uL PT (9.0-12.0) Seconds INR (0.9-1.1) Sodium 136 (136-145) mmol/L Potassium 3.3 L (3.5-5.1) mmol/L Chloride 105 (98-107) mmol/L Carbon Dioxide 23 (21-32) mmol/L Anion Gap 8 (3-11) BUN 12 (6-23) mg/dl Creatinine 0.69 D (0.6-1.4) mg/dl Est Cr Clr Drug Dosing 116.8 Est GFR ( Amer) 110.7 ml/min Est GFR (Non-Af Amer) 95.5 ml/min BUN/Creatinine Ratio 17.4 (10-20) Glucose 128 H (70-99(Fasting)) mg/dl POC Glucose 164 H (70-99) mg/dl Lactate (0.4-2.0) mmol/L Calcium 7.2 L (8.6-10.3) mg/dl Total Bilirubin (0.2-1.0) mg/dl AST (13-39) U/L ALT (7-52) U/L Alkaline Phosphatase (34-104) U/L Troponin I High Sens (0-20) pg/ml Total Protein (6.0-8.3) gm/dl Albumin (3.4-5.0) gm/dl Globulin (2.5-4.0) gm/dl Albumin/Globulin Ratio (0.9-2) Lipase (11-82) U/L Procalcitonin (0-0.5) ng/ml Urine Color Urine Appearance (Clear) Urine pH (4.5-7.5) Ur Specific [place] (1.000-1.030) Urine Protein (Negative) Urine Glucose (UA) (Negative) Urine Ketones (Negative) Urine Blood (Negative) Urine Nitrite (Negative) Urine Bilirubin (Negative) Urine Urobilinogen (Negative) Ur Leukocyte Esterase (Negative) Urine WBC (Auto) (0-5) /hpf Urine RBC (Auto) (0-4) /hpf U Hyaline Cast (Auto) (0-5) /lpf U Epithel Cells (Auto) (0-5) /lpf Urine Bacteria (Auto) (Negative) Nasal Screen MRSA (PCR) (Negative) SARS-CoV-2, RNA, NAAT (NEGATIVE) 07/07/22 07/07/22 07/07/22 Range/Units 20:24 16:03 16:03 WBC (4.8-10.8) K/ul RBC (4.70-6.10) M/uL Hgb (14.0-18.0) g/dl Hct (42.0-52.0) % MCV (80.0-100.0) fL MCH (25.0-34.0) pg MCHC (32.0-36.0) g/dL RDW Std Deviation (36.4-46.3) fL RDW Coeff of Cathi (11.5-14.5) % Plt Count (130-400) K/uL MPV (9.4-12.4) fL Immature Gran % (Auto) % Neut % (Auto) % Lymph % (Auto) % [place] % (Auto) % Eos % (Auto) % Baso % (Auto) % Neut # (Auto) (1.40-6.50) K/uL Lymph # (Auto) (1.2-3.4) K/uL [place] # (Auto) (0.11-0.59) K/uL Eos # (Auto) (0-0.50) K/uL Baso # (Auto) (0-0.2) K/uL Immature Gran # (Auto) (0.01-0.20) K/uL PT (9.0-12.0) Seconds INR (0.9-1.1) Sodium (136-145) mmol/L Potassium (3.5-5.1) mmol/L Chloride (98-107) mmol/L Carbon Dioxide (21-32) mmol/L Anion Gap (3-11) BUN (6-23) mg/dl Creatinine (0.6-1.4) mg/dl Est Cr Clr Drug Dosing Est GFR ( Amer) ml/min Est GFR (Non-Af Amer) ml/min BUN/Creatinine Ratio (10-20) Glucose (70-99(Fasting)) mg/dl POC Glucose 115 H (70-99) mg/dl Lactate 2.0 (0.4-2.0) mmol/L Calcium (8.6-10.3) mg/dl Total Bilirubin (0.2-1.0) mg/dl AST (13-39) U/L ALT (7-52) U/L Alkaline Phosphatase (34-104) U/L Troponin I High Sens (0-20) pg/ml Total Protein (6.0-8.3) gm/dl Albumin (3.4-5.0) gm/dl Globulin (2.5-4.0) gm/dl Albumin/Globulin Ratio (0.9-2) Lipase (11-82) U/L Procalcitonin 0.06 (0-0.5) ng/ml Urine Color Urine Appearance (Clear) Urine pH (4.5-7.5) Ur Specific [place] (1.000-1.030) Urine Protein (Negative) Urine Glucose (UA) (Negative) Urine Ketones (Negative) Urine Blood (Negative) Urine Nitrite (Negative) Urine Bilirubin (Negative) Urine Urobilinogen (Negative) Ur Leukocyte Esterase (Negative) Urine WBC (Auto) (0-5) /hpf Urine RBC (Auto) (0-4) /hpf U Hyaline Cast (Auto) (0-5) /lpf U Epithel Cells (Auto) (0-5) /lpf Urine Bacteria (Auto) (Negative) Nasal Screen MRSA (PCR) (Negative) SARS-CoV-2, RNA, NAAT (NEGATIVE) 07/07/22 07/07/22 07/07/22 Range/Units 16:01 13:00 13:00 WBC (4.8-10.8) K/ul RBC (4.70-6.10) M/uL Hgb (14.0-18.0) g/dl Hct (42.0-52.0) % MCV (80.0-100.0) fL MCH (25.0-34.0) pg MCHC (32.0-36.0) g/dL RDW Std Deviation (36.4-46.3) fL RDW Coeff of Cathi (11.5-14.5) % Plt Count (130-400) K/uL MPV (9.4-12.4) fL Immature Gran % (Auto) % Neut % (Auto) % Lymph % (Auto) % [place] % (Auto) % Eos % (Auto) % Baso % (Auto) % Neut # (Auto) (1.40-6.50) K/uL Lymph # (Auto) (1.2-3.4) K/uL [place] # (Auto) (0.11-0.59) K/uL Eos # (Auto) (0-0.50) K/uL Baso # (Auto) (0-0.2) K/uL Immature Gran # (Auto) (0.01-0.20) K/uL PT (9.0-12.0) Seconds INR (0.9-1.1) Sodium (136-145) mmol/L Potassium (3.5-5.1) mmol/L Chloride (98-107) mmol/L Carbon Dioxide (21-32) mmol/L Anion Gap (3-11) BUN (6-23) mg/dl Creatinine (0.6-1.4) mg/dl Est Cr Clr Drug Dosing Est GFR ( Amer) ml/min Est GFR (Non-Af Amer) ml/min BUN/Creatinine Ratio (10-20) Glucose (70-99(Fasting)) mg/dl POC Glucose (70-99) mg/dl Lactate (0.4-2.0) mmol/L Calcium (8.6-10.3) mg/dl Total Bilirubin (0.2-1.0) mg/dl AST (13-39) U/L ALT (7-52) U/L Alkaline Phosphatase (34-104) U/L Troponin I High Sens (0-20) pg/ml Total Protein (6.0-8.3) gm/dl Albumin (3.4-5.0) gm/dl Globulin (2.5-4.0) gm/dl Albumin/Globulin Ratio (0.9-2) Lipase (11-82) U/L Procalcitonin (0-0.5) ng/ml Urine Color Yellow Urine Appearance Clear (Clear) Urine pH 6.0 (4.5-7.5) Ur Specific [place] > 1.045 H (1.000-1.030) Urine Protein 1+ H (Negative) Urine Glucose (UA) Negative (Negative) Urine Ketones Negative (Negative) Urine Blood 1+ H (Negative) Urine Nitrite Positive A (Negative) Urine Bilirubin Negative (Negative) Urine Urobilinogen Negative (Negative) Ur Leukocyte Esterase 1+ H (Negative) Urine WBC (Auto) >30 H (0-5) /hpf Urine RBC (Auto) 5-10 H (0-4) /hpf U Hyaline Cast (Auto) 10-30 H (0-5) /lpf U Epithel Cells (Auto) >30 H (0-5) /lpf Urine Bacteria (Auto) 4+ H (Negative) Nasal Screen MRSA (PCR) Negative (Negative) SARS-CoV-2, RNA, NAAT NEGATIVE (NEGATIVE) 07/07/22 07/07/22 07/07/22 Range/Units 11:50 11:50 11:50 WBC 18.04 H (4.8-10.8) K/ul RBC 4.27 L (4.70-6.10) M/uL Hgb 10.1 L (14.0-18.0) g/dl Hct 32.0 L (42.0-52.0) % MCV 74.9 L (80.0-100.0) fL MCH 23.7 L (25.0-34.0) pg MCHC 31.6 L (32.0-36.0) g/dL RDW Std Deviation 52.0 H (36.4-46.3) fL RDW Coeff of Cathi 19.5 H (11.5-14.5) % Plt Count 296 (130-400) K/uL MPV 8.8 L (9.4-12.4) fL Immature Gran % (Auto) 1.1 % Neut % (Auto) 77.7 % Lymph % (Auto) 7.8 % [place] % (Auto) 13.0 % Eos % (Auto) 0.0 % Baso % (Auto) 0.4 % Neut # (Auto) 14.01 H (1.40-6.50) K/uL Lymph # (Auto) 1.40 (1.2-3.4) K/uL [place] # (Auto) 2.35 H (0.11-0.59) K/uL Eos # (Auto) 0.00 (0-0.50) K/uL Baso # (Auto) 0.08 (0-0.2) K/uL Immature Gran # (Auto) 0.20 (0.01-0.20) K/uL PT 12.8 H (9.0-12.0) Seconds INR 1.2 H (0.9-1.1) Sodium 133 L (136-145) mmol/L Potassium 3.7 (3.5-5.1) mmol/L Chloride 100 (98-107) mmol/L Carbon Dioxide 21 (21-32) mmol/L Anion Gap 12 H (3-11) BUN 12 (6-23) mg/dl Creatinine 1.01 (0.6-1.4) mg/dl Est Cr Clr Drug Dosing Not Reportable Est GFR ( Amer) 86.3 ml/min Est GFR (Non-Af Amer) 74.5 ml/min BUN/Creatinine Ratio 11.9 (10-20) Glucose 170 H (70-99(Fasting)) mg/dl POC Glucose (70-99) mg/dl Lactate (0.4-2.0) mmol/L Calcium 8.4 L (8.6-10.3) mg/dl Total Bilirubin 0.7 (0.2-1.0) mg/dl AST 10 L (13-39) U/L ALT 9 (7-52) U/L Alkaline Phosphatase 101 (34-104) U/L Troponin I High Sens 10.2 (0-20) pg/ml Total Protein 7.7 (6.0-8.3) gm/dl Albumin 3.7 (3.4-5.0) gm/dl Globulin 4.0 (2.5-4.0) gm/dl Albumin/Globulin Ratio 0.9 (0.9-2) Lipase 21 (11-82) U/L Procalcitonin (0-0.5) ng/ml Urine Color Urine Appearance (Clear) Urine pH (4.5-7.5) Ur Specific Collins (1.000-1.030) Urine Protein (Negative) Urine Glucose (UA) (Negative) Urine Ketones (Negative) Urine Blood (Negative) Urine Nitrite (Negative) Urine Bilirubin (Negative) Urine Urobilinogen (Negative) Ur Leukocyte Esterase (Negative) Urine WBC (Auto) (0-5) /hpf Urine RBC (Auto) (0-4) /hpf U Hyaline Cast (Auto) (0-5) /lpf U Epithel Cells (Auto) (0-5) /lpf Urine Bacteria (Auto) (Negative) Nasal Screen MRSA (PCR) (Negative) SARS-CoV-2, RNA, NAAT (NEGATIVE)
--- NOTE | 2022-07-08 14:43 | Hospitalist Progress Note ---
Date of Service July 08, 2022 Assessment & Plan (1) Sepsis: (2) UTI (urinary tract infection): Plan: Patient presenting for evaluation of lightheadedness and dizziness. Patient was walking into the outpatient clinic to have labs drawn when he became lightheaded and dizzy. He was found to be hypotensive and sent to the ED for further evaluation. Sepsis Urinary tract infection Blood cultures pending Urine culture growing gram-negative Dizziness resolved with IV fluids Continue Zosyn Monitor volume status Dysphagia Abdominal pain ? Gastroparesis --CT ABD:No bowel wall thickening or obstruction. Normal appendix. Mild bilateral perinephric edema, unchanged. Emphysema. --EGD 04/26/22 negative -- Colonoscopy scheduled for 11/17/2022 --Continue Linzess, Protonix, probiotic Gastric emptying study, mesenteric Doppler requested Appreciate GI input Speech therapy consulted as well Continue liquid diet for now (3) PAD (peripheral artery disease): Plan: S/P angioplasty DANIELLA and shockwave angioplasty LCFA and DFA on 06/10/22 Scheduled for right leg revascularization on 07/09 -- this will need to be rescheduled (notified patient's PCP office to assist) Continue ASA, statin, Xarelto (4) Paroxysmal atrial flutter: (5) History of cardioversion: (6) History of cardiac radiofrequency ablation: Plan: Anticoagulated on Xarelto Does not take any rhythm or rate controlling medications (7) Hypertension: Plan: Continue to hold lisinopril Monitor BP (8) DM type 2 (diabetes mellitus, type 2): Plan: Hgb A1c 7.3 03/2022 Hold metformin and utilize NovoLog per protocol while hospitalized (9) Irritable bowel syndrome with constipation: Plan: Continue Linzess (10) DVT prophylaxis: Plan: On Xarelto CODE STATUS Full code Admission and Anticipated Discharge Date Admission Date: July 07, 2022 Subjective Olive is seen and examined at bedside Dizziness resolved Reports chronic dysphagia especially to solids, intermittent abdominal pain Denies nausea, vomiting Also denies any chest pain, dyspnea Review of Systems Review of Systems: All systems reviewed & are unremarkable except as noted in Subjective Physical Exam Physical Exam: Physical Exam: Vitals signs as noted above General Appearance:Moderately built and nourished, no apparent distress Head: normocephalic, Atraumatic Eyes: normal inspection, EOMI Neck: supple, Trachea midline Respiratory/Chest: Decreased breath sounds, CTA, No accessory muscle use Cardiovascular: S1, S2, No murmur Abdomen/GI:Soft, mild B/L tender, Bowel sounds present Extremities/Musculoskeletal:normal inspection, no edema Neurologic/Psych:AAOX3, grossly no focal neurological deficits Skin: normal color, warm Results & Data Results & Data Vital Signs (Past 12 Hours) Vital Signs Temp Pulse Pulse Resp BP Pulse Ox O2 Del Method 07/08/22 11:20 36.8 C 89 16 124/71 89 L Room Air 07/08/22 07:42 69 07/08/22 07:32 36.4 C L 75 16 120/75 94 Room Air 07/08/22 05:17 37.6 C H 07/08/22 03:30 37.2 C 81 16 119/75 93 Room Air 07/08/22 02:59 38.3 C H 81 20 103/62 92 Room Air Laboratory Results Short CBC 07/08/22 Range/Units 06:05 WBC 12.88 H (4.8-10.8) K/ul Hgb 7.9 L (14.0-18.0) g/dl Hct 24.2 L (42.0-52.0) % Plt Count 236 (130-400) K/uL BMP 07/08/22 06:05 Sodium 136 Potassium 3.3 L Chloride 105 Carbon Dioxide 23 BUN 12 Creatinine 0.69 D Glucose 128 H Calcium 7.2 L Urine 07/07/22 Range/Units 13:00 Urine Color Yellow Urine Appearance Clear (Clear) Urine pH 6.0 (4.5-7.5) Ur Specific [place] > 1.045 H (1.000-1.030) Urine Protein 1+ H (Negative) Urine Glucose (UA) Negative (Negative)
[2022-07-08] MEDS: RIVAROXABAN 20 MG TAB PO SCH (17:45)
--- NOTE | 2022-07-08 19:08 | Ultrasound Report ---
US duplex mesenteric HISTORY: 72 years-old Male Abdominal Pain acute generalized abdominal pain COMPARISON: CT abdomen and pelvis 07/07/2022 TECHNIQUE: Multiple real-time sonography images of the mesenteric vessels were attempted imaged asses sing grayscale appearance, color and spectral flow FINDINGS: Study is nondiagnostic secondary to obscuring bowel gas. Study is also limited secondary to patient b irene habitus. The mid abdominal aorta is visualized with normal plug flow, peak systolic velocities me asuring up to 64 cm/s. Nonvisualization of the celiac trunk and superior mesenteric artery. IMPRESSION: The celiac and mesenteric arteries are obscured by bowel gas. ACT 112: Negative or not required by law. The above report was generated using voice recognition software. It may contain grammatical, syntax o r spelling errors. Electronically signed by: Jose Carlos Clifford M.D. 07/08/2022 7:06 PM
[2022-07-08] MEDS: NICOTINE 7 MG/24 HR TDSY TD SCH (20:54)
[2022-07-08] MEDS: ATORVASTATIN 40 MG TAB PO SCH (20:54)
[2022-07-09] MEDS: SODIUM CHLORIDE 0.9% 1000ML 1,000 ML IV SCH ×2 (03:58→14:46)
[2022-07-09] MEDS: PIPERACILLIN/TAZOBACTAM 4.5 GM in DEXTROSE 5% 100 ML IV SCH ×2 (04:02→12:11)
[2022-07-09 07:03] LABS: Basophils # (auto) 0.05 K/uL (0-0.2); Basophils % (auto) 0.4 %; Eosinophils # (auto) 0.02 K/uL (0-0.50); Eosinophils % (auto) 0.2 %; Hematocrit (blood only) 25.5 % (42.0-52.0); Hemoglobin 8.1 g/dl (14.0-18.0); Immature Granulocytes # (auto) 0.06 K/uL (0.01-0.20); Immature Granulocytes % (auto) 0.5 %; Lymphocytes # (auto) 1.59 K/uL (1.2-3.4); Lymphocytes % (auto) 13.7 %; Mean Corpuscular Hemoglobin 23.4 pg (25.0-34.0); Mean Corpuscular Hgb Conc 31.8 g/dL (32.0-36.0); Mean Corpuscular Volume 73.7 fL (80.0-100.0); Mean Platelet Volume 8.8 fL (9.4-12.4); Monocytes # (auto) 1.96 K/uL (0.11-0.59); Monocytes % (auto) 16.9 %; Neutrophils # (auto) 7.95 K/uL (1.40-6.50); Neutrophils % (auto) 68.3 %; Platelet Count 245 K/uL (130-400); RDW Coefficient of Variation 19.1 % (11.5-14.5); Red Blood Count 3.46 M/uL (4.70-6.10); White Blood Count 11.63 K/ul (4.8-10.8)
[2022-07-09 07:16] LABS: BUN Creatinine Ratio 13.7 (10-20); Calcium 7.5 mg/dl (8.6-10.3); Creatinine Clr Calc Pharmacy 159.6 ml/min; Est GFR (African American) 125.3 ml/min; Est GFR (Non-African American) 108.1 ml/min; Magnesium 1.1 mg/dl (1.7-2.4); Potassium 3.3 mmol/L (3.5-5.1)
[2022-07-09] MEDS: linaCLOtide 72 MCG CAPSULE PO SCH (08:28)
[2022-07-09] MEDS: TAMSULOSIN HCL 0.4 MG CAP PO SCH (08:28)
[2022-07-09] MEDS: PANTOprazole 40 MG TAB PO SCH ×2 (08:28→20:30)
[2022-07-09] MEDS: EZETIMIBE 10 MG TABLET PO SCH (08:28)
[2022-07-09] MEDS: buPROPion XL 150 MG TABCR PO SCH (08:28)
[2022-07-09] MEDS: ESCITALOPRAM OXALATE 20 MG TAB PO SCH (08:28)
[2022-07-09] MEDS: ADVANCED PROBIOTIC 1250 MG CAPSULE PO SCH (08:29)
[2022-07-09] MEDS: ASPIRIN 81 MG ECTAB PO SCH (08:29)
[2022-07-09] MEDS: FLUTICASONE FUROATE 100MCG 14 PUFFS/INHALER INH SCH (08:29)
[2022-07-09] MEDS: UMECLIDINIUM/VILANTEROL 62.5/25MCG 7 PUFFS/INHALER INH SCH (08:29)
[2022-07-09] MEDS: INSULIN ASPART PER UNIT CHARGE SC SCH ×4 (08:30→20:24)
[2022-07-09] MEDS ORDERED: POTASSIUM CHLORIDE 20 MEQ/15 ML UDC PO ONE (08:57)
--- NOTE | 2022-07-09 09:06 | Gastroenterology Progress Note ---
Date of Service July 09, 2022 Assessment & Plan (1) Bloating: Plan: 72 year or male with history of IBS, UTI, PAF, GERD, dyslipidemia, HTN, T2DM, COPD admitted w/ decreased PO intake, general GI symptoms. EGD in April unremarkable, recent CTAP without any acute GI pathology, redundant sigmoid colon suggested, KUB for stool burden on Linzess planned for OP colonoscopy and GES. He notes pain, bloating with PO intake. - Duplex non diagnostic, can consider repeat - EGD 04/26/22 negative - Colonoscopyscheduled 11/17/22 - Attempt to arrange IP gastric emptying scan - I was told this would be Tuesday - If unable, then arrange the previously ordered gastric emptying scan -ContinueLinzess 72 mcg once daily - Now reporting diarrhea, can hold x 1 day - Check stool studies if persists - Continue Pantoprazole 40 mg twice daily - Trial of daily probiotic - Trialof IB-Guard once daily Admission and Anticipated Discharge Date Admission Date: July 07, 2022 Supervising Physician Co-Signing Physician Notes I saw and evaluated the patient. As the patient has had limited improvement since admission I think it would be prudent to proceed with colonoscopy during the admission. We will make arrangements for a bowel preparation on Tuesday evening. Over the weekend would recommend a full liquid diet, n.p.o. at midnight on Tuesday please call with any questions or concerns over the weekend, otherwise GI coverage to resume on Tuesday. Subjective Pt was seen. Notes persistent symptoms, also some loose stools overnight. No black or bloody BMs ABD US 2022: The celiac and mesenteric arteries are obscured by bowel gas. CTAP 2022:No bowel wall thickening or obstruction. Normal appendix. Mild bilateral perinephric edema, unchanged. Emphysema. CTAP 2022:IMPRESSION: Soft tissue stranding with small amount of low-density in the region of the right groin along the right anterior aspect of the right groin vasculature. Nonspecific. Has there been any recent intervention in this region. Correlate clinically. No other acute process. No other evidence for suspicious mass within the abdomen/pelvis. ABD US 2022: Hepatic steatosis. No cholelithiasis or biliary ductal dilatation. No hydronephrosis. Nonmobile nonshadowing echogenic foci along the gallbladder wall measuring up to 2 mm are suspicious for gallbladder polyps. Per the [employer] 2013 Incidental Findings Committee, no further follow up is necessary for gallbladder polyps measuring less than or equal to 6 mm in size. KUB 2021:Large amount of stool distending the rectum. Otherwise, overall moderate colonic stool burden. CTAP 2021:1. Mild diffuse prominence of the wall of the urinary bladder, which may be related to underdistention. Correlate with urinalysis. Ectatic distal abdominal aorta. Follow-up imaging in 5 years is recommended. Elongation of the right hepatic lobe, which may be due to a normal variant [place]'s lobe type configuration. Correlate with LFTs. Mild osteoarthritis of the hip joints. EGD 2022:Normal esophagus. Normal stomach. Biopsied.Normal examined duodenum. Biopsied. Colonoscopy 2019:One 5 mm polyp in the transverse colon, removed with a cold snare. Resected and retrieved. One small polyp at 40 cm proximal to the anus, removed with a cold snare. Resected and retrieved.One 7 mm polyp at 30 cm proximal to the anus, removed with a hot snare. Resected and retrieved. One small polyp at 20 cm proximal to the anus, removedwith a cold snare. Resected and retrieved. EGD 2019:Normal esophagus. Normal stomach. Biopsied. Normal examined duodenum. Review of Systems Review of Systems: All systems reviewed & are unremarkable except as noted in HPI & below Physical Exam Constitutional: WD/WN, vitals as above Respiratory: normal respiratory effort Cardiovascular: Rate/Rhythm: regular rate Gastrointestinal (Abdomen): normal bowel sounds, soft, nontender, no hep atosplenomegaly Skin: no rashes, warm and dry Results & Data Vital Signs (Past 12 Hours) Vital Signs Temp Pulse Pulse Resp BP BP Pulse Ox 07/09/22 08:00 36.6 C 81 18 117/70 92 07/09/22 07:00 81 07/09/22 04:40 37.0 C 83 18 91/50 L 92 07/08/22 22:51 83 07/08/22 22:20 37.4 C 85 17 104/63 92 O2 Del Method 07/09/22 08:00 Room Air 07/09/22 07:00 07/09/22 04:40 Room Air 07/08/22 22:51 07/08/22 22:20 Room Air Laboratory Results 04/21/23 04/21/23 04/21/23 Range/Units 07:44 06:13 06:13 WBC 11.63 H (4.8-10.8) K/ul RBC 3.46 L (4.70-6.10) M/uL Hgb 8.1 L (14.0-18.0) g/dl Hct 25.5 L (42.0-52.0) % MCV 73.7 L (80.0-100.0) fL MCH 23.4 L (25.0-34.0) pg MCHC 31.8 L (32.0-36.0) g/dL RDW Std Deviation 51.0 H (36.4-46.3) fL RDW Coeff of Cathi 19.1 H (11.5-14.5) % Plt Count 245 (130-400) K/uL MPV 8.8 L (9.4-12.4) fL Immature Gran % (Auto) 0.5 % Neut % (Auto) 68.3 % Lymph % (Auto) 13.7 % [place] % (Auto) 16.9 % Eos % (Auto) 0.2 % Baso % (Auto) 0.4 % Neut # (Auto) 7.95 H (1.40-6.50) K/uL Lymph # (Auto) 1.59 (1.2-3.4) K/uL [place] # (Auto) 1.96 H (0.11-0.59) K/uL Eos # (Auto) 0.02 (0-0.50) K/uL Baso # (Auto) 0.05 (0-0.2) K/uL Immature Gran # (Auto) 0.06 (0.01-0.20) K/uL Sodium 135 L (136-145) mmol/L Potassium 3.3 L (3.5-5.1) mmol/L Chloride 105 (98-107) mmol/L Carbon Dioxide 23 (21-32) mmol/L Anion Gap 7 (3-11) BUN 7 (6-23) mg/dl Creatinine 0.51 L (0.6-1.4) mg/dl Est Cr Clr Drug Dosing 159.6 ml/min Est GFR ( Amer) 125.3 ml/min Est GFR (Non-Af Amer) 108.1 ml/min BUN/Creatinine Ratio 13.7 (10-20) Glucose 137 H (70-99(Fasting)) mg/dl POC Glucose 178 H (70-99) mg/dl Calcium 7.5 L (8.6-10.3) mg/dl Magnesium 1.1 L (1.7-2.4) mg/dl 07/08/22 07/08/22 07/08/22 Range/Units 20:38 16:39 11:13 WBC (4.8-10.8) K/ul RBC (4.70-6.10) M/uL Hgb (14.0-18.0) g/dl Hct (42.0-52.0) % MCV (80.0-100.0) fL MCH (25.0-34.0) pg MCHC (32.0-36.0) g/dL RDW Std Deviation (36.4-46.3) fL RDW Coeff of Cathi (11.5-14.5) % Plt Count (130-400) K/uL MPV (9.4-12.4) fL Immature Gran % (Auto) % Neut % (Auto) % Lymph % (Auto) % [place] % (Auto) % Eos % (Auto) % Baso % (Auto) % Neut # (Auto) (1.40-6.50) K/uL Lymph # (Auto) (1.2-3.4) K/uL [place] # (Auto) (0.11-0.59) K/uL Eos # (Auto) (0-0.50) K/uL Baso # (Auto) (0-0.2) K/uL Immature Gran # (Auto) (0.01-0.20) K/uL Sodium (136-145) mmol/L Potassium (3.5-5.1) mmol/L Chloride (98-107) mmol/L Carbon Dioxide (21-32) mmol/L Anion Gap (3-11) BUN (6-23) mg/dl Creatinine (0.6-1.4) mg/dl Est Cr Clr Drug Dosing ml/min Est GFR ( Amer) ml/min Est GFR (Non-Af Amer) ml/min BUN/Creatinine Ratio (10-20) Glucose (70-99(Fasting)) mg/dl POC Glucose 148 H 121 H 147 H (70-99) mg/dl Calcium (8.6-10.3) mg/dl Magnesium (1.7-2.4) mg/dl
[2022-07-09] MEDS: LANTUS PER UNIT CHARGE SQ SCH (09:18)
[2022-07-09] MEDS: MAGNESIUM SULFATE / D5W 1 GM/100 ML BAG IV SCH ×3 (09:24→12:25)
[2022-07-09] MEDS: LACTOBACILLUS ACIDOPHILUS 1 GM PACK PO SCH ×2 (12:12→17:09)
[2022-07-09] MEDS ORDERED: ALBUT/IPRATROP 3MG/0.5MG NEB 3 ML VIAL NEB PRN (15:34)
[2022-07-09] MEDS: RIVAROXABAN 20 MG TAB PO SCH (17:09)
--- NOTE | 2022-07-09 18:52 | Hospitalist Progress Note ---
Date of Service July 09, 2022 Assessment & Plan (1) Sepsis: (2) UTI (urinary tract infection): Plan: Patient presenting for evaluation of lightheadedness and dizziness. Patient was walking into the outpatient clinic to have labs drawn when he became lightheaded and dizzy. He was found to be hypotensive and sent to the ED for further evaluation. Sepsis Urinary tract infection Blood cultures no growth today Urine culture growing E. coli Dizziness resolved with IV fluids Continue Zosyn>> transition to Rocephin on 07/09/2022 Monitor volume status Dysphagia Abdominal pain ? Gastroparesis --CT ABD:No bowel wall thickening or obstruction. Normal appendix. Mild bilateral perinephric edema, unchanged. Emphysema. --EGD 04/26/22 negative -- Colonoscopy scheduled for 11/17/2022 --Mesenteric ultrasound:The celiac and mesenteric arteries are obscured by bowel gas. --Continue Linzess, Protonix, probiotic Gastric emptying study pending Appreciate GI input Speech therapy consulted as well Advance diet as tolerated today Plan for full liquid diet over the weekend N.p.o. after midnight on Tuesday for colonoscopy planned on Tuesday Diarrhea Likely secondary to antibiotics Stool for C. difficile negative Monitor (3) PAD (peripheral artery disease): Plan: S/P angioplasty DANIELLA and shockwave angioplasty LCFA and DFA on 06/10/22 Scheduled for right leg revascularization on 07/09 -- this will need to be rescheduled (notified patient's PCP office to assist) Continue ASA, statin, Xarelto (4) Paroxysmal atrial flutter: (5) History of cardioversion: (6) History of cardiac radiofrequency ablation: Plan: Anticoagulated on Xarelto Does not take any rhythm or rate controlling medications (7) Hypertension: Plan: Continue to hold lisinopril Monitor BP (8) DM type 2 (diabetes mellitus, type 2): Plan: Hgb A1c 7.3 03/2022 Hold metformin and utilize NovoLog per protocol while hospitalized (9) Irritable bowel syndrome with constipation: Plan: Continue Linzess (10) DVT prophylaxis: Plan: On Xarelto CODE STATUS Full code Admission and Anticipated Discharge Date Admission Date: July 07, 2022 Subjective Patient is seen and examined at bedside No recurrence of dizziness States having diarrhea Prefers to eat solid food Discussed with GI today Denies any significant abdominal pain No other complaints Review of Systems Review of Systems: All systems reviewed & are unremarkable except as noted in Subjective Physical Exam Physical Exam: Physical Exam: Vitals signs as noted above General Appearance:Moderately built and nourished, no apparent distress Head: normocephalic, Atraumatic Eyes: normal inspection, EOMI Neck: supple, Trachea midline Respiratory/Chest: Decreased breath sounds, CTA, No accessory muscle use Cardiovascular: S1, S2, No murmur Abdomen/GI:Soft, mild B/L tender, Bowel sounds present Extremities/Musculoskeletal:normal inspection, no edema Neurologic/Psych:AAOX3, grossly no focal neurological deficits Skin: normal color, warm Results & Data Results & Data Vital Signs (Past 12 Hours) Vital Signs Temp Pulse Pulse Resp BP BP Pulse Ox 07/09/22 16:11 81 07/09/22 15:16 36.9 C 89 18 130/81 93 07/09/22 11:45 36.7 C 81 18 124/78 93 07/09/22 08:10 07/09/22 08:00 36.6 C 81 18 117/70 92 07/09/22 07:00 81 O2 Del Method 07/09/22 16:11 07/09/22 15:16 Room Air 07/09/22 11:45 Room Air 07/09/22 08:10 Room Air 07/09/22 08:00 Room Air 07/09/22 07:00 Laboratory Results Short CBC 07/09/22 Range/Units 06:13 WBC 11.63 H (4.8-10.8) K/ul Hgb 8.1 L (14.0-18.0) g/dl Hct 25.5 L (42.0-52.0) % Plt Count 245 (130-400) K/uL BMP 07/09/22 06:13 Sodium 135 L Potassium 3.3 L Chloride 105 Carbon Dioxide 23 BUN 7 Creatinine 0.51 L Glucose 137 H Calcium 7.5 L (2) UTI (urinary tract infection) Urinary tract infection type: site unspecified
[2022-07-09] MEDS: NICOTINE 7 MG/24 HR TDSY TD SCH (20:26)
[2022-07-09] MEDS: cefTRIAXone SODIUM 2,000 MG in DEXTROSE 5% 50 ML IV SCH (20:27)
[2022-07-09] MEDS: ATORVASTATIN 40 MG TAB PO SCH (20:31)
[2022-07-10 07:11] LABS: Basophils # (auto) 0.06 K/uL (0-0.2); Basophils % (auto) 0.6 %; Eosinophils # (auto) 0.03 K/uL (0-0.50); Eosinophils % (auto) 0.3 %; Hematocrit (blood only) 25.5 % (42.0-52.0); Hemoglobin 8.1 g/dl (14.0-18.0); Immature Granulocytes # (auto) 0.05 K/uL (0.01-0.20); Immature Granulocytes % (auto) 0.5 %; Lymphocytes # (auto) 1.33 K/uL (1.2-3.4); Mean Corpuscular Hemoglobin 22.8 pg (25.0-34.0); Mean Corpuscular Hgb Conc 31.8 g/dL (32.0-36.0); Mean Corpuscular Volume 71.8 fL (80.0-100.0); Mean Platelet Volume 8.4 fL (9.4-12.4); Monocytes # (auto) 1.25 K/uL (0.11-0.59); Monocytes % (auto) 13.2 %; Neutrophils # (auto) 6.76 K/uL (1.40-6.50); Neutrophils % (auto) 71.4 %; Platelet Count 280 K/uL (130-400); RDW Coefficient of Variation 18.6 % (11.5-14.5); RDW Standard Deviation 48.6 fL (36.4-46.3); Red Blood Count 3.55 M/uL (4.70-6.10); White Blood Count 9.48 K/ul (4.8-10.8)
[2022-07-10 07:31] LABS: Calcium 7.7 mg/dl (8.6-10.3); Creatinine Clr Calc Pharmacy 162.8 ml/min; Est GFR (African American) 126.4 ml/min; Magnesium 1.4 mg/dl (1.7-2.4); Potassium 3.4 mmol/L (3.5-5.1)
[2022-07-10] MEDS ORDERED: POTASSIUM CHLORIDE 20 MEQ/15 ML UDC PO ONE (09:00)
[2022-07-10] MEDS ORDERED: MAGNESIUM OXIDE 400 MG TAB PO SCH (09:00)
[2022-07-10] MEDS: FLUTICASONE FUROATE 100MCG 14 PUFFS/INHALER INH SCH (09:04)
[2022-07-10] MEDS: UMECLIDINIUM/VILANTEROL 62.5/25MCG 7 PUFFS/INHALER INH SCH (09:04)
[2022-07-10] MEDS: EZETIMIBE 10 MG TABLET PO SCH (09:05)
[2022-07-10] MEDS: buPROPion XL 150 MG TABCR PO SCH (09:05)
[2022-07-10] MEDS: PANTOprazole 40 MG TAB PO SCH ×2 (09:05→21:52)
[2022-07-10] MEDS: ESCITALOPRAM OXALATE 20 MG TAB PO SCH (09:05)
[2022-07-10] MEDS: ASPIRIN 81 MG ECTAB PO SCH (09:06)
[2022-07-10] MEDS: LACTOBACILLUS ACIDOPHILUS 1 GM PACK PO SCH ×3 (09:06→17:11)
[2022-07-10] MEDS: linaCLOtide 72 MCG CAPSULE PO SCH (09:06)
[2022-07-10] MEDS: INSULIN ASPART PER UNIT CHARGE SC SCH ×4 (09:16→20:24)
[2022-07-10] MEDS: LANTUS PER UNIT CHARGE SQ SCH (09:17)
[2022-07-10] MEDS: MAGNESIUM SULFATE / D5W 1 GM/100 ML BAG IV SCH ×2 (09:21→11:06)
[2022-07-10] MEDS: MAGNESIUM CHLORIDE W/CALCIUM 64MG DELAYED REL TAB PO SCH ×2 (09:24→21:51)
[2022-07-10] MEDS: TAMSULOSIN HCL 0.4 MG CAP PO SCH (10:13)
[2022-07-10] MEDS: RIVAROXABAN 20 MG TAB PO SCH (17:20)
--- NOTE | 2022-07-10 17:38 | Hospitalist Progress Note ---
Date of Service July 10, 2022 Assessment & Plan (1) Sepsis: (2) UTI (urinary tract infection): Plan: Patient presenting for evaluation of lightheadedness and dizziness. Patient was walking into the outpatient clinic to have labs drawn when he became lightheaded and dizzy. He was found to be hypotensive and sent to the ED for further evaluation. Sepsis Urinary tract infection Blood cultures no growth today Urine culture growing E. coli Dizziness resolved with IV fluids Continue Zosyn>> transition to Rocephin on 07/09/2022 Monitor volume status Plan to continue 7-day course of antibiotics Dysphagia Abdominal pain ? Gastroparesis --CT ABD:No bowel wall thickening or obstruction. Normal appendix. Mild bilateral perinephric edema, unchanged. Emphysema. --EGD 04/26/22 negative -- Colonoscopy scheduled for 11/17/2022 --Mesenteric ultrasound:The celiac and mesenteric arteries are obscured by bowel gas. --Continue Linzess, Protonix, probiotic Gastric emptying study pending Appreciate GI input Speech therapy consulted as well Tolerating current diet Clear liquid diet tomorrow N.p.o. after midnight on Tuesday for colonoscopy planned on Tuesday Diarrhea Likely secondary to antibiotics Stool for C. difficile negative Monitor (3) PAD (peripheral artery disease): Plan: S/P angioplasty DANIELLA and shockwave angioplasty LCFA and DFA on 06/10/22 Scheduled for right leg revascularization on 07/09 -- this will need to be rescheduled (notified patient's PCP office to assist) Continue ASA, statin Xarelto held on 07/10/2022 for colonoscopy (4) Paroxysmal atrial flutter: (5) History of cardioversion: (6) History of cardiac radiofrequency ablation: Plan: Anticoagulated on Xarelto--held currently, resume as able Does not take any rhythm or rate controlling medications (7) Hypertension: Plan: Continue to hold lisinopril Monitor BP (8) DM type 2 (diabetes mellitus, type 2): Plan: Hgb A1c 7.3 03/2022 Hold metformin and utilize NovoLog per protocol while hospitalized (9) Irritable bowel syndrome with constipation: Plan: Continue Linzess (10) DVT prophylaxis: Plan: On Xarelto--Held Heparin SQ CODE STATUS Full code Admission and Anticipated Discharge Date Admission Date: July 07, 2022 Subjective Patient is seen and examined at bedside States feeling well today Less diarrhea Tolerating current diet Plan for colonoscopy tomorrow Denies any chest pain, dyspnea, dizziness, nausea, abdominal pain Review of Systems Review of Systems: All systems reviewed & are unremarkable except as noted in Subjective Physical Exam Physical Exam: Physical Exam: Vitals signs as noted above General Appearance:Moderately built and nourished, no apparent distress Head: normocephalic, Atraumatic Eyes: normal inspection, EOMI Neck: supple, Trachea midline Respiratory/Chest: Decreased breath sounds, CTA, No accessory muscle use Cardiovascular: S1, S2, No murmur Abdomen/GI:Soft, mild B/L tender, Bowel sounds present Extremities/Musculoskeletal:normal inspection, no edema Neurologic/Psych:AAOX3, grossly no focal neurological deficits Skin: normal color, warm Results & Data Results & Data Vital Signs (Past 12 Hours) Vital Signs Temp Pulse Pulse Resp BP BP Pulse Ox 07/10/22 15:14 82 07/10/22 15:12 37.0 C 67 18 135/81 96 07/10/22 07:00 76 07/10/22 11:13 36.5 C 82 18 127/76 94 07/10/22 10:35 07/10/22 07:44 36.8 C 86 18 146/80 H 93 O2 Del Method 07/10/22 15:14 07/10/22 15:12 Room Air 07/10/22 07:00 07/10/22 11:13 Room Air 07/10/22 10:35 Room Air 07/10/22 07:44 Room Air Laboratory Results Short CBC 07/10/22 Range/Units 06:52 WBC 9.48 (4.8-10.8) K/ul Hgb 8.1 L (14.0-18.0) g/dl Hct 25.5 L (42.0-52.0) % Plt Count 280 (130-400) K/uL BMP 07/10/22 06:52 Sodium 137 Potassium 3.4 L Chloride 105 Carbon Dioxide 23 BUN 5 L Creatinine 0.50 L Glucose 132 H Calcium 7.7 L (2) UTI (urinary tract infection) Urinary tract infection type: site unspecified
[2022-07-10] MEDS: cefTRIAXone SODIUM 2,000 MG in DEXTROSE 5% 50 ML IV SCH (21:44)
[2022-07-10] MEDS: HEPARIN SOD 5,000 UNIT/0.5 ML VIAL SQ SCH (21:50)
[2022-07-10] MEDS: ATORVASTATIN 40 MG TAB PO SCH (21:50)
[2022-07-10] MEDS: NICOTINE 7 MG/24 HR TDSY TD SCH (21:51)
[2022-07-11 06:30] LABS: Hematocrit (blood only) 26.6 % (42.0-52.0); Hemoglobin 8.5 g/dl (14.0-18.0)
[2022-07-11 06:47] LABS: BUN Creatinine Ratio 16.7 (10-20); Calcium 8.1 mg/dl (8.6-10.3); Creatinine Clr Calc Pharmacy 169.5 ml/min; Est GFR (African American) 128.5 ml/min; Est GFR (Non-African American) 110.9 ml/min; Magnesium 1.6 mg/dl (1.7-2.4); Potassium 3.5 mmol/L (3.5-5.1)
[2022-07-11] MEDS: MAGNESIUM CHLORIDE W/CALCIUM 64MG DELAYED REL TAB PO SCH ×2 (08:57→21:51)
[2022-07-11] MEDS: LACTOBACILLUS ACIDOPHILUS 1 GM PACK PO SCH ×3 (08:58→17:21)
[2022-07-11] MEDS: ASPIRIN 81 MG ECTAB PO SCH (08:58)
[2022-07-11] MEDS: HEPARIN SOD 5,000 UNIT/0.5 ML VIAL SQ SCH ×2 (08:58→21:51)
[2022-07-11] MEDS: TAMSULOSIN HCL 0.4 MG CAP PO SCH (08:58)
[2022-07-11] MEDS: ESCITALOPRAM OXALATE 20 MG TAB PO SCH (08:58)
[2022-07-11] MEDS: PANTOprazole 40 MG TAB PO SCH ×2 (08:58→21:50)
[2022-07-11] MEDS: EZETIMIBE 10 MG TABLET PO SCH (08:58)
[2022-07-11] MEDS: FLUTICASONE FUROATE 100MCG 14 PUFFS/INHALER INH SCH (08:59)
[2022-07-11] MEDS: linaCLOtide 72 MCG CAPSULE PO SCH (08:59)
[2022-07-11] MEDS: buPROPion XL 150 MG TABCR PO SCH (08:59)
[2022-07-11] MEDS: UMECLIDINIUM/VILANTEROL 62.5/25MCG 7 PUFFS/INHALER INH SCH (08:59)
[2022-07-11] MEDS: INSULIN ASPART PER UNIT CHARGE SC SCH ×4 (09:08→21:04)
[2022-07-11] MEDS: LANTUS PER UNIT CHARGE SQ SCH (09:08)
[2022-07-11] MEDS: MAGNESIUM SULFATE / D5W 1 GM/100 ML BAG IV SCH ×2 (09:51→11:47)
[2022-07-11] MEDS: CEFDINIR 300 MG CAP PO SCH ×2 (09:51→21:52)
[2022-07-11] MEDS ORDERED: LAVAGE SOLUTION 4000ML PO ONE (14:30)
--- NOTE | 2022-07-11 16:29 | Hospitalist Progress Note ---
Date of Service July 11, 2022 Assessment & Plan (1) Sepsis: (2) UTI (urinary tract infection): Plan: Patient presenting for evaluation of lightheadedness and dizziness. Patient was walking into the outpatient clinic to have labs drawn when he became lightheaded and dizzy. He was found to be hypotensive and sent to the ED for further evaluation. Sepsis Urinary tract infection Blood cultures no growth today Urine culture growing E. coli Dizziness resolved with IV fluids Continue Zosyn>> transition to Rocephin on 07/09/2022 Monitor volume status Plan to continue 7-day course of antibiotics Dysphagia Abdominal pain ? Gastroparesis --CT ABD:No bowel wall thickening or obstruction. Normal appendix. Mild bilateral perinephric edema, unchanged. Emphysema. --EGD 04/26/22 negative -- Colonoscopy scheduled for 11/17/2022 --Mesenteric ultrasound:The celiac and mesenteric arteries are obscured by bowel gas. --Continue Linzess, Protonix, probiotic Gastric emptying study pending Appreciate GI input Speech therapy consulted as well Tolerating current diet Clear liquid diet today Plan for colonoscopy tomorrow Bowel prep today Diarrhea Likely secondary to antibiotics Stool for C. difficile negative Monitor Diarrhea improved (3) PAD (peripheral artery disease): Plan: S/P angioplasty DANIELLA and shockwave angioplasty LCFA and DFA on 06/10/22 Scheduled for right leg revascularization on 07/09 -- this will need to be rescheduled (notified patient's PCP office to assist) Continue ASA, statin Xarelto held on 07/10/2022 for colonoscopy (4) Paroxysmal atrial flutter: (5) History of cardioversion: (6) History of cardiac radiofrequency ablation: Plan: Anticoagulated on Xarelto--held currently, resume as able Does not take any rhythm or rate controlling medications (7) Hypertension: Plan: Continue to hold lisinopril Monitor BP (8) DM type 2 (diabetes mellitus, type 2): Plan: Hgb A1c 7.3 03/2022 Hold metformin and utilize NovoLog per protocol while hospitalized (9) Irritable bowel syndrome with constipation: Plan: Continue Linzess (10) DVT prophylaxis: Plan: On Xarelto--Held Heparin SQ CODE STATUS Full code Admission and Anticipated Discharge Date Admission Date: July 07, 2022 Subjective Patient is seen and examined at bedside No new complaints Plan for colonoscopy tomorrow No diarrhea today Tolerated current diet Denies any chest pain, dyspnea, dizziness, nausea, abdominal pain Review of Systems Review of Systems: All systems reviewed & are unremarkable except as noted in Subjective Physical Exam Physical Exam: Physical Exam: Vitals signs as noted above General Appearance:Moderately built and nourished, no apparent distress Head: normocephalic, Atraumatic Eyes: normal inspection, EOMI Neck: supple, Trachea midline Respiratory/Chest: Decreased breath sounds, CTA, No accessory muscle use Cardiovascular: S1, S2, No murmur Abdomen/GI:Soft, mild B/L tender, Bowel sounds present Extremities/Musculoskeletal:normal inspection, no edema Neurologic/Psych:AAOX3, grossly no focal neurological deficits Skin: normal color, warm Results & Data Results & Data Vital Signs (Past 12 Hours) Vital Signs Temp Pulse Pulse Resp BP Pulse Ox O2 Del Method 07/11/22 15:27 74 07/11/22 15:18 36.4 C L 78 18 133/85 95 Room Air 07/11/22 11:21 36.9 C 82 18 115/78 94 Room Air 07/11/22 07:47 36.7 C 81 20 134/71 93 Room Air 07/11/22 07:16 67 Laboratory Results Short CBC 07/11/22 Range/Units 06:09 Hgb 8.5 L (14.0-18.0) g/dl Hct 26.6 L (42.0-52.0) % BMP 07/11/22 06:09 Sodium 138 Potassium 3.5 Chloride 105 Carbon Dioxide 24 BUN 8 Creatinine 0.48 L Glucose 136 H Calcium 8.1 L (2) UTI (urinary tract infection) Urinary tract infection type: site unspecified
[2022-07-11] MEDS: NICOTINE 7 MG/24 HR TDSY TD SCH (21:50)
[2022-07-11] MEDS: ATORVASTATIN 40 MG TAB PO SCH (21:52)
[2022-07-12] MEDS ORDERED: Nursing to Pharmacy Communication SCH ×2 (01:30→12:45)
[2022-07-12] MEDS: INSULIN ASPART PER UNIT CHARGE SC SCH ×4 (06:09→21:10)
--- NOTE | 2022-07-12 07:12 | Anesthesiology Consultation ---
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 Consults Requested none History Surgery Operation Date: 07/12/22 16:30 Proposed Procedures p Colonoscopy Dr Wilcox - Gracie Wilcox MD Height/Weight Height: 6 ft Weight: 92.5 kg Allergies Allergy/AdvReac Type Severity Reaction Status Date / Time cilostazol AdvReac Severe Nausea Verified 07/07/22 16:22 levofloxacin AdvReac Intermediate JOINT Verified 10/28/21 11:00 STIFFNESS Medications Home Medications Medication Instructions Recorded Confirmed Last Taken Lactobacillus rhamnosus GG 10 1 cap PO DAILY 07/07/22 07/07/22 Unknown billion cell capsule (Culturelle) acetaminophen 500 mg tablet 500 mg PO Q6H PRN Pain 07/07/22 07/07/22 Unknown (Tylenol Extra Strength) albuterol sulfate 90 mcg/actuation 2 puff inhalation Q6H PRN 07/07/22 07/07/22 Unknown aerosol inhaler Shortness Of Breath ascorbic acid (vitamin C) 500 mg 1,000 mg PO QAM 07/07/22 07/07/22 Unknown tablet (Vitamin C) aspirin 81 mg tablet,delayed 81 mg PO DAILY 07/07/22 07/07/22 Unknown release atorvastatin 80 mg tablet 80 mg PO HS 07/07/22 07/07/22 Unknown bupropion HCl 150 mg 24 hr tablet, 150 mg PO QAM 07/07/22 07/07/22 Unknown extended release cholecalciferol (vitamin D3) 25 25 mcg PO DAILY 07/07/22 07/07/22 Unknown mcg (1,000 unit) tablet (Vitamin D3) escitalopram oxalate 20 mg tablet 20 mg PO DAILY 07/07/22 07/07/22 Unknown ezetimibe 10 mg tablet 10 mg PO DAILY 07/07/22 07/07/22 Unknown fluticasone fur. 100 mcg-umeclid 1 ea inhalation QAM 07/07/22 07/07/22 Unknown 62.5 mcg-vilant 25 mcg inhalat.powder (Trelegy Ellipta) ketoconazole 2 % shampoo 1 applic topical .Q3DAYS 07/07/22 07/07/22 Unknown linaclotide 72 mcg capsule 72 mcg PO QAM 07/07/22 07/07/22 Unknown (Linzess) lisinopril 5 mg tablet 5 mg PO DAILY 07/07/22 07/07/22 Unknown meclizine 12.5 mg tablet 12.5 mg PO TID PRN dizzyness 07/07/22 07/07/22 Unknown metformin 500 mg tablet 1,000 mg PO BIDM 07/07/22 07/07/22 Unknown ondansetron HCl 4 mg tablet 4 mg PO Q8H PRN Nausea 07/07/22 07/07/22 Unknown pantoprazole 40 mg tablet,delayed 40 mg PO BID 07/07/22 07/07/22 Unknown release rivaroxaban 20 mg tablet (Xarelto) 20 mg PO QPM 07/07/22 07/07/22 Unknown tamsulosin 0.4 mg capsule 0.4 mg PO DAILY 07/07/22 07/07/22 Unknown vitamins A,C,X-rhrg-gwwdlb 2,148 1 tab PO BID 07/07/22 07/07/22 Unknown mcg-113 mg-45 mg-17.4 mg tablet (PreserVision AREDS) Active Medications Generic Name Dose Route Start Last Admin Trade Name Freq PRN Reason Stop Dose Admin Acetaminophen 650 mg 07/07/22 19:30 07/08/22 02:59 Acetaminophen 325 Mg Tab PO 08/06/22 19:29 650 mg Q4H PRN Administration pain/fever Albuterol 3 ml 07/09/22 15:34 07/09/22 20:59 Albut/Ipratrop 3mg/0.5mg Neb 3 Ml Vial NEB 08/08/22 18:59 3 ml Q4R PRN Administration Shortness Of Breath Or Wheezing Protocol Aspirin 81 mg 07/08/22 09:00 07/11/22 08:58 Aspirin 81 Mg Ectab PO 08/07/22 08:59 81 mg DAILY CHRISTINE Administration Atorvastatin Calcium 80 mg 07/07/22 21:00 07/11/22 21:52 Atorvastatin 40 Mg Tab PO 08/06/22 20:59 80 mg HS CHRISTINE Administration Bupropion HCl 150 mg 07/08/22 09:00 07/11/22 08:59 Bupropion Xl 150 Mg Tabcr PO 08/07/22 08:59 150 mg QAM CHRISTINE Administration Cefdinir 300 mg 07/11/22 09:00 07/11/22 21:52 Cefdinir 300 Mg Cap PO 07/21/22 08:59 300 mg BID CHRISTINE Administration Ezetimibe 10 mg 07/08/22 09:00 07/11/22 08:58 Ezetimibe 10 Mg Tablet PO 08/07/22 08:59 10 mg DAILY CHRISTINE Administration Escitalopram Oxalate 20 mg 07/08/22 09:00 07/11/22 08:58 Escitalopram Oxalate 20 Mg Tab PO 08/07/22 08:59 20 mg DAILY CHRISTINE Administration Fluticasone Furoate 1 puffs 07/08/22 09:00 07/11/22 08:59 Fluticasone Furoate 100mcg 14 Puffs/Inhaler INH 08/07/22 08:59 1 puffs DAILY CHRISTINE Administration Insulin Aspart 0 units 07/12/22 06:00 07/12/22 06:09 Insulin Aspart Per Unit Charge SC 08/11/22 05:59 Not Given Q6 CHRISTINE Insulin Glargine 5 units 07/08/22 09:00 07/11/22 09:08 Lantus Per Unit Charge SQ 08/07/22 08:59 5 units DAILY CHRISTINE Administration Lactobacillus Acidophilus 2 cap 07/08/22 09:00 07/09/22 08:29 Advanced Probiotic 1250 Mg Capsule PO 08/07/22 08:59 2 cap DAILY CHRISTINE Administration Lactobacillus Acidophilus 1 gm 07/09/22 12:00 07/11/22 17:21 Lactobacillus Acidophilus 1 Gm Pack PO 08/08/22 11:59 1 gm TIDM CHRISTINE Administration Linaclotide 72 mcg 07/08/22 09:00 07/11/22 08:59 Linaclotide 72 Mcg Capsule PO 08/07/22 08:59 72 mcg QAM CHRISTINE Administration Magnesium Chloride 64 mg 07/10/22 09:00 07/11/22 21:51 Magnesium Chloride W/Calcium 64mg Delayed Rel Tab PO 08/09/22 08:59 64 mg BID CHRISTINE Administration Miscellaneous 1 each 07/08/22 21:00 07/11/22 21:52 Remove Nicoderm Patch N/A 08/07/22 20:59 1 each DAILY@2100 CHRISTINE Administration Nicotine 7 mg 07/07/22 20:45 07/11/22 21:50 Nicotine 7 Mg/24 Hr Tdsy TD 05/19/23 20:44 7 mg HS CHRISTINE Administration Pantoprazole Sodium 40 mg 07/07/22 21:00 07/11/22 21:50 Pantoprazole 40 Mg Tab PO 08/06/22 20:59 40 mg BID CHRISTINE Administration Rivaroxaban 20 mg 07/08/22 16:30 07/10/22 17:20 Rivaroxaban 20 Mg Tab PO 08/07/22 16:29 Not Given QDD CHRISTINE Tamsulosin HCl 0.4 mg 07/08/22 09:00 07/11/22 08:58 Tamsulosin Hcl 0.4 Mg Cap PO 08/07/22 08:59 0.4 mg DAILY CHRISTINE Administration Umeclidinium/Vilanterol 1 puffs 07/08/22 09:00 07/11/22 08:59 Umeclidinium/Vilanterol 62.5/25mcg 7 Puffs/Inhaler INH 08/07/22 08:59 1 puffs DAILY CHRISTINE Administration Past Medical History Medical History Anemia Bloating Bullous emphysema DM type 2 (diabetes mellitus, type 2) Dyslipidemia Encounter for pre-operative examination GERD (gastroesophageal reflux disease) History of cardioversion Hypertension Irritable bowel syndrome with constipation Multiple lung nodules on CT Nocturnal hypoxia OM (osteomyelitis) PAD (peripheral artery disease) Paroxysmal atrial flutter Peripheral neuropathy Pulmonary emphysema Tobacco use disorder Past Family History Family History Mother Diabetes Father Heart disease Past Surgical History Surgical History History of ankle surgery History of cardiac radiofrequency ablation Social History Smoking Status: Current every day smoker tobacco type: cigarettes Smoking cigarettes per day: 5 Do You Dip or Chew Tobacco: No Hx Alcohol Use: No Hx Substance Use: No substance use type: does not use Physical Exam Vital Signs Last Vital Signs Temp 36.8 C 07/12/22 04:00 Pulse 57 L 07/12/22 07:07 Resp 18 07/12/22 04:00 BP 138/76 07/12/22 04:00 Pulse Ox 93 07/12/22 04:00 O2 Del Method Room Air 07/12/22 04:00 Testing Laboratory Results 07/11/22 06:09 07/11/22 06:09 PT 12.8 Seconds (9.0-12.0) H 07/07/22 11:50 INR 1.2 (0.9-1.1) H 07/07/22 11:50 Urine Color Yellow 07/07/22 13:00 Urine Appearance Clear (Clear) 07/07/22 13:00 Urine pH 6.0 (4.5-7.5) 07/07/22 13:00 Ur Specific [place] > 1.045 (1.000-1.030) H 07/07/22 13:00 Urine Protein 1+ (Negative) H 07/07/22 13:00 Urine Glucose (UA) Negative (Negative) 07/07/22 13:00 Urine Ketones Negative (Negative) 07/07/22 13:00 Urine Nitrite Positive (Negative) A 07/07/22 13:00 Ur Leukocyte Esterase 1+ (Negative) H 07/07/22 13:00 Urine WBC (Auto) >30 /hpf (0-5) H 07/07/22 13:00 Urine RBC (Auto) 5-10 /hpf (0-4) H 07/07/22 13:00 U Hyaline Cast (Auto) 10-30 /lpf (0-5) H 07/07/22 13:00 U Epithel Cells (Auto) >30 /lpf (0-5) H 07/07/22 13:00 Urine Bacteria (Auto) 4+ (Negative) H 07/07/22 13:00 07/07/22 16:03 Aerobic Blood Culture - Preliminary Blood No growth in Aerobic bottle after 48 hours. Anaerobic Blood Culture - Preliminary No growth in Anaerobic bottle after 48 hours. 07/07/22 16:03 Aerobic Blood Culture - Preliminary Blood No growth in Aerobic bottle after 48 hours. Anaerobic Blood Culture - Preliminary No growth in Anaerobic bottle after 48 hours. 07/07/22 13:00 Urine Culture - Final Urine,Clean Catch Escherichia coli 07/12/22 07/11/22 06:07 20:57 POC Glucose 121 H 108 H Electrocardiogram Date: 07/07/22 Test Reason : Blood Pressure : / mmHG Vent. Rate : 087 BPM Atrial Rate : 087 BPM P-R Int : 180 ms QRS Dur : 104 ms QT Int : 382 ms P-R-T Axes : 000 -46 036 degrees QTc Int : 459 ms Sinus rhythm with occasional Premature ventricular complexes Incomplete right bundle branch block Left anterior fascicular block Nonspecific ST and T wave abnormality Abnormal ECG When compared with ECG of 25-NOV-2021 15:17, Premature ventricular complexes are now Present Incomplete right bundle branch block is now Present Confirmed by Alejandro Colon ([id number]) on 07/08/2022 10:07:09 AM Chest X-Ray Date: 07/07/22 XR chest 1V portable CLINICAL HISTORY: sepsis TECHNIQUE: Single frontal radiograph of the chest was obtained. Comparison: Comparison is made to chest radiograph 08/26/2021 FINDINGS: No lines and tubes are seen. The cardiomediastinal silhouette is normal. Airspace opacity is in the right lower lung. No evidence of pleural effusion or pneumothorax. IMPRESSION: Airspace opacity in the right lower lung which may represent atelectasis, pneumo socrates, and/or aspiration. Echocardiogram Date: 07/18/21 EF: 55-60 LV Function: normal RWMA: + none Atrial flutter during exam
[2022-07-12 08:23] LABS: Hematocrit (blood only) 29.1 % (42.0-52.0); Hemoglobin 9.1 g/dl (14.0-18.0)
--- NOTE | 2022-07-12 08:25 | History & Physical Report ---
Date of Service July 12, 2022 Assessment & Plan Admission and Anticipated Discharge Date Admission Date: July 07, 2022 History of Present Illness Primary Care Provider: Nic Teague, DO Bloating CV: RRR Reps: CTA Abd: soft A/P: colonoscopy for bloating, abdominal pain Allergies Allergy/AdvReac Type Severity Reaction Status Date / Time cilostazol AdvReac Severe Nausea Verified 07/07/22 16:22 levofloxacin AdvReac Intermediate JOINT Verified 10/28/21 11:00 STIFFNESS Home Medications Medication Instructions Recorded Confirmed Type Lactobacillus rhamnosus GG 10 1 cap PO DAILY 07/07/22 07/07/22 History billion cell capsule (Culturelle) acetaminophen 500 mg tablet 500 mg PO Q6H PRN Pain 07/07/22 07/07/22 History (Tylenol Extra Strength) albuterol sulfate 90 mcg/actuation 2 puff inhalation Q6H PRN 07/07/22 07/07/22 History aerosol inhaler Shortness Of Breath ascorbic acid (vitamin C) 500 mg 1,000 mg PO QAM 07/07/22 07/07/22 History tablet (Vitamin C) aspirin 81 mg tablet,delayed 81 mg PO DAILY 07/07/22 07/07/22 History release atorvastatin 80 mg tablet 80 mg PO HS 07/07/22 07/07/22 History bupropion HCl 150 mg 24 hr tablet, 150 mg PO QAM 07/07/22 07/07/22 History extended release cholecalciferol (vitamin D3) 25 25 mcg PO DAILY 07/07/22 07/07/22 History mcg (1,000 unit) tablet (Vitamin D3) escitalopram oxalate 20 mg tablet 20 mg PO DAILY 07/07/22 07/07/22 History ezetimibe 10 mg tablet 10 mg PO DAILY 07/07/22 07/07/22 History fluticasone fur. 100 mcg-umeclid 1 ea inhalation QAM 07/07/22 07/07/22 History 62.5 mcg-vilant 25 mcg inhalat.powder (Trelegy Ellipta) ketoconazole 2 % shampoo 1 applic topical .Q3DAYS 07/07/22 07/07/22 History linaclotide 72 mcg capsule 72 mcg PO QAM 07/07/22 07/07/22 History (Linzess) lisinopril 5 mg tablet 5 mg PO DAILY 07/07/22 07/07/22 History meclizine 12.5 mg tablet 12.5 mg PO TID PRN dizzyness 07/07/22 07/07/22 History metformin 500 mg tablet 1,000 mg PO BIDM 07/07/22 07/07/22 History ondansetron HCl 4 mg tablet 4 mg PO Q8H PRN Nausea 07/07/22 07/07/22 History pantoprazole 40 mg tablet,delayed 40 mg PO BID 07/07/22 07/07/22 History release rivaroxaban 20 mg tablet (Xarelto) 20 mg PO QPM 07/07/22 07/07/22 History tamsulosin 0.4 mg capsule 0.4 mg PO DAILY 07/07/22 07/07/22 History vitamins A,C,M-jysk-jkkypm 2,148 1 tab PO BID 07/07/22 07/07/22 History mcg-113 mg-45 mg-17.4 mg tablet (PreserVision AREDS) Past Med/Surg History Medical History Anemia Bloating Bullous emphysema DM type 2 (diabetes mellitus, type 2) Dyslipidemia Encounter for pre-operative examination GERD (gastroesophageal reflux disease) History of cardioversion Hypertension Irritable bowel syndrome with constipation Multiple lung nodules on CT Nocturnal hypoxia OM (osteomyelitis) PAD (peripheral artery disease) Paroxysmal atrial flutter Peripheral neuropathy Pulmonary emphysema Tobacco use disorder Surgical History History of ankle surgery History of cardiac radiofrequency ablation Family History Mother Diabetes Father Heart disease Social History Smoking Status: Current every day smoker Tobacco Type: Cigars Age Started Using Tobacco: 12; Cigarettes Per Day: 5; Do You Dip or Chew Tobacco: No; Hx Alcohol Use: No Hx Substance Use: No Preferred Language: Thai Communication Ability: Effective Vamp Seamer Required: No Beliefs That Will Affect Care: None Current Living Situation: Spouse Other Information That Helps Us Care for You: No Feels Safe at Home: Yes Safety Concerns: Feels Safe At This Time Assistive Devices: None Results & Data Results & Data Vital Signs (Past 12 Hours) Vital Signs Temp Pulse Pulse Resp BP Pulse Ox O2 Del Method 07/12/22 07:33 36.8 C 74 20 138/78 92 Room Air 07/12/22 07:07 57 L 07/12/22 04:00 36.8 C 80 18 138/76 93 Room Air 07/11/22 22:00 84 07/11/22 22:09 36.8 C 70 18 132/80 93 Room Air Code Status & VTE Plan VTE Prophylaxis Plan VTE Prophylaxis will be ordered: No Reason for no VTE drug order: Contraindicated
[2022-07-12 08:42] LABS: BUN Creatinine Ratio 17.6 (10-20); Calcium 8.5 mg/dl (8.6-10.3); Creatinine Clr Calc Pharmacy 145.8 ml/min; Est GFR (African American) 125.3 ml/min; Est GFR (Non-African American) 108.1 ml/min; Magnesium 1.8 mg/dl (1.7-2.4); Potassium 3.8 mmol/L (3.5-5.1)
[2022-07-12] MEDS ORDERED: LIDOCAINE 2% MPF LOCAL 5 ML VIAL ONE (09:03)
[2022-07-12] MEDS ORDERED: PROPOFOL IV EMULSION 10 MG/ML 20 ML VIAL IV ONE (09:03)
--- NOTE | 2022-07-12 09:19 | GI REPORT ---
Patient Name: Grzegorz Cook Procedure Date: 07/12/2022 8:28 AM Date of : 1950 Admit Type: Inpatient Age: 72 Gender: Male Attending MD: Gracie Wilcox MD, Procedure: Colonoscopy Providers: Gracie Wilcox MD Referring MD: Javid Villar Md Indications: Abdominal pain Medicines: See the Anesthesia note for documentation of the administered medications Complications: No immediate complications. Estimated Blood Loss: Estimated blood loss: none. Procedure: Pre-Anesthesia Assessment: - ASA Grade Assessment: III - A patient with severe systemic disease. After I obtained informed consent, the scope was passed under direct vision. Throughout the procedure, the patient's blood pressure, pulse, and oxygen saturations were monitored continuously. The Scope was introduced through the anus and advanced to the terminal ileum. The colonoscopy was performed without difficulty. The patient tolerated the procedure well. The quality of the bowel preparation was good. Anatomical landmarks were photographed. Findings: The perianal and digital rectal examinations were normal. A 3 mm polyp was found in the cecum. The polyp was sessile. The polyp was removed with a cold snare. Resection and retrieval were complete. Hemorrhoids were found during retroflexion. The exam was otherwise without abnormality. Impression: - One 3 mm polyp in the cecum, removed with a cold snare. Resected and retrieved. - Hemorrhoids. - The examination was otherwise normal. Recommendation: - Discharge patient to home. Naomi Travis MD 07/12/2022 9:19:18 AM This report has been signed electronically. Note Initiated On: 07/12/2022 8:28 AM Number of Addenda: 0 I attest to the content of the Intraoperative Record and orders documented therein, exceptions below {[id number]}
[2022-07-12] MEDS: UMECLIDINIUM/VILANTEROL 62.5/25MCG 7 PUFFS/INHALER INH SCH (10:08)
[2022-07-12] MEDS: FLUTICASONE FUROATE 100MCG 14 PUFFS/INHALER INH SCH (10:08)
[2022-07-12] MEDS: LACTOBACILLUS ACIDOPHILUS 1 GM PACK PO SCH ×3 (10:09→17:11)
[2022-07-12] MEDS: buPROPion XL 150 MG TABCR PO SCH (10:09)
[2022-07-12] MEDS: CEFDINIR 300 MG CAP PO SCH ×2 (10:09→21:08)
[2022-07-12] MEDS: TAMSULOSIN HCL 0.4 MG CAP PO SCH (10:09)
[2022-07-12] MEDS: ESCITALOPRAM OXALATE 20 MG TAB PO SCH (10:09)
[2022-07-12] MEDS: MAGNESIUM CHLORIDE W/CALCIUM 64MG DELAYED REL TAB PO SCH ×2 (10:09→21:08)
[2022-07-12] MEDS: PANTOprazole 40 MG TAB PO SCH ×2 (10:09→21:09)
[2022-07-12] MEDS: EZETIMIBE 10 MG TABLET PO SCH (10:10)
[2022-07-12] MEDS: linaCLOtide 72 MCG CAPSULE PO SCH (10:10)
[2022-07-12] MEDS: ASPIRIN 81 MG ECTAB PO SCH (10:10)
[2022-07-12] MEDS: LANTUS PER UNIT CHARGE SQ SCH (10:13)
--- NOTE | 2022-07-12 10:23 | Anesthesiology Progress Note ---
Date of Service July 12, 2022 Anesthesia Post Procedure Vital Signs Vital Signs: Temp Pulse Pulse Resp BP BP Pulse Ox 07/12/22 10:07 36.6 C 74 18 126/71 98 07/12/22 09:35 68 18 145/81 H 97 07/12/22 09:20 69 16 131/78 97 07/12/22 09:05 76 16 114/74 97 07/12/22 08:22 36.2 C L 79 16 134/80 94 07/12/22 07:33 36.8 C 74 20 138/78 92 07/12/22 07:07 57 L 07/12/22 04:00 36.8 C 80 18 138/76 93 07/11/22 22:00 84 07/11/22 22:09 36.8 C 70 18 132/80 93 07/11/22 19:00 36.8 C 75 18 145/84 H 93 07/11/22 15:27 74 07/11/22 15:18 36.4 C L 78 18 133/85 95 07/11/22 11:21 36.9 C 82 18 115/78 94 O2 Del Method 07/12/22 10:07 Room Air 07/12/22 09:35 Room Air 07/12/22 09:20 Room Air 07/12/22 09:05 Room Air 07/12/22 08:22 Room Air 07/12/22 07:33 Room Air 07/12/22 07:07 07/12/22 04:00 Room Air 07/11/22 22:00 07/11/22 22:09 Room Air 07/11/22 19:00 Room Air 07/11/22 15:27 07/11/22 15:18 Room Air 07/11/22 11:21 Room Air Transfer of Care Handoff Completed per policy Notes Mental Status: alert / awake / arousable and participated in evaluation Patient Amnestic to Procedure: Yes Nausea / Vomiting: adequately controlled Pain: adequately controlled Airway Patency, RR, SpO2: stable & adequate BP & HR: stable & adequate Hydration State: stable & adequate Anesthetic Complications: no major complications apparent
--- NOTE | 2022-07-12 17:09 | Hospitalist Progress Note ---
Date of Service July 12, 2022 Assessment & Plan (1) Sepsis: (2) UTI (urinary tract infection): Plan: Patient presenting for evaluation of lightheadedness and dizziness. Patient was walking into the outpatient clinic to have labs drawn when he became lightheaded and dizzy. He was found to be hypotensive and sent to the ED for further evaluation. Sepsis Urinary tract infection Blood cultures no growth today Urine culture growing E. coli Dizziness resolved with IV fluids Continue Zosyn>> transition to Rocephin on 07/09/2022>>Cefdinir Monitor volume status Plan to continue 7-day course of antibiotics Dysphagia Abdominal pain ? Gastroparesis --CT ABD:No bowel wall thickening or obstruction. Normal appendix. Mild bilateral perinephric edema, unchanged. Emphysema. --EGD 04/26/22 negative -- S/P Colonoscopy:One 3 mm polyp in the cecum, removed with a cold snare. Resected and retrieved. Hemorrhoids. The examination was otherwise normal. --Mesenteric ultrasound:The celiac and mesenteric arteries are obscured by bowel gas. --Continue Linzess, Protonix, probiotic Gastric emptying study planned for 07/14/22 Appreciate GI input Speech therapy consulted as well Tolerating current diet Prefers to have gastric emptying study prior to discharge Diarrhea Likely secondary to antibiotics Stool for C. difficile negative Monitor Diarrhea resolved (3) PAD (peripheral artery disease): Plan: S/P angioplasty DANIELLA and shockwave angioplasty LCFA and DFA on 06/10/22 Scheduled for right leg revascularization on 07/09 -- this will need to be rescheduled (notified patient's PCP office to assist) Continue ASA, statin Xarelto held on 07/10/2022 for colonoscopy Resume Xarelto as able (4) Paroxysmal atrial flutter: (5) History of cardioversion: (6) History of cardiac radiofrequency ablation: Plan: Anticoagulated on Xarelto--held currently, resume as able Does not take any rhythm or rate controlling medications (7) Hypertension: Plan: Continue to hold lisinopril Monitor BP (8) DM type 2 (diabetes mellitus, type 2): Plan: Hgb A1c 7.3 03/2022 Hold metformin and utilize NovoLog per protocol while hospitalized (9) Irritable bowel syndrome with constipation: Plan: Continue Linzess (10) DVT prophylaxis: Plan: On Xarelto--Held SCD for now CODE STATUS Full code Admission and Anticipated Discharge Date Admission Date: July 07, 2022 Subjective Patient is seen and examined at bedside Had Colonoscopy this morning States feeling well after the procedure Prefers to have gastric emptying study prior to discharge Family at bedside Offers no complaints Denies any chest pain, dyspnea, dizziness, nausea, abdominal pain Review of Systems Review of Systems: All systems reviewed & are unremarkable except as noted in Subjective Physical Exam Physical Exam: Physical Exam: Vitals signs as noted above General Appearance:Moderately built and nourished, no apparent distress Head: normocephalic, Atraumatic Eyes: normal inspection, EOMI Neck: supple, Trachea midline Respiratory/Chest: Decreased breath sounds, CTA, No accessory muscle use Cardiovascular: S1, S2, No murmur Abdomen/GI:Soft, mild B/L tender, Bowel sounds present Extremities/Musculoskeletal:normal inspection, no edema Neurologic/Psych:AAOX3, grossly no focal neurological deficits Skin: normal color, warm Results & Data Results & Data Vital Signs (Past 12 Hours) Vital Signs Temp Pulse Pulse Resp BP BP Pulse Ox 07/12/22 15:10 76 07/12/22 14:49 36.5 C 73 18 125/75 94 07/12/22 11:03 36.4 C L 66 18 158/84 H 94 07/12/22 10:07 36.6 C 74 18 126/71 98 07/12/22 09:35 68 18 145/81 H 97 07/12/22 09:20 69 16 131/78 97 07/12/22 09:05 76 16 114/74 97 07/12/22 08:22 36.2 C L 79 16 134/80 94 07/12/22 07:33 36.8 C 74 20 138/78 92 07/12/22 07:07 57 L O2 Del Method 07/12/22 15:10 07/12/22 14:49 Room Air 07/12/22 11:03 Room Air 07/12/22 10:07 Room Air 07/12/22 09:35 Room Air 07/12/22 09:20 Room Air 07/12/22 09:05 Room Air 07/12/22 08:22 Room Air 07/12/22 07:33 Room Air 07/12/22 07:07 Laboratory Results Short CBC 07/12/22 Range/Units 07:58 Hgb 9.1 L (14.0-18.0) g/dl Hct 29.1 L (42.0-52.0) % BMP 07/12/22 07:58 Sodium 140 Potassium 3.8 Chloride 107 Carbon Dioxide 25 BUN 9 Creatinine 0.51 L Glucose 134 H Calcium 8.5 L (2) UTI (urinary tract infection) Urinary tract infection type: site unspecified
[2022-07-12] MEDS: ATORVASTATIN 40 MG TAB PO SCH (21:08)
[2022-07-12] MEDS: NICOTINE 7 MG/24 HR TDSY TD SCH (21:09)
[2022-07-13 07:23] LABS: Hematocrit (blood only) 26.2 % (42.0-52.0); Hemoglobin 8.1 g/dl (14.0-18.0); Mean Corpuscular Hemoglobin 22.9 pg (25.0-34.0); Mean Corpuscular Hgb Conc 30.9 g/dL (32.0-36.0); Mean Corpuscular Volume 74.2 fL (80.0-100.0); Mean Platelet Volume 8.4 fL (9.4-12.4); Platelet Count 418 K/uL (130-400); RDW Coefficient of Variation 19.2 % (11.5-14.5); RDW Standard Deviation 51.5 fL (36.4-46.3); Red Blood Count 3.53 M/uL (4.70-6.10)
[2022-07-13] MEDS: TAMSULOSIN HCL 0.4 MG CAP PO SCH (08:30)
[2022-07-13] MEDS: PANTOprazole 40 MG TAB PO SCH ×2 (08:30→21:18)
[2022-07-13] MEDS: ESCITALOPRAM OXALATE 20 MG TAB PO SCH (08:31)
[2022-07-13] MEDS: ASPIRIN 81 MG ECTAB PO SCH (08:31)
[2022-07-13] MEDS: EZETIMIBE 10 MG TABLET PO SCH (08:31)
[2022-07-13] MEDS: buPROPion XL 150 MG TABCR PO SCH (08:31)
[2022-07-13] MEDS: LACTOBACILLUS ACIDOPHILUS 1 GM PACK PO SCH ×3 (08:31→17:37)
[2022-07-13] MEDS: CEFDINIR 300 MG CAP PO SCH ×2 (08:31→21:18)
[2022-07-13] MEDS: MAGNESIUM CHLORIDE W/CALCIUM 64MG DELAYED REL TAB PO SCH ×2 (08:31→21:18)
[2022-07-13] MEDS: linaCLOtide 72 MCG CAPSULE PO SCH (08:31)
[2022-07-13] MEDS: UMECLIDINIUM/VILANTEROL 62.5/25MCG 7 PUFFS/INHALER INH SCH (08:32)
[2022-07-13] MEDS: FLUTICASONE FUROATE 100MCG 14 PUFFS/INHALER INH SCH (08:33)
[2022-07-13] MEDS: INSULIN ASPART PER UNIT CHARGE SC SCH ×4 (08:34→20:45)
[2022-07-13] MEDS: LANTUS PER UNIT CHARGE SQ SCH (08:54)
--- NOTE | 2022-07-13 11:46 | Gastroenterology Progress Note ---
Date of Service July 13, 2022 Assessment & Plan (1) Bloating: Plan: 72 year or male with history of IBS, UTI, PAF, GERD, dyslipidemia, HTN, T2DM, COPD admitted w/ decreased PO intake, general GI symptoms. EGD in April unremarkable, recent CTAP without any acute GI pathology, redundant sigmoid colon suggested. Colonoscopy 07/12 w findings of polyp, hemorrhoids. He ate solid breakfast well, but gets full easily. Otherwise abd exam w soft abd, non tender, good BS. - Continue Protonix, Linzess, Probiotics as dosed - F/U colonoscopy path - GES to r/o gastroparesis tomorrow - Obtain CTA abd/pelvis (mesenteric doppler inconclusive yesterday). Admission and Anticipated Discharge Date Admission Date: July 07, 2022 Supervising Physician Co-Signing Physician Notes Attg add: Pt feels well today - mike small meals without difficulty. Recs as above ,anticipate d/c after GES tomorrow. Subjective Pt denies much abd pain. Ate cereal with fruit today. Feels very full aftewards. No n/v. Review of Systems 2 Review of Systems: All systems reviewed & are unremarkable except as noted in HPI & below Physical Exam Constitutional: WD/WN, vitals as above well groomed, cooperative and comfortable Eyes: PERRL, conjunctivae normal, anicteric sclerae ENMT: external ear and nose normal, oropharynx normal Respiratory: normal respiratory effort, lungs clear to auscultation Cardiovascular: RRR, no murmur, no edema Gastrointestinal (Abdomen): normal bowel sounds, soft, nontender, no hepatosplenomegaly Skin: no rashes, warm and dry no jaundice Psychiatric: A+Ox3, euthymic affect Lymphatic: no lymphedema Results & Data Vital Signs (Past 12 Hours) Vital Signs Temp Pulse Pulse Resp BP BP Pulse Ox 07/13/22 11:34 36.8 C 72 16 135/79 94 07/13/22 07:46 36.5 C 71 16 129/77 93 07/13/22 07:45 63 07/13/22 04:06 36.5 C 73 18 147/70 H 94 07/13/22 00:17 36.9 C 78 20 128/65 93 O2 Del Method 07/13/22 11:34 Room Air 07/13/22 07:46 Room Air 07/13/22 07:45 07/13/22 04:06 Room Air 07/13/22 00:17 Room Air
[2022-07-13] MEDS ORDERED: OPTIRAY 320 500ml IV ONE (12:02)
--- NOTE | 2022-07-13 12:12 | CT Scan Report ---
CT angio abdomen pelvis w con CT DOSE: 577.76 mGy.cm CLINICAL HISTORY: abd pain and bloating TECHNIQUE: Multiaxial CT images of the abdomen and pelvis performed following the intravenous adminis tration of 11 cc of Optiray 320 to evaluate the major vascular structures. Maximum intensity projecti on images were also obtained. A dose lowering technique was utilized adhering to the principles of A ELMER. COMPARISON STUDY: Abdomen and pelvis CT 07/07/2022. FINDINGS: Emphysema again noted at the lung bases. There are patchy and nodular airspace opacities wi thin the basal left lower lobe which are new from the prior study. This likely represents a pneumonia . No pneumoperitoneum. No pneumatosis. No acute fractures identified. Small hypervascular foci seen w ithin the left hepatic dome and right hepatic lobe favor perfusion anomalies. No hepatic or splenic m asses. The gallbladder, pancreas, spleen, and adrenal glands are unremarkable. A few subcentimeter hy podense lesions within the left kidney are technically too small to characterize but statistically re present cysts. Normal right kidney. No hydronephrosis. No retroperitoneal lymphadenopathy. No pelvic free fluid. The bladder is decompressed and not well evaluated. The prostate gland is mildly enlarged . No bowel wall thickening or obstruction. Normal appendix. Fluid-filled nondilated loops of large an d small bowel are seen throughout the abdomen. This is nonspecific but can be seen in the setting of a diarrheal illness/gastroenteritis. The heart is top normal in size. Moderate atherosclerotic plaque noted within the aorta and iliac arteries. There is an ectatic abdominal aorta measuring up to 2.6 c m in diameter. The celiac, superior mesenteric, and inferior mesenteric arteries are widely patent. T here are 2 right renal arteries. The more superior right renal artery demonstrates up to 50% stenosis at the takeoff due to the calcified plaque. The single left renal artery is widely patent. Mild mult ifocal stenosis within the bilateral iliac arteries without evidence for a dissection or occlusion. P rominence of the distal inferior mesenteric artery which extends into the right rectal wall and demon strates early filling of the inferior mesenteric vein. This is best seen on images 405 through 421. T his raises the possibility of a rectal arteriovenous malformation. Mild stenosis of the bilateral com mon femoral arteries measuring up to 40%. IMPRESSION: 1. Fluid-filled nondilated loops of large and small bowel which can be seen in the setting of a diarr heal illness/gastroenteritis. 2. Patchy airspace opacities within the left lower lobe which are new from the prior study. This like ly represents a pneumonia. 3. Prominence of the distal inferior mesenteric artery which extends into the right rectal wall and d emonstrates early filling of the inferior mesenteric vein as described above. This raises the possibi lity of a rectal arteriovenous malformation. Clinical correlation recommended to assess for rectal bl eeding. 4. Emphysema. 5. Atherosclerotic disease as described above without high-grade stenosis or occlusion of the major m esenteric vessels. ACT 112: Negative or not required by law. Electronically signed by: Guy Renee M.D. 07/13/2022 12:11 PM
--- NOTE | 2022-07-13 17:46 | Hospitalist Progress Note ---
Date of Service July 13, 2022 Assessment & Plan (1) Sepsis: (2) UTI (urinary tract infection): Plan: Patient presenting for evaluation of lightheadedness and dizziness. Patient was walking into the outpatient clinic to have labs drawn when he became lightheaded and dizzy. He was found to be hypotensive and sent to the ED for further evaluation. Sepsis Urinary tract infection Blood cultures no growth today Urine culture growing E. coli Dizziness resolved with IV fluids Continue Zosyn>> transition to Rocephin on 07/09/2022>>Cefdinir Monitor volume status Plan to continue 7-day course of antibiotics Dysphagia Abdominal pain ? Gastroparesis Possible gastroenteritis --CT ABD:No bowel wall thickening or obstruction. Normal appendix. Mild bilateral perinephric edema, unchanged. Emphysema. --EGD 04/26/22 negative -- S/P Colonoscopy:One 3 mm polyp in the cecum, removed with a cold snare. Resected and retrieved. Hemorrhoids. The examination was otherwise normal. --Mesenteric ultrasound:The celiac and mesenteric arteries are obscured by bowel gas. --CTA ABD:Fluid-filled nondilated loops of large and small bowel which can be seen in the setting of a diarrheal illness/gastroenteritis. Patchy airspace opacities within the left lower lobe which are new from the prior study. This likely represents a pneumonia. Prominence of the distal inferior mesenteric artery which extends into the right rectal wall and demonstrates early filling of the inferior mesenteric vein as described above. This raises the possibility of a rectal arteriovenous malformation. Clinical correlation recommended to assess for rectal bleeding. Emphysema. Atherosclerotic disease as described above without high-grade stenosis or occlusion of the major mesenteric vessels. --Pathology:Tubular adenoma. Negative for high grade dysplasia --Continue Linzess, Protonix, probiotic Gastric emptying study planned for 07/14/22 Appreciate GI input Speech therapy consulted as well Tolerating current diet Prefers to have gastric emptying study tomorrow Recheck stool for C. difficile if recurrence of diarrhea (3) PAD (peripheral artery disease): Plan: S/P angioplasty DANIELLA and shockwave angioplasty LCFA and DFA on 06/10/22 Scheduled for right leg revascularization on 07/09 -- this will need to be rescheduled (notified patient's PCP office to assist) Continue ASA, statin Xarelto held on 07/10/2022 for colonoscopy Resume Xarelto as able>>>> consider transition to Eliquis given high incidence of GI bleed from Xarelto (4) Paroxysmal atrial flutter: (5) History of cardioversion: (6) History of cardiac radiofrequency ablation: Plan: Anticoagulated on Xarelto--held currently, resume as able Does not take any rhythm or rate controlling medications (7) Hypertension: Plan: Continue to hold lisinopril Monitor BP (8) DM type 2 (diabetes mellitus, type 2): Plan: Hgb A1c 7.3 03/2022 Hold metformin and utilize NovoLog per protocol while hospitalized (9) Irritable bowel syndrome with constipation: Plan: Continue Linzess (10) DVT prophylaxis: Plan: On Xarelto--Held SCD for now CODE STATUS Full code Admission and Anticipated Discharge Date Admission Date: July 07, 2022 Subjective Patient is seen and examined at bedside States having semiformed stool today No new complaints Plan for gastric emptying study tomorrow Denies any chest pain, dyspnea, dizziness, nausea, abdominal pain Tolerates current diet Review of Systems Review of Systems: All systems reviewed & are unremarkable except as noted in Subjective Physical Exam Physical Exam: Physical Exam: Vitals signs as noted above General Appearance:Moderately built and nourished, no apparent distress Head: normocephalic, Atraumatic Eyes: normal inspection, EOMI Neck: supple, Trachea midline Respiratory/Chest: Decreased breath sounds, CTA, No accessory muscle use Cardiovascular: S1, S2, No murmur Abdomen/GI:Soft, non tender, Bowel sounds present Extremities/Musculoskeletal:normal inspection, no edema Neurologic/Psych:AAOX3, grossly no focal neurological deficits Skin: normal color, warm Results & Data Results & Data Vital Signs (Past 12 Hours) Vital Signs Temp Pulse Pulse Resp BP Pulse Ox O2 Del Method 07/13/22 16:56 80 07/13/22 16:06 36.7 C 71 16 126/79 95 Room Air 07/13/22 11:34 36.8 C 72 16 135/79 94 Room Air 07/13/22 07:46 36.5 C 71 16 129/77 93 Room Air 07/13/22 07:45 63 Laboratory Results Short CBC 07/13/22 Range/Units 06:45 WBC 7.90 (4.8-10.8) K/ul Hgb 8.1 L (14.0-18.0) g/dl Hct 26.2 L (42.0-52.0) % Plt Count 418 H (130-400) K/uL (2) UTI (urinary tract infection) Urinary tract infection type: site unspecified
[2022-07-13] MEDS: NICOTINE 7 MG/24 HR TDSY TD SCH (21:17)
[2022-07-13] MEDS: ATORVASTATIN 40 MG TAB PO SCH (21:18)
[2022-07-14 08:25] LABS: Hematocrit (blood only) 27.1 % (42.0-52.0); Hemoglobin 8.4 g/dl (14.0-18.0); Mean Corpuscular Hemoglobin 23.3 pg (25.0-34.0); Mean Corpuscular Volume 75.3 fL (80.0-100.0); Mean Platelet Volume 8.6 fL (9.4-12.4); Platelet Count 483 K/uL (130-400); RDW Coefficient of Variation 19.2 % (11.5-14.5); RDW Standard Deviation 52.2 fL (36.4-46.3); White Blood Count 8.62 K/ul (4.8-10.8)
[2022-07-14 08:28] LABS: BUN Creatinine Ratio 17.2 (10-20); Calcium 8.2 mg/dl (8.6-10.3); Creatinine Clr Calc Pharmacy 128.2 ml/min; Est GFR (African American) 118.9 ml/min; Est GFR (Non-African American) 102.6 ml/min; Potassium 3.7 mmol/L (3.5-5.1)
[2022-07-14] MEDS: CEFDINIR 300 MG CAP PO SCH (09:33)
[2022-07-14] MEDS: MAGNESIUM CHLORIDE W/CALCIUM 64MG DELAYED REL TAB PO SCH (09:33)
[2022-07-14] MEDS: ESCITALOPRAM OXALATE 20 MG TAB PO SCH (09:34)
[2022-07-14] MEDS: ASPIRIN 81 MG ECTAB PO SCH (09:34)
[2022-07-14] MEDS: EZETIMIBE 10 MG TABLET PO SCH (09:34)
[2022-07-14] MEDS: UMECLIDINIUM/VILANTEROL 62.5/25MCG 7 PUFFS/INHALER INH SCH (09:34)
[2022-07-14] MEDS: TAMSULOSIN HCL 0.4 MG CAP PO SCH (09:34)
[2022-07-14] MEDS: FLUTICASONE FUROATE 100MCG 14 PUFFS/INHALER INH SCH (09:34)
[2022-07-14] MEDS: buPROPion XL 150 MG TABCR PO SCH (09:34)
[2022-07-14] MEDS: PANTOprazole 40 MG TAB PO SCH (09:34)
[2022-07-14] MEDS: linaCLOtide 72 MCG CAPSULE PO SCH (09:34)
[2022-07-14] MEDS: LACTOBACILLUS ACIDOPHILUS 1 GM PACK PO SCH ×3 (10:00→17:43)
[2022-07-14] MEDS: INSULIN ASPART PER UNIT CHARGE SC SCH ×3 (10:14→17:42)
[2022-07-14] MEDS: LANTUS PER UNIT CHARGE SQ SCH (11:36)
--- NOTE | 2022-07-14 11:54 | Gastroenterology Progress Note ---
Date of Service July 14, 2022 Assessment & Plan (1) Bloating: Plan: 72 year or male with history of IBS, UTI, PAF, GERD, dyslipidemia, HTN, T2DM, COPD admitted w/ decreased PO intake, general GI symptoms. EGD in April unremarkable, recent CTAP without any acute GI pathology, redundant sigmoid colon suggested. Colonoscopy 07/12 w findings of polyp, hemorrhoids. He ate solid breakfast well, but gets full easily. Otherwise abd exam w soft abd, non tender, good BS. - Continue Protonix, Linzess, Probiotics as dosed - F/U colonoscopy path - GES to r/o gastroparesis today ; f/u results - No further GI plans at this time and no contraindication for him to DC home today from our standpoint. GI will sign off. Pt can f/u OP Gi clinic, pls recall GI prn Admission and Anticipated Discharge Date Admission Date: July 07, 2022 Supervising Physician Co-Signing Physician Notes Attgd: Bloating with negative w/u for dysmotility, obstruction, pancreatic disease, mesenteric ischemia, gastroparesis. Likely Functional. OK for dc, recs as above. Subjective Patient doing well, denies abdominal bloating, pain, nausea or vomiting. Is undergoing gastric emptying study this morning. CTA abd/pelvis: 1. Fluid-filled nondilated loops of large and small bowel which can be seen in the setting of a diarrheal illness/gastroenteritis. 2. Patchy airspace opacities within the left lower lobe which are new from the prior study. This likely represents a pneumonia. 3. Prominence of the distal inferior mesenteric artery which extends into the right rectal wall and demonstrates early filling of the inferior mesenteric vein as described above. This raises the possibility of a rectal arteriovenous malformation. Clinical correlation recommended to assess for rectal bleeding. 4. Emphysema. 5. Atherosclerotic disease as described above without high-grade stenosis or occlusion of the major mesenteric vessels. Review of Systems Review of Systems: All systems reviewed & are unremarkable except as noted in HPI & below Physical Exam Constitutional: WD/WN, vitals as above well groomed, cooperative and comfortable Eyes: PERRL, conjunctivae normal, anicteric sclerae ENMT: external ear and nose normal, oropharynx normal Respiratory: normal respiratory effort, lungs clear to auscultation Cardiovascular: RRR, no murmur, no edema Gastrointestinal (Abdomen): normal bowel sounds, soft, nontender, no hepatosplenomegaly Skin: no rashes, warm and dry no jaundice Psychiatric: A+Ox3, euthymic affect Lymphatic: no lymphedema Results & Data Vital Signs (Past 12 Hours) Vital Signs Temp Pulse Pulse Resp BP Pulse Ox O2 Del Method 07/14/22 08:00 36.7 C 70 14 135/78 94 Room Air 07/14/22 07:52 68
--- NOTE | 2022-07-14 12:30 | Nuclear Medicine Report ---
NUCLEAR GASTRIC EMPTYING STUDY CLINICAL HISTORY: Postprandial abdominal pain. Bloating COMPARISON STUDY: Abdominal CT dated 07/13/2022. TECHNIQUE: Following the oral administration of 1.01 mCi of technetium 99m sulfur colloid in egg sand wich and 8 ounces of water, static abdominal images are obtained anteriorly and posteriorly at 0 tayler arnold, 1 hour, 2 hour, and 4 hour time intervals. Gastric emptying was calculated utilizing the geometr ic mean method. FINDINGS: There is approximately 72% activity remaining at the 1 hour time interval, 44% remaining at the 2 hour time interval (normal is less than 60%), and 10% activity remaining at the 4 hour time in terval (normal is less than 10%). IMPRESSION: Findings are consistent with normal gastric emptying for solids. ACT 112: Negative or not required by law. Electronically signed by: Tam Wu M.D. 07/14/2022 12:29 PM
--- NOTE | 2022-07-14 17:10 | Discharge Summary ---
Date of Service July 14, 2022 Admission HPI Per Admitting Provider 72-year-old male with PMH DM type II, HTN, dyslipidemia, COPD, tobacco abuse, paroxysmal atrial flutter s/p cardioversion and ablation, anticoagulated on Xarelto, PAD s/p LLE angioplasty on 06/10/2022, GERD, IBS, depression, and other problems listed below who presents to the ED for evaluation of lightheadedness and dizziness. Patient went to [facility] today to have labs done for upcoming procedure on Tuesday and upon walking into the building, patient reports he felt very lightheaded and dizzy. Patient was found to be significantly hypotensive and was sent to the ED for further evaluation. Patient recently underwent LLE angioplasty on 06/10/2022 and is scheduled for right leg revascularization on 07/09. Patient also has chronic GI issues with IBS with constipation. Recently was evaluated by GI for bloating and early satiety. Patient is scheduled for gastric emptying study. Patient reports having chills and rigors while in the ED, has remained afebrile. Denies chest pain and shortness of breath. No cough or sputum production. No nausea, vomiting, diarrhea. Denies urinary symptoms. In the ED, patient was hypotensive at 77/49, this improved with IVF. Labs show WBC 18 K. UA suggestive of UTI. CT ABD/pelvis unremarkable for acute findings. Patient was given IV Zosyn. Admission Exam Per Admitting Provider Lying in bed and looking ill Afebrile and hemodynamically stable Chest-clear to auscultate bilaterally Heart-S1, S2 regular Abdomen-distended, soft, mildly tender lower quadrants, no guarding or rigidity bowel sound present Extremities-no edema B[employer]-alert, awake and oriented x3 Principal Diagnosis UTI abdominal discomfort Discharge Exam General Appearance:Moderately built and nourished, no apparent distress Head: normocephalic, Atraumatic Eyes: normal inspection, EOMI Neck: supple Respiratory/Chest: Decreased breath sounds, CTA, No accessory muscle use Cardiovascular: S1, S2, No murmur Abdomen/GI:Soft, non tender, Bowel sounds present Extremities/Musculoskeletal:normal inspection, no edema Neurologic/Psych:AAOX3, speech fluent, answers appropriately, moves extremities Skin: normal color, warm Discharge Data Allergies Allergy/AdvReac Type Severity Reaction Status Date / Time cilostazol AdvReac Severe Nausea Verified 07/07/22 16:22 levofloxacin AdvReac Intermediate JOINT Verified 10/28/21 11:00 STIFFNESS Consultations 07/07/22 16:04 ED Decision to Admit Stat 07/08/22 10:56 Consult Gastroenterology Routine Procedures Performed Operation Date: 07/12/22 16:30 Actual Procedures p Colonoscopy Polypectomy - Gracie Wilcox MD Ordered Studies 07/07/22 12:03 CT abd pelvis IV con only Stat FINDINGS: Emphysema again noted at the lung bases. There are patchy and nodular airspace opacities within the basal left lower lobe which are new from the prior study. This likely represents a pneumonia. No pneumoperitoneum. No pneumatosis. No acute fractures identified. Small hypervascular foci seen within the left hepatic dome and right hepatic lobe favor perfusion anomalies. No hepatic or splenic masses. The gallbladder, pancreas, spleen, and adrenal glands are unremarkable. A few subcentimeter hypodense lesions within the left kidney are technically too small to characterize but statistically represent cysts. Normal right kidney. No hydronephrosis. No retroperitoneal lymphadenopathy. No pelvic free fluid. The bladder is decompressed and not well evaluated. The prostate gland is mildly enlarged. No bowel wall thickening or obstruction. Normal appendix. Fluid-filled nondilated loops of large and small bowel are seen throughout the abdomen. This is nonspecific but can be seen in the setting of a diarrheal illness/gastroenteritis. The heart is top normal in size. Moderate atherosclerotic plaque noted within the aorta and iliac arteries. There is an ectatic abdominal aorta measuring up to 2.6 cm in diameter. The celiac, superior mesenteric, and inferior mesenteric arteries are widely patent. There are 2 right renal arteries. The more superior right renal artery demonstrates up to 50% stenosis at the takeoff due to the calcified plaque. The single left renal artery is widely patent. Mild multifocal stenosis within the bilateral iliac arteries without evidence for a dissection or occlusion. Prominence of the distal inferior mesenteric artery which extends into the right rectal wall and demonstrates early filling of the inferior mesenteric vein. This is best seen on images 405 through 421. This raises the possibility of a rectal arteriovenous malformation. Mild stenosis of the bilateral common femoral arteries measuring up to 40%. IMPRESSION: 1. Fluid-filled nondilated loops of large and small bowel which can be seen in the setting of a diarrheal illness/gastroenteritis. 2. Patchy airspace opacities within the left lower lobe which are new from the prior study. This likely represents a pneumonia. 3. Prominence of the distal inferior mesenteric artery which extends into the right rectal wall and demonstrates early filling of the inferior mesenteric vein as described above. This raises the possibility of a rectal arteriovenous malformation. Clinical correlation recommended to assess for rectal bleeding. 4. Emphysema. 5. Atherosclerotic disease as described above without high-grade stenosis or occlusion of the major mesenteric vessels. 07/08/22 14:41 US duplex mesenteric Routine FINDINGS: Study is nondiagnostic secondary to obscuring bowel gas. Study is also limited secondary to patient body habitus. The mid abdominal aorta is visualized with normal plug flow, peak systolic velocities measuring up to 64 cm/s. Nonvisualization of the celiac trunk and superior mesenteric artery. IMPRESSION: The celiac and mesenteric arteries are obscured by bowel gas. 07/13/22 09:47 CTA abdomen pelvis w con [CT angio abdomen pelvis w con] Routine FINDINGS: Emphysema and mild dependent changes seen at the lung bases. No pneumoperitoneum. No pneumatosis. No acute fractures identified. There is a small fat-containing hiatus hernia, unchanged. The liver, gallbladder, pancreas, adrenal glands, and spleen are unremarkable. The main portal vein is patent. No retroperitoneal lymphadenopathy. There is an ectatic abdominal aorta measuring up to 2.8 cm in diameter. Mild bilateral perinephric edema, unchanged. No hydronephrosis. No pelvic free fluid. The bladder is underdistended. No bowel wall thickening or obstruction. Normal appendix. IMPRESSION: 1. No bowel wall thickening or obstruction. 2. Normal appendix. 3. Mild bilateral perinephric edema, unchanged. 4. Emphysema. Hospital Course (1) Sepsis: (2) UTI (urinary tract infection): Patient presenting for evaluation of lightheadedness and dizziness. Patient was walking into the outpatient clinic to have labs drawn when he became lightheaded and dizzy. He was found to be hypotensive and sent to the ED for further evaluation. Sepsis Urinary tract infection Blood cultures - negative Urine culture growing E. coli Dizziness resolved with IV fluids Continue Zosyn>> transition to Rocephin on 07/09/2022>>Cefdinir Monitor volume status Plan to continue 7-day course of antibiotics Dysphagia Abdominal pain ? Gastroparesis Possible gastroenteritis --CT ABD:No bowel wall thickening or obstruction. Normal appendix. Mild bilateral perinephric edema, unchanged. Emphysema. --EGD 04/26/22 negative -- S/P Colonoscopy:One 3 mm polyp in the cecum, removed with a cold snare. Resected and retrieved. Hemorrhoids. The examination was otherwise normal. --Mesenteric ultrasound:The celiac and mesenteric arteries are obscured by bowel gas. --CTA ABD:Fluid-filled nondilated loops of large and small bowel which can be s een in the setting of a diarrheal illness/gastroenteritis. Patchy airspace opacities within the left lower lobe which are new from the prior study. This likely represents a pneumonia. Prominence of the distal inferior mesenteric artery which extends into the right rectal wall and demonstrates early filling of the inferior mesenteric vein as described above. This raises the possibility of a rectal arteriovenous malformation. Clinical correlation recommended to assess for rectal bleeding. Emphysema. Atherosclerotic disease as described above without high-grade stenosis or occlusion of the major mesenteric vessels. --Pathology:Tubular adenoma. Negative for high grade dysplasia --Continue Linzess, Protonix, probiotic Gastric emptying study done today 07/14/22 - FINDINGS: There is approximately 72% activity remaining at the 1 hour time interval, 44% remaining at the 2 hour time interval (normal is less than 60%), and 10% activity remaining at the 4 hour time interval (normal is less than 10%). IMPRESSION: Findings are consistent with normal gastric emptying for solids. Appreciate GI input - - Continue Protonix, Linzess, Probiotics as dosed - F/U colonoscopy path Speech therapy consulted as well Tolerating current diet Plan to followup with GI as outpt prn (3) PAD (peripheral artery disease): S/P angioplasty DANIELLA and shockwave angioplasty LCFA and DFA on 06/10/22 Scheduled for right leg revascularization on 07/09 -- this will need to be rescheduled (notified patient's PCP office to assist) Continue ASA, statin Xarelto held on 07/10/2022 for colonoscopy Resume Xarelto on discharge - consider transition to Eliquis given high incidence of GI bleed from Xarelto (4) Paroxysmal atrial flutter: (5) History of cardioversion: (6) History of cardiac radiofrequency ablation: Anticoagulated on Xarelto--held while inpt, resume on DC, as above Does not take any rhythm or rate controlling medications (7) Hypertension: Held lisinopril while inpt, current BP 131/79 Monitor BP (8) DM type 2 (diabetes mellitus, type 2): Hgb A1c 7.3 03/2022 Hold metformin and utilize NovoLog per protocol while hospitalized (9) Irritable bowel syndrome with constipation: Continue Linzess (10) DVT prophylaxis: On Xarelto--Held , can resume on DC SCD for now CODE STATUS Full code Total Time Total Time Spent Total Time Spent (In Minutes): 40 Discharge Plan Discharge Items Patient Disposition: Home - Self-Care Reason For Visit: HYPOTENSION Discharge Diagnosis: UTI abdominal discomfort Activity: Per Instructions section Non-emergency contact: Primary Care Provider Call non-emergency contact if: you have any medication questions and your symptoms worsen Follow-up/Referrals: Nic Teague DO [Primary Care Provider] - (Date & Time 07/19/2022 10:40 AM Provider Nic Teague DO Department Family Practice [address], [place] ) Diet: Carb Consistent or DM2 and Low Fiber Diet Texture: Easy to Chew Addtl Attending Provider Instructions: Follow-up with your primary care physician. The appointment was scheduled for you for July,. Continue taking your Protonix, Linzess, probiotics as discussed with wound care center consultant. Finish antibiotic treatment with cefdinir, for UTI, as prescribed. Pending Studies at Discharge: No Stand-Alone Forms: [facility], Smoking Cessation Medications and DC Order Prescriptions: New cefdinir 300 mg Capsule 300 mg PO BID Qty: 3 0RF Continued metformin 500 mg tablet 1,000 mg PO BIDM Rx Instructions: Take with breakfast & dinner atorvastatin 80 mg tablet 80 mg PO HS ketoconazole 2 % shampoo 1 applic TOPICAL .Q3DAYS ondansetron HCl 4 mg Tablet 4 mg PO Q8H PRN (Reason: Nausea) meclizine 12.5 mg tablet 12.5 mg PO TID PRN (Reason: dizzyness) aspirin [Aspir-Low] 81 mg Tablet,Delayed Release (Dr/Ec) 81 mg PO DAILY acetaminophen [Tylenol Extra Strength] 500 mg Tablet 500 mg PO Q6H PRN (Reason: Pain) ascorbic acid (vitamin C) [Vitamin C] 500 mg Tablet 1,000 mg PO QAM tamsulosin 0.4 mg capsule 0.4 mg PO DAILY pantoprazole 40 mg tablet,delayed release (DR/EC) 40 mg PO BID lisinopril 5 mg Tablet 5 mg PO DAILY albuterol sulfate 90 mcg/actuation Hfa Aerosol Inhaler 2 puff INHALATION Q6H PRN (Reason: Shortness Of Breath) Culturelle 10 billion cell Capsule 1 cap PO DAILY escitalopram oxalate 20 mg Tablet 20 mg PO DAILY ezetimibe 10 mg tablet 10 mg PO DAILY bupropion HCl 150 mg tablet extended release 24 hr 150 mg PO QAM cholecalciferol (vitamin D3) [Vitamin D3] 25 mcg (1,000 unit) Tablet 25 mcg PO DAILY PreserVision AREDS 2,148 mcg-113 mg-45 mg-17.4mg Tablet 1 tab PO BID Rx Instructions: administer with AM and PM meals Xarelto 20 mg tablet 20 mg PO QPM Linzess 72 mcg capsule 72 mcg PO QAM Trelegy Ellipta 100-62.5-25 mcg blister with device 1 ea INHALATION QAM Discharge Orders: Discharge Order (Routine); Ordered 07/14/22 Ordered By: Ash Culp Admission Data Admit Date/Time: 07/07/22 18:05 Attending Provider: Ash Culp Admit Provider: Jae Wolfe Primary Care Provider: Nic Teague Other Providers: Jae Wolfe ; Angelic Jaramillo ; Elkin Huntley ; Ann Conrad ; Hilda Perla ; Yudelka Amador ; Blanca Billingsley ; Michael,Mc ; Rony Eller ; Oscar Oreilly ; Gracie Wilcox ; Ramon Wisdom ; Courtney Johns ; Elisa Vaughn ; Iveth Steen ; Rosio Hernandez ; Saroj Lee ; Wes Humphries ; Iraj Shore ; Elaina Bose ; Kitty Tristan Jr ; Javid Villar
== END 2022-07-14 18:00 | disposition home or self-care (01) | DRG 872 ==
LOC: ED 11:32 → EDINP 16:58 → SUATTDRO 16:58 → 2N 19:58